=== PATIENT | male | born 1960 | race Caucasian/White ===

== ENCOUNTER 2023-05-02 12:30 | Outpatient (CLI) | payer MEDICARE, OTHER, SELFPAY ==
[2023-05-02 15:50] LABS: Absolute Lymphocyte Count 3.99 X10^3/uL (0.83-4.51); Absolute Neutrophil Count 10.3 X10^3/uL (2.0-7.7); Basophil# 0.12 X10^3/uL; Basophil% 0.7 % (0-1); Eosinophil# 0.31 X10^3/uL; Eosinophils% 1.9 % (0-5); Hematocrit 47.6 % (40-54); Hemoglobin 15.7 g/dL (13.0-16.5); Lymphocyte # 3.99 X10^3/ul (0.83-4.51); Lymphocyte % 24.8 % (19-41); Mean Corpuscular Hgb 31.7 pg (27.0-32.0); Mean Corpuscular Volume 96.2 fL (80-94); Mean Platelet Vol. 11.8 fl (6.2-12.0); Monocyte# 1.32 X10^3/uL; Monocyte% 8.2 % (0-10); NRBC Flagged by Analyzer 0 % (0-5); Neutrophil # 10.28 X10^3/uL (2.7-7.7); Neutrophil % 63.9 % (47-70); Platelet Count 289 K/mm3 (150-450); RBC Distribution Width CV 14.4 % (11.6-14.6); RBC Distribution Width SD 50.8 fl (35.1-43.9); Red Blood Count 4.95 M/mm3 (4.6-6.2); White Blood Count 16.1 K/mm3 (4.4-11.0)
[2023-05-02 16:26] LABS: AST(SGOT) 23 U/L (15-37); Alanine Aminotransfer ALT/SGPT 32 U/L (16-61); Albumin, Serum 3.9 g/dL (3.2-5.0); Alkaline Phosphatase 76 U/L (45-117); Anion Gap 7 (5-15); BUN 10 mg/dL (7-18); BUN/Creat Ratio 11.5 RATIO (10-20); Calcium,Total 8.9 mg/dL (8.5-10.1); Chloride 107 mmol/L (98-107); Cholesterol 145 mg/dL (200); Creatinine, Serum 0.87 mg/dL (0.70-1.30); EST Glomerular Filtration Rate 94 mL/min (>60); Est Glom Filt Rate - Afr Amer 113 mL/min (>60); Globulin 3.8 g/dL (2.2-4.2); Glucose 83 mg/dL (74-106); High Density Lipoprotein 31 mg/dL; PSA,Total - Annual Screen 0.56 ng/mL (0.00-4.00); Potassium 4.2 mmol/L (3.5-5.1); Protein, Total 7.7 g/dL (6.4-8.2); Sodium Level 138 mmol/L (136-145); Thyroid Stim Hormone (TSH) 1.08 uIU/mL (0.358-3.74); Triglycerides 120 mg/dL; Very Low Density Lipoprotein 24 mg/dL (5-40)
== END 2023-05-02 23:59 | disposition home or self-care (01) ==
LOC: MFPLAB 12:38
PROVIDERS: PCP Family Medicine; Visit Provider Family Medicine
DX: I25.10 Atherosclerotic heart disease of native coronary artery without angina pectoris (principal); R30.0 Dysuria; Z13.6 Encounter for screening for cardiovascular disorders; Z12.5 Encounter for screening for malignant neoplasm of prostate
CPT/HCPCS: 36415; 80053; 80061; 84153; 84443; 85025; G0103

== ENCOUNTER → 2023-05-31 | Outpatient (CLI) | payer MEDICARE, OTHER, SELFPAY ==
[2023-05-31 15:43] LABS: Anion Gap 5 (5-15); BUN 12 mg/dL (7-18); BUN/Creat Ratio 12.7 RATIO (10-20); Calcium,Total 8.9 mg/dL (8.5-10.1); Chloride 108 mmol/L (98-107); Creatinine, Serum 0.94 mg/dL (0.70-1.30); EST Glomerular Filtration Rate 85 mL/min (>60); Est Glom Filt Rate - Afr Amer 103 mL/min (>60); Glucose 98 mg/dL (74-106); Potassium 3.7 mmol/L (3.5-5.1); Sodium Level 137 mmol/L (136-145)
== END | disposition home or self-care (01) ==
LOC: MFPLAB 12:26
PROVIDERS: PCP Family Medicine; Visit Provider Internal Medicine Cardiovascular Disease
DX: I25.10 Atherosclerotic heart disease of native coronary artery without angina pectoris (principal); I10 Essential (primary) hypertension
CPT/HCPCS: 36415; 80048

== ENCOUNTER → 2023-06-08 | Outpatient (CLI) | payer MEDICARE, OTHER, SELFPAY ==
--- NOTE | 2023-06-08 08:45 | US_ITS ---
EXAM: US RETROPERITONEAL LIMITED, AORTA CLINICAL INDICATION: Smoked for over 20 years TECHNIQUE: Reis scale and color Doppler imaging was obtained of the abdominal aorta. COMPARISON: No relevant prior studies available. FINDINGS: AORTA: There is no abdominal aortic aneurysm. COMMON ILIAC ARTERIES: Unremarkable as visualized. The iliac arteries are not enlarged. US/US ABD AORTA SCREEN/AAA IMPRESSION: No sonographic evidence of abdominal aortic aneurysm. Electronically Signed: Kimo Alfaro (Brooks), at 20:44 EDT ,
== END | disposition home or self-care (01) ==
LOC: US 08:41
PROVIDERS: PCP Family Medicine; Referring Provider Family Medicine; Visit Provider Family Medicine
DX: Z72.0 Tobacco use (principal); Z12.2 Encounter for screening for malignant neoplasm of respiratory organs
CPT/HCPCS: 76706

== ENCOUNTER → 2023-06-10 | Outpatient (CLI) | payer MEDICARE, OTHER, SELFPAY ==
--- NOTE | 2023-06-10 07:07 | AAAS_ITS ---
Reason For Study: TOB USE, SCREENING Aorta Measurements Aorta Doppler Measurements Proximal aorta measures2.12 x 2.14cm. in cross- Peak systolic flow velocities within the proximal sectional axis. aorta measure 90.4 cm/sec. Proximal aorta measures1.97cm. in longitudinal Peak systolic flow velocities within the mid aorta axis. measure 94.1 cm/sec. Mid aorta measures2.25 x 2.31cm. in cross- Peak systolic flow velocities within the distal sectional axis. aorta measure 116.2 cm/sec. Mid aorta measures2.35cm. in longitudinal axis. Distal aorta measures2.29 x 2.11cm. in cross- sectional axis. Distal aorta measures2.1cm. in longitudinal axis. Left Iliac Artery Left iliac artery measures 1.25 x 1.19 cm. in the cross-sectional axis. Left iliac artery measures 1.2 cm. in the longitudinal axis. Peak systolic velocity in the left iliac artery measures 85.1 cm/sec. Right Iliac Artery Right iliac artery measures 1.32 x 1.39 cm. in the cross-sectional axis. Right iliac artery measures 1.32 cm. in the longitudinal axis. Peak systolic velocity in the right iliac artery measures 94.2 cm/sec. VL/AAA Screening Interpretation Summary Aorta patent, normal caliber Bilateral iliac arteries patent, normal caliber Ordering Physician: Bre Ring Referring Physician: Bre Ring Performed By: Eulalia Serna, RDCS, RVT
== END | disposition home or self-care (01) ==
LOC: CVS 06:54
PROVIDERS: PCP Family Medicine; Referring Provider Family Medicine; Visit Provider Family Medicine
DX: Z72.0 Tobacco use (principal)
CPT/HCPCS: 76706

== ENCOUNTER → 2023-06-18 | Outpatient (CLI) | payer MEDICARE, OTHER, SELFPAY ==
--- NOTE | 2023-06-18 17:00 | CT_ITS ---
STUDY: CT ABDOMEN AND PELVIS WITH CONTRAST REASON FOR EXAM: Male, 63 years old. Abd pain and difficulty with urination RADIATION DOSAGE (If Supplied By Facility): CTDIvol = ( 17.97 ) mGy, DLP = ( 2149.22 ) mGycm TECHNIQUE: Transaxial images were obtained from the dome of the diaphragm to the symphysis pubis without oral contrast. IV 100mL Isovue-300 was administered. Sagittal and coronal images were reconstructed. Individualized dose optimization techniques were used for this CT. COMPARISON: June 08, 2023 Limited study ultrasound abdomen FINDINGS: There is visualized emphysematous change and minimal fibrotic change within the lungs. There is mild cardiac enlargement are visualized coronary calcifications. There is a nonspecific low attenuating 5 mm cyst in the right hepatic lobe, too small to characterize. There are surgical clips in the gallbladder fossa consistent with a prior cholecystectomy. Normal spleen. Normal pancreas. There is a thickened appearance of the left-sided adrenal gland with a small low attenuating nodule that measures approximately 1 cm. Normal right kidney. Normal left kidney. There is a fluid distended appearance of the stomach. Normal small intestine. There is abundant stool in the colon from the cecum to the rectum. There is minimal diverticulosis without diverticulitis. Appendix is not seen with certainty. The aorta is partially calcified. There is calcification taken of the celiac renal arteries are mesenteric artery and the inferior mesenteric artery. Normal inferior vena cava. Normal retroperitoneum. The bladder is distended. The delayed images show that the bladder is partially filled. There are prostatic calcifications. There are small fatty inguinal hernias. There is a visualized hernia mesh at the level anterior aspect of the abdomen underlying the umbilicus. There are diffuse degenerative changes of the visualized lumbar spine. At L5-S1 there is visualized vacuum phenomenon and disc space narrowing broad disc bulge mild neural foramina narrowing minimal central stenosis CT/Abdomen/Pelvis W IV Cont ONLY IMPRESSION: No hydronephrosis. No visualized renal ureteral bladder calculi. The bladder appears to partially fill with contrast on the delayed imaging. Consider pre and post void bladder ultrasound when appropriate. Moderate constipation. Mildly thickened appearance of the left adrenal gland with a small low attenuating nodule measuring 1 cm which is most likely an adrenal adenoma. Status post cholecystectomy. Degenerative change of the thoracolumbar spine. Electronically Signed: Mita Bryan MD at 2:53 EDT ,
== END | disposition home or self-care (01) ==
LOC: CT 16:42
PROVIDERS: PCP Family Medicine; Referring Provider Family Medicine; Visit Provider Family Medicine
DX: R10.9 Unspecified abdominal pain (principal)
CPT/HCPCS: 74177; Q9967

== ENCOUNTER → 2023-06-21 | Outpatient (CLI) | payer MEDICARE, OTHER, SELFPAY ==
--- NOTE | 2023-06-21 13:45 | ECHOD_ITS ---
Version 2 Reason For Study: ASHD/CAD Procedure This was a 2D Doppler, Color Flow transthoracic echocardiogram. Exam performed in department. Left Ventricle Normal LV size. Apical false tendon noted. Left ventricular systolic function is normal. The estimated ejection fraction is 60 %. Normal diastology for age. No regional wall motion abnormalities noted. Right Ventricle Normal RV size. Normal systolic function. Atria The left atrium is moderately enlarged. Normal right atrium. Mitral Valve The mitral valve is structurally normal. No prolapse or stenosis seen. Mild (1+) mitral valve insufficiency. Tricuspid Valve Normal tricuspid valve. Trivial tricuspid valve insufficiency. Unable to estimate RV systolic pressure due to insufficient tricuspid regurgitant envelope. Aortic Valve The aortic valve is not well visualized in the short axis view. There is no aortic stenosis. Pulmonic Valve The pulmonic valve is not well visualized. Great Vessels Mild atherosclerosis of the ascending aorta. Normal sized aortic root. Pericardium/Pleural No pericardial effusion. MMode/2D Measurements & Calculations RVDd: 3.1 cm Ao root diam: 2.9 cm LAV(MOD-bp): 80.0 ml LAV(MOD-bp) Indexed: 40.4 ml/m2 LAV(MOD-sp2): 70.8 ml LAV(MOD-sp4): 77.3 ml SV(MOD-sp4): 59.1 ml SV(sp4-el): 64.0 ml LVAd ap4: 32.6 cm2 LVLd ap4: 8.4 cm EDV(MOD-sp4): 101.9 ml EDV(sp4-el): 106.8 ml LVAs ap4: 18.1 cm2 LVLs ap4: 6.5 cm ESV(MOD-sp4): 42.8 ml ESV(sp4-el): 42.8 ml EF(MOD-sp4): 58.0 % EF(sp4-el): 60.0 % LA A4 area: 24.2 cm2 LA dimension(2D): 4.6 cm RA A4 area: 15.7 cm2 TAPSE: 2.1 cm Time Measurements MV dec time: 0.28 sec Doppler Measurements & Calculations MV E max ruben: 71.2 cm/sec Lat Peak E' Ruben: 12.1 cm/sec Med Peak E' Ruben: 10.9 cm/sec MV A max ruben: 69.2 cm/sec E/E' lat: 5.9 E/E' med: 6.5 MV E/A: 1.0 MV V2 max: 94.7 cm/sec Ao V2 max: 143.4 cm/sec MV max P.6 mmHg MV dec slope: 268.3 cm/sec2 Ao max P.2 mmHg MV V2 mean: 63.6 cm/sec Ao V2 mean: 100.0 cm/sec MV mean P.8 mmHg Ao mean P.5 mmHg MV V2 VTI: 32.2 cm Ao V2 VTI: 32.6 cm AV (velocity ratio): 0.74 LV V1 max: 115.1 cm/sec PA V2 max: 113.8 cm/sec LV V1 max P.3 mmHg PA V2 mean: 84.9 cm/sec LV V1 mean P.7 mmHg LV V1 mean: 76.2 cm/sec LV V1 VTI: 24.1 cm ECHO/Echo Complete Interpretation Summary The estimated ejection fraction is 60 %. Mild (1+) mitral valve insufficiency. The left atrium is moderately enlarged. Ordering Physician: Michael Houser Referring Physician: Michael Houser Performed By: Windy Vilchis RCS
== END | disposition home or self-care (01) ==
PROVIDERS: PCP Family Medicine; Referring Provider Internal Medicine Cardiovascular Disease; Visit Provider Internal Medicine Cardiovascular Disease
DX: I25.10 Atherosclerotic heart disease of native coronary artery without angina pectoris (principal); I10 Essential (primary) hypertension; Z95.5 Presence of coronary angioplasty implant and graft
CPT/HCPCS: 93306

== ENCOUNTER 2023-08-21 13:19 | Observation (INO) | payer MEDICARE, OTHER, SELFPAY ==
[2023-08-14 13:38] LABS: Hemoglobin 13.9 g/dL (13.0-16.5); Mean Corp Hgb Conc 33.1 g/dL (32-36); Mean Corpuscular Hgb 31.7 pg (27.0-32.0); Mean Corpuscular Volume 95.7 fL (80-94); Mean Platelet Vol. 10.9 fl (6.2-12.0); Platelet Count 296 K/mm3 (150-450); RBC Distribution Width CV 14.4 % (11.6-14.6); RBC Distribution Width SD 50.8 fl (35.1-43.9); Red Blood Count 4.39 M/mm3 (4.6-6.2); White Blood Count 11.6 K/mm3 (4.4-11.0)
[2023-08-14 13:44] LABS: Prothrombin Time (Protime)PT. 13.3 SECONDS (11.7-14.9)
[2023-08-14 13:45] LABS: Partial Thromboplast Time 29.8 Seconds (24.1-36.2)
[2023-08-14 14:05] LABS: AST(SGOT) 11 U/L (15-37); Alanine Aminotransfer ALT/SGPT 18 U/L (16-61); Albumin, Serum 3.4 g/dL (3.2-5.0); Alkaline Phosphatase 73 U/L (45-117); Bilirubin, Direct 0.18 mg/dL (0.00-0.30); Globulin 3.6 g/dL (2.2-4.2)
[2023-08-21] VITALS (10 sets, daily range): BP systolic 112–153; BP diastolic 59–73; PULSE 62–82; RESP 16–18; TEMP 36.4–37.1; O2SAT 95–98; BMI 33.2
[2023-08-21] MEDS: Lactated Ringers 1,000 ML 15 ML IV (12:00)
--- NOTE | 2023-08-21 12:08 | HP.PCM_ITS ---
HPI - General General Date of Service: 08/21/23 HPI Narrative CITLALLI CLAUDIO, is a 63 M who presents for transurethral resection of the prostate [facility] Medical History (Updated 08/12/23 @ 11:15 by Anne-Marie Hoffman) Alcohol use Arthritis Atherosclerosis of coronary artery of [place] heart without angina pectoris BPH (benign prostatic hyperplasia) Cardiology follow-up encounter Chronic cough COPD (chronic obstructive pulmonary disease) Excessive bleeding Gastric reflux History of echocardiogram History of edema History of heart attack Hypertension Restless legs Smoker STEMI (ST elevation myocardial infarction) Ventricular tachycardia Wears glasses Home Medications aspirin 81 mg chewable tablet 81 mg PO DAILY 05/30/23 [History Last Taken 08/09/23] losartan 25 mg tablet 25 mg PO DAILY #90 tabs 05/30/23 [Rx Last Taken 08/21/23] naproxen 220 mg PO BID 05/30/23 [History Last Taken Unknown] tamsulosin 0.4 mg capsule 0.4 mg PO QHS 05/30/23 [History Last Taken Unknown] sennosides 8.6 mg tablet 8.6 mg PO DAILY 07/10/23 [History Last Taken Unknown] famotidine 20 mg tablet 20 mg PO DAILY 08/12/23 [History Last Taken Unknown] Allergy/AdvReac Type Severity Reaction Status Date / Time acetaminophen [From Vicodin] AdvReac Intermediate Other Verified 08/12/23 11:00 hydrocodone [From Vicodin] AdvReac Intermediate Other Verified 08/12/23 11:00 Family History Father Hypertension Heart disease CVA (cerebral vascular accident) Mother Heart disease Brother Cancer Heart disease CVA (cerebral vascular accident) Sister Heart disease Cancer Surgical History (Updated 08/12/23 @ 11:12 by Anne-Marie Hoffman) History of appendectomy History of cardiac catheterization History of cholecystectomy History of coronary artery stent placement (08/09/14) S/P surgical removal of pilonidal cyst Social History (Updated 05/30/23 @ 11:25 by Alexandra Morrissey) Smoking Status: Current every day smoker tobacco type: cigarettes alcohol intake: current alcohol intake frequency: a few times a week substance use type: does not use caffeine: Yes Type: coffee Number of servings: 6 Vital Signs Vital Signs Vital Signs: 08/21/23 10:28 08/21/23 10:28 Temperature 98.7 F Temperature Source Temporal Pulse Rate 80 Respiratory Rate 18 Respiratory Pattern Normal Blood Pressure 153/71 H Blood Pressure Mean 98 Blood Pressure Source Monitor Blood Pressure Position Semi-Fowlers Blood Pressure Location Right Arm Pulse Ox 98 Oxygen Delivery Method Room Air Weight Weight: 93.44 kg Body Mass Index (BMI) 33.2 Results Lab / Micro Data 08/14/23 12:40
--- NOTE | 2023-08-21 12:30 | PROS_PTH ---
PATIENT: CITLALLI CLAUDIO LOC: MS3 U#:[id number] AGE/SX: 63/M ROOM: [facility] [place] RE08/21/[address]: Dr. Marco Madison MD : 1960 BED: 1 DIS: 08/22/2023 SPEC #: [id number] RECD: 08/22/23 07:51 STATUS: GEORGIANA MCDANIELS #: [id number] YAA: 08/21/23 12:[address]: Marco Madison DEPT: SURGICAL PATHOLOGY RECD BY: Carlie Centeno ENTERED: 08/22/23 07:51 SP TYPE: TURP OTHR DR: Bre Ring MD Tissues: Prostate, NOS Procedures: Surgery Specimen Level IV HEADER OPERATION: Cysto, transurethral resection prostate PRE-OP DIAGNOSIS: BPH TISSUE SUBMITTED: Prostate tissue MICROSCOPIC DIAGNOSIS Prostate tissue, Transurethral resection of prostate: Benign prostatic hyperplasia, glandular stromal type. Chronic inflammation. SJ: 08/23/2023 MICROSCOPIC DESCRIPTION Slides are reviewed. GROSS DESCRIPTION Received is one container labeled with the patient's name and designated prostate tissue. The specimen consists of multiple irregular fragments of pink-woodall, rubbery, soft tissue that in aggregate weigh 3.8 gm and measure in aggregate 3 x 3 x 1 cm. The entire specimen is submitted in four cassettes. /BARBARA:cc:benton 08/22/23 TC:5 CPT: 05580
[2023-08-21] MEDS: Cefazolin 2 GM in 0.9% Normal Saline (100mL Bag) 100 ML IV (12:38)
[2023-08-21] MEDS: Lubricating Jelly 60 GM Tube 30 GM (12:54)
--- NOTE | 2023-08-21 13:22 | DCINST_ITS ---
Discharge Instructions Diet Discharge Diet: No restrictions Activity Discharge Activity: Return to Normal Activity and May Not Drive (while taking narcotic pain medications.) Dressing / Incision Call your doctor if you observe: Fever of 101 or Higher Follow Up Care Please Follow Up With: Marco Madison MD When: Call [phone] for an appointment Test Results: Test results from this visit will be discussed in further detail at your follow- up appointment, if applicable. Discharge Plan Admission Primary Reason for Your Visit: Transurethral section of prostate Attending Provider: Marco Madison Primary Care Provider: Bre Ring Discharge Orders/Prescriptions Prescriptions: New ciprofloxacin HCl [Cipro] 500 mg tablet 500 mg PO BID Qty: 14 0RF Continued tamsulosin 0.4 mg capsule 0.4 mg PO QHS naproxen 220 mg PO BID losartan 25 mg tablet 25 mg PO DAILY Qty: 90 3RF aspirin 81 mg tablet,chewable 81 mg PO DAILY sennosides 8.6 mg tablet 8.6 mg PO DAILY famotidine 20 mg tablet 20 mg PO DAILY Referrals / Follow Up: Bre Ring MD [Primary Care Provider] - Marco Madison MD [Med Staff - Active Staff] - Disposition Disposition (needs filled in before D/C Order can be placed): Home, Self Care
--- NOTE | 2023-08-21 13:23 | OP.PCM_ITS ---
Report of Operation Date of Procedure: 08/21/23 Pre-Operative Diagnosis: BPH with obstruction, atonic bladder Post-Operative Diagnosis: The same Surgery/Procedure Performed:: Transurethral resection of the prostate Description of Surgical Findings:: This is a 63-year-old male has been having difficulty with emptying bladder slow stream poor emptying the bladder on cystoscopy found to have short but obstructive prostate he does have a distended bladder stretched out a week atonic looking bladder I recommended we do a transurethral resection of the prostate but understand the limitations the situation is possible that even with the resection of the prostate he still have difficulty emptying his bladder is possible that he may have an atonic bladder that can prevent bladder emptying and that the surgery will be effective in relieving his urinary obstructive symptoms. After consultation with the patient he agrees to proceed with a transurethral resection of prostate talked with the risk of bleeding infection and failure to improve his situation Patient was taken back to the operating room at a smooth induction of general anesthesia he was placed in dorsolithotomy position. The penis testicles were prepped and draped in usual fashion. Went into the bladder with a 24 Polish noncontinuous flow Olympus resectoscope identified the sphincter of the verumontanum the meatus was normal there is no strictures or structures along the course of the urethra one-sided identified the verumontanum the more the tissue was marked right in front of the Veru circumferentially and then starting at the 12:00 I resected back to the rakesh and then I worked my way down from the 12:00 to the 6:00 on the right side during the 12:00 1:00 2:00 3:00 and 4:00 and 5:00 and 6:00 resecting the tissue and then I worked my way back to 12:00 and th en worked my way back on the other side started at the 12 o'clock position working my left left with 11:00 10:00 9:00 8:00 6:00 and 5:00 on the left side once the all the tissue was resected then I resected completely make sure there is no flapping tissue we did a flow test the flow was adequate but not superstrong. The sphincter was intact I was happy with the resection that we then Ellik out all the resection chips from the bladder made sure hemostasis was perfect and then put a catheter bladder for continuous irrigation we will keep overnight for irrigation and remove the catheter tomorrow for voiding trial. Surgeon: Marco Madison Type of Anesthesia: General Drains: chinchilla Estimated Blood Loss (mL): 0 Admit VTE Documentation VTE Present on Admission: No VTE Mechan Device Prophylaxis: SCD's VTE Pharm Prophylaxis ordered?: No
[2023-08-21] MEDS: Lactated Ringers 1,000 ML 125 ML IV (14:50)
[2023-08-21] MEDS: HYDROcodone Bitartrate/Apap 5/325 Tablet PO (20:37)
[2023-08-21] MEDS: Docusate Sodium 100 MG Capsule 200 MG PO (20:41)
[2023-08-21] MEDS: Ciprofloxacin 400 MG/200 ML BAG 200 MG IV (20:41)
[2023-08-22 04:38] VITALS: BP 146/69; PULSE 75; RESP 16; TEMP 37.1; O2SAT 96
--- NOTE | 2023-08-22 07:53 | PCM.PN.GU ---
Subjective Subjective s/p TURP d/c chinchilla for a voiding trial home today after voids follow up with urology 2 weeks. Objective Data Objective Data Vital Signs: Vital Signs Temp Pulse Resp BP Pulse Ox O2 Del Method 98.7 F 75 16 146/69 H 96 Room Air 08/22/23 04:38 08/22/23 04:38 08/22/23 04:38 08/22/23 04:38 08/22/23 04:38 08/22/23 04:38 Oxygen Delivery Method Room Air Weight: 93.44 kg Body Mass Index (BMI) 33.2 Intake & Output: Intake and Output for Last 24 Hours 08/20/23 08/21/23 08/22/23 23:59 23:59 23:59 Intake Total 355.5 / 355.5 2300 / 2300 Output Total 2100 / 2100 1400 / 1400 Balance -1744.5 / -1744.5 900 / 900 Lab / Micro Data 08/14/23 12:40
[2023-08-22 08:02] VITALS: BP 144/68; PULSE 80; RESP 16; TEMP 36.9; O2SAT 95
[2023-08-22] MEDS: Ciprofloxacin 400 MG/200 ML BAG 200 MG IV (09:24)
[2023-08-22] MEDS: Docusate Sodium 100 MG Capsule 200 MG PO (09:24)
--- NOTE | 2023-08-22 09:37 | PHA.DC.MC.R ---
Pharmacy [facility] Pharm[facility] Service has performed discharge medication reconciliation and counseling for this patient. The patient was counseled on the following discharge medications and changes in medications for homegoing were reviewed. 1. CIPRO The Reason for Use, instructions for use, and potential side effects were reviewed for all new medications. The patient's questions regarding all of their medications were answered. The patient was able to verbally demonstrate an understanding of their discharge medications. The patient's discharge medication list was reviewed for discrepancies and discrepancies were resolved. The patient was counselled by Bruce Crespo PharmD candidate Medications at Discharge Home Medications aspirin 81 mg chewable tablet 81 mg PO DAILY 05/30/23 losartan 25 mg tablet 25 mg PO DAILY #90 tabs 05/30/23 naproxen 220 mg PO BID 05/30/23 tamsulosin 0.4 mg capsule 0.4 mg PO QHS 05/30/23 sennosides 8.6 mg tablet 8.6 mg PO DAILY 07/10/23 famotidine 20 mg tablet 20 mg PO DAILY 08/12/23 ciprofloxacin HCl 500 mg tablet (Cipro) 500 mg PO BID #14 tabs 08/21/23
[2023-08-22 12:53] VITALS: BP 117/65; PULSE 71; RESP 16; TEMP 36.8; O2SAT 100
== END 2023-08-22 12:58 | disposition home or self-care (01) ==
LOC: SDC 15:45 → MS3 15:45
PROVIDERS: Anesthesiology; Admitting Provider Urology; PCP Family Medicine; Referring Provider Urology; Visit Provider Urology
PROC: 0VT08ZZ Resection of Prostate, Via Natural or Artificial Opening Endoscopic (ICD-10-PCS; CPT 52601; principal; 2023-08-21 12:20)
DX: N40.1 Benign prostatic hyperplasia with lower urinary tract symptoms (principal); J44.9 Chronic obstructive pulmonary disease, unspecified; I25.10 Atherosclerotic heart disease of native coronary artery without angina pectoris; F17.210 Nicotine dependence, cigarettes, uncomplicated; R35.0 Frequency of micturition; R32 Unspecified urinary incontinence; R33.8 Other retention of urine; R35.1 Nocturia; N31.2 Flaccid neuropathic bladder, not elsewhere classified; I10 Essential (primary) hypertension; Z79.899 Other long term (current) drug therapy; K21.9 Gastro-esophageal reflux disease without esophagitis; Z79.82 Long term (current) use of aspirin; Z86.2 Personal history of diseases of the blood and blood-forming organs and certain disorders involving the immune mechanism; I25.2 Old myocardial infarction
CPT/HCPCS: 52601; 00914; 36415; 80076; 85027; 85610; 85730; 88305; 94668; 96361; 96365; 96366; 99221; 99406; J7120; G0378; J0744; J2405

== ENCOUNTER → 2023-09-24 | Outpatient (CLI) | payer MEDICARE, OTHER, SELFPAY | END | disposition home or self-care (01) | LOC: LABSPEC 17:09 | PROVIDERS: PCP Family Medicine; Referring Provider Nurse Practitioner; Visit Provider Nurse Practitioner | DX: N30.01 Acute cystitis with hematuria (principal) | CPT/HCPCS: 87077; 87086; 87088; 87186 ==

== ENCOUNTER 2023-10-24 08:46 | Day surgery (SDC) | payer MEDICARE, OTHER, SELFPAY ==
[2023-10-15 13:23] LABS: Hematocrit 45.1 % (40-54); Hemoglobin 14.9 g/dL (13.0-16.5); Mean Corpuscular Hgb 31.9 pg (27.0-32.0); Mean Corpuscular Volume 96.6 fL (80-94); Mean Platelet Vol. 11.2 fl (6.2-12.0); Platelet Count 259 K/mm3 (150-450); RBC Distribution Width SD 49.6 fl (35.1-43.9); Red Blood Count 4.67 M/mm3 (4.6-6.2); White Blood Count 11.9 K/mm3 (4.4-11.0)
[2023-10-15 13:42] LABS: AST(SGOT) 10 U/L (15-37); Alanine Aminotransfer ALT/SGPT 20 U/L (16-61); Albumin, Serum 3.7 g/dL (3.2-5.0); Alkaline Phosphatase 78 U/L (45-117); Anion Gap 2 (5-15); BUN 11 mg/dL (7-18); BUN/Creat Ratio 11.1 RATIO (10-20); Bilirubin, Direct 0.16 mg/dL (0.00-0.30); Calcium,Total 9.2 mg/dL (8.5-10.1); Chloride 108 mmol/L (98-107); Creatinine, Serum 0.99 mg/dL (0.70-1.30); EST Glomerular Filtration Rate 81 mL/min (>60); Est Glom Filt Rate - Afr Amer 98 mL/min (>60); Globulin 3.5 g/dL (2.2-4.2); Glucose 98 mg/dL (74-106); Potassium 3.8 mmol/L (3.5-5.1); Protein, Total 7.2 g/dL (6.4-8.2); Sodium Level 140 mmol/L (136-145)
[2023-10-15 13:46] LABS: Partial Thromboplast Time 29.6 Seconds (24.1-36.2); Prothrombin Time (Protime)PT. 12.7 SECONDS (11.7-14.9)
[2023-10-24] VITALS (9 sets, daily range): BP systolic 132–154; BP diastolic 68–83; PULSE 70–83; RESP 15–18; TEMP 36.1–36.9; O2SAT 93–100; BMI 33.4
[2023-10-24] MEDS: Lactated Ringers 1,000 ML 15 ML IV (09:19)
--- NOTE | 2023-10-24 09:20 | HP.PCM_ITS ---
History and Physical Date of Admission: 10/24/23 Date of Service: 10/04/23 MR#: [id number] Acct: [id number] Name: CITLALLI RODRIGUEZ Rep #: [id number] : 1960 Provider: Dr. Nicholas Lin MD Age/Sex: 63/M Location: [facility] Status: Signed Intake Vital Signs 08/27/2309:21 10/04/2313:01 Height 5 ft 6 in 5 ft 6 in Weight: 212 lb 6 oz 212 lb BMI 34.2 34.2 BP 125/77 H 135/81 H Blood Pressure Location Rt brachial Rt brachial Position Sitting Sitting Respiration 18 18 Pulse 87 74 Pulse Source Monitor Monitor Temp 98.0 F 98 F Temp Source Temporal Temporal Pulse Oximetry (%) 98 95 Oxygen Delivery Method room air room air Intake Visit Reasons: INGUINAL HERNIA Chief Complaint: update h/p hernia surgery Is patient in pain?: No Allergies acetaminophen [From Vicodin] Adverse Reaction (Intermediate, Verified 10/04/23 13:02) Otherhydrocodone [From Vicodin] Adverse Reaction (Intermediate, Verified 10/04/23 13:02) Other Medications aspirin 81 mg chewable tablet 81 mg PO DAILY 05/30/23 [History Confirmed 10/04/23] losartan 25 mg tablet 25 mg PO DAILY #90 tabs 05/30/23 [Rx Confirmed 10/04/23] naproxen 220 mg PO BID 05/30/23 [History Confirmed 10/04/23] tamsulosin 0.4 mg capsule 0.4 mg PO QHS 05/30/23 [History Confirmed 10/04/23] sennosides 8.6 mg tablet 8.6 mg PO DAILY 07/10/23 [History Confirmed 10/04/23] famotidine 20 mg tablet 20 mg PO DAILY 08/12/23 [History Confirmed 10/04/23] ciprofloxacin HCl 500 mg tablet (Cipro) 500 mg PO BID #14 tabs 08/21/23 [Rx Confirmed 10/04/23] PFSH Medical History Alcohol use Arthritis Atherosclerosis of coronary artery of [place] heart without angina pectoris BPH (benign prostatic hyperplasia) Cardiology follow-up encounter Chronic cough COPD (chronic obstructive pulmonary disease) Excessive bleeding Gastric reflux History of echocardiogram History of edema History of heart attack Hypertension Restless legs Smoker STEMI (ST elevation myocardial infarction) Ventricular tachycardia Wears glasses Surgical History History of appendectomy History of cardiac catheterization History of cholecystectomy History of coronary artery stent placement (08/09/14) S/P surgical removal of pilonidal cyst Family History Father Hypertension Heart disease CVA (cerebral vascular accident)Mother Heart diseaseBrother Cancer Heart disease CVA (cerebral vascular accident)Sister Heart disease Cancer Social History Smoking Status: Current every day smoker tobacco type: cigarettes alcohol intake: current alcohol intake frequency: a few times a week substance use type: does not use caffeine: Yes Type: coffee Number of servings: 6 HPI HPI HPI: Patient is a 63-year-old male who follows up for bilateral inguinal hernias. Initial surgical consultation was 07/10/2023. He shares that he has recovered well following his prostatectomy. He confirms that his urinary habits have improved and that he is getting up less throughout the nighttime. He has met with urology is pleased with his recovery. He does share that he has had to self cath a couple of times since his procedure. Concerning his hernias he shares that he is having more pain on the right side than the left side. He also notes that when flexing his upper leg he experiences some bulging on the right. Positively, Mr. Rodriguez shares that his constipation has responded well to daily use of MiraLAX and he is now experiencing 1-2 bowel movements per day. He confesses that his smoking status remained stable at approximately 1/2 pack/day. Below is recapitulated from patient's prior visit for ease of review: In the interim he did undergo a transurethral prostatectomy with urology on 08/21/2023. Today he reports that overall his recovery has been uneventful from this procedure, but states that he is yet to follow-up with urology and that this appointment is due on 09/09/2023. He does report that he has had to self cath several times since his procedure due to persistent urinary retention and yet he believes that overall this issue is improved from preop. He denies any postoperative fevers or chills. From a hernia standpoint he believes that his right side has become more symptomatic and he finds it uncomfortable when sitting with the bulge of tissue at that location. He also reports that there is a pulling sensation on the right side with taking deep breaths. He confirms that his bowel movements have been unaffected by this issue and that his transition to a generic Metamucil/fiber supplementation is resulting in more frequent bowel movements which she estimates occur 3 times per week. Concerning his smoking status, he reports that he has cut back but has not undergone complete cessation and states that his current use is a less than 1 pack/day. Patient is a 63-year-old male who presents for bilateral inguinal hernias. This finding was first noticed by CT imaging from 06/18/2023, however, patient states that he has been aware of discomfort in this location for the last 6 months to a year. He admits that he did not routinely seek medical evaluation due to his high deductible insurance plan until he recently became eligible for Medicare. He then established with Dr. Ring who recommended he pursue a CT scan for his complaints of constipation and difficulty urinating. 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 Beyond the occasional discomfort from these hernias he has not noticed any bulging or changes to his bowel habits. He does confirm a history of constipation and states that he is regularly taking sennosides per recommendation from Dr. Ring. Patient has a personal history of smoking which she quantifies as 30 to 40 pack years. He reports that he is interested in stopping smoking after visiting with Dr. Ring. Has no personal history of recurrent cutaneous infections including staph. In addition to the above Mr. Murdock's states that his difficulty urinating has led to a urologic evaluation and that he is now on Flomax. He states that it is only been 1 to 2 weeks with this prescription but that he is due for follow-up at the end of July. His issues include frequent nighttime awakenings and urgency. Pertinent surgical history includes: Open umbilical hernia, laparoscopic cholecystectomy, and laparoscopic appendectomy ROS General General: No weight change, appetite, fatigue, colon cancer, breast cancer or weakness HEENT HEENT: No difficulty swallowing, eye injury, eye surgery, swollen glands or hoarseness Endo Endocrine: No thyroid disease, diabetes mellitus, thyroid cancer, Hair loss, heat intolerance or cold intolerance Skin Skin: No rash or changing moles Breast Breast: No left breast lump, right breast lump, nipple discharge, breast pain, abnormal mammogram, abnormal US or breast enlargement Musc Musculoskeletal: Yes back problems and arthritis; No rheumatoid arthritis, gout or joint pain Cardio Cardiovascular: Yes heart disease, high blood pressure, heart attack and heart stent; No murmur, pacemaker, atrial fibrillation, palpitations, shortness of breat with exertion or chest pain Psych Psychiatric: No depression, anxiety or hearing voices Resp Respiratory: No shortness of breath, No sleep apnea, No cough, No COPD, No asthma, No emphysema and No wheezing Gastro Gastrointestinal: Yes abdominal pain, No nausea or vomiting, No diarrhea, No constipation, No blood in stool, Yes acid reflux, No hemorrhoids, No ulcers, No gallbladder problem and No black,tarry stools Joey Hematologic: No blood thinners, No blood disorders, No bleeding, No anemia and No blood clots Neuro Neurologic: No system reviewed and no additional complaints, except as documented, No as per HPI, No abnormal gait, No abnormal hearing, No abnormal movements, No abnormal speech, No behavioral changes, No burning sensations, No confusion, No convulsions, No disequilibrium, No dizziness, No localized weakness, No frequent falls, No headache(s), No lack of coordination, No loss of vision, No memory loss, No numbness, No other visual disturbances, No radicular pain, No restless legs, No sensory deficit, No syncope, No tingling, No tremor(s), No weakness and No other Exam Const General: cooperative and comfortable Orientation: alert, awake and oriented x3 Resp Effort & Inspection: normal respiratory effort GI Other: Well-healed subxiphoid port site incision, well-healed infraumbilical incision. Other: Tenderness over bilateral groins with right greater than the left. Testicles are bilaterally descended. Patient has tenderness with exam and I believe I palpate defects bilaterally in the indirect positions when he is asked to cough. Assessment and Plan Assessment and Plan (1) Inguinal hernia bilateral, non-recurrent: Status: Chronic Comment: Patient is a 63-year-old male with recently?diagnosed bilateral inguinal hernias that he believes have been present for at least the past 6 months to 1 year. There is no specific inciting event. Patient reports for a update H&P visit confirming his right side hernia has become more symptomatic with pain. The hernias are quite small in size based on my independent review of patient's CT imaging as well as exam. Today the patient's exam remains largely unchanged aside from maybe some more discomfort on the right side with palpation. Mr. Rodriguez appears to have recovered well following his prostatectomy with urology but is self cathing on occasion. We will have to take this into account during his perioperative phase of care. I am pleased to hear that he has made progress with his constipation and have shared that I would recommend he not increase his level of smoking at this point nor try to cut this habit completely as this may result in significant mucus production and coughing as he would try to recover. I reiterated our expectations for the surgery including details of the procedure and post procedure lifting restrictions. Regarding our procedure details, I shared with him my concern that we may simply only find evidence of a cord lipoma and no true hernia defect on the right, but he still seems interested in proceeding with dissection of the cord, lipoma removal and mesh placement in the event this is the finding. I also reviewed with him that his MRSA screening came back negative for both MRSA or staph colonization. Plan: ? Plan to proceed for robot-assisted bilateral inguinal hernia repair with mesh October 24, 2022 I have examined the patient and the H&P has been reviewed. There are no clinical changes since date of exam. Procedure and post procedure expectations were reviewed. He reiterates that he would like an exploration of his right spermatic cord even in the event that we do not identify an obvious inguinal hernia. Will therefore plan to proceed to the operating room for robot-assisted bilateral inguinal hernia repair with mesh.
[2023-10-24] MEDS: Cefazolin 2 GM in 0.9% Normal Saline (100mL Bag) 100 ML IV (10:50)
--- NOTE | 2023-10-24 14:38 | OP.PCM_ITS ---
Report of Operation Date of Procedure: 10/24/23 Pre-Operative Diagnosis: Bilateral inguinal hernias Post-Operative Diagnosis: 1. Right Direct type inguinal hernia containing fat with small cord lipoma 2. Left Indirect type inguinal hernia with moderately large cord lipoma Surgery/Procedure Performed:: 1. Robot-assisted bilateral inguinal hernia repair with mesh 2. Adhesiolysis x 60 minutes Description of Surgical Findings:: ? Numerous adhesions between the omentum and anterior abdominal wall as well as the patient's previously?placed umbilical mesh requiring takedown to initiate procedure ? Numerous adhesions between patient's sigmoid colon and anterior abdominal wall inferiorly requiring takedown proceed with surgery ? Hernias and cord lipomas as described above ? Tuft of preperitoneal fat versus enlarged lymph node adjacent to the left femoral vein medially Surgeon: Nicholas Lin retail sales associate bilingual: Aneudy Negrete Type of Anesthesia: General/Supplemental Anesthesiologist: Chu Rasheed Specimen's removed: 9 Description of Procedure: After appropriate identification the preoperative holding area the patient was brought to the operating room where he was positioned supine on the operating table. Preoperative antibiotics were completed and the patient was administered a general anesthetic. Patient's abdomen was then prepped and draped in usual sterile fashion. Formal timeout followed to confirm patient and procedure. Procedure was begun with an optical entry facilitated by Veress insufflation at Joes's point. Once pneumoperitoneum reached a set point pressure of 12 mmHg a right paramedian incision was made and a 8 mm robotic trocar was placed with a careful Optiview technique. Follow-up laparoscopic investigation revealed numerous adhesions to the anterior abdominal wall and visibility was restricted. Thus, the Veress needle was withdrawn and a robotic port was placed through this site. With these ports in place, patient was positioned in slight Trendelenburg and I began carefully taking down the omentum from the anterior ab dominal wall. It readily became apparent that the majority of these adhesions were to the patient's previously?placed umbilical mesh which appeared to be in proper position with a flat lie. There did not appear to be any adhesions between the bowel and the anterior abdominal wall. However, when the patient was placed in further steeper Trendelenburg positioning I still was unable to visualize the internal inguinal rings. Therefore I placed the remaining robotic port in the right upper quadrant under laparoscopic visualization and the robot was docked in standard fashion. At the robot console I spent time performing additional adhesiolysis between the patient's small bowel, omentum, and the anterior abdominal wall?in the location of patient's prior open appendectomy scar and then on the left side between the patient's sigmoid colon it anterior abdominal wall through the use of sharp scissors dissection and some limited cautery effect. In this positioning I could visualize a definite indirect inguinal hernia on the left but the bowel remained partially obstructing to the view so I requested my logging assistant undock the robot and anesthesia placed patient into steeper Trendelenburg positioning. This allowed some retraction of the bowel from the pelvis and under robotic guidance my logging assistant performed a local block of the ilioinguinal nerves bilaterally. Unfortunately with closer inspection I discovered that the adhesiolysis had caused unavoidable rents in the peritoneum. Robotically, a peritoneal flap was created on the right extending from the medial umbilical ligament to the level of the ASIS (external) and was bluntly dissected to expose the medial parietal compartment and lateral visceral compartments. Medially I could visualize the pubic tubercle and developed the space of Retzius which allowed me to extrapolate laterally in a favorable plane. There did not appear to be a indirect hernia sac nor any signs of significant cord lipoma, however, medially I did find a fat plug within a small direct defect which was removed. Then I extended the dissection down to the level of the psoas muscle in the visceral compartment. I was able to clearly visualize the inverted V by the splaying of the vas deferens medially and the spermatic vessels laterally. Just lateral to the spermatic vessels I identified a small cord lipoma which I reduced and dissected off the spermatic cord. The spermatic cord itself was somewhat fatty and thus left further undisturbed. The peritoneal flap was inspected to ensure that cord was appropriately parietalized and there was no pulling of the cord structures or the viscera deeply over the psoas using the pull test. Attention was turned to the patient's left side where, again, a peritoneal flap was created and dissection was carried down in similar fashion to the space of Retzius medially and laterally over the psoas at the same depth. Here there was no obvious direct hernia defect but there was a significant amount of preperitoneal fat versus a fatty lymph node overlying the direct space. I attempted to place posterior traction on the structure to determine if I could establish an areolar plane anteriorly and thereby create a more optimal mesh groove. With this maneuver I was able to clearly establish the medial aspect of the femoral vein but the structure in which I placed traction began to ooze slightly and did not appear to be easily displaced. Therefore I moved more laterally to dissection of the patient's indirect inguinal hernia and placed traction on the hernia sac while sweeping away and using select electrocautery to relieve attachments to the hernia sac until it was fully reduced back to the level of the rest of the peritoneum. Lateral to the spermatic cord I identified a large cord lipoma which was reduced and dissected off the cord with a combination of blunt dissection and selective energy usage. It was left intact within the preperitoneal pocket?remaining vascularized from its more proximal attachment. Again, I performed the pull test to ensure that there was no tenting of structures that may compromise the future mesh lie. There was some additional peritoneum directly overlying the cord structures and the vas which I dissected posteriorly. Once satisfied, 2 X Bard 3D max, size large, mid weight meshes were placed into the abdomen along with suture. Each mesh was positioned within the respective preperitoneal pocket so that there was good medial and inferior overlap. The left mesh was then tacked to the admuniculum of the linea alba just superior to the pubic tubercle and laterally in a partial-thickness bite of the abdominal wall using a 3-0 Vicryl suture (above an imaginary line between the ASIS promontories). The right mesh was then tacked to Vinh's ligament medially and laterally as it had been done on the left side. The peritoneal flap on the right was then closed with a running 3-0 V-Loc suture taking care to conceal the barbs of the suture beneath the peritoneum. I then transitioned to the left side and closed the flap with a new 3-0 V-Loc suture in a running fashion and locked by running back on itself. There was a single peritoneal rent on the right as well as the generalized attenuated status and this rent was closed with running 3-0 Vicryl suture. A small peritoneal rent was located in the upper inner aspect of the closure adjacent to the medial umbilical ligament and this was closed with a [id number] using a second 3-0 Vicryl suture. Lastly a larger rent of the peritoneum adjacent to the sigmoid colon was closed with another running 3-0 Vicryl suture. With these closures no mesh was visible to the peritoneum. Sutures were systematically removed from the peritoneum. Pneumoperitoneum was evacuated and trocars were removed. The port sites were closed at the skin with running 4-0 Monocryl in a subcuticular fashion. Steri-Strips and OpSite's were used as dressings. Patient's testicles were confirmed within the scrotum. Patient was then awoken from anesthetic and transferred to PACU for ongoing recovery. Grafts/Implants Used: 3D max mid, LOT [id number], [id number], 3D max mid, lot [id number], ref [id number] Complications None Admit VTE Documentation VTE Mechan Device Prophylaxis: SCD's Procedures Digestive 40xxx-49xxx: 80256 Lap ing hernia repair init (with 50 modifier)
[2023-10-24] MEDS: Bupivacaine Mpf 0.5% 30 ML VIAL (14:39)
--- NOTE | 2023-10-24 14:49 | DCINST_ITS ---
Discharge Instructions Diet Discharge Diet: No restrictions Activity Discharge Activity: May Not Drive (While taking narcotic pain medication) and May Shower May shower in (days): 2 Ice area for (Minutes): 20 Lifting Restrictions: No lifting greater than 10 pounds for the next 5 weeks Dressing / Incision Call your doctor if your incision/area has: Continuous Slow Oozing, Increased Pain/ Swelling, Increased Redness, Foul Smelling Discharge and Swelling at the incision site Call your doctor if you observe: Fever of 101 or Higher, Inability to urinate and Inability to have a bowel movement Change Dressing in: 2 days (Please leave Steri-Strips intact until they fall off spontaneously or are taken off at your follow-up visit) Remove Dressing in: 2 days Cleanse incision/area with: Soap & Water and Keep Dressing Clean & Dry Follow Up Care Please Follow Up With: Nicholas Lin MD When: 1 week postop Test Results: Test results from this visit will be discussed in further detail at your follow- up appointment, if applicable. Discharge Plan Admission Primary Reason for Your Visit: Bilateral inguinal hernias Attending Provider: Nicholas Lin Primary Care Provider: Bre Ring Discharge Orders/Prescriptions Prescriptions: New tramadol 50 mg tablet 50 mg PO Q6H PRN (Reason: pain) Qty: 10 0RF Continued naproxen 220 mg PO BID losartan 25 mg tablet 25 mg PO DAILY Qty: 90 3RF aspirin 81 mg tablet,chewable 81 mg PO DAILY sennosides 8.6 mg tablet 8.6 mg PO DAILY famotidine 20 mg tablet 20 mg PO DAILY Referrals / Follow Up: Bre Ring MD [Primary Care Provider] - Disposition Disposition (needs filled in before D/C Order can be placed): Home, Self Care
== END 2023-10-24 18:36 | disposition home or self-care (01) ==
LOC: SDC 08:46 → AC 08:47
PROVIDERS: Anesthesiology; PCP Family Medicine; Referring Provider Surgery; Visit Provider Surgery
PROC: (CPT 49650; principal; 2023-10-24 10:10)
DX: K40.20 Bilateral inguinal hernia, without obstruction or gangrene, not specified as recurrent (principal); J44.9 Chronic obstructive pulmonary disease, unspecified; K56.609 Unspecified intestinal obstruction, unspecified as to partial versus complete obstruction; I25.10 Atherosclerotic heart disease of native coronary artery without angina pectoris; R33.9 Retention of urine, unspecified; D17.6 Benign lipomatous neoplasm of spermatic cord; I25.2 Old myocardial infarction; R05.3 Chronic cough; K21.9 Gastro-esophageal reflux disease without esophagitis; I10 Essential (primary) hypertension; Z90.49 Acquired absence of other specified parts of digestive tract; Z79.82 Long term (current) use of aspirin; Z95.5 Presence of coronary angioplasty implant and graft; F17.210 Nicotine dependence, cigarettes, uncomplicated; N40.0 Benign prostatic hyperplasia without lower urinary tract symptoms
CPT/HCPCS: 49650; 44180; 00840; 55520; S2900; 36415; 80048; 80076; 85027; 85610; 85730; 87081; J7120; J2405

== ENCOUNTER → 2024-01-09 | Outpatient (CLI) | payer MEDICARE, OTHER, SELFPAY | END | disposition home or self-care (01) | LOC: LABSPEC 15:52 | PROVIDERS: PCP Family Medicine; Referring Provider Nurse Practitioner; Visit Provider Nurse Practitioner | DX: N30.00 Acute cystitis without hematuria (principal) | CPT/HCPCS: 87077; 87086; 87088; 87186 ==

== ENCOUNTER → 2024-02-24 | Outpatient (CLI) | payer MEDICARE, OTHER, SELFPAY ==
--- NOTE | 2024-02-24 06:28 | ART_ITS ---
Reason For Study: Claudication Procedure A bilateral lower extremity continuous wave Doppler with analog waveform analysis,segmental pressures,and ankle brachial indexes without exercise. Left Segmental Pressures Left brachial= 135mmHg. Left posterior tibial artery = 155mmHg. Left dorsalis pedis artery = 147mmHg. Left digit = 122 mmHg. The left dorsalis pedis waveforms are triphasic. The left posterior tibial artery waveforms are triphasic. Right Segmental Pressures Right brachial= 133mmHg. Right posterior tibial artery = 166mmHg. Right dorsalis pedis artery = 153mmHg. Right digit = 117 mmHg. The right dorsalis pedis waveforms are triphasic. The right posterior tibial artery waveforms are triphasic. Indices The right ankle brachial index by the dorsalis pedis is 1.13. The right ankle brachial index by the posterior tibial artery is 1.23. The right digital-brachial index is 0.87. The left ankle brachial index by the dorsalis pedis is 1.09. The left ankle brachial index by the posterior tibial artery is 1.15. The left digital-brachial index is 0.90. VL/Lower Ext Art Exam w/o Exercis Interpretation Summary Right ZHEN 1.23, normal. TBI and Doppler/PVR waveforms of the right leg normal a t rest. Left ZHEN 1.15, normal. TBI and Doppler/PVR waveforms of the left leg normal at rest. Ordering Physician: Dean Perez Referring Physician: Leigh Owens Performed By: Tonia Gomez RVT
--- NOTE | 2024-02-24 13:19 | STRESSREP ---
Stress Test Report Date: 02/24/2024 Procedure: Pharmacologic stress nuclear imaging study Indications: Dyspnea on exertion Consent: Per the patient Procedure: The patient was initially tried as an exercise stress test however he could not walk on the treadmill because of leg discomfort. Subsequently the test was changed to pharmacological stress. The patient underwent pharmacologic (Regadenoson 0.4mg ) evaluation with a peak heart rate of 86 beats per minute (55%predicted maximal heart rate) and a peak blood pressure of 118/64 mmHg. The baseline ECG demonstrated sinus rhythm. The peak pharmacologic ECG demonstrated no ischemic changes. There were no cardiac dysrhythmias pretest, during pharmacologic infusion, or recovery. There was no complaint of chest discomfort during pharmacologic infusion or recovery. The patient was injected with 15.0 millicuries of technetium 99m Cardiolite and subsequently rest SPECT Cardiolite nuclear imaging was obtained in the horizontal long, vertical long, and short axis views. The patient underwent pharmacologic (Regadenoson) evaluation. The patient was injected with 45.0 millicuries of technetium 99m Cardiolite and subsequently stress SPECT Cardiolite nuclear imaging was obtained in the horizontal long, vertical long, and short axis views. A gated Cardiolite study at peak stress was obtained. The examination was stopped secondary to completion of protocol. Rest and stress SPECT Cardiolite nuclear imaging status post realignment, normalization, and attenuation correction demonstrate small fixed defect of the apex however with normal wall motion, consider attenuation artifact. There is end systolic thickening and brightening. The gated Cardiolite study demonstrates myocardial thickening and inward wall motion. The reported LVEF is 62%. Impression: 1. Pharmacologic (Regadenoson) evaluation 2. Peak pharmacologic ECG with no ischemic changes. 3. There were no cardiac dysrhythmias pretest, during pharmacologic infusion, or recovery. 5. Rest and stress SPECT Cardiolite nuclear imaging demonstrate relative uniform tracer uptake and myocardial perfusion appearing within normal limits. 6. The gated Cardiolite study reports an LVEF of 62%. This note was generated with [employer] software. It may contain incorrect words, spelling, and punctuation that were not noted in checking the note before signing.
== END | disposition home or self-care (01) ==
PROVIDERS: PCP Nurse Practitioner; Referring Provider Nurse Practitioner Family; Visit Provider Nurse Practitioner Family
DX: I25.10 Atherosclerotic heart disease of native coronary artery without angina pectoris (principal); Z95.5 Presence of coronary angioplasty implant and graft; I10 Essential (primary) hypertension; R06.09 Other forms of dyspnea; I73.9 Peripheral vascular disease, unspecified
CPT/HCPCS: 78452; 93017; 93923; A9500; A4216; J2785

== ENCOUNTER → 2024-07-15 | Outpatient (CLI) | payer MEDICARE, OTHER, SELFPAY ==
[2024-07-15 16:35] LABS: PSA,Total - Annual Screen 0.49 ng/mL (0.00-4.00)
== END | disposition home or self-care (01) ==
LOC: LAB 14:56
PROVIDERS: PCP Nurse Practitioner; Referring Provider Urology; Visit Provider Urology
DX: Z12.5 Encounter for screening for malignant neoplasm of prostate (principal)
CPT/HCPCS: 36415; 84153; G0103

== ENCOUNTER 2025-02-24 13:04 | Day surgery (SDC) | payer MEDICARE, OTHER, SELFPAY ==
--- NOTE | 2025-02-23 13:04 | EKG12_ITS ---
Test Reason : PREOP Blood Pressure : */* mmHG Vent. Rate : 76 BPM Atrial Rate : 76 BPM P-R Int : 220 ms QRS Dur : 96 ms QT Int : 398 ms P-R-T Axes : 40 11 15 degrees QTcB Int : 447 ms Sinus rhythm with 1st degree A-V block Otherwise normal ECG Confirmed by Nicholas Duarte ([id number]), story editor TERESO CONTRERAS ([id number]) on 02/25/2025 10:08:55 AM Referred By: Marco Madison Confirmed By: Nicholas Duarte
[2025-02-23 13:53] LABS: Hematocrit 39.7 % (40-54); Hemoglobin 13.4 g/dL (13.0-16.5); Mean Corp Hgb Conc 33.8 g/dL (32-36); Mean Corpuscular Hgb 32.4 pg (27.0-32.0); Mean Corpuscular Volume 95.9 fL (80-94); Mean Platelet Vol. 10.4 fl (6.2-12.0); Platelet Count 272 K/mm3 (150-450); RBC Distribution Width CV 13.9 % (11.6-14.6); RBC Distribution Width SD 49.3 fl (35.1-43.9); Red Blood Count 4.14 M/mm3 (4.6-6.2); White Blood Count 13.8 K/mm3 (4.4-11.0)
[2025-02-23 14:02] LABS: Partial Thromboplast Time 27.9 Seconds (24.1-36.2)
[2025-02-23 15:10] LABS: AST(SGOT) 16 U/L (<=37); Alanine Aminotransfer ALT/SGPT 15 U/L (<=46); Albumin, Serum 4.2 g/dL (3.4-4.8); Alkaline Phosphatase 90 U/L (40-129); Anion Gap 11 (5-15); BUN 14 mg/dL (4-19); BUN/Creat Ratio 17.5 RATIO (10-20); Bilirubin, Direct 0.24 mg/dL (0.00-0.30); Calcium,Total 9.4 mg/dL (7.6-11.0); Carbon Dioxide 24.2 mmol/L (21.0-32.0); Chloride 104 mmol/L (98-108); Creatinine, Serum 0.77 mg/dL (0.70-1.20); EST Glomerular Filtration Rate 99 (>60); Globulin 2.9 g/dL (2.2-4.2); Glucose 101 mg/dL (70-99); Sodium Level 139 mmol/L (133-145); Total Bilirubin 0.41 mg/dL (0.00-1.30)
--- NOTE | 2025-02-23 15:24 | PAT.ANE_ITS ---
Pre-Assessment Diagnosis/Proposed Procedure Planned Operative Procedure(s): TUR BLADDER NECK CONTRACTURE Anesthesia History Anesthesia History - lead radiologic technologist: Anesthesia History - lead radiologic technologist Hx Hospitalization No 02/19/25 08:55 Any Problems With Anesthesia No 02/19/25 08:55 Cholinesterase deficiency No 02/19/25 08:55 You/Your Family Experience No 02/19/25 08:55 fever (hyperthermia) with Relationship Recent Exposure to Contagious No 10/24/23 09:21 Disease Does patient have nerve No 02/19/25 08:55 stimulator Patient instructed to have device shut off --Does patient have Pacemaker or ICD? When Was Last Pacemaker Check QUESTION #4 FULL TEXT: You/Your Family Experience fever (hyperthermia) with Anesthesia Last Oral Intake Last Oral intake: Last Oral Intake NPO since Meds taken in AM with sips of water? Meds patient instructed to take am of surgery PONV PONV - lead radiologic technologist: PONV - lead radiologic technologist Female No 02/19/25 08:55 HX of Motion Sickness No 02/19/25 08:55 HX of N/V After Surgery No 02/19/25 08:55 Non-Smoker No 02/19/25 08:55 Duration of Surgery greater Yes 02/19/25 08:55 than 60 minutes Number of Risk Factors 1 02/19/25 08:55 PONV Score Low Risk 02/19/25 08:55 Height & Weight Height & Weight: Anesthesia: Height & Weight Height 5 ft 2.5 in 01/07/25 16:31 Respiratory Assessment Respiratory Assessment - lead radiologic technologist: Respiratory Tract Infection Hx - lead radiologic technologist Hx Respiratory Tract Infection No 02/19/25 08:55 STOP Sleep Apnea STOP Sleep Apnea - lead radiologic technologist: STOP Sleep Apnea - lead radiologic technologist Hx Hypertension Yes: CONTROLLED WITH MED 02/19/25 08:55 Hx Sleep Apnea No 02/19/25 08:55 CPAP BIPAP Do you snore loudly (louder Yes 02/19/25 08:55 than talking or can be heard Do you often feel tired/ No 02/19/25 08:55 fatigued/ sleepy during daytime? Has anyone observed you stop No 02/19/25 08:55 breathing during sleep? STOP Results Positive 02/19/25 08:55 QUESTION #5 FULL TEXT : Do you snore loudly (louder than talking or can be heard through closed doors)? 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 Specify any problems Hx of Preganancy in last 3 N/A 02/19/25 08:55 Months Nurse Filling Out Transfusion DSCHRIBER 02/19/25 08:55 & Questions: Date: 02/19/25 02/19/25 08:55 Time: 08:57 02/19/25 08:55 Patient unable to answer at this time (ie. confused, unrespo /Reproduction History /Reproductive History - lead radiologic technologist: /Reproductive Hx- lead radiologic technologist Hx Now No 02/19/25 08:55 Gestational Age (in weeks): EDC: Hx Hx Para Hx Section SAB No 02/19/25 08:55 Active Medications Active Medications: Current Medications Generic Name Dose Route Start Last Admin Trade Name Freq PRN Reason Stop Dose Admin Cefazolin Sodium 2 gm/ Sodium 110 mls @ 150 mls/hr 02/24/25 15:25 Chloride IV 02/24/25 16:08 INTRAOP ONE PFSH Medical History Prostate disease High cholesterol Easy bruising Leg cramps History of stress test Hyperlipemia Hypertension Wears glasses Alcohol use Arthritis Restless legs Gastric reflux Smoker COPD (chronic obstructive pulmonary disease) Chronic cough History of edema History of echocardiogram Cardiology follow-up encounter History of heart attack BPH (benign prostatic hyperplasia) Ventricular tachycardia STEMI (ST elevation myocardial infarction) Atherosclerosis of coronary artery of [place] heart without angina pectoris Home Medications ?Medication ?Instructions ?Recorded ?Last Taken ?Type aspirin 81 mg chewable tablet 81 mg PO DAILY 05/30/23 02/15/25 History naproxen 220 mg PO BID 05/30/2302/15 History bethanechol chloride 25 mg tablet 25 mg PO TID 4 Unknown History losartan 25 mg tablet 25 mg PO DAILY #90 tabs 04/15 Unknown Rx prelubed urine catheter #270 ea 09/21/24 Unknown Rx atorvastatin 40 mg tablet 40 mg PO QHS #90 tabs Unknown Rx tamsulosin 0.4 mg capsule 0.4 mg PO QHS 02/19/25 Unkno wn History Allergy/AdvReac Type Severity Reaction Status Date / Time acetaminophen (From Vicodin) AdvReac Intermediate unable to Verified 02/19/25 08:52 urinate hydrocodone (From Vicodin) AdvReac Intermediate unable to Verified 02/19/25 08:52 urinate Family History Father Hypertension Heart disease CVA (cerebral vascular accident) Mother Heart disease Brother Cancer Heart disease CVA (cerebral vascular accident) Sister Heart disease Cancer Surgical History Hx of bilateral inguinal hernia repair History of surgery on arm S/P bilateral inguinal hernia repair Hx of transurethral resection of prostate History of cardiac catheterization S/P surgical removal of pilonidal cyst History of coronary artery stent placement (08/09/14) History of cholecystectomy History of appendectomy Social History Smoking Status: Current every day smoker tobacco type: cigarettes alcohol intake: current alcohol intake frequency: a few times a week substance use type: does not use caffeine: Yes Type: coffee Number of servings: 6 Prior Cardiac Testing/Procedures Prior Cardiac Testing/Procedures: Echocardiogram (Interpretation Summary The estimated ejection fraction is 60 %. Mild (1+) mitral valve insufficiency. The left atrium is moderately enlarged.) Recommendation Anesthesia Recommendation Anesthesia recommendation: OPTIMIZED for anesthesia Follow up Details Cardiac/Pulmonary Imaging Recommendation: Yes [place]/Pulmonary Imaging Rec Details: EKG the morning of surgery
[2025-02-24] VITALS (9 sets, daily range): BP systolic 107–146; BP diastolic 46–67; PULSE 68–79; RESP 16–20; TEMP 36.7–37; O2SAT 91–98; BMI 36.3
[2025-02-24] MEDS: Lactated Ringers 1,000 ML 15 ML IV (13:41)
--- NOTE | 2025-02-24 14:00 | PRE.ANES_ITS ---
ASA Classification* ASA Classification ASA Classification: 3 Assessment & Plan Anesthesia* Anesthesia Assessment Anesthesia Assessment: Discussed sedation and/or anesthesia options, risks, benefits, and alternatives with patient/parents/legal guardian/POA. Questions invited. The patient/parents/legal guardian/POA seems to understand and agrees to proceed with anesthesia plan. Reviewed the physical assessment, medical history, allergy history and patient home medications list prior to surgery/procedure/anesthetic and documented any changes. Performed airway and anesthesia risk assessments. Anesthesia Type Anesthesia Type: General History Source History Obtained from:: Patient and Chart Anesthesia Focused Assessment* Temperature: 98.1 F Pulse Rate: 74 Blood Pressure: 146/57 Respiratory Rate: 18 Pulse Ox: 97 Oxygen Delivery Method: Room Air Airway Assessment Mouth opens: >3 cm Mallampati Score: I Teeth Condition: Missing Neck Range of motion (ROM): Full ROM Comment: Edentulous uppers. Missing some teeth on the bottom. Focused Labs Anesthesia Preop lab: CBC WBC 13.8 K/mm3 (4.4-11.0) H 02/23/25 13: 5 RBC 4.14 M/mm3 (4.6-6.2) L 02/23/25 13:02/23/25 Hgb 13.4 g/dL (13.0-16.5) 02/23/25:02/23/25 Hct 39.7 % (40-54) L 02/23/25 13:30 02/23/25 Plt Count 272 K/mm3 (150-450) 02/23/25 13:02/23/25 CHEMISTRY Potassium 4.0 mmol/L (3.3-5.1) 02/23/25 13:30 02/23/25 Sodium 139 mmol/L (133-145) 02/23/25 13:02/23/25 BUN 14 mg/dL (4-19) 02/23/25:02/23/25 Creatinine 0.77 mg/dL (0.70-1.20) 02/23/25 13:02/23/25 Glucose 101 mg/dL (70-99) H 02/23/25 13:02/23/25 TSH 1.08 uIU/mL (0.358-3.74) 05/02/23 12:40 COAG PT 13.0 SECONDS (11.7-14.9) 02/23/25 13:30 Pre-Assessment Diagnosis/Proposed Procedure Planned Operative Procedure(s): TUR BLADDER NECK CONTRACTURE Anesthesia History Anesthesia History - wildlife refuge 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 When Was Last Pacemaker Check QUESTION #4 FULL TEXT: You/Your Family Experience fever (hyperthermia) with Anesthesia Last Oral Intake Last Oral intake: Last Oral Intake NPO since 22:00 02/24/25 13:38 Meds taken in AM with sips of No 02/24/25 13:38 water? Meds patient instructed to take am of surgery PONV PONV - wildlife refuge manager: PONV - wildlife refuge manager Female No 02/19/25 08:55 HX of Motion Sickness No 02/19/25 08:55 HX of N/V After Surgery No 02/19/25 08:55 Non-Smoker No 02/19/25 08:55 Duration of Surgery greater Yes 02/19/25 08:55 than 60 minutes Number of Risk Factors 1 02/19/25 08:55 PONV Score Low Risk 02/19/25 08:55 Height & Weight Height & Weight: Anesthesia: Height & Weight Height 5 ft 5 in 02/24/25 13:38 Weight: 99 kg 02/24/25 13:38 Body Mass Index (BMI) 36.3 02/24/25 13:38 Respiratory Assessment Respiratory Assessment - wildlife refuge manager: Respiratory Tract Infection Hx - wildlife refuge manager Hx Respiratory Tract Infection No 02/19/25 08:55 STOP Sleep Apnea STOP Sleep Apnea - wildlife refuge manager: STOP Sleep Apnea - wildlife refuge manager Hx Hypertension Yes: CONTROLLED WITH MED 02/19/25 08:55 Hx Sleep Apnea No 02/19/25 08:55 CPAP BIPAP Do you snore loudly (louder Yes 02/19/25 08:55 than talking or can be heard Do you often feel tired/ No 02/19/25 08:55 fatigued/ sleepy during daytime? Has anyone observed you stop No 02/19/25 08:55 breathing during sleep? STOP Results Positive 02/19/25 08:55 QUESTION #5 FULL TEXT : Do you snore loudly (louder than talking or can be heard through closed doors)? 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 Specify any problems Hx of Preganancy in last 3 N/A 02/19/25 08:55 Months Nurse Filling Out Transfusion DSCHRIBER 02/19/25 08:55 & Questions: Date: 02/19/25 02/19/25 08:55 Time: 08:57 02/19/25 08:55 Patient unable to answer at this time (ie. confused, unrespo /Reproduction History /Reproductive History - wildlife refuge manager: /Reproductive Hx- wildlife refuge manager Hx Now No 02/19/25 08:55 Gestational Age (in weeks): EDC: Hx Hx Para Hx Section SAB No 02/19/25 08:55 Active Medications Active Medications: Current Medications Generic Name Dose Route Start Last Admin Trade Name Freq PRN Reason Stop Dose Admin Cefazolin Sodium 2 gm/ Sodium 110 mls @ 150 mls/hr 02/24/25 15:25 Chloride IV 02/24/25 16:08 INTRAOP ONE Lactated Ringer's 1,000 mls @ 15 mls/hr 02/24/25 13:30 02/24/25 13:41 IV 15 mls/hr .Q48H FATEMEH Administration PFSH Medical History Prostate disease High cholesterol Easy bruising Leg cramps History of stress test Hyperlipemia Hypertension Wears glasses Alcohol use Arthritis Restless legs Gastric reflux Smoker COPD (chronic obstructive pulmonary disease) Chronic cough History of edema History of echocardiogram Cardiology follow-up encounter History of heart attack BPH (benign prostatic hyperplasia) Ventricular tachycardia STEMI (ST elevation myocardial infarction) Atherosclerosis of coronary artery of [place] heart without angina pectoris Home Medications ?Medication ?Instructions ?Recorded ?Last Taken ?Type aspirin 81 mg chewable tablet 81 mg PO DAILY 05/30/23 02/15/25 History naproxen 220 mg PO BID 05/30/2302/15 History bethanechol chloride 25 mg tablet 25 mg PO TID 4 Unknown History losartan 25 mg tablet 25 mg PO DAILY #90 tabs 04/15 Unknown Rx prelubed urine catheter #270 ea 09/21/24 Unknown Rx atorvastatin 40 mg tablet 40 mg PO QHS #90 tabs Unknown Rx tamsulosin 0.4 mg capsule 0.4 mg PO QHS 02/19/25 Unkno wn History Allergy/AdvReac Type Severity Reaction Status Date / Time acetaminophen (From Vicodin) AdvReac Intermediate unable to Verified 02/24/25 13:37 urinate hydrocodone (From Vicodin) AdvReac Intermediate unable to Verified 02/24/25 13:37 urinate Family History Father Hypertension Heart disease CVA (cerebral vascular accident) Mother Heart disease Brother Cancer Heart disease CVA (cerebral vascular accident) Sister Heart disease Cancer Surgical History Hx of bilateral inguinal hernia repair History of surgery on arm S/P bilateral inguinal hernia repair Hx of transurethral resection of prostate History of cardiac catheterization S/P surgical removal of pilonidal cyst History of coronary artery stent placement (08/09/14) History of cholecystectomy History of appendectomy Social History Smoking Status: Current every day smoker (Patient smoked today.) tobacco type: cigarettes alcohol intake: current alcohol intake frequency: a few times a week substance use type: does not use caffeine: Yes Type: coffee Number of servings: 6 Review of Systems (Anesthesia) ROS Narrative System reviewed and no additional complaints, except as documented.
--- NOTE | 2025-02-24 16:16 | PCM.OPRPT ---
Operative Report (Standard) Operative Information Date of Procedure: 02/24/25 Pre-Operative Diagnosis: Bladder neck contracture Post-Operative Diagnosis: Transurethral incision of a bladder neck contracture RN Documented Start/Stop Times: Operation Date: 02/24/25 15:25 Case Time Into Pre-Op 02/24/25 13:20
--- NOTE | 2025-02-24 16:16 | PCM.HP.STD ---
HPI - General General Date of Service: 02/24/25 Chief Complaint: Bladder neck contracture HPI Narrative CITLALLI CLAUDIO, is a 64 M who presents for transurethral incision of a bladder neck contracture using the Olympus bipolar set [facility] Medical History Prostate disease High cholesterol Easy bruising Leg cramps History of stress test Hyperlipemia Hypertension Wears glasses Alcohol use Arthritis Restless legs Gastric reflux Smoker COPD (chronic obstructive pulmonary disease) Chronic cough History of edema History of echocardiogram Cardiology follow-up encounter History of heart attack BPH (benign prostatic hyperplasia) Ventricular tachycardia STEMI (ST elevation myocardial infarction) Atherosclerosis of coronary artery of [place] heart without angina pectoris Home Medications ?Medication ?Instructions ?Recorded ?Last Taken ?Type aspirin 81 mg chewable tablet 81 mg PO DAILY 05/30/23 02/15/25 History naproxen 220 mg PO BID 05/30/23 02/15/25 History bethanechol chloride 25 mg tablet 25 mg PO TID 01/30/24 Unknown History losartan 25 mg tablet 25 mg PO DAILY #90 tabs 05/12/24 Unknown Rx prelubed urine catheter #270 ea 09/21/24 Unknown Rx atorvastatin 40 mg tablet 40 mg PO QHS #90 tabs 01/07/25 Unknown Rx tamsulosin 0.4 mg capsule 0.4 mg PO QHS 02/19/25 Unknown History Allergy/AdvReac Type Severity Reaction Status Date / Time acetaminophen (From Vicodin) AdvReac Intermediate unable to Verified 02/24/25 13:37 urinate hydrocodone (From Vicodin) AdvReac Intermediate unable to Verified 02/24/25 13:37 urinate Family History Father Hypertension Heart disease CVA (cerebral vascular accident) Mother Heart disease Brother Cancer Heart disease CVA (cerebral vascular accident) Sister Heart disease Cancer Surgical History Hx of bilateral inguinal hernia repair History of surgery on arm S/P bilateral inguinal hernia repair Hx of transurethral resection of prostate History of cardiac catheterization S/P surgical removal of pilonidal cyst History of coronary artery stent placement (08/09/14) History of cholecystectomy History of appendectomy Social History Smoking Status: Current every day smoker (Patient smoked today.) tobacco type: cigarettes alcohol intake: current alcohol intake frequency: a few times a week substance use type: does not use caffeine: Yes Type: coffee Number of servings: 6 Vital Signs Vital Signs Vital Signs: 02/24/25 13:38 02/24/25 13:38 02/24/25 14:23 Temperature 98.1 F 98.1 F Temperature Source Temporal Pulse Rate 74 74 Respiratory Rate 18 18 Respiratory Pattern Normal Blood Pressure 146/57 H 146/57 H Blood Pressure Mean 86 Blood Pressure Source Monitor Blood Pressure Position Sitting Blood Pressure Location Right Arm Pulse Ox 97 97 Oxygen Delivery Method Room Air Room Air Weight Weight: 99 kg Body Mass Index (BMI) 36.3 Results Lab / Micro Data 02/23/25 13:30 02/23/25 13:30
[2025-02-24] MEDS: Cefazolin 2 GM in 0.9% Normal Saline (100mL Bag) 100 ML IV (16:38)
--- NOTE | 2025-02-24 17:03 | PCM.OPRPT ---
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: No Type of Anesthesia: General RN Documented Start/Stop Times: Operation Date: 02/24/25 15:25 Case Time Into Pre-Op 02/24/25 13:20 Procedure Start Time: 16:51 Procedure Stop Time: 17:03 Select all DRAINS/GRAFTS/IMPLANTS that apply: Drains Drain details: 20 Dominican Case Estimated Blood Loss: None Specimen collected: No Description of surgery: 64-year-old male with a very slow slow flow was found to have a bladder neck contracture he also has a mild meatal stenosis so he underwent general anesthetic I dilated the meatus from [address] up to 28 Dominican after this I went in with a 24 Dominican noncontinuous flow Olympus bipolar resectoscope we used the knife on the bipolar and then I incised the bladder neck contracture starting at the 5 o'clock position incised all the way down to the fat on the left side and then the 7 o'clock position on the right side incised it wide until I got the fat opened up the prostate really wide had a nice wide open channel flow test was adequate I then cauterized obtain hemostasis we put a 20 Dominican catheter into the bladder anesthesia was reversed taken back to the PACU in good condition with a catheter he will go home with a catheter and follow-up next week for catheter removal. Successful transurethral incision of a bladder neck contracture. Surgical Findings: Bladder neck opened up with a bipolar knife Complications Complications: No Admit VTE Documentation VTE Present on Admission: No VTE Mechan Device Prophylaxis: SCD's VTE Pharm Prophylaxis ordered?: No
--- NOTE | 2025-02-24 17:10 | DCINST_ITS ---
Discharge Instructions Diet Discharge Diet: No restrictions DC O2, CPAP, BIPAP needs Home O2 Discharge instructions: No Dressing / Incision Discharge Activity: Return to Normal Activity and May Not Drive (while taking narcotic pain medications.) Dressing / Incision Call your doctor if you observe: Fever of 101 or Higher Catheter: Case to leg bag and Case to large bag Drain: [place] Follow Up Care Please Follow Up With: Marco Madison MD When: Call [phone] for an appointment Test Results: Test results from this visit will be discussed in further detail at your follow- up appointment, if applicable. Discharge Plan Admission Primary Reason for Your Visit: incision of bladder neck Attending Provider: Marco Madison Primary Care Provider: Leigh Owens NP Instructions Print Language: [place] Discharge Orders/Prescriptions Prescriptions: New oxycodone 5 mg tablet 5 mg PO Q6H PRN (Reason: pain) 3 Days Qty: 14 0RF ciprofloxacin HCl [Cipro] 500 mg tablet 500 mg PO BID Qty: 6 0RF Continued naproxen 220 mg PO BID bethanechol chloride 25 mg tablet 25 mg PO TID atorvastatin 40 mg tablet 40 mg PO QHS Qty: 90 3RF tamsulosin 0.4 mg capsule 0.4 mg PO QHS losartan 25 mg tablet 25 mg PO DAILY Qty: 90 3RF Held aspirin 81 mg tablet,chewable 81 mg PO DAILY Hold Instructions: Resume on 03/10/25. No Action (DME) prelubed urine catheter 14 fr See Rx Instructions .Route .MEDSUPPLY Qty: 270 4RF Rx Instructions: cathing 3 x a day Referrals / Follow Up: Leigh Owens NP, CHIEF OPERATIONS OFFICER-C [Primary Care Provider] - Disposition Disposition (needs filled in before D/C Order can be placed): Home, Self Care
--- NOTE | 2025-02-24 17:16 | PCM.POST.ANE ---
Anesthesia: Postop Eval I Current Vital Signs Temperature: 98.6 F Pulse Rate: 73 Blood Pressure: 107/57 Respiratory Rate: 16 Pulse Ox: 91 (Patient has significant cough postop. Will give him a DuoNeb breathing treatment.) Oxygen Delivery Method: Room Air Assessment Airway patent: Yes Spontaneous unlabored respirations: Yes Mental status: Awake and Calm nausea: No Vomiting: No Anesthesia Complication: No Fluid Hydration Crystalloid volume administer (ml): 500 Total IV fluid infused: 500 Progress Note Anesthesia document: Postop Eval 1 completed: Yes
[2025-02-24] MEDS: Ipratropium/Albuterol Sulfate 3 ML AMPUL.NEB INHALATION (17:22)
--- NOTE | 2025-02-24 17:57 | PCM.POSTANE2 ---
Anesthesia Postop Eval I Sum Postop Eval Completion status Anesthesia document: Postop Eval 1 completed: Yes Anesthesia Postop Eval I Summary Anesthesia Postop Eval I Summary: Anesthesia Postop Eval I: Assessment Summary Airway patent Yes 02/24/25 17:19 Spontaneous unlabored Yes 02/24/25 17:19 respirations Mental status Awake,Calm 02/24/25 17:19 nausea No 02/24/25 17:19 Vomiting No 02/24/25 17:19 Anesthesia Postop Eval I: Fluid Summary Crystalloid volume administer 500 02/24/25 17:19 (ml) Colloids volume administered ( ml) Blood Product volume administered (ml) Total IV fluid infused 500 02/24/25 17:19 Anesthesia Postop Eval I: Summary Notes Anesthesia Complication No 02/24/25 17:19 Anesthesia Complication Comment: Post-operative progress note Anesthesia: Postop Eval II Evaluation Mental status: Awake and Calm Pain Level: 1 nausea: No Vomiting: No Complications Anesthesia Complication: No
== END 2025-02-24 18:23 | disposition home or self-care (01) ==
LOC: SDC 13:06 → AC 13:07
PROVIDERS: Anesthesiology; PCP Nurse Practitioner; Referring Provider Urology; Visit Provider Urology
PROC: 0VT08ZZ Resection of Prostate, Via Natural or Artificial Opening Endoscopic (ICD-10-PCS; CPT 52601; principal; 2025-02-24 15:15)
DX: N32.0 Bladder-neck obstruction (principal); J44.9 Chronic obstructive pulmonary disease, unspecified; E78.00 Pure hypercholesterolemia, unspecified; I10 Essential (primary) hypertension; F17.210 Nicotine dependence, cigarettes, uncomplicated; Z95.5 Presence of coronary angioplasty implant and graft; Z90.49 Acquired absence of other specified parts of digestive tract; I25.2 Old myocardial infarction; I25.10 Atherosclerotic heart disease of native coronary artery without angina pectoris; I44.0 Atrioventricular block, first degree; Z79.82 Long term (current) use of aspirin; Z01.818 Encounter for other preprocedural examination; R23.3 Spontaneous ecchymoses
CPT/HCPCS: 52276; 00910; 36415; 80048; 80076; 85027; 85610; 85730; 93005; J2405

== ENCOUNTER → 2025-03-16 | Outpatient (CLI) | payer MEDICARE, OTHER, SELFPAY ==
--- OUTSIDE RECORDS SUMMARY | 2025-03-16 22:25 | XMS RPT_ITS | CCD ---
Author Organization [facility] CliniSywv Care Team Providers Care Tire Tester Name Role Phone MD Bre Ring Primary Care Provider [phone] MD Bre Ring Referring Provider [phone] Dr. Michael Houser Attending Provider [phone] Nelson Oropeza Attending Provider [phone] MD Bre Ring Primary Care Provider [phone] Ivan KIRBY, RETAIL PHARMACY MANAGER-C Alexandra Attending Provider MD Bre Ring Referring Provider [phone] Dr. Nicholas Lin Attending Provider Dr. Nicholas Lin Referring Provider Dr. Nicholas Lin Other Provider MD Bre Ring Primary Care Provider [phone] MD Bre Ring Referring Provider Dr. Nicholas Lin Attending Provider Dr. Nicholas Lin Referring Provider Dr. Nicholas Lin Other Provider JACQUI LIMA Consulting UnavailDIONNA Alas Primary Care Unavailable FERNANDO ROSAS Attending Unavaila CHEIKH Ordoñez Admitting Unavailable MD Bre Ring Primary Care Provider [phone] MD Bre Ring Referring Provider [phone] Dr. Michael Houser Attending Provider [phone] Nelson Oropeza Attending Provider [phone] Michael Houser Referring Provider [phone] Roman KIRBY-CDionna Primary Care Provider [phone] Roman RETAIL PHARMACY MANAGER-C, Dionna Attending Provider [phone] Roman RETAIL PHARMACY MANAGER-C, Dionna Referring Provider Gricelda SALAZAR, Dr. Marco Bonilla Attending Provider [phone] Gricelda SALAZAR, Dr. Marco Bonilla Referring Provider Marco Madison Referring Unavailable Roman RETAIL PHARMACY MANAGER, Dionna Primary Care Unavailable Nicholas Duarte Attending Unavailable Marco Madison Attending Unavailable Marco Madison Referring Unavailable Roman RETAIL PHARMACY MANAGER, Dionna Primary Care Unavailable Marco Madison Attending Unavailable Marco Madison Referring Unavailable Roman RETAIL PHARMACY MANAGER, Zap Primary Care Unavailable Allergies Allergy Classification Reported Allergen(s) Allergy Type Date of Onset Reaction(s) Facility (6 sources) Acetaminophen Drug Allergy 3 Other, unable to urinate [facility] (7 sources) HYDROcodone Drug Allergy 3 Other, unable to urinate [facility] Comment on above: occasionally no urin e (1 source) Acetaminophen Drug Allergy 4 [facility] Repository (1 source) HYDROcodone Drug Allergy 5 [facility] Repository Medications Current Medications Medication Drug Class(es) Dates Sig (Normalized) Sig (Original) aspirin 81 mg chewable tablet (7 sources) Platelet Aggregation Inhibitor, Nonsteroidal Anti-inflammatory Drug Start: 05-30-2023 take 1 tablet by mouth once daily Aspirin 81 mg tablet,chewable Active 81 mg PO DAILY May 30, 2023 12:00am On Hold: Resume on 03/10/25. atorvastatin 40 mg oral tablet (3 sources) HMG-CoA Reductase Inhibitor Start: 12-25-2023 End: 01-07-2025 take 1 tablet by mouth at bedtime Atorvastatin 40 mg tablet Active 40 mg PO AT BEDTIME 90 January 07, 2025 4:32pm bethanechol chloride 25 mg oral tablet (1 source) Cholinergic Muscarinic Agonist Start: 01-30-2024 take 1 tablet by mouth three times daily Bethanechol Chloride 25 mg tablet Active 25 mg PO THREE TIMES A DAY January 30, 2024 12:00am ciprofloxacin 500 mg oral tablet (2 sources) Quinolone Antimicrobial Start: 02-24-2025 take 1 tablet by mouth twice daily Ciprofloxacin Hcl (Cipro) 500 mg tablet Active 500 mg PO TWICE A DAY February 24, 2025 12:00am Start: 08-21-2023 take 1 tablet by celso th twice daily Ciprofloxacin Hcl (Cipro) 500 mg tablet Active 500 MG PO TWICE A DAY August 21, 2023 12:00am losartan potassium 25 mg oral tablet (8 sources) Angiotensin 2 Receptor Len Start: 05-30-2023 End: 05-12-2024 take 1 tablet by mouth once daily Losartan 25 mg tablet Active 25 mg PO DAILY May 12, 2024 1:03pm naproxen sodium 220 mg oral tablet (14 sources) Nonsteroidal Anti-inflammatory Drug Start: 05-30-2023 take 220 mg by mouth twice daily naproxen Active 220 mg PO TWICE A DAY May 30, 2023 11:23am Start: 05-30-2023 take 200 mg by mouth once daily naproxen Active 200 MG PO DAILY May 30, 2023 11:23am Start: 05-28-2023 End: 05-30-2023 naproxen Discontinued PO May 11:00pm May 30, 2023 10:23am Start: 05-28-2023 End: 05-30-2023 naproxen Discontinued PO May 12:00am May 30, 2023 11:23am oxyCODONE hydrochloride 5 mg oral tablet (1 source) Opioid Agonist Start: 02-24-2025 take 1 tablet by mouth every six hours as needed for pain Oxycodone 5 mg tablet Active 5 mg PO EVERY 6 HOURS as needed for pain 14 February 24, 2025 prelubed urine catheter 14 fr (1 source) Start: 09-21-2024 prelubed urine catheter 14 fr Active 0 .Route .MEDSUPPLY 270 September 21, 2024 1:00am cathing 3 x a day Sennosides (3 sources) Start: 07-10-2023 take 8.6 mg by mouth once daily Sennosides Active 8.6 MG PO DAILY July 10, 2023 12:00am Start: 07-10-2023 take 8.6 mg by mouth once aidan y Sennosides Active 8.6 MG PO DAILY July 09, 2023 11:00pm tamsulosin hydrochloride 0.4 mg oral capsule (7 sources) alpha-Adrenergic Len Start: 01-30-2024 End: 02-19-2025 take 1 capsule by mouth at bedtime Tamsulosin 0.4 mg capsule Active 0.4 mg PO AT BEDTIME February 19, 2025 12:00am Start: 05-30-2023 take 0.4 mg by mouth at bedtim e Tamsulosin Active 0.4 MG PO AT BEDTIME May 29, 2023 11:00pm Completed/Discontinued Medications Medication Drug Class(es) Dates Sig (Normalized) Sig (Original) azithromycin 250 mg oral tablet (2 sources) Macrolide Antimicrobial Start: 12-25-2023 End: 12-30-2023 take 2 tablets by mouth once daily, then take 1 tablet by mouth once daily at mealtime Azithromycin 250 mg tablet Discontinued 250 mg PO daily 6 5 December 25, 2023 12:00am December 29, 2023 12:00am December 30, 2023 12:05am 2 po qd for 1 day then 1 po qd for 4 days with food or after eating clarithromycin 500 mg oral tablet (1 source) Macrolide Antimicrobial Start: 08-12-2024 End: 09-21-2024 take 1 tablet by mouth twice daily Clarithromycin 500 mg tablet Discontinued 500 mg PO TWICE A DAY August 12, 2024 12:00am September 21, 2024 4:22pm docusate sodium 100 mg oral capsule (14 sources) Start: 05-28-2023 End: 07-10-2023 take 1 capsule by mouth once daily as needed Docusate Sodium 100 mg capsule Discontinued 100 mg PO DAILY as needed May 30, 2023 11:22am July 10, 2023 3:13pm famotidine 20 mg oral tablet (18 sources) Histamine-2 Receptor Antagonist Start: 08-12-2023 End: 09-21-2024 take 1 tablet by mouth once daily Famotidine 20 mg tablet Discontinued 20 mg PO DAILY August 12, 2023 12:00am September 21, 2024 4:22pm Start: 05-30-2023 End: 07-10-2023 take 20 mg by mouth once daily famotidine Discontinued 20 mg PO DAILY May 30, 2023 11:22am July 10, 2023 3:13pm Start: 05-28-2023 End: 05-30-2023 famotidine Discontinued PO A ugust 2022 11:00pm May 30, 2023 10:23am Start: 05-28-2023 End: 05-30-2023 famotidine Discontinued PO A ugust 2022 12:00am May 30, 2023 11:23am loratadine 10 mg oral tablet (2 sources) Start: 12-25-2023 End: 02-19-2025 take 1 tablet by mouth once daily Loratadine 10 mg tablet Discontinued 10 mg PO DAILY December 25, 2023 12:00am February 19, 2025 8:53am predniSONE 20 mg oral tablet (3 sources) Start: 08-12-2024 End: 09-21-2024 take 2 tablets by mouth once daily Prednisone 20 mg tablet Discontinued 40 mg PO DAILY August 12, 2024 12:00am September 21, 2024 4:23pm Start: 12-25-2023 End: 01-30-2024 take 2 tablets by mouth once daily Prednisone 20 mg tablet Discontinued 40 mg PO DAILY December 25, 2023 12:00am January 30, 2024 3:27pm Start: 12-25-2023 take 40 mg by mouth once daily Prednisone Active 40 MG PO DAILY December 25, 2023 12:00am Sennosides 8.6 mg tablet (1 source) Start: 07-10-2023 End: 09-21-2024 take 1 tablet by mouth once daily Sennosides 8.6 mg tablet Discontinued 8.6 mg PO DAILY July 10, 2023 12:00am September 21, 2024 4:23pm Super Beta Prostate (7 sources) Start: 05-28-2023 End: 07-10-2023 Super Beta Prostate Discontinued PO May 28, 2023 12:00am July 10, 2023 3:13pm Start: 05-28-2023 End: 07-10-2023 Super Beta Prostate Disconti nued PO May 27, 2023 11:00pm July 10, 2023 2:13pm Start: 05-28-2023 Super Beta Pro state Active PO May 28, 2023 12:00am Total Beets (7 sources) Start: 05-28-2023 End: 07-10-2023 Total Beets Discontinued PO May 28, 2023 12:00am July 10, 2023 3:13pm Start: 05-28-2023 End: 07-10-2023 Total Beets Discontinued PO May 27, 2023 11:00pm July 10, 2023 2:13pm Start: 05-28-2023 Total Beets Ac tive PO May 28, 2023 12:00am traMADol hydrochloride 50 mg oral tablet (3 sources) Opioid Agonist Start: 10-24-2023 End: 08-12-2024 take 1 tablet by mouth every six hours as needed for pain Tramadol 50 mg tablet Discontinued 50 mg PO EVERY 6 HOURS as needed for pain October 24, 2023 1:00am August 12, 2024 6:38pm Problems Active Problems Problem Classification Problem Date Documented Da te Episodic/Chronic Abdominal hernia (10 sources) Bilateral inguinal hernia; Translations: [Bilateral inguinal hernia, without obstruction or gangrene, not specified as recurrent] 10-04-2023 Episodic Comment on above: Patient is a 63-year -old male with recently diagnosed bilateral inguinal hernias that he believes have been present for at least the past 6 months to 1 year. There is no specific inciting event. Patient reports for a update H&P visit confirming his right side hernia has become more symptomatic with pain. The hernias are quite small in size based on my independent review of patient's CT imaging as well as exam. Today the patient's exam remains largely unchanged aside from maybe some more discomfort on the right side with palpation.Mr. Rodriguez appears to have recovered well following his prostatectomy with urology but is self cathing on occasion. We will have to take this into account during his perioperative phase of care. I am pleased to hear that he has made progress with his constipation and have shared that I would recommend he not increase his level of smoking at this point nor try to cut this habit completely as this may result in significant mucus production and coughing as he would try to recover. I reiterated our expectations for the surgery including details of the procedure and post procedure lifting restrictions. Regarding our procedure details, I shared with him my concern that we may simply only find evidence of a cord lipoma and no true hernia defect on the right, but he still seems interested in proceeding with dissection of the cord, lipoma removal and mesh placement in the event this is the finding. I also reviewed with him that his MRSA screening came back negative for both MRSA or staph colonization. Chronic obstructive pulmonary disease and bronchiectasis (2 sources) Bronchitis; Translations: [Bronchitis, not specified as acute or chronic] 12-25-2023 Episodic Coronary atherosclerosis and other heart disease (18 sources) Coronary arteriosclerosis; Translations: [Atherosclerotic heart disease of ruby coronary artery without angina pectoris] 05-30-2023 Chronic Disorders of lipid metabolism (1 source) Hyperlipidemia; Translations: [Hyperlipidemia, unspecified] 01-08-2025 Chronic Essential hypertension (12 sources) Hypertensive disorder; Translations: [Essential (primary) hypertension] Onset: 06-14-2024 05-30-2023 Chronic Genitourinary symptoms and ill-defined conditions (1 source) Retention of urine; Translations: [Retention of urine, unspecified] 09-21-2024 Episodic Hyperplasia of prostate (1 source) Benign prostatic hyperplasia; Translations: [Benign prostatic hyperplasia without lower urinary tract symptoms] 09-22-2024 Chronic Nonspecific chest pain (1 source) Chest pain, unspecified; Translations: [Chest pain, unspecified type] Onset: 06-14-2024 Episodic Other circulatory disease (1 source) Personal history of other diseases of the circulatory system; Translations: [History of CAD (coronary artery disease)] Onset: 06-14-2024 Episodic Other diseases of bladder and urethra (1 source) Bladder-neck obstruction; Translations: [Bladder-neck obstruction] Onset: 03-02-2025 Chronic Other lower respiratory disease (1 source) Dyspnea on exertion; Translations: [Other forms of dyspnea] 01-30-2024 Episodic Other nervous system disorders (1 source) Carpal tunnel syndrome of right wrist; Translations: [Carpal tunnel syndrome, right upper limb] 08-12-2024 Chronic Other upper respiratory infections (2 sources) Acute maxillary sinusitis; Translations: [Acute maxillary sinusitis, unspecified] 12-26-2023 Episodic Peripheral and visceral atherosclerosis (1 source) Intermittent claudication; Translations: [Peripheral vascular disease, unspecified] 01-30-2024 Chronic Residual codes; unclassified (2 sources) Other specified postprocedural states; Translations: [Other postprocedural status] 11-07-2023 Episodic Syncope (1 source) Syncope and collapse; Translations: [Syncope, unspecified syncope type] Onset: 06-14-2024 Episodic Past or Other Problems Problem Classification Problem Date Documented Da te Episodic/Chronic Coronary atherosclerosis and other heart disease (4 sources) Presence of coronary angioplasty implant and graft; Translations: [Percutaneous transluminal coronary angioplasty status] Onset: 08-09-2014 05-30-2023 Episodic Other screening for suspected conditions (not mental disorders or infectious disease) (1 source) Encounter for screening for malignant neoplasm of prostate; Translations: [Encounter for screening for malignant neoplasm of prostate] Onset: 08-06-2024 Episodic Results Test Name Value Interpretation Reference Range Facility Discharge Instructionon 02-11 Discharge Instruction [facility] Medical Records Department [address] [place] [address] Instructions for Home/Discharge Instructions 02/24/25 1710 MR#: [id number] Acct: [id number] Name: ENRIQUE RODRIGUEZ Rep #: [id number] : 1960 64 From: Marco Madison MD PCP: Dionna Owens NP-C [place] [facility] [place] Instructions Diet Discharge Diet: No restrictions DC O2, CPAP, BIPAP needs Home O2 Discharge instructions: No Dressing / Incision Discharge Activity: Return to Normal Activity and May Not Drive (while taking narcotic pain medications.) Dressing / Incision Call your doctor if you observe: Fever of 101 or Higher Catheter: Case to leg bag and Case to large bag Drain: [place] Follow Up Care Please Follow Up With: Marco Madison MD When: Call [phone] for an appointment Test Results: Test results from this visit will be discussed in further detail at your follow-up appointment, if applicable. Discharge Plan Admission Primary Reason for Your Visit: incision of bladder neck Attending Provider: Marco Madison Primary Care Provider: Dionna Owens NP Instructions Print Language: Tuvaluan Discharge Orders/Prescriptions Prescriptions: New oxycodone 5 mg tablet 5 mg PO Q6H PRN (Reason: pain) 3 Days Qty: 14 0RF ciprofloxacin HCl [Cipro] 500 mg tablet 500 mg PO BID Qty: 6 0RF Continued naproxen 220 mg PO BID bethanechol chloride 25 mg tablet 25 mg PO TID atorvastatin 40 mg tablet 40 mg PO QHS Qty: 90 3RF tamsulosin 0.4 mg capsule 0.4 mg PO QHS losartan 25 mg tablet 25 mg PO DAILY Qty: 90 3RF Held aspirin 81 mg tablet,chewable 81 mg PO DAILY Hold Instructions: Resume on 03/10/25. No Action (DME) prelubed urine catheter 14 fr See Rx Instructions .Route .MEDSUPPLY Qty: 270 4RF Rx Instructions: cathing 3 x a day Referrals / Follow Up: Dionna Owens NP, RETAIL PHARMACY MANAGER-C [Primary Care Provider] - Disposition Disposition (needs filled in before D/C Order can be placed): Home, Self Care 02/24/25 1710 Marco Madison MD CC: RETAIL PHARMACY MANAGER-C Dionna Owens Signed [facility] MR/POSTOP.[facility] 02-24-2025 MR/POSTOP.[facility] Medical Records Department [address] [place] [address] Anesthesia Postop Eval I 02/24/251715 MR#: [id number] Acct: [id number] Name: ENRIQUE RODRIGUEZ Rep #: [id number] : 1960 64 From: Chu Rasheed MD PCP: IQRA BarcenasC Status:REG SDC Y Race: C Location: [place] [address] Anesthesia: Postop Eval I Current Vital Signs Temperature: 98.6 F Pulse Rate: 73 Blood Pressure: 107/57 Respiratory Rate: 16 Pulse Ox: 91 (Patient has significant cough postop. Will give him a DuoNeb breathing treatment.) Oxygen Delivery Method: Room Air Assessment Airway patent: Yes Spontaneous unlabored respirations: Yes Mental status: Awake and Calm nausea: No Vomiting: No Anesthesia Complication: No Fluid Hydration Crystalloid volume administer (ml): 500 Total IV fluid infused: 500 Progress Note Anesthesia document: Postop Eval 1 completed: Yes 02/24/251718 Date Chu Rasheed MD Cosigner Signature: Date CC: Signed Normal [facility] [id number] 02-24-2025 MR/POSTOPAN2 [facility] Medical Records Department [address] [place] [address] Anesthesia Postop Eval II 02/24/251756 MR#: [id number] Acct: [id number] Name: ENRIQUE RODRIGUEZ Rep #: [id number] : 1960 64 From: Chu Rasheed MD PCP: Dionna Owens RETAIL PHARMACY MANAGER-C Status:REG SDC Y Race: C Location: [address] Anesthesia Postop Eval I Sum Postop Eval Completion status Anesthesia document: Postop Eval 1 completed: Yes Anesthesia Postop Eval I Summary Anesthesia Postop Eval I Summary: Anesthesia Postop Eval I: Assessment Summary Airway patent Yes 02/24/25 17:19 Spontaneous unlabored Yes 02/24/25 17:19 respirations Mental status Awake,Calm 02/24/25 17:19 nausea No 02/24/25 17:19 Vomiting No 02/24/25 17:19 Anesthesia Postop Eval I: Fluid Summary Crystalloid volume administer 500 02/24/25 17:19 (ml) Colloids volume administered ( ml) Blood Product volume administered (ml) Total IV fluid infused 500 02/24/25 17:19 Anesthesia Postop Eval I: Summary Notes Anesthesia Complication No 02/24/25 17:19 Anesthesia Complication Comment: Post-operative progress note Anesthesia: Postop Eval II Evaluation Mental status: Awake and Calm Pain Level: 1 nausea: No Vomiting: No Complications Anesthesia Complication: No 02/24/251756 Date Chu Rasheed MD Cosigner Signature: Date CC: Signed Normal [facility] Operative Reporton Operative Report [facility] Medical Records Department [address] [address] Operative Report 02/24/25 1703 MR#: [id number] Acct: [id number] Name: ENRIQUE RODRIGUEZ Rep #: [id number] : 1960 64 From: Marco Madison MD PCP: YEVGENIY Barcenas Status:[facility] Location: [place] [address] Operative Report (Standard) Operative Information Date of Procedure: 02/24/25 Pre-Operative Diagnosis: Bladder neck contracture Post-Operative Diagnosis: The same Surgery/Procedure Performed: Transurethral incision of a bladder neck contracture java tech: No Type of Anesthesia: General RN Documented Start/Stop Times: Operation Date: 02/24/25 15:25 Case Time Into Pre-Op 02/24/25 13:20 Procedure Start Time: 16:51 Procedure Stop Time: 17:03 Select all DRAINS/GRAFTS/IMPLANT S that apply: Drains Drain details: 20 Vincentian Case Estimated Blood Loss: None Specimen collected: No Description of surgery: 64-year-old male with a very slow slow flow was found to have a bladder neck contracture he also has a mild meatal stenosis so he underwent general anesthetic I dilated the meatus from [address] up to 28 Vincentian after this I went in with a 24 Vincentian noncontinuous flow Olympus bipolar resectoscope we used the knife on the bipolar and then I incised the bladder neck contracture starting at the 5 o'clock position incised all the way down to the fat on the left side and then the 7 o'clock position on the right side incised it wide until I got the fat opened up the prostate really wide had a nice wide open channel flow test was adequate I then cauterized obtain hemostasis we put a 20 Vincentian catheter into the bladder anesthesia was reversed taken back to the PACU in good condition with a catheter he will go home with a catheter and follow-up next week for catheter removal. Successful transurethral incision of a bladder neck contracture. Surgical Findings: Bladder neck opened up with a bipolar knife Complications Complications: No Admit VTE Documentation VTE Present on Admission: No VTE Mechan Device Prophylaxis: SCD's VTE Pharm Prophylaxis ordered?: No 02/24/25 1706 Cosigner Signature (if applicable): CC: YEVGENIY Owens; Dr. Marco Madison MD Signed [facility] 12 Lead EKGon 02-23-2025 12 Lead EKG [facility] Cardiovascular Services [address] [place] [address] 12 Lead EKG 02/23/25 1313 MR#: [id number] Acct: [id number] Name: ENRIQUE RODRIGUEZ Rep #: [id number] : 1960 64 From: Nicholas Duarte MD Attending Dr: Dr. Marco Madison MD Status[place] [facility] [place]: Didier Morris MD Date: 02/23/25 [place] [facility] [place] Sex: M C Admitted: Test Reason : PREOP Blood Pressure : */* mmHG Vent. Rate : 76 BPM Atrial Rate : 76 BPM P-R Int : 220 ms QRS Dur : 96 ms QT Int : 398 ms P-R-T Axes : 40 11 15 degrees QTcB Int : 447 ms Sinus rhythm with 1st degree A-V block Otherwise normal ECG Confirmed by Nicholas Duarte ([id number]), publishing editor TERESO CONTRERAS ([id number]) on 02/25/2025 10:08:55 AM Referred By: Marco Madison Confirmed By: Nicholas Duarte 02/25/25 1008 Date Nicholas Duarte MD CC: YEVGENIY Owens; Dr. Marco Madison MD; Dr. Didier Morris MD Signed [facility] Activated partial thrombopla stin time (aPTT) in platelet poor plasma by coagulation aOrdered By: Didier Morris on 02-23-2025 aPTT Coag (PPP) [Time] 27.9 s 24.1-36.2 [facility] Anion gap in Serum or Plasma Ordered By: Didier Morris on 02-23-2025 Anion gap [Moles/Vol] 11 mmol/L - [facility] BUN/creatinine ratioOrdered By: Didier Morris on 02-23-2025 Urea nitrogen/Creatinine [Mass ratio] 17.5 mg/mg - [facility] Basic Metabolic Profile (BMP )on 02-23-2025 BUN/CRE 17.5 RATIO Normal - [facility] Comment on above: Performed By: #### L 500.3400, L300.4310, L500.2500, L100.0500, L300.3900 #### [facility] [address] [place], [address] Calcium [Mass/Vol] 9.4 mg/dL Normal 7.6-11.0 [facility] Comment on above: Performed By: #### L 500.3400, L300.4310, L500.2500, L100.0500, L300.3900 #### [facility] [address] [place], [address] Chloride [Moles/Vol] 104 mmol/L Normal 98-108 [facility] Comment on above: Performed By: #### L 500.3400, L300.4310, L500.2500, L100.0500, L300.3900 #### [facility] [address] [place], [address] CO2 [Moles/Vol] 24.2 mmol/L Normal 21.0-32.0 [facility] Comment on above: Performed By: #### L 500.3400, L300.4310, L500.2500, L100.0500, L300.3900 #### [facility] [address] [place], [address] Creatinine [Mass/Vol] 0.77 mg/dL Normal 0.70-1.20 [facility] Comment on above: Performed By: #### L 500.3400, L300.4310, L500.2500, L100.0500, L300.3900 #### [facility] [address] [place], [address] GAP 11 Normal 5-15 [facility] Comment on above: Performed By: #### L 500.3400, L300.4310, L500.2500, L100.0500, L300.3900 #### [facility] [address] [place], [address] GFR/1.73 sq M.predicted among non-blacks MDRD (S/P/Bld) [Vol rate/Area] 99 mL/min/{1.73_m2} Normal >60 [facility] Comment on above: Result Comment: mL/m in/1.73m2 CKD-EPI Creatinine Equation (2020) Performed By: #### L 500.3400, L300.4310, L500.2500, L100.0500, L300.3900 #### [facility] [address] [place], [address] Glucose [Mass/Vol] 101 mg/dL High 70-99 [facility] Comment on above: Performed By: #### L 500.3400, L300.4310, L500.2500, L100.0500, L300.3900 #### [facility] [address] [place], [address] Potassium [Moles/Vol] 4.0 mmol/L Normal 3.3-5.1 [facility] Comment on above: Performed By: #### L 500.3400, L300.4310, L500.2500, L100.0500, L300.3900 #### [facility] [address] [place], [address] Sodium [Moles/Vol] 139 mmol/L Normal 133-145 [facility] Comment on above: Performed By: #### L 500.3400, L300.4310, L500.2500, L100.0500, L300.3900 #### [facility] [address] [place], [address] Urea nitrogen [Mass/Vol] 14 mg/dL Normal 4-19 [facility] Comment on above: Performed By: #### L 500.3400, L300.4310, L500.2500, L100.0500, L300.3900 #### [facility] [address] [place], [address] Bilirubin directOrdered By: Didier Morris on 02-23-2025 Bilirubin.direct [Mass/Vol] 0.24 mg/dL 0.00-0.30 [facility] Bilirubin, totalOrdered By: Didier Morris on 02-23-2025 Bilirubin [Mass/Vol] 0.41 mg/dL 0.00-1.30 [facility] CBC-Complete Blood Cnt No Di ffon 02-23-2025 Erythrocyte distribution width (RBC) [Ratio] 13.9 % Normal 11.6-14.6 [facility] Comment on above: Performed By: #### L 500.3400, L300.4310, L500.2500, L100.0500, L300.3900 #### [facility] [address] [place], [address] Hematocrit (Bld) [Volume fraction] 39.7 % Low 40-54 [facility] Comment on above: Performed By: #### L 500.3400, L300.4310, L500.2500, L100.0500, L300.3900 #### [facility] [address] [place], [address] Hemoglobin (Bld) [Mass/Vol] 13.4 g/dL Normal 13.0-16.5 [facility] Comment on above: Performed By: #### L 500.3400, L300.4310, L500.2500, L100.0500, L300.3900 #### [facility] [address] [place], [address] MCH (RBC) [Entitic mass] 32.4 pg High 27.0-32.0 [facility] Comment on above: Performed By: #### L 500.3400, L300.4310, L500.2500, L100.0500, L300.3900 #### [facility] [address] [place], [address] MCHC (RBC) [Mass/Vol] 33.8 g/dL Normal 32-36 [facility] Comment on above: Performed By: #### L 500.3400, L300.4310, L500.2500, L100.0500, L300.3900 #### [facility] [address] [place], [address] MCV (RBC) [Entitic vol] 95.9 fL High 80-94 [facility] Comment on above: Performed By: #### L 500.3400, L300.4310, L500.2500, L100.0500, L300.3900 #### [facility] [address] [place], [address] Platelet mean volume (Bld) [Entitic vol] 10.4 fL Normal 6.2-12.0 [facility] Comment on above: Performed By: #### L 500.3400, L300.4310, L500.2500, L100.0500, L300.3900 #### [facility] [address] [place], [address] Platelets (Bld) [#/Vol] 272 10*3/uL Normal 150-450 [facility] Comment on above: Performed By: #### L 500.3400, L300.4310, L500.2500, L100.0500, L300.3900 #### [facility] [address] [place], [address] RBC (Bld) [#/Vol] 4.14 10*6/uL Low 4.6-6.2 [facility] Comment on above: Performed By: #### L 500.3400, L300.4310, L500.2500, L100.0500, L300.3900 #### [facility] [address] [place], [address] RDW SD 49.3 fl High 35.1-43.9 [facility] Comment on above: Performed By: #### L 500.3400, L300.4310, L500.2500, L100.0500, L300.3900 #### [facility] [address] [place], [address] WBC (Bld) [#/Vol] 13.8 10*3/uL High 4.4-11.0 [facility] Comment on above: Performed By: #### L 500.3400, L300.4310, L500.2500, L100.0500, L300.3900 #### [facility] [address] [place], [address] Carbon dioxide, total [Moles /volume] in Central venous bloodOrdered By: Didier Morris on 02-23-2025 CO2 [Moles/Vol] 24.2 mmol/L 21.0-32.0 [facility] Chloride assayOrdered By: Alvin Morris on 02-23-2025 Chloride [Moles/Vol] 104 mmol/L 98-108 [facility] Erythrocyte distribution wid th ratioOrdered By: Didier Morris on 02-23-2025 Erythrocyte distribution width (RBC) [Ratio] 13.9 % 11.6-14.6 [facility] Erythrocyte distribution wid th standard deviationOrdered By: Didier Morris on 02-23-2025 Erythrocyte distribution width (RBC) [Ratio] 49.3 fl High 35.1-43.9 [facility] Glomerular filtration rate ( GFR) estimation/1.73 sq m using serum, plasma, or whole bOrdered By: Didier Morris on 02-23-2025 GFR/1.73 sq M.predicted among non-blacks MDRD (S/P/Bld) [Vol rate/Area] 99 mL/min/{1.73_m2} >60 [facility] Comment on above: mL/min/1.73m2 CKD-EP I Creatinine Equation (2020) Hematocrit Auto (Bld) [Volum e fraction]Ordered By: Didier Morris on 02-23-2025 Hematocrit (Bld) [Volume fraction] 39.7 % Low 40-54 [facility] Hemoglobin measurementOrdere d By: Didier Morris on 02-23-2025 Hemoglobin (Bld) [Mass/Vol] 13.4 g/dL 13.0-16.5 [facility] International normalized rat io (INR) calculationOrdered By: Didier Morris on 02-23-2025 INR Coag (Bld) [Relative time] 1.0 {INR} [facility] - Chemistry and C hemistry - challengeOrdered By: Didier Morris on 02-23-2025 AST [Catalytic activity/Vol] 16 U/L <38 [facility] Liver Profileon 02-23-2025 Albumin [Mass/Vol] 4.2 g/dL Normal 3.4-4.8 [facility] Comment on above: Performed By: #### L 500.3400, L300.4310, L500.2500, L100.0500, L300.3900 #### [facility] [address] [place], [address] ALK PHOS 90 U/L Normal 40-129 [facility] Comment on above: Performed By: #### L 500.3400, L300.4310, L500.2500, L100.0500, L300.3900 #### [facility] [address] [place], [address] ALT [Catalytic activity/Vol] 15 U/L Normal <=46 [facility] Comment on above: Performed By: #### L 500.3400, L300.4310, L500.2500, L100.0500, L300.3900 #### [facility] [address] [place], [address] AST [Catalytic activity/Vol] 16 U/L Normal <=37 [facility] Comment on above: Performed By: #### L 500.3400, L300.4310, L500.2500, L100.0500, L300.3900 #### [facility] [address] [place], [address] Bilirubin [Mass/Vol] 0.41 mg/dL Normal 0.00-1.30 [facility] Comment on above: Performed By: #### L 500.3400, L300.4310, L500.2500, L100.0500, L300.3900 #### [facility] [address] [place], [address] Bilirubin.direct [Mass/Vol] 0.24 mg/dL Normal 0.00-0.30 [facility] Comment on above: Performed By: #### L 500.3400, L300.4310, L500.2500, L100.0500, L300.3900 #### [facility] [address] [place], [address] Globulin (S) [Mass/Vol] 2.9 g/dL Normal 2.2-4.2 [facility] Comment on above: Performed By: #### L 500.3400, L300.4310, L500.2500, L100.0500, L300.3900 #### [facility] [address] [place], [address] T PROT 7.0 g/dL Normal 5.9-8.4 [facility] Comment on above: Performed By: #### L 500.3400, L300.4310, L500.2500, L100.0500, L300.3900 #### [facility] [address] [place], [address] MCV (mean corpuscular volume ) determinationOrdered By: Didier Morris on 02-23-2025 MCV (RBC) [Entitic vol] 95.9 fL High 80-94 [facility] MR/PAT.Kameron 02-23-2025 MR/PAT.JANIYA [facility] Medical Records Department [address] [address] PAT - Anesthesia 02/23/25 1524 MR#: [id number] Acct: [id number] Name: ENRIQUE RODRIGUEZ Rep #: [id number] : 1960 64 From: Sarthak Sterling MD PCP: Dionna Owens NP-C Status:PRE SDC Y Race: C [place] [facility] [facility] [place]-Assessment Diagnosis/Proposed Procedure Planned Operative Procedure(s): TUR BLADDER NECK CONTRACTURE Anesthesia History 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 When Was Last Pacemaker Check QUESTION #4 FULL TEXT: You/Your Family Experience fever (hyperthermia) with Anesthesia Last Oral Intake Last Oral intake: Last Oral Intake NPO since Meds taken in AM with sips of water? Meds patient instructed to take am of surgery PONV PONV - cloak room attendant: PONV - cloak room attendant Female No 02/19/25 08:55 HX of Motion Sickness No 02/19/25 08:55 HX of N/V After Surgery No 02/19/25 08:55 Non-Smoker No 02/19/25 08:55 Duration of Surgery greater Yes 02/19/25 08:55 than 60 minutes Number of Risk Factors 1 02/19/25 08:55 PONV Score Low Risk 02/19/25 08:55 Height Weight Height Weight: Anesthesia: Height Weight Height 5 ft 2.5 in 01/07/25 16:31 Respiratory Assessment Respiratory Assessment - cloak room attendant: Respiratory Tract Infection Hx - cloak room attendant Hx Respiratory Tract Infection No 02/19/25 08:55 STOP Sleep Apnea STOP Sleep Apnea - cloak room attendant: STOP Sleep Apnea - cloak room attendant Hx Hypertension Yes: CONTROLLED WITH MED 02/19/25 08:55 Hx Sleep Apnea No 02/19/25 08:55 CPAP BIPAP Do you snore loudly (louder Yes 02/19/25 08:55 than talking or can be heard Do you often feel tired/ No 02/19/25 08:55 fatigued/ sleepy during daytime? Has anyone observed you stop No 02/19/25 08:55 breathing during sleep? STOP Results Positive 02/19/25 08:55 QUESTION #5 FULL TEXT : Do you snore loudly (louder than talking or can be heard through closed doors)? 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 Specify any problems Hx of Preganancy in last 3 N/A 02/19/25 08:55 Months Nurse Filling Out Transfusion DSCHRIBER 02/19/25 08:55 Questions: Date: 02/19/25 02/19/25 08:55 Time: 08:57 02/19/25 08:55 Patient unable to answer at this time (ie. confused, unrespo /Reproductio n History /Reproductiv e History - cloak room attendant: /Reproductiv e Hx- cloak room attendant Hx Now No 02/19/25 08:55 Gestational Age (in weeks): EDC: Hx Hx Para Hx Section SAB No 02/19/25 08:55 Active Medications Active Medications: Current Medications Generic Name Dose Route Start Last Admin Trade Name Freq PRN Reason Stop Dose Admin Cefazolin Sodium 2 gm/ Sodium 110 mls @ 150 mls/hr 02/24/25 15:25 Chloride IV 02/24/25 16:08 INTRAOP ONE [facility] Medical History Prostate disease High cholesterol Easy bruising Leg cramps History of stress test Hyperlipemia Hypertension Wears glasses Alcohol use Arthritis Restless legs Gastric reflux Smoker COPD (chronic obstructive pulmonary disease) Chronic cough History of edema History of echocardiogram Cardiology follow-up encounter History of heart attack BPH (benign prostatic hyperplasia) Ventricular tachycardia STEMI (ST elevation myocardial infarction) Atherosclerosis of coronary artery of ruby heart without angina pectoris Home Medications ?? (more content not included)... Normal [facility] Mean corpuscular hemoglobin (MCH) determinationOrdered By: Didier Morris on 02-23-2025 MCH (RBC) [Entitic mass] 32.4 pg High 27.0-32.0 [facility] Mean corpuscular hemoglobin concentration (MCHC) determinationOrdered By: Didier Morris on 02-23-2025 MCHC (RBC) [Mass/Vol] 33.8 g/dL 32-36 [facility] Mean platelet volume determi nationOrdered By: Didier Morris on 02-23-2025 Platelet mean volume (Bld) [Entitic vol] 10.4 fL 6.2-12.0 [facility] Partial Thromboplast Timeon 02-23-2025 aPTT Coag (Bld) [Time] 27.9 s Normal 24.1-36.2 [facility] Comment on above: Performed By: #### L 500.3400, L300.4310, L500.2500, L100.0500, L300.3900 #### [facility] [address] [place], [address] Platelet countOrdered By: Alvin Morris on 02-23-2025 Platelets (Bld) [#/Vol] 272 10*3/uL 150-450 [facility] Potassium measurement (mass/ volume)Ordered By: Didier Morris on 02-23-2025 Potassium (Unsp spec) [Mass/Vol] 4.0 mmol/L 3.3-5.1 [facility] Prothrombin Time w/INRon INR Coag (PPP) [Relative time] 1.0 {INR} Normal [facility] Comment on above: Performed By: #### L 500.3400, L300.4310, L500.2500, L100.0500, L300.3900 #### [facility] [address] [place], [address] PT Coag (PPP) [Time] 13.0 s Normal 11.7-14.9 [facility] Comment on above: Performed By: #### L 500.3400, L300.4310, L500.2500, L100.0500, L300.3900 #### [facility] [address] [place], [place], [id number] [phone] Prothrombin timeOrdered By: Didier Morris on 02-23-2025 PT Coag (PPP) [Time] 13.0 s 11.7-14.9 [facility] RBC Auto (Bld) [#/Vol]Ordere d By: Didier Morris on 02-23-2025 RBC (Bld) [#/Vol] 4.14 10*6/uL Low 4.6-6.2 [facility] Serum creatinine measurement (mass/volume)Ordered By: Didier Morris on 02-23-2025 Creatinine [Mass/Vol] 0.77 mg/dL 0.70-1.20 [facility] Serum globulin measurementOr dered By: Didier Morris on 02-23-2025 Globulin (S) [Mass/Vol] 2.9 g/dL 2.2-4.2 [facility] Serum glucose measurement (m ass/volume)Ordered By: Didier Morris on 02-23-2025 Glucose [Mass/Vol] 101 mg/dL High 70-99 [facility] Serum or plasma alanine soto otransferase (ALT) measurementOrdered By: Didier Morris on 02-23-2025 ALT [Catalytic activity/Vol] 15 U/L <47 [facility] Serum or plasma albumin wally urement (mass/volume)Ordered By: Didier Morris on 02-23-2025 Albumin [Mass/Vol] 4.2 g/dL 3.4-4.8 [facility] Serum or plasma alkaline ping sphatase measurementOrdered By: Didier Morris on 02-23-2025 ALP [Catalytic activity/Vol] 90 U/L 40-129 [facility] Serum or plasma calcium wally urement (mass/volume)Ordered By: Didier Morris on 02-23-2025 Calcium [Mass/Vol] 9.4 mg/dL 7.6-11.0 [facility] Serum or plasma urea nitroge n measurement (mass/volume)Ordered By: Didier Morris on 02-23-2025 Urea nitrogen [Mass/Vol] 14 mg/dL 4-19 [facility] Sodium levelOrdered By: Whitney Morris on 02-23-2025 Sodium [Moles/Vol] 139 mmol/L 133-145 [facility] Total proteinOrdered By: Darlin Morris on 02-23-2025 Protein [Mass/Vol] 7.0 g/dL 5.9-8.4 [facility] White blood cell (WBC) count Ordered By: Didier Morris on 02-23-2025 WBC (Bld) [#/Vol] 13.8 10*3/uL High 4.4-11.0 [facility] PSA,Total - Annual Screenon 07-15-2024 PSA,TOT SCREEN 0.49 ng/mL Normal 0.00-4.00 [facility] Comment on above: Result Comment: This test was performed using the TPSA assay method for the [employer] chemistry system. Values obtained with different assay methods cannot be used interchangably. When changing PSA assays in the course of monitoring a patient, additional sequential testing should be carried out to confirm baseline values. Performed By: #### L 501.9910 #### [facility] [address] [place], [address] CBC panel Auto (Bld)on 06-15 Erythrocyte distribution width (RBC) [Ratio] 14.5 % Normal 11.5-15.0 [facility] Comment on above: Order Comment: Speci men Type: BLOOD SPECIMENOrdering Facility: [facility] Address: [address] [place] [address] Performed By: #### 5 8410-2 ####[facility]ORYCLIA [id number] [address] [place] Hematocrit (Bld) [Volume fraction] 39.2 % Normal 39.0-51.0 [facility] Comment on above: Order Comment: Speci men Type: BLOOD SPECIMENOrdering Facility: [facility] Address: [address] [place] [address] Performed By: #### 5 8410-2 ####[facility]ORYCL[facility] [id number] [address] [place] Hemoglobin (Bld) [Mass/Vol] 12.9 g/dL Low 13.0-17.0 [facility] Comment on above: Order Comment: Speci men Type: BLOOD SPECIMENOrdering Facility: [facility] Address: [address] [place] [address] Performed By: #### 5 8410-2 ####[facility]ORYCLIA [id number] [address] [place] [facility] MCH (RBC) [Entitic mass] 31.6 pg Normal 26.0-34.0 [facility] Comment on above: Order Comment: Speci men Type: BLOOD SPECIMENOrdering Facility: [facility] Address: [address] [place] [address] Performed By: #### 5 8410-2 ####[facility]ORYCLIA [id number] [address] [place] MCHC (RBC) [Mass/Vol] 32.9 g/dL Normal 30.5-36.0 [facility] Comment on above: Order Comment: Speci men Type: BLOOD SPECIMENOrdering Facility: [facility] Address: [address] [place] [address] Performed By: #### 5 8410-2 ####[facility]ORYCLIA [id number] [address] [place] MCV (RBC) [Entitic vol] 96.1 fL Normal 80.0-100.0 [facility] Comment on above: Order Comment: Speci men Type: BLOOD SPECIMENOrdering Facility: [facility] Address: [address] [place] [address] Performed By: #### 5 8410-2 ####[facility]ORYCLIA [id number] [address] [place] Nucleated RBC (Bld) [#/Vol] 10*3/uL Normal <0.01 [facility] Comment on above: Order Comment: Speci men Type: BLOOD SPECIMENOrdering Facility: [facility] Address: [address] [place] [address] Performed By: #### 5 8410-2 ####[facility]ORYCLIA [id number] [address] [place] Platelet mean volume (Bld) [Entitic vol] 10.7 fL Normal 9.0-12.7 [facility] Comment on above: Order Comment: Speci men Type: BLOOD SPECIMENOrdering Facility: [facility] Address: [address] [place] [address] Performed By: #### 5 8410-2 ####[facility] LABORATORYCLIA [id number] [place] [address] [place] Platelets (Bld) [#/Vol] 281 10*3/uL Normal 150-400 [facility] Comment on above: Order Comment: Speci men Type: BLOOD SPECIMENOrdering Facility: [facility] Address: [address] [place] [address] Performed By: #### 5 8410-2 ####[facility]ATORYCLIA [id number] [place] [address] [place] RBC (Bld) [#/Vol] 4.08 10*6/uL Low 4.20-6.00 [facility] Comment on above: Order Comment: Speci men Type: BLOOD SPECIMENOrdering Facility: [facility] Address: [address] [place] [address] Performed By: #### 5 8410-2 ####[facility]ORATORYCLIA [id number] [place] [address] [place] WBC (Bld) [#/Vol] 13.94 10*3/uL [facility] 3.70-11.00 [facility] Comment on above: Order Comment: Speci men Type: BLOOD SPECIMENOrdering Facility: [facility] Address: [address] [place] [address] Performed By: #### 5 8410-2 ####[facility]ORATORYCLIA [id number] [address] [facility] CNDSon 06-15-2024 CNDS HNO ID: [id number] Author: FERNANDO ROSAS MD Service: Hospital Medicine Author Type: Nurse Practitioner Type: Discharge Summary Filed: 06/15/2024 14:08 Note Text: Attestation signed by Fernando Rosas MD at 06/15/2024 2:08 PM I have reviewed the DC summary and agree with all the outlined elements. Fernando Rosas MD DISCHARGE NOTE (Patient Admitted Less than 48 Hours) SERVICE DATE: 06/15/2024 SERVICE TIME: 06/15/2024 ADMISSION DATE: 06/14/2024 DISCHARGE DISPOSITION: Home with Self Care Discharge Physical Exam: VITAL SIGNS: BP 150/67 Pulse 74 Temp 36.7 ?C (98.1 ?F) (Oral) Resp 20 Ht 167.6 cm (5' 6) Wt 97.6 kg (215 lb 2.7 oz) SpO2 95% BMI 34.73 kg/m? Physical Exam Vitals reviewed. Constitutional: General: He is not in acute distress. Appearance: He is not toxic-appearing. HENT: Head: Normocephalic and atraumatic. Nose: Nose normal. Mouth/Throat: Mouth: Mucous membranes are moist. Pharynx: Oropharynx is clear. Cardiovascular: Rate and Rhythm: Normal rate and regular rhythm. Pulses: Normal pulses. Heart sounds: Normal heart sounds. No murmur heard. Pulmonary: Effort: Pulmonary effort is normal. No respiratory distress. Breath sounds: No stridor. Wheezing present. Abdominal: General: Bowel sounds are normal. There is no distension. Palpations: Abdomen is soft. Tenderness: There is no abdominal tenderness. Musculoskeletal: Cervical back: Normal range of motion and neck supple. Right lower leg: Edema present. Left lower leg: Edema present. Skin: General: Skin is warm and dry. Capillary Refill: Capillary refill takes less than 2 seconds. Neurological: Mental Status: He is alert and oriented to person, place, and time. Psychiatric: Mood and Affect: Mood normal. DIET: Regular ACTIVITY AFTER DISCHARGE: Resume pre-hospital activity FOLLOW UP CARE REQUIRED: PCP within 1-3 days. Cardiology within 2 weeks DISCHARGE MEDICATIONS: Medication List START taking these medications albuterol HFA 90 mcg/actuation inhaler Commonly known as: PROVENTIL HFA Inhale 1-2 Puffs as instructed every 4 hours as needed for wheezing/shortness of breath. azithromycin 500 mg tablet Commonly known as: ZITHROMAX Take 1 tablet by mouth once daily. cefdinir 300 mg capsule Commonly known as: OMNICEF Take 1 capsule by mouth two times a day for 5 days. furosemide 40 mg tablet Commonly known as: LASIX Take 1 tablet by mouth once daily. predniSONE 20 mg tablet Commonly known as: DELTASONE Take 2 tablets by mouth once daily for 4 doses. Start taking on: June 16, 2024 CONTINUE taking these medications atorvastatin 40 mg tablet Commonly known as: LIPITOR bethanechol 25 mg tablet Commonly known as: URECHOLINE loratadine 10 mg tablet Commonly known as: CLARITIN losartan 25 mg tablet Commonly known as: COZAAR tamsulosin 0.4 mg Commonly known as: FLOMAX Where to Get Your Medications These medications were sent to [facility] - [place] [address] - [address] [facility] - [phone] [address] [facility] [address] albuterol HFA 90 mcg/actuation inhaler azithromycin 500 mg tablet cefdinir 300 mg capsule furosemide 40 mg tablet predniSONE 20 mg tablet FINAL DIAGNOSIS: Syncope, COPD HOSPITAL COURSE: Obesity Class I (BMI 30-34.9) Plan of care discussed with Provider, RN, Patient SIGNATURE: Rosemary Dooley APRN.JERRY PATIENT NAME: Enrique Rodriguez DATE: June 15, 2024 TIME: 10:56 AM [facility] CONSULTon 06-15-2024 CONSULT HNO ID: [id number] Author: JACQUI LIMA DO Service: Cardiovascular Disease Author Type: Physician Type: Consults Filed: 06/15/2024 10:19 Note Text: [facility] [place] [facility] Erl[facility] Department of Cardiovascular Medicine SECTION OF [facility] Consultation Note Name: Enrique Rodriguez : 1960 Primary Physician: Dionna Owens APRN.CNP Consulting Physician: Fernando Rosas,* Primary Front Office Director: Kelvin cardiology SERVICE DATE: June 15, 2024 Assessment/ Plan: 1. Syncopal episode. Unsure as to the exact etiology but sounds like vasovagal in nature. Patient had some diaphoresis and did not feel good prior to going to [facility] but then when she stood up in [place] had another acute episode of diaphoresis and passed out. He has had no chest pain, palpitations, exertional shortness of breath and had a recent nuclear stress test several months ago at [place] that was normal. Cardiac exam is normal and no evidence of arrhythmias thus far. EKG without ischemic changes and troponins with no significant delta. No further cardiac workup is necessary and feel the patient can be discharged. 2. History of coronary disease with remote history of myocardial infarction. Stable with recent normal stress testing and followed by [place] [facility]. History: Enrique Rodriguez is a 64 year old male who presents with PMH of previous NE (pt states in 2013 had maker with Stent placed), COPD (diagnosed by PFTs), HTN, HLD. BPH who presents with ?synope episode. Pt states today prior to [facility] he became very hot and sweaty. He went to [facility] anyway was sitting in [facility] and continued to feel hot and sweaty. He then fell to the ground in between the pews at [employer]. He denies ever losing consciousness, he states he remembers everyone around him and talking to him. He notes this episode of feeling very hot and sweaty last a few hours after coming into the ED but eventually went away. He notes some chest heaviness/discomfort at the time but has since gone away. Notes increased leg swelling over the past few months. 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 He notes that he had an episode of feeling very hot and sweaty like this a few months ago at work but it went away on its own. Subjective No past medical history on file. No past surgical history on file. No family history on file. Current Facility-Administered Medications Medication Dose Route Frequency iv contrast (radiology procedure) INTRAVENOUS DIRECTED PRN azithromycin 500 mg in D5W 250 mL Vial-Bag (ZITHROMAX) 500 mg INTRAVENOUS DAILY NaCl 0.9% iv flush bag 20 mL INTRAVENOUS PRN polyethylene glycol 3350 17 g packet 17 g ORAL DAILY PRN bisacodyl 10 mg suppository (DULCOLAX) 10 mg RECTAL DAILY PRN acetaminophen 650 mg tab(s) (TYLENOL) 650 mg ORAL q 6 H PRN melatonin 6 mg tab(s) 6 mg ORAL AT BEDTIME PRN enoxaparin 40 mg injection (LOVENOX) 40 mg SUBCUTANEOUS q 24 HR atorvastatin 40 mg tab(s) (LIPITOR) 40 mg ORAL AT BEDTIME losartan 25 mg tab(s) (COZAAR) 25 mg ORAL DAILY bethanechol 25 mg tab(s) (URECHOLINE) 25 mg ORAL TID tamsulosin 0.4 mg cap(s) (FLOMAX) 0.4 mg ORAL AT BEDTIME cefTRIAXone iv piggyback 1 g in dextrose (iso-osmotic) 50 mL (ROCEPHIN) 1 g INTRAVENOUS q 24 H furosemide 20 mg injection (LASIX) 20 mg INTRAVENOUS DAILY sodium chloride 0.9 % (flush) 2-10 mL (BD POSIFLUSH) 2-10 mL INTRAVENOUS DIRECTED PRN And perflutren lipid microspheres 1.1 mg/mL 1.3 mL injection (DEFINITY) 1.3 mL INTRAVENOUS DIRECTED PRN ipratropium-albuterol 3 mL nebulizer solution (DUONEB) 3 mL INHALATION q 4 H while awake predniSONE 40 mg tab(s) (DELTASONE) 40 mg ORAL DAILY famotidine 20 mg tab(s) (PEPCID) 20 mg ORAL DAILY Allergies As of Date: 06/14/2024 (No Known Allergies) Fully Assessed 06/14/2024 REVIEW OF SYSTEMS: GENERAL: Negative for: Weight loss or gain, Fever or Chills NECK: Negative for: Swelling, Pain, Stiffness RESPIRATORY: Negative for: Cough, Blood in Sputum GASTROINTESTINAL: Negative for: Trouble swallowing, Heartburn, Change in bowel habits, Blood in stool, Dark black stools MUSCULOSKELETAL: Negative for: Severe Muscle or joint pain, Stiffness , Joint swelling NEUROLOGIC/PSYCHIATRI C: Negative for: Paralysis, Numbness, Tingling, Tremor SKIN: Negative for: Rashes, Itching HEMATOLOGICAL/LYMPHAT IC: Negative for: Easy bruising , Easy bleeding ENDOCRINE: Negative for: Heat or cold intolerance, Excessive sweating, Frequent urination All other review of systems, per history of present illness. Objective PHYSICAL EXAMINATION: BP 150/67 Pulse 74 Temp 36.7 ?C (98.1 ?F) (Oral) Resp 20 Ht 167.6 cm (5' 6) Wt 97.6 kg (215 lb 2.7 oz) SpO2 95% BMI 34.73 kg/m? BP 150/67 Pulse 74 Temp (Src) 98.1 (Oral) Resp 20 Ht 5' 6 (1.68m) Wt 215 lb 2.7 oz (97.6kg) SpO2 95% (more content not included)... Normal [facility] Comprehensive metabolic 2000 panelon 06-15-2024 Albumin [Mass/Vol] 3.8 g/dL Low 3.9-4.9 [facility] Comment on above: Order Comment: Speci men Type: BLOOD SPECIMENOrdering Facility: [facility] Address: [address] [place] [address] Performed By: #### 2 4323-8, 26057-7 ####GIRARD LABORATORYCLIA [id number] [place] [address] [place] ALP [Catalytic activity/Vol] 74 U/L Normal 38-113 [facility] Comment on above: Order Comment: Tj men Type: BLOOD SPECIMENOrdering Facility: [facility] Address: [address] [place], [place] [address] Performed By: #### 2 4323-8, 10928-5 ####STEW[facility] LABORATORYCLIA [id number] [place] [address] [place] ALT [Catalytic activity/Vol] 11 U/L Normal 10-54 [facility] Comment on above: Order Comment: Speci men Type: BLOOD SPECIMENOrdering Facility: [facility] Address: [address] [id number] Performed By: #### 2 4323-8, ####STEWART LABORATORYCLIA [id number] [place] [address] [place] Anion gap [Moles/Vol] 6 mmol/L Low 8-15 [facility] Comment on above: Order Comment: Speci men Type: BLOOD SPECIMENOrdering Facility: [facility] Address: [address] [place] [address] Performed By: #### 2 4323-8, ####STEWART LABORATORYCLIA [id number] [address] [place] AST [Catalytic activity/Vol] 18 U/L Normal 14-40 [facility] Comment on above: Order Comment: Speci men Type: BLOOD SPECIMENOrdering Facility: [facility] Address: [address] [id number] Performed By: #### 2 4323-8, ####STEWART LABORATORYCLIA [id number] [place] [id number] [place] Bilirubin [Mass/Vol] 0.8 mg/dL Normal 0.2-1.3 [facility] Comment on above: Order Comment: Speci men Type: BLOOD SPECIMENOrdering Facility: [facility] Address: [address] [id number] Performed By: #### 2 4323-8, ####STEWART LABORATORYCLIA [id number] [address] [place] Calcium [Mass/Vol] 8.8 mg/dL Normal 8.5-10.2 [facility] Comment on above: Order Comment: Speci men Type: BLOOD SPECIMENOrdering Facility: [facility] Address: [address] [id number] Performed By: #### 2 4323-8, ####STEWART LABORATORYCLIA [id number] [place] [address] [place] Chloride [Moles/Vol] 106 mmol/L Normal 98-107 [facility] Comment on above: Order Comment: Speci men Type: BLOOD SPECIMENOrdering Facility: [facility] Address: [address] [place] [address] Performed By: #### 2 4323-8, ####STEWART LABORATORYCLIA [id number] [place] [id number] [place] CO2 [Moles/Vol] 27 mmol/L Normal 22-30 [facility] Comment on above: Order Comment: Speci men Type: BLOOD SPECIMENOrdering Facility: [facility] Address: [address] [place] [address] Performed By: #### 2 4323-8, ####STEWART LABORATORYCLIA [id number] [place] [id number] [place] Creatinine [Mass/Vol] 0.86 mg/dL Normal 0.73-1.22 [facility] Comment on above: Order Comment: Speci men Type: BLOOD SPECIMENOrdering Facility: [facility] Address: [address] [place] [address] Performed By: #### 2 4323-8, ####STEWART LABORATORYCLIA [id number] [place] [id number] [facility] [place] Creatinine and Glomerular filtration rate.predicted panel (S/P/Bld) 95 mL/min/1.73m??? Normal >=60 [facility] Comment on above: Order Comment: Speci men Type: BLOOD SPECIMENOrdering Facility: [facility] Address: [address] [place] [address] Result Comment: Marysol mated Glomerular Filtration Rate (eGFR) is calculated using the 2020 CKD-EPI creatinine equation. This equation utilizes serum creatinine, sex, and age as parameters. The creatinine assay has traceable calibration to isotope dilution-mass spectrometry. Refer to KDIGO guidelines for clinical interpretation. In patients with unstable renal function, e.g. those with acute kidney injury, the eGFR may not accurately reflect actual GFR. Performed By: #### 2 4323-8, ####STEWART LABORATORYCLIA [id number] [place] [address] [place] Glucose [Mass/Vol] 91 mg/dL Normal 74-99 [facility] Comment on above: Order Comment: Tj borrego Type: BLOOD SPECIMENOrdering Facility: [facility] Address: [address] [place] [address] Result Comment: The [place] Diabetes Association (ADA) provides guidance for cutoff values for fasting glucose and random glucose. The ADA defines fasting as no caloric intake for at least 8 hours. Fasting plasma glucose results between 100 to 125 mg/dL indicate increased risk for diabetes (prediabetes). Fasting plasma glucose results greater than or equal to 126 mg/dL meet the criteria for diagnosis of diabetes. In the absence of unequivocal hyperglycemia, results should be confirmed by repeat testing. In a patient with classic symptoms of hyperglycemia or hyperglycemic crisis, random plasma glucose results greater than or equal to 200 mg/dL meet the criteria for diagnosis of diabetes. Reference: Standards of Medical Care in Diabetes 2016, [place] Diabetes Association. Diabetes Care. 2016.39(Suppl 1). Performed By: #### 2 4323-8, ####STEWART LABORATORYCLIA [id number] [place] [id number] [place] Potassium [Moles/Vol] 4.5 mmol/L Normal 3.7-5.1 [facility] Comment on above: Order Comment: Tj borrego Type: BLOOD SPECIMENOrdering Facility: [facility] Address: [address] [place] [address] Performed By: #### 2 4323-8, ####STEWART LABORATORYCLIA [id number] [place] [address] [place] Protein [Mass/Vol] 6.6 g/dL Normal 6.3-8.0 [facility] Comment on above: Order Comment: Tj borrego Type: BLOOD SPECIMENOrdering Facility: [facility] Address: [address] [place] [address] Performed By: #### 2 4323-8, ####STEWART LABORATORYCLIA [id number] [place] [address] [place] Sodium [Moles/Vol] 139 mmol/L Normal 136-144 [facility] Comment on above: Order Comment: Speci men Type: BLOOD SPECIMENOrdering Facility: [facility] Address: [address] [place] [address] Performed By: #### 2 4323-8, ####STEWART LABORATORYCLIA [id number] [place] [address] [place] [facility] Urea nitrogen [Mass/Vol] 10 mg/dL Normal 9-24 [facility] Comment on above: Order Comment: Speci men Type: BLOOD SPECIMENOrdering Facility: [facility] Address: [address] [place] [address] Performed By: #### 2 4323-8, ####STEWART LABORATORYCLIA [id number] [place] [id number] [place] Magnesium SerPl-mCncon 06-15 Magnesium [Mass/Vol] 2.0 mg/dL Normal 1.7-2.3 [facility] Comment on above: Order Comment: Speci men Type: BLOOD SPECIMENOrdering Facility: [facility] Address: [address] [place] [address] Performed By: #### 2 4323-8, 69171-0 ####STEWART LABORATORYCLIA [id number] [place] [id number] [facility] [place] ALLIED HEALTHon 06-14-2024 ALLIED HEALTH HNO ID: [id number] Author: BERKLEY DAN RT(R) Service: Radiology Author Type: Technologist Type: Allied Health Filed: 06/14/2024 12:57 Note Text: Radiology Service Progress Note PATIENT NAME: Enrique Rodriguez DATE OF SERVICE: June 14, 2024 TIME: 12:57 PM PATIENT IDENTITY VERIFICATION COMPLETED USING TWO (2) IDENTIFIERS: Name and Date of confirmed by patient verbally and Name and Date of confirmed by identification band. FALL SCREENING: Has the patient had 2 falls in the last year or 1 fall with injury or currently using an Ambulatory Assistive Device (Walker, Cane, Wheelchair, Crutches, etc.)? 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 Comment on above: Order Comment: Speci men Type: BLOOD SPECIMENOrdering Facility: [facility] Address: [address] [place] [address] Performed By: #### 5 7021-8 ####STEWART LABORATORYCLIA [id number] [place] [address] [place] Basophils/100 WBC (Bld) 1.0 % [facility] Comment on above: Order Comment: Speci men Type: BLOOD SPECIMENOrdering Facility: [facility] Address: [address] [place] [address] Performed By: #### 5 7021-8 ####STEWART LABORATORYCLIA [id number] [place] [address] [place] Differential cell count method Nom (Bld) Manual Normal [facility] Comment on above: Order Comment: Speci men Type: BLOOD SPECIMENOrdering Facility: [facility] Address: [address] [place] [address] Performed By: #### 5 7021-8 ####STEWART LABORATORYCLIA [id number] [place] [address] [place] Eosinophils (Bld) [#/Vol] 0.79 10*3/uL High <0.46 [facility] Comment on above: Order Comment: Speci men Type: BLOOD SPECIMENOrdering Facility: [facility] Address: [address] [place] [address] Performed By: #### 5 7021-8 ####STEWART LABORATORYCLIA [id number] [place] [address] [place] Eosinophils/100 WBC (Bld) 5.0 % Normal [facility] Comment on above: Order Comment: Speci men Type: BLOOD SPECIMENOrdering Facility: [facility] Address: [address] [place] [address] Performed By: #### 5 7021-8 ####STEWART LABORATORYCLIA [id number] [place] [address] [place] Erythrocyte distribution width (RBC) [Ratio] 14.2 % Normal 11.5-15.0 [facility] Comment on above: Order Comment: Speci men Type: BLOOD SPECIMENOrdering Facility: [facility] Address: [address] [place] [address] Performed By: #### 5 7021-8 ####STEWART LABORATORYCLIA [id number] [address] [place] Hematocrit (Bld) [Volume fraction] 41.9 % Normal 39.0-51.0 [facility] Comment on above: Order Comment: Speci men Type: BLOOD SPECIMENOrdering Facility: [facility] Address: [address] [place] [address] Performed By: #### 5 7021-8 ####STEWART LABORATORYCLIA [id number] [place] [address] [place] Hemoglobin (Bld) [Mass/Vol] 14.0 g/dL Normal 13.0-17.0 [facility] Comment on above: Order Comment: Speci men Type: BLOOD SPECIMENOrdering Facility: [facility] Address: [address] [place] [address] Performed By: #### 5 7021-8 ####STEWART LABORATORYCLIA [id number] [place] [address] [place] Lymphocytes (Bld) [#/Vol] 5.52 10*3/uL High 1.00-4.00 [facility] Comment on above: Order Comment: Speci men Type: BLOOD SPECIMENOrdering Facility: [facility] Address: [address] [place] [address] Performed By: #### 5 7021-8 ####STEWART LABORATORYCLIA [id number] [address] Lymphocytes/100 WBC (Bld) 35.0 % Normal [facility] Comment on above: Order Comment: Speci men Type: BLOOD SPECIMENOrdering Facility: [facility] Address: [address] [place] [address] Performed By: #### 5 7021-8 ####STEWART LABORATORYCLIA [id number] [address] MCH (RBC) [Entitic mass] 32.0 pg Normal 26.0-34.0 [facility] Comment on above: Order Comment: Speci men Type: BLOOD SPECIMENOrdering Facility: [facility] Address: [address] [place] [address] Performed By: #### 5 7021-8 ####STEWART LABORATORYCLIA [id number] [address] [place] MCHC (RBC) [Mass/Vol] 33.4 g/dL Normal 30.5-36.0 [facility] Comment on above: Order Comment: Speci men Type: BLOOD SPECIMENOrdering Facility: [facility] Address: [address] [place] [address] Performed By: #### 5 7021-8 ####STEWART LABORATORYCLIA [id number] [address] MCV (RBC) [Entitic vol] 95.9 fL Normal 80.0-100.0 M [facility] Comment on above: Order Comment: Speci men Type: BLOOD SPECIMENOrdering Facility: [facility] Address: [address] [place] [address] Performed By: #### 5 7021-8 ####STEWART LABORATORYCLIA [id number] [address] Monocytes (Bld) [#/Vol] 1.58 10*3/uL High <0.87 [facility] Comment on above: Order Comment: Speci men Type: BLOOD SPECIMENOrdering Facility: [facility] Address: [address] [place] [address] Performed By: #### 5 7021-8 ####STEWART LABORATORYCLIA [id number] [place] [address] [place] Monocytes/100 WBC (Bld) 10.0 % Normal [facility] Comment on above: Order Comment: Speci men Type: BLOOD SPECIMENOrdering Facility: [facility] Address: [address] [place] [address] Performed By: #### 5 7021-8 ####STEWART LABORATORYCLIA [id number] [place] [address] [place] Neutrophils (Bld) [#/Vol] 7.73 10*3/uL High 1.45-7.50 [facility] Comment on above: Order Comment: Speci men Type: BLOOD SPECIMENOrdering Facility: [facility] Address: [address] [place] [address] Performed By: #### 5 7021-8 ####STEWART LABORATORYCLIA [id number] [place] [address] [place] Neutrophils/100 WBC (Bld) 49.0 % Normal [facility] Comment on above: Order Comment: Speci men Type: BLOOD SPECIMENOrdering Facility: [facility] Address: [address] [place] [address] Performed By: #### 5 7021-8 ####STEWART LABORATORYCLIA [id number] [place] [address] [place] Nucleated RBC (Bld) [#/Vol] 10*3/uL Normal <0.01 [facility] Comment on above: Order Comment: Speci men Type: BLOOD SPECIMENOrdering Facility: [facility] Address: [address] [place] [address] Performed By: #### 5 7021-8 ####STEWART LABORATORYCLIA [id number] [place] [address] [place] Nucleated RBC/100 WBC (Bld) [Ratio] 0.0 /[address] [facility] Comment on above: Order Comment: Speci men Type: BLOOD SPECIMENOrdering Facility: [facility] Address: [address] [place] [address] Performed By: #### 5 7021-8 ####STEWART LABORATORYCLIA [id number] [place], [place] [id number] [place] [address] [place] Platelet mean volume (Bld) [Entitic vol] 10.1 fL Normal 9.0-12.7 [facility] Comment on above: Order Comment: Speci men Type: BLOOD SPECIMENOrdering Facility: [facility] Address: [address] [place] [address] Performed By: #### 5 7021-8 ####STEWART LABORATORYCLIA [id number] [place] [address] [facility] [place] Platelets (Bld) [#/Vol] 293 10*3/uL Normal 150-400 [facility] Comment on above: Order Comment: Speci men Type: BLOOD SPECIMENOrdering Facility: [facility] Address: [address] [place] [address] Performed By: #### 5 7021-8 ####STEWART LABORATORYCLIA [id number] [address] Platelets Estimate (Bld) [#/Vol] Adequate Normal [facility] Comment on above: Order Comment: Speci men Type: BLOOD SPECIMENOrdering Facility: [facility] Address: [address] [place] [address] Performed By: #### 5 7021-8 ####STEWART LABORATORYCLIA [id number] [address] [place] RBC (Bld) [#/Vol] 4.37 10*6/uL Normal 4.20-6.00 [facility] Comment on above: Order Comment: Speci men Type: BLOOD SPECIMENOrdering Facility: [facility] Address: [address] [place] [address] Performed By: #### 5 7021-8 ####STEWART LABORATORYCLIA [id number] [address] RED CELL MORPH Reviewed: unremarkable [facility] Comment on above: Order Comment: Speci men Type: BLOOD SPECIMENOrdering Facility: [facility] Address: [address] [place] [address] Performed By: #### 5 7021-8 ####GIRARD LABORATORYCLIA [id number] [place] [address] [place] WBC (Bld) [#/Vol] 15.78 10*3/uL High 3.70-11.00 [facility] Comment on above: Order Comment: Speci men Type: BLOOD SPECIMENOrdering Facility: [facility] Address: Formerly named [facility] [place] [address] Performed By: #### 5 7021-8 ####GIRARD LABORATORYCLIA [id number] [place] [address] [place] CTA ABD/PELV W IVCONon 06-14 CTA ABD/PELV W IVCON * * *Final Report* * * DATE OF EXAM: Jun 14 2024 12:42PM [facility] 0466 - CTA ABD/PELV W IVCON / PROCEDURE REASON: Aortic dissection suspected * * * * Physician Interpretation * * * * EXAMINATION: CTA CHEST WITHOUT AND WITH CONTRAST, WITH 3-D RECONSTRUCTIONS CTA ABDOMEN AND PELVIS WITH CONTRAST, WITH 3-D RECONSTRUCTIONS 06/14/2024 12:42 PM HISTORY: Aortic dissection suspected chest pain TECHNIQUE: Spiral CT acquisition of the chest prior to, then through the chest, abdomen and pelvis following bolus infusion of IV iodinated contrast. 3D image post-processing was performed at the request of the referring physician, on the CT scanner workstation under physician supervision. Contrast: IV: 100 mL of Omnipaque 350 Oral: None. CT Radiation dose: Integrated Dose-length product (DLP) for this visit = 1857 mGy*cm. CT Dose Reduction Employed: Automated exposure control(AEC) and iterative recon COMPARISON: None. RESULT: Vasculature: No aneurysm, pseudoaneurysm, dissection, or hemodynamically significant stenosis. Chest: Lines, Tubes, and Devices: N/A Lungs and Pleura: Central airways are patent. No suspicious pulmonary nodules. Subpleural reticulation/architec tural distortion is seen extending from the lung apices down to lung bases. No honeycombing is seen. No focal airspace consolidation is seen. Scattered groundglass opacities are present, most pronounced in the upper lobes. No pneumothorax or bronchiectasis is identified. No pleural effusions. Cardiomediastinal structures: Within normal limits. Neck base: Within normal limits. Thoracic lymph nodes: No lymphadenopathy. Bones and Soft tissues: No acute fracture or destructive osseous lesion. Abdomen and pelvis: Liver: No mass. Normal morphology. Biliary: No bile duct dilation. Gallbladder is absent. Spleen: No mass. No splenomegaly. Pancreas: No mass or duct dilation. Adrenals: No mass. Kidneys: Normal appearance. Bladder is unremarkable. GI tract: No dilation or wall thickening. The appendix is not identified. Constipation. Lymph nodes: No abdominal or pelvic lymphadenopathy. Mesentery/Peritoneum: No free air or fluid collection. Retroperitoneum: No mass or hematoma. Pelvis: No masses identified. Bones/Soft Tissues: No acute fracture or destructive osseous lesion. - - IMPRESSION: Chest: 1. NO EVIDENCE OF ANEURYSM, DISSECTION, OR HEMODYNAMICALLY SIGNIFICANT STENOSIS. 2. SUBTLE SCATTERED GROUNDGLASS OPACITIES ARE PRESENT SUGGESTIVE OF AN INFECTIOUS/INFLAMMATO RY PROCESS. Abdomen and pelvis: 1. NO EVIDENCE OF ACUTE INTRA-ABDOMINAL OR INTRAPELVIC PATHOLOGY. 2. CONSTIPATION. Insurance Claim Auditor: [facility] Transcribe Date/Time: Jun 14 2024 2:03P Dictated by : ROZINA LINK MD This examination was interpreted and the report reviewed and electronically signed by: ROZINA LINK MD on Jun 14 2024 2:17PM EST [id number] [facility] CTA CHEST (GATED) WO/W IVCON on 06-14-2024 CTA CHEST (GATED) WO/W IVCON * * *Final Report* * * DATE OF EXAM: Jun 14 2024 12:42PM [facility] 0126 - CTA CHEST (GATED) WO/W IVCON / PROCEDURE REASON: Aortic dissection suspected * * * * Physician Interpretation * * * * EXAMINATION: CTA CHEST WITHOUT AND WITH CONTRAST, WITH 3-D RECONSTRUCTIONS CTA ABDOMEN AND PELVIS WITH CONTRAST, WITH 3-D RECONSTRUCTIONS 06/14/2024 12:42 PM HISTORY: Aortic dissection suspected chest pain TECHNIQUE: Spiral CT acquisition of the chest prior to, then through the chest, abdomen and pelvis following bolus infusion of IV iodinated contrast. 3D image post-processing was performed at the request of the referring physician, on the CT scanner workstation under physician supervision. Contrast: IV: 100 mL of Omnipaque 350 Oral: None. CT Radiation dose: Integrated Dose-length product (DLP) for this visit = 1857 mGy*cm. CT Dose Reduction Employed: Automated exposure control(AEC) and iterative recon COMPARISON: None. RESULT: Vasculature: No aneurysm, pseudoaneurysm, dissection, or hemodynamically significant stenosis. Chest: Lines, Tubes, and Devices: N/A Lungs and Pleura: Central airways are patent. No suspicious pulmonary nodules. Subpleural reticulation/architec tural distortion is seen extending from the lung apices down to lung bases. No honeycombing is seen. No focal airspace consolidation is seen. Scattered groundglass opacities are present, most pronounced in the upper lobes. No pneumothorax or bronchiectasis is identified. No pleural effusions. Cardiomediastinal structures: Within normal limits. Neck base: Within normal limits. Thoracic lymph nodes: No lymphadenopathy. Bones and Soft tissues: No acute fracture or destructive osseous lesion. Abdomen and pelvis: Liver: No mass. Normal morphology. Biliary: No bile duct dilation. Gallbladder is absent. Spleen: No mass. No splenomegaly. Pancreas: No mass or duct dilation. Adrenals: No mass. Kidneys: Normal appearance. Bladder is unremarkable. GI tract: No dilation or wall thickening. The appendix is not identified. Constipation. Lymph nodes: No abdominal or pelvic lymphadenopathy. Mesentery/Peritoneum: No free air or fluid collection. Retroperitoneum: No mass or hematoma. Pelvis: No masses identified. Bones/Soft Tissues: No acute fracture or destructive osseous lesion. - - IMPRESSION: Chest: 1. NO EVIDENCE OF ANEURYSM, DISSECTION, OR HEMODYNAMICALLY SIGNIFICANT STENOSIS. 2. SUBTLE SCATTERED GROUNDGLASS OPACITIES ARE PRESENT SUGGESTIVE OF AN INFECTIOUS/INFLAMMATO RY PROCESS. Abdomen and pelvis: 1. NO EVIDENCE OF ACUTE INTRA-ABDOMINAL OR INTRAPELVIC PATHOLOGY. 2. CONSTIPATION. Insurance Claim Auditor: ANIYAH Transcribe Date/Time: Jun 14 2024 2:03P Dictated by : ROZINA LINK MD This examination was interpreted and the report reviewed and electronically signed by: ROZINA LINK MD on Jun 14 2024 2:17PM EST [id number] N Normal [facility] Comprehensive metabolic 2000 panelon 06-14-2024 Albumin [Mass/Vol] 4.0 g/dL Normal 3.9-4.9 [facility] Comment on above: Order Comment: Speci men Type: BLOOD SPECIMENOrdering Facility: [facility] Address: [address] [place], [place] [address], [place] [address] Performed By: #### 2 4323-8, [id number], ####[facility] LABORATORYCLIA [id number] [place] [address] [place] ALP [Catalytic activity/Vol] 81 U/L Normal 38-113 [facility] Comment on above: Order Comment: Speci men Type: BLOOD SPECIMENOrdering Facility: [facility] Address: [address] [place] [address] Performed By: #### 2 4323-8, [id number], ####[facility] LABORATORYCLIA [id number] [place] [address] [place] ALT [Catalytic activity/Vol] 14 U/L Normal 10-54 [facility] Comment on above: Order Comment: Speci men Type: BLOOD SPECIMENOrdering Facility: [facility] Address: [address] [place] [address] Performed By: #### 2 4323-8, [id number], ####[facility] LABORATORYCLIA [id number] [place] [address] [place] Anion gap [Moles/Vol] 11 mmol/L Normal 8-15 [facility] Comment on above: Order Comment: Speci men Type: BLOOD SPECIMENOrdering Facility: [facility] Address: [address] [place] [address] Performed By: #### 2 4323-8, [id number], ####[facility] LABORATORYCLIA [id number] [place] [address] [place] AST [Catalytic activity/Vol] 17 U/L Normal 14-40 [facility] Comment on above: Order Comment: Speci men Type: BLOOD SPECIMENOrdering Facility: [facility] Address: [facility] [place] [address] Performed By: #### 2 4323-8, [id number], ####[facility] LABORATORYCLIA [id number] [place] [address] [place] Bilirubin [Mass/Vol] 0.9 mg/dL Normal 0.2-1.3 [facility] Comment on above: Order Comment: Speci men Type: BLOOD SPECIMENOrdering Facility: [facility] Address: [address] [place] [id number] Performed By: #### 2 4323-8, [id number], ####[facility] LABORATORYCLIA [id number] [place] [address] [place] Calcium [Mass/Vol] 9.0 mg/dL Normal 8.5-10.2 [facility] Comment on above: Order Comment: Speci men Type: BLOOD SPECIMENOrdering Facility: [facility] Address: [address] [place], [place] [address] Performed By: #### 2 4323-8, [id number], ####[facility] LABORATORYCLIA [id number] [place] [address] [place] Chloride [Moles/Vol] 104 mmol/L Normal 98-107 [facility] Comment on above: Order Comment: Speci men Type: BLOOD SPECIMENOrdering Facility: [facility] Address: [address] [place] [address] Performed By: #### 2 4323-8, [id number], ####[facility] LABORATORYCLIA [id number] [place] [address] [place] CO2 [Moles/Vol] 26 mmol/L Normal 22-30 [facility] Comment on above: Order Comment: Speci men Type: BLOOD SPECIMENOrdering Facility: [facility] Address: [address] [place], [place] [id number] Performed By: #### 2 4323-8, [id number], ####[facility] LABORATORYCLIA [id number] [place] [address] [place] Creatinine [Mass/Vol] 0.74 mg/dL Normal 0.73-1.22 [facility] Comment on above: Order Comment: Speci men Type: BLOOD SPECIMENOrdering Facility: [facility] Address: [address] [place], [place] [address] Performed By: #### 2 4323-8, [id number], ####[facility] LABORATORYCLIA [id number] [place] [address] [place] Creatinine and Glomerular filtration rate.predicted panel (S/P/Bld) 100 mL/min/1.73m??? Normal >=60 [facility] Comment on above: Order Comment: Samireal borrego Type: BLOOD SPECIMENOrdering Facility: [facility] Address: [address] [place] [address] Result Comment: Marysol mated Glomerular Filtration Rate (eGFR) is calculated using the 2020 CKD-EPI creatinine equation. This equation utilizes serum creatinine, sex, and age as parameters. The creatinine assay has traceable calibration to isotope dilution-mass spectrometry. Refer to KDIGO guidelines for clinical interpretation. In patients with unstable renal function, e.g. those with acute kidney injury, the eGFR may not accurately reflect actual GFR. Performed By: #### 2 4323-8, [id number], ####[facility] LABORATORYCLIA [id number] [place] [id number] [place] Glucose [Mass/Vol] 106 mg/dL High 74-99 [facility] Comment on above: Order Comment: Tj borrego Type: BLOOD SPECIMENOrdering Facility: [facility] Address: [address] [place] [address] Result Comment: The [place] Diabetes Association (ADA) provides guidance for cutoff values for fasting glucose and random glucose. The ADA defines fasting as no caloric intake for at least 8 hours. Fasting plasma glucose results between 100 to 125 mg/dL indicate increased risk for diabetes (prediabetes). Fasting plasma glucose results greater than or equal to 126 mg/dL meet the criteria for diagnosis of diabetes. In the absence of unequivocal hyperglycemia, results should be confirmed by repeat testing. In a patient with classic symptoms of hyperglycemia or hyperglycemic crisis, random plasma glucose results greater than or equal to 200 mg/dL meet the criteria for diagnosis of diabetes. Reference: Standards of Medical Care in Diabetes 2016, [place] Diabetes Association. Diabetes Care. 2016.39(Suppl 1). Performed By: #### 2 4323-8, [id number], ####[facility] LABORATORYCLIA [id number] [place] [address] [place] Potassium [Moles/Vol] 3.8 mmol/L Normal 3.7-5.1 [facility] Comment on above: Order Comment: Speci men Type: BLOOD SPECIMENOrdering Facility: [facility] Address: [address] [place] [address] [place] [id number] Performed By: #### 2 4323-8, [id number], ####[facility] LABORATORYCLIA [id number] [place] [address] [place] [facility] Protein [Mass/Vol] 7.1 g/dL Normal 6.3-8.0 [facility] Comment on above: Order Comment: Speci men Type: BLOOD SPECIMENOrdering Facility: [facility] Address: [address] [place] [address] Performed By: #### 2 4323-8, [id number], ####[facility] LABORATORYCLIA [id number] [address] Sodium [Moles/Vol] 141 mmol/L Normal 136-144 [facility] Comment on above: Order Comment: Speci men Type: BLOOD SPECIMENOrdering Facility: [facility] Address: [address] [place] [address] Performed By: #### 2 4323-8, [id number], ####[facility] LABORATORYCLIA [id number] [address] [place] Urea nitrogen [Mass/Vol] 12 mg/dL Normal 9-24 [facility] Comment on above: Order Comment: Speci men Type: BLOOD SPECIMENOrdering Facility: [facility] Address: [address] [place], [place] [address] Performed By: #### 2 4323-8, [id number], ####ST[facility] LABORATORYCLIA [id number] [place] [id number] [facility] ED NOTEon 06-14-2024 ED NOTE HNO ID: [id number] Author: SUE DAVILA RN Service: ? Author Type: Registered Nurse Type: ED Notes Filed: 06/14/2024 18:31 Note Text: Verbal phone report was provided to Basilia on -. The pt remains stable for transport to the floor for admission. NAD noted at this time. Belongings list was completed. Medic to transport. [facility] ED NOTE HNO ID: [id number] Author: SUE DAVILA RN Service: ? Author Type: Registered Nurse Type: ED Notes Filed: 06/14/2024 17:57 Note Text: Heads up called to -[place] charge nurse (Spoke with Ellyn) [facility] ED NOTE HNO ID: [id number] Author: CHANTAL YUNG RN Service: ? Author Type: Registered Nurse Type: ED Notes Filed: 06/14/2024 11:48 Note Text: Bed: ED-18 Expected date: Expected time: Means of arrival: [facility] Fire/EMS Comments: [facility] ED PROV NOTEon 06-14-2024 ED PROV NOTE HNO ID: [id number] Author: ANTHONY CRYSTAL DO Service: Emergency Medicine Author Type: Physician Type: ED Provider Notes Filed: 06/14/2024 17:20 Note Text: ED Provider Note Patient Name: Enrique Rodriguez : 1960 SERVICE DATE: 06/14/24 History Patient presents with: Syncope: PT presents to the ED from [facility] via EMS. Bystanders report pt had a syncopal episode. PT has HX of NE with cardiac stenting. PT complaint of chest pain and nausea. Pt has no other complaints at this time. Chest Pain HPI 64 year old male PMHx CAD s/p stent presents with EMS for syncope and chest pain. Per EMS, patient had a syncopal episode. Bystanders did perform CPR however reportedly did have a strong pulse. On arrival, EMS said that they had a strong pulse. EMS gave 325 mg of aspirin, 1 sublingual nitro with improvement in patient's chest pain. Patient endorses chest pain that is currently 2/10 in the middle of his chest does not radiate, feels like a pressure. Patient endorses sweating, nausea/nonbloody nonbilious emesis. Denies any fever, chills, abdominal pain, shortness of breath, numbness or weakness, blurred vision, headache. Patient states that he did not hit his head. Denies any blood thinners. No past medical history on file. No past surgical history on file. No family history on file. Social History Tobacco Use Smoking status: Not on file Smokeless tobacco: Not on file Substance and Sexual Activity Alcohol use: Not on file Drug use: Not on file Sexual activity: Not on file ALLERGIES No Known Allergies Review of Systems Constitutional: Negative for fever. HENT: Negative for congestion. Respiratory: Negative for cough and shortness of breath. Cardiovascular: Positive for chest pain. Gastrointestinal: Positive for nausea and vomiting. Negative for abdominal pain and diarrhea. Genitourinary: Negative for dysuria. Neurological: Negative for weakness and headaches. Physical Exam Vitals [06/14/24 1157] BP Pulse Temp Temp src Resp SpO2 Weight Height 185/77 73 36.5 ?C (97.7 ?F) Oral 18 97 % 100.1 kg (220 lb 10.9 oz) -- Physical Exam Constitutional: General: He is in acute distress. Appearance: He is diaphoretic. He is not ill-appearing or toxic-appearing. HENT: Head: Normocephalic. Nose: Nose normal. Mouth/Throat: Mouth: Mucous membranes are moist. Eyes: Pupils: Pupils are equal, round, and reactive to light. Cardiovascular: Rate and Rhythm: Normal rate. Pulses: Normal pulses. Comments: +2 radials and DPs bilaterally Pulmonary: Effort: Pulmonary effort is normal. No respiratory distress. Breath sounds: Wheezing present. Comments: Wheezes in the bilateral bases. Good air movement bilaterally. Abdominal: Palpations: Abdomen is soft. Tenderness: There is no abdominal tenderness. There is no guarding. Musculoskeletal: Right lower leg: No edema. Left lower leg: No edema. Skin: General: Skin is warm. Capillary Refill: Capillary refill takes less than 2 seconds. Neurological: Mental Status: Mental status is at baseline. Comments: Alert, answer questions properly. Tongue protrudes midline. Palate elevates symmetrically. No facial droop, no slurred speech. Strength 5/5 BUE, BLE Dull sensation intact BUE, BLE Diagnostic Testing ED Labs Ordered and Reviewed HIGH SENSITIVITY TROPONIN T (INITIAL) - Abnormal; Notable for the following components: Result Value Ref Range JUAN PABLO High Sensitivity 34 (*) <12 ng/L All other components within normal limits COMPREHENSIVE METABOLIC PANEL - Abnormal; Notable for the following components: Glucose 106 (*) 74 - 99 mg/dL All other components within normal limits COMPLETE BLOOD COUNT AND DIFFERENTIAL - Abnormal; Notable for the following components: WBC 15.78 (*) 3.70 - 11.00 k/uL Abs Neut (Segs + Bands) 7.73 (*) 1.45 - 7.50 k/uL Abs Lymph (Normal + Reactive) 5.52 (*) 1.00 - 4.00 k/uL Abs [place] 1.58 (*) <0.87 k/uL Abs Eosin 0.79 (*) <0.46 k/uL Abs Baso 0.16 (*) <0.11 k/uL All other components within normal limits Narrative: This is an appended report. These results have been appended to a previously verified report. HIGH SENSITIVITY TROPONIN T (SECOND) - Abnormal; Notable for the following components: JUAN PABLO High Sensitivity 33 (*) <12 ng/L All other components within normal limits HIGH SENSITIVITY TROPONIN T (THIRD) 3 HRS AFTER INITIAL - Abnormal; Notable for the following components: JUAN PABLO High Sensitivity 37 (*) <12 ng/L All other components within normal limits MAGNESIUM - Normal TOXICOLOGY SCREEN, ROUTINE URINE - Normal Narrative: Immunoassay screen only. Cross reactivity with other substances can occur with immunoassay screening. Detection of any drug(s) in this urine toxicology panel is presumptive only. These tests are for medical purposes only and should not be used for compliance monitoring, legal, or forensic use. Samples should be within nor (more content not included)... Normal [facility] EKGon 06-14-2024 Electrocardiogram Ventricular Rate : 8 0 BPM Atrial Rate : 80 BPM P-R Interval : 184 ms QRS Duration : 90 ms Q-T Interval : 404 ms QTC Calculation(Bazett) : 465 ms Calculated P Pace : 38 degrees Calculated R Pace : -8 degrees Calculated T Pace : 12 degrees NORMAL SINUS RHYTHM INFERIOR INFARCT , AGE UNDETERMINED ABNORMAL ECG NO STEMI Confirmed by ANTHONY CRYSTAL DO ([id number]), publishing editor SERAFIN FRENCH ([id number]) on 06/14/2024 2:57:40 PM NAME : ENRIQUE RODRIGUEZ PID : [id number] : 1960 Gender : Male Race : Unknown ORD : Procedure Date : Jun 14 2024 12:55:53 Edit Date : Jun 14 2024 14:57:43 Diagnosis: NORMAL SINUS RHYTHM INFERIOR INFARCT , AGE UNDETERMINED ABNORMAL ECG NO STEMI Confirmed by ANTHONY CRYSTAL DO ([id number]), publishing editor SERAFIN FRENCH ([id number]) on 06/14/2024 2:57:40 PM Test Reason : Location : 1 : ER ED Overread By : ANTHONY CRYSTAL DO Edited By : SERAFIN FRENCH Referred By : , Acquired by : lexie [facility] Electrocardiogram Ventricular Rate : 7 3 BPM Atrial Rate : 73 BPM P-R Interval : 202 ms QRS Duration : 102 ms Q-T Interval : 420 ms QTC Calculation(Bazett) : 462 ms Calculated P Pace : 61 degrees Calculated R Pace : -8 degrees Calculated T Pace : 2 degrees NORMAL SINUS RHYTHM WITH SINUS ARRHYTHMIA SEPTAL INFARCT , AGE UNDETERMINED INFERIOR INFARCT , AGE UNDETERMINED ABNORMAL ECG NO STEMI Confirmed by ANTHONY CRYSTAL DO ([id number]), publishing editor SERAFIN FRENCH ([id number]) on 06/14/2024 1:11:40 PM NAME : ENRIQUE RODRIGUEZ PID : [id number] : 1960 Gender : Male Race : Unknown ORD : Procedure Date : Jun 14 2024 11:53:18 Edit Date : Jun 14 2024 13:11:42 Diagnosis: NORMAL SINUS RHYTHM WITH SINUS ARRHYTHMIA SEPTAL INFARCT , AGE UNDETERMINED INFERIOR INFARCT , AGE UNDETERMINED ABNORMAL ECG NO STEMI Confirmed by NATHONY CRYSTAL DO ([id number]), publishing editor SERAFIN FRENCH ([id number]) on 06/14/2024 1:11:40 PM Test Reason : Location : 1 : ER ED Overread By : ANTHONY CRYSTAL DO Edited By : SERAFIN FRENCH Referred By : , Acquired by : brian beaver [facility] HIGH SENSITIVITY TROPONIN T (INITIAL)on 06-14-2024 Troponin T.cardiac High sensitivity method [Mass/Vol] 34 ng/L High <12 [facility] Comment on above: Order Comment: Tj borrego Type: BLOOD SPECIMENOrdering Facility: [facility] Address: [address] [place] [address] Performed By: #### 2 4323-8, [id number], 60644-8 ####[facility] LABORATORYCLIA [id number] [place] [address] [place] HIGH SENSITIVITY TROPONIN T (SECOND)on 06-14-2024 Troponin T.cardiac High sensitivity method [Mass/Vol] 33 ng/L High <12 [facility] Comment on above: Order Comment: Speci men Type: BLOOD SPECIMENOrdering Facility: [facility] Address: [address] [place], [place] [address] Performed By: #### 3 040-3, [id number] ####[facility] LABORATORYCLIA [id number] [address] [place] HIGH SENSITIVITY TROPONIN T (THIRD) 3 HRS AFTER INITIALon 06-14-2024 Troponin T.cardiac High sensitivity method [Mass/Vol] 37 ng/L High <12 [facility] Comment on above: Order Comment: Speci men Type: BLOOD SPECIMENOrdering Facility: [facility] Address: [address] [place], [place] [address] Performed By: #### L [id number], 46065-3, 34106-5 ####[facility] LABORATORYCLIA [id number] [place] [id number] [place] HISTORY PHYSICALon HISTORY PHYSICAL HNO ID: [id number] Author: CHEIKH CARDONA DO Service: Hospital Medicine Author Type: Physician Type: H&P Filed: 06/14/2024 22:22 Note Text: DEPARTMENT OF HOSPITAL MEDICINE HISTORY AND PHYSICAL EXAM SERVICE DATE: 06/14/2024 SERVICE TIME: 4:59 PM Primary Care Physician: Dionna Owens APRN.[facility] NIGHT COVERAGE: Please [place] [facility] [place] [phone] for any issues or concerns Subjective CHIEF COMPLAINT: Syncope (PT presents to the ED from [facility] via EMS. Bystanders report pt had a syncopal episode. PT has HX of NE with cardiac stenting. PT complaint of chest pain and nausea. Pt has no other complaints at this time. ) and Chest Pain HPI: This is a 64 year old male with PMH of Previous NE (pt states in 2014 had maker with Stent placed), COPD (diagnosed by PFTs), HTN, HLD. BPH who presents with ?synope episode. Pt states today prior to [facility] he became very hot and sweaty. He went to [facility] anyway was sitting in [facility] and continued to feel hot and sweaty. He then fell to the ground in between the pews at [facility]. He denies ever losing consciousness, he states he remembers everyone around him and talking to him. He notes this episode of feeling very hot and sweaty last a few hours after coming into the ED but eventually went away. He notes some chest heaviness/discomfort at the time but has since gone away. Notes increased leg swelling over the past few months. 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 He notes that he had an episode of feeling very hot and sweaty like this a few months ago at work but it went away on its own. ED Course: Afebrile, HR 15 - 23, BP 105/59 - 197/80, 97% on RA WBC 15.78, Hgb 14.0, PLT 293 HsTNP 34-> 33 -> 37 Lipase 17 CTA C/A/P: IMPRESSION: Chest: 1. NO EVIDENCE OF ANEURYSM, DISSECTION, OR HEMODYNAMICALLY SIGNIFICANT STENOSIS. 2. SUBTLE SCATTERED GROUNDGLASS OPACITIES ARE PRESENT SUGGESTIVE OF AN INFECTIOUS/INFLAMMATO RY PROCESS. Abdomen and pelvis: 1. NO EVIDENCE OF ACUTE INTRA-ABDOMINAL OR INTRAPELVIC PATHOLOGY. 2. CONSTIPATION. Interventions: - Ceftriaxone, Azithromycin - Lasix 20mg IV - Losartan - Zofran - duoneb Labs Reviewed HIGH SENSITIVITY TROPONIN T (INITIAL) - Abnormal; Notable for the following components: Result Value JUAN PABLO High Sensitivity 34 (*) All other components within normal limits COMPREHENSIVE METABOLIC PANEL - Abnormal; Notable for the following components: Glucose 106 (*) All other components within normal limits COMPLETE BLOOD COUNT AND DIFFERENTIAL - Abnormal; Notable for the following components: WBC 15.78 (*) Abs Neut (Segs + Bands) 7.73 (*) Abs Lymph (Normal + Reactive) 5.52 (*) Abs [place] 1.58 (*) Abs Eosin 0.79 (*) Abs Baso 0.16 (*) All other components within normal limits Narrative: This is an appended report. These results have been appended to a previously verified report. HIGH SENSITIVITY TROPONIN T (SECOND) - Abnormal; Notable for the following components: JUAN PABLO High Sensitivity 33 (*) All other components within normal limits HIGH SENSITIVITY TROPONIN T (THIRD) 3 HRS AFTER INITIAL - Abnormal; Notable for the following components: JUAN PABLO High Sensitivity 37 (*) All other components within normal limits MAGNESIUM - Normal TOXICOLOGY SCREEN, ROUTINE URINE - Normal Narrative: Immunoassay screen only. Cross reactivity with other substances can occur with immunoassay screening. Detection of any drug(s) in this urine toxicology panel is presumptive only. These tests are for medical purposes only and should not be used for compliance monitoring, legal, or forensic use. Samples should be within normal physiological conditions (e.g. pH). This assay does not include adulteration/specimen validity testing. In clinical settings, confirmatory testing is at the practitioner's discretion [1]. If clinically indicated, confirmation by high specificity, quantitative methodology, which includes adulteration/specimen validity testing, may be requested on the same specimen through Client Services ([phone]) if contacted within 48 hours of initial testing. [1]Substance Abuse and Mental Health Services Administration (2012). Clinical Drug Testing in Primary Care Technical Assistance Publication Series 32. Department of Health and Human Services, [place], p.10. LIPASE - Normal COVID AND INFLUENZA A/B AND RSV PCR, EXPEDITED - Normal Narrative: Reference Range (the expected result in uninfected individuals): Not detected PROCALCITONIN NT PRO BNP } No past medical history on file. No past surgical history on file. No family history on file. PRIOR TO ADMISSION MEDICATIONS: Current Outpatient Medications Medication Instructions atorvastatin (LIPITOR) 40 mg, ORAL, AT BEDTIME bethanechol (URECHOLINE) 25 mg, ORAL, 3 TIMES DAILY loratadine (CLARITIN) 10 mg tablet 1 tablet, ORAL, EVERY AFTERNOON losartan (C (more content not included)... Normal [facility] Legionella Ag Ur Qlon 2023 Legionella sp Ag Ql (U) Negative Normal Negative [facility] Comment on above: Order Comment: Speci men Type: URINE SPECIMENOrdering Facility: [facility] Address: [address] [place] [address] Result Comment: Legi waynella urinary antigen test is used as an aid in diagnosis of infection with Legionella pneumophila serogroup 1. It may be detected from a few days to several months after onset of signs and symptoms despite antibiotic therapy or disease resolution. A negative result cannot exclude Legionellosis. Clinical correlation is required. Performed By: #### 3 2781-7 ####[facility] LABCLIA [id number] [facility] [id number] [place] [address] [place] Lipase SerPl-cCncon 06-14-20 24 Lipase [Catalytic activity/Vol] 17 U/L Normal 16- [facility] Comment on above: Order Comment: Speci men Type: BLOOD SPECIMENOrdering Facility: [facility] Address: [address] [place] [address] Performed By: #### 3 040-3, [id number] ####GIR[facility] LABORATORYCLIA [id number] [place] [address] [place] Magnesium SerPl-mCncon 06-14 Magnesium [Mass/Vol] 2.0 mg/dL Normal 1.7-2.3 [facility] Comment on above: Order Comment: Speci men Type: BLOOD SPECIMENOrdering Facility: [facility] Address: [address] [place] [address] Performed By: #### 2 4323-8, [id number], 80141-8 ####GIRARD LABORATORYCLIA [id number] [address] [place] NT-proBNP [facility] Natriuretic peptide.B prohormone N-Terminal [Mass/Vol] 101 pg/mL Normal <125 [facility] Comment on above: Order Comment: Speci [facility] Type: BLOOD SPECIMENOrdering Facility: [facility] Address: [address] [place] [address] Performed By: #### L [id number], 23227-1, 82450-5 ####GIRARD LABORATORYCLIA [id number] [address] [place] Procalcitonin SerPl-ncon 0 06-14-2024 Procalcitonin [Mass/Vol] ng/mL Normal <0.09 [facility] Comment on above: Order Comment: Speci [facility] Type: BLOOD SPECIMENOrdering Facility: [facility] Address: [address] [place] [address] Result Comment: For a guided interpretation of test results, please visit the Change in Procalcitonin Calculator, [email or web address]. Performed By: #### L [id number], 40351-1, 34068-2 ####STEW[facility] LABORATORYCLIA [id number] [place] [address] [place] STREPTOCOCCUS PNEUMONIAE ANT IGEN URINEon 06-14-2024 STREPTOCOCCUS PNEUMONIAE ANTIGEN URINE STREP PNEUMO AG RESULT: Negative for Streptococcus pneumoniae antigen. Presumptive negative for pneumococcal pneumonia, suggesting no current or recent pneumococcal infection. Infection due to S.pneumoniae cannot be ruled out since the antigen present in the sample may be below the detection limit of the test. Normal [facility] Comment on above: Performed By: #### S PNAG ####[facility] LABCLIA [id number] [facility] [id number] [place] TOXICOLOGY SCREEN, ROUTINE U RINEon 06-14-2024 Amphetamines Confirm (U) [Mass/Vol] Negative Normal Negative [facility] Comment on above: Order Comment: Speci men Type: URINE SPECIMENOrdering Facility: [facility] Address: [address] [place] [address] Result Comment: Cuto ff threshold at 1000 ng/mL. Performed By: #### U TOX2 ####STEWART LABORATORYCLIA [id number] [address] [place] BARBITURATES, URINE Negative Normal Negative [facility] Comment on above: Order Comment: Speci men Type: URINE SPECIMENOrdering Facility: [facility] Address: [address] [place] [address] Result Comment: Cuto ff threshold at 200 ng/mL. Performed By: #### U TOX2 ####STEWART LABORATORYCLIA [id number] [address] [place] BENZODIAZEPINES, UR Negative Normal Negative [facility] Comment on above: Order Comment: Speci men Type: URINE SPECIMENOrdering Facility: [facility] Address: [address] [place] [address] Result Comment: Cuto ff threshold at 200 ng/mL. Performed By: #### U TOX2 ####STEWART LABORATORYCLIA [id number] [place] [address] [place] Cannabinoids Screen Ql (U) Negative Normal Negative [facility] Comment on above: Order Comment: Speci men Type: URINE SPECIMENOrdering Facility: [facility] Address: [address] [place] [address] Result Comment: Cuto ff threshold at 50 ng/mL. Performed By: #### U TOX2 ####STEWART LABORATORYCLIA [id number] [address] [place] Cocaine Ql (U) Negative Normal Negative [facility] Comment on above: Order Comment: Speci men Type: URINE SPECIMENOrdering Facility: [facility] Address: [address] [place] [address] Result Comment: Cuto ff threshold at 300 ng/mL. Performed By: #### U TOX2 ####STEWART LABORATORYCLIA [id number] [address] [place] Ethanol (U) [Mass/Vol] <11 Normal <11 [facility] Comment on above: Order Comment: Speci men Type: URINE SPECIMENOrdering Facility: [facility] Address: [address] [place] [address] Performed By: #### U TOX2 ####STEWART LABORATORYCLIA [id number] [address] [place] Opiates Screen Ql (U) Negative Normal Negative [facility] Comment on above: Order Comment: Speci men Type: URINE SPECIMENOrdering Facility: [facility] Address: [address] [place] [address] Result Comment: Cuto ff threshold at 300 ng/mL. Performed By: #### U TOX2 ####STEWART LABORATORYCLIA [id number] [address] [place] oxyCODONE cutoff Screen (U) [Mass/Vol] Negative Normal Negative [facility] Comment on above: Order Comment: Speci men Type: URINE SPECIMENOrdering Facility: [facility] Address: [address] [place] [address] Result Comment: Cuto ff threshold at 100 ng/mL. Performed By: #### U TOX2 ####STEWART LABORATORYCLIA [id number] [address] [place] Phencyclidine Ql (U) Negative Normal Negative [facility] Comment on above: Order Comment: Speci men Type: URINE SPECIMENOrdering Facility: [facility] Address: [address] [place] [address] Result Comment: Cuto ff threshold at 25 ng/mL. Performed By: #### U TOX2 ####GIRARD LABORATORYCLIA [id number] [address] [place] XR CHEST 1V FRONTAL PORTon 0 06-14-2024 XR CHEST 1V FRONTAL PORT * * *Final Repo rt* * * DATE OF EXAM: Jun 14 2024 12:54PM MDX 5376 - XR CHEST 1V FRONTAL PORT / PROCEDURE REASON: Chest pain * * * * Physician Interpretation * * * * EXAMINATION: CHEST RADIOGRAPH (PORTABLE SINGLE VIEW AP) Exam Date/Time: 06/14/2024 12:54 PM CLINICAL HISTORY: Chest pain MQ: XCPR_5 Comparison: 12/29/2008 RESULT: Lines, tubes, and devices: None. Lungs and pleura: Moderate diffuse alveolar infiltrates likely representing pulmonary edema. Pneumonia would seem less likely. Cardiomediastinal silhouette: Stable cardiomediastinal silhouette. Other: Bony structures unremarkable. 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 Culture, urineOrdered By: Stephen Irene on 01-09-2024 Bacteria identified Cx Nom (U) Enterococcus faecalis [facility] Basophil percentageOrdered B y: Nelson Parra on 10-15-2023 Bilirubin [Mass/Vol] 0.70 mg/dL 0.20-1.00 [facility] Comment on above: For patients on eltr ombopag therapy, use of Dimension [place] TBIL is not recommended. Chloride [Moles/Vol] 108 mmol/L 98-107 [facility] Glucose [Mass/Vol] 98 mg/dL 74-106 [facility] Potassium [Moles/Vol] 3.8 mmol/L 3.5-5.1 [facility] Protein [Mass/Vol] 7.2 g/dL 6.4-8.2 [facility] Sodium [Moles/Vol] 140 mmol/L 136-145 [facility] WBC (Bld) [#/Vol] 11.9 10*3/uL 4.4-11.0 [facility] Blood erythrocytes count (nu mber/volume)Ordered By: Nelson Parra on 10-15-2023 RBC (Bld) [#/Vol] 4.67 10*6/uL 4.6-6.2 [facility] Blood hemoglobin measurement (mass/volume)Ordered By: Nelson Parra on 10-15-2023 Hemoglobin (Bld) [Mass/Vol] 14.9 g/dL 13.0-16.5 [facility] Blood platelet mean volumeOr dered By: Nelson Parra on 10-15-2023 Platelet mean volume (Bld) [Entitic vol] 11.2 fL 6.2-12.0 [facility] Determination of erythrocyte mean corpuscular volume (MCV)Ordered By: Nelson Parra on 10-15-2023 MCV (RBC) [Entitic vol] 96.6 fL 80-94 [facility] Direct bilirubinOrdered By: Nelson Parra on 10-15-2023 Bilirubin.direct [Mass/Vol] 0.16 mg/dL 0.00-0.30 [facility] Hematocrit Auto (Bld) [Volum e fraction]Ordered By: Nelson Parra on 10-15-2023 Hematocrit (Bld) [Volume fraction] 45.1 % 40-54 [facility] INR in Blood by Coagulation assayOrdered By: Nelson Parra on 10-15-2023 INR Coag (Bld) [Relative time] 1.0 {INR} [facility] Laboratory - Chemistry and C hemistry - challengeOrdered By: Nelson Parra on 10-15-2023 ALP [Catalytic activity/Vol] 78 U/L 45-117 [facility] ALT [Catalytic activity/Vol] 20 U/L 16-61 [facility] CO2 [Moles/Vol] 30.0 mmol/L 21.0-32.0 [facility] Globulin (S) [Mass/Vol] 3.5 g/dL 2.2-4.2 [facility] Urea nitrogen/Creatinine [Mass ratio] 11.1 mg/mg 10-20 [facility] Laboratory - CoagulationOrde red By: Nelson Parra on 10-15-2023 aPTT Coag (Bld) [Time] 29.6 s 24.1-36.2 [facility] PT Coag (PPP) [Time] 12.7 s 11.7-14.9 [facility] Laboratory - Hematology and Cell countsOrdered By: Nelson Parra on 10-15-2023 Erythrocyte distribution width (RBC) [Entitic vol] 49.6 fL 35.1-43.9 [facility] Erythrocyte distribution width (RBC) [Ratio] 14.0 % 11.6-14.6 [facility] MCH (RBC) [Entitic mass] 31.9 pg 27.0-32.0 [facility] MCHC Auto (RBC) [Mass/Vol]Or dered By: Nelson Parra on 10-15-2023 MCHC (RBC) [Mass/Vol] 33.0 g/dL 32-36 [facility] No Panel InformationOrdered By: Nelson Parra on 10-15-2023 Estimated GFR (MDRD) Amer 98 mL/min >60 [facility] Comment on above: GFR Calc Estimated GFR (MDRD) Non-Af Amer 81 mL/min >60 [facility] Comment on above: Non- GFR Calc No Panel InformationOrdered By: Nicholas Lin on 10-15-2023 Nasal Screen MRSA/MSSA [facility] Nasal Screen MRSA/MSSA [facility] Platelets bldOrdered By: Shayy Parra on 10-15-2023 Platelets (Bld) [#/Vol] 259 10*3/uL 150-450 [facility] Serum or plasma albumin wally urement (mass/volume)Ordered By: Nelson Parra on 10-15-2023 Albumin [Mass/Vol] 3.7 g/dL 3.2-5.0 [facility] Serum or plasma calcium wally urement (mass/volume)Ordered By: Nelson Parra on 10-15-2023 Calcium [Mass/Vol] 9.2 mg/dL 8.5-10.1 [facility] Serum or plasma creatinine m easurement (mass/volume)Ordered By: Nelson Parra on 10-15-2023 Creatinine [Mass/Vol] 0.99 mg/dL 0.70-1.30 [facility] Comment on above: The validity of the calculated GFR & GFRAA in patients over 70 years has not been determined. Clinical correlation is essential. Serum or plasma urea nitroge n measurement (mass/volume)Ordered By: Nelson Parra on 10-15-2023 Urea nitrogen [Mass/Vol] 11 mg/dL 7-18 [facility] Thin prep Papanicolaou smear with manual screeningOrdered By: Nelson Parra on 10-15-2023 Thin prep Papanicolaou smear with manual screening 10 U/L 15-37 [facility] Thin prep Papanicolaou smear with manual screening 2 5-15 [facility] Culture, urineOrdered By: Stephen Irene on 09-24-2023 Bacteria identified Cx Nom (U) Pasteurella aerogenes [facility] Bacteria identified Cx Nom (U) Pasteurella aerogenes [facility] Basophil percentageOrdered B y: Sherwin López on 08-14-2023 Bilirubin [Mass/Vol] 0.70 mg/dL 0.20-1.00 [facility] Comment on above: For patients on eltr ombopag therapy, use of Dimension [place] TBIL is not recommended. Protein [Mass/Vol] 7.0 g/dL 6.4-8.2 [facility] WBC (Bld) [#/Vol] 11.6 10*3/uL 4.4-11.0 [facility] Blood erythrocytes count (nu mber/volume)Ordered By: Sherwin López on 08-14-2023 RBC (Bld) [#/Vol] 4.39 10*6/uL 4.6-6.2 [facility] Blood hemoglobin measurement (mass/volume)Ordered By: Sherwin López on 08-14-2023 Hemoglobin (Bld) [Mass/Vol] 13.9 g/dL 13.0-16.5 [facility] Blood platelet mean volumeOr dered By: Sherwin López on 08-14-2023 Platelet mean volume (Bld) [Entitic vol] 10.9 fL 6.2-12.0 [facility] Determination of erythrocyte mean corpuscular volume (MCV)Ordered By: Sherwin López on 08-14-2023 MCV (RBC) [Entitic vol] 95.7 fL 80-94 [facility] Direct bilirubinOrdered By: Sherwin López on 08-14-2023 Bilirubin.direct [Mass/Vol] 0.18 mg/dL 0.00-0.30 [facility] Hematocrit Auto (Bld) [Volum e fraction]Ordered By: Sherwin López on 08-14-2023 Hematocrit (Bld) [Volume fraction] 42.0 % 40-54 [facility] INR in Blood by Coagulation assayOrdered By: Sherwin López on 08-14-2023 INR Coag (Bld) [Relative time] 1.0 {INR} [facility] Laboratory - Chemistry and C hemistry - challengeOrdered By: Sherwin López on 08-14-2023 ALP [Catalytic activity/Vol] 73 U/L 45-117 [facility] ALT [Catalytic activity/Vol] 18 U/L 16-61 [facility] Globulin (S) [Mass/Vol] 3.6 g/dL 2.2-4.2 [facility] Laboratory - CoagulationOrde red By: Sherwin López on 08-14-2023 aPTT Coag (Bld) [Time] 29.8 s 24.1-36.2 [facility] PT Coag (PPP) [Time] 13.3 s 11.7-14.9 [facility] Laboratory - Hematology and Cell countsOrdered By: Sherwin López on 08-14-2023 Erythrocyte distribution width (RBC) [Entitic vol] 50.8 fL 35.1-43.9 [facility] Erythrocyte distribution width (RBC) [Ratio] 14.4 % 11.6-14.6 [facility] MCH (RBC) [Entitic mass] 31.7 pg 27.0-32.0 [facility] MCHC Auto (RBC) [Mass/Vol]Or dered By: Sherwin López on 08-14-2023 MCHC (RBC) [Mass/Vol] 33.1 g/dL 32-36 [facility] Platelets bldOrdered By: Sherwin López on 08-14-2023 Platelets (Bld) [#/Vol] 296 10*3/uL 150-450 [facility] Serum or plasma albumin wally urement (mass/volume)Ordered By: Sherwin López on 08-14-2023 Albumin [Mass/Vol] 3.4 g/dL 3.2-5.0 [facility] Thin prep Papanicolaou smear with manual screeningOrdered By: Sherwin López on 08-14-2023 Thin prep Papanicolaou smear with manual screening 11 U/L 15-37 [facility] Basophil percentageOrdered B y: Michael Houser on 05-31-2023 Chloride [Moles/Vol] 108 mmol/L 98-107 [facility] Glucose [Mass/Vol] 98 mg/dL 74-106 [facility] Potassium [Moles/Vol] 3.7 mmol/L 3.5-5.1 [facility] Sodium [Moles/Vol] 137 mmol/L 136-145 [facility] Laboratory - Chemistry and C hemistry - challengeOrdered By: Michael Houser on 05-31-2023 CO2 [Moles/Vol] 24.0 mmol/L 21.0-32.0 [facility] Urea nitrogen/Creatinine [Mass ratio] 12.7 mg/mg 10-20 [facility] No Panel InformationOrdered By: Michael Houser on 05-31-2023 Estimated GFR (MDRD) Amer 103 mL/min >60 [facility] Comment on above: GFR Calc Estimated GFR (MDRD) Non-Af Amer 85 mL/min >60 [facility] Comment on above: Non- GFR Calc Serum or plasma calcium wally urement (mass/volume)Ordered By: Michael Houser on 05-31-2023 Calcium [Mass/Vol] 8.9 mg/dL 8.5-10.1 [facility] Serum or plasma creatinine m easurement (mass/volume)Ordered By: Michael Houser on 05-31-2023 Creatinine [Mass/Vol] 0.94 mg/dL 0.70-1.30 [facility] Comment on above: The validity of the calculated GFR & GFRAA in patients over 70 years has not been determined. Clinical correlation is essential. Serum or plasma urea nitroge n measurement (mass/volume)Ordered By: Michael Houser on 05-31-2023 Urea nitrogen [Mass/Vol] 12 mg/dL 7-18 [facility] Thin prep Papanicolaou smear with manual screeningOrdered By: Michael Houser on 05-31-2023 Thin prep Papanicolaou smear with manual screening 5 5-15 [facility] Absolute lymphocyte countOrd ered By: Bre Ring on 05-02-2023 Lymphocytes Auto (Unsp spec) [#/Vol] 3.99 10*3/uL 0.83-4.51 [facility] Basophil percentageOrdered B y: Bre Ring on 05-02-2023 Basophils/100 WBC (Bld) 0.7 % 0-1 [facility] Bilirubin [Mass/Vol] 0.80 mg/dL 0.20-1.00 [facility] Comment on above: For patients on eltr ombopag therapy, use of Dimension [place] TBIL is not recommended. Chloride [Moles/Vol] 107 mmol/L 98-107 [facility] Cholesterol [Mass/Vol] 145 mg/dL <200 [facility] Comment on above: <200 mg/dL Desirable 200-240 mg/dL Borderline >240 mg/dL High Risk Eosinophils/100 WBC (Bld) 1.9 % 0-5 [facility] Glucose [Mass/Vol] 83 mg/dL 74-106 [facility] Neutrophils (Bld) [#/Vol] 10.3 10*3/uL 2.0-7.7 [facility] Neutrophils/100 WBC (Bld) 63.9 % 47-70 [facility] Potassium [Moles/Vol] 4.2 mmol/L 3.5-5.1 [facility] Protein [Mass/Vol] 7.7 g/dL 6.4-8.2 [facility] Sodium [Moles/Vol] 138 mmol/L 136-145 [facility] Triglyceride [Mass/Vol] 120 mg/dL <199 [facility] Comment on above: The drugs N-Acetylcy steine and Metamizole may falsely depress this assay.Serum Triglycerides Reference Interval Normal <150 mg/dL Borderline high 150 - 199 mg/dL High 200 - 499 mg/dL Very High > or = 500 mg/dL WBC (Bld) [#/Vol] 16.1 10*3/uL 4.4-11.0 [facility] Blood erythrocytes count (nu mber/volume)Ordered By: Bre Ring on 05-02-2023 RBC (Bld) [#/Vol] 4.95 10*6/uL 4.6-6.2 [facility] Blood hemoglobin measurement (mass/volume)Ordered By: Bre Ring on 05-02-2023 Hemoglobin (Bld) [Mass/Vol] 15.7 g/dL 13.0-16.5 [facility] Blood lymphocytes/100 leukoc ytesOrdered By: Bre Ring on 05-02-2023 Lymphocytes/100 WBC (Bld) 24.8 % 19-41 [facility] Blood monocytes/100 leukocyt esOrdered By: Bre Ring on 05-02-2023 Monocytes/100 WBC (Bld) 8.2 % 0-10 [facility] Blood platelet mean volumeOr dered By: Bre Ring on 05-02-2023 Platelet mean volume (Bld) [Entitic vol] 11.8 fL 6.2-12.0 [facility] Determination of erythrocyte mean corpuscular volume (MCV)Ordered By: Bre Ring on 05-02-2023 MCV (RBC) [Entitic vol] 96.2 fL 80-94 [facility] Hematocrit Auto (Bld) [Volum e fraction]Ordered By: Bre Ring on 05-02-2023 Hematocrit (Bld) [Volume fraction] 47.6 % 40-54 [facility] Laboratory - Chemistry and C hemistry - challengeOrdered By: Bre Ring on 05-02-2023 ALP [Catalytic activity/Vol] 76 U/L 45-117 [facility] ALT [Catalytic activity/Vol] 32 U/L 16-61 [facility] CO2 [Moles/Vol] 24.0 mmol/L 21.0-32.0 [facility] Globulin (S) [Mass/Vol] 3.8 g/dL 2.2-4.2 [facility] Urea nitrogen/Creatinine [Mass ratio] 11.5 mg/mg 10-20 [facility] Laboratory - Hematology and Cell countsOrdered By: Bre Ring on 05-02-2023 Erythrocyte distribution width (RBC) [Entitic vol] 50.8 fL 35.1-43.9 [facility] Erythrocyte distribution width (RBC) [Ratio] 14.4 % 11.6-14.6 [facility] Immature granulocytes/100 WBC (Bld) 0.500 % 0.0-0.9 [facility] Comment on above: IG% - Immature Granu locytes (promyelocytes, myelocytes and metamyelocytes) > 1% indicates that a LEFT SHIFT is Present. MCH (RBC) [Entitic mass] 31.7 pg 27.0-32.0 [facility] Nucleated RBC/100 WBC (Bld) [Ratio] 0 % 0-5 [facility] MCHC Auto (RBC) [Mass/Vol]Or dered By: Bre Ring on 05-02-2023 MCHC (RBC) [Mass/Vol] 33.0 g/dL 32-36 [facility] No Panel InformationOrdered By: Bre Ring on 05-02-2023 Estimated GFR (MDRD) Amer 113 mL/min >60 [facility] Comment on above: GFR Calc Estimated GFR (MDRD) Non-Af Amer 94 mL/min >60 [facility] Comment on above: Non- GFR Calc Prostate Specific Antigen Screen 0.56 ng/mL 0.00-4.00 [facility] Comment on above: This test was perfor med using the TPSA assay method for theGarena chemistry system. Values obtained with differentassay methods cannot be used interchangably.When changing PSA assays in the course of monitoring apatient, additional sequential testing should be carriedout to confirm baseline values. Thyroid Stimulating Hormone (TSH) 1.08 uIU/mL 0.358-3.74 [facility] Platelets bldOrdered By: Radha Ring on 05-02-2023 Platelets (Bld) [#/Vol] 289 10*3/uL 150-450 [facility] Serum or plasma albumin wally urement (mass/volume)Ordered By: Bre Ring on 05-02-2023 Albumin [Mass/Vol] 3.9 g/dL 3.2-5.0 [facility] Serum or plasma albumin/glob ulin mass ratioOrdered By: Bre Ring on 05-02-2023 Albumin/Globulin [Mass ratio] 1.0 {ratio} 0.9-2.4 [facility] Serum or plasma calcium wally urement (mass/volume)Ordered By: Bre Ring on 05-02-2023 Calcium [Mass/Vol] 8.9 mg/dL 8.5-10.1 [facility] Serum or plasma cholesterol in HDL measurement (mass/volume)Ordered By: Bre Ring on 05-02-2023 Cholesterol in HDL [Mass/Vol] 31 mg/dL >40 [facility] Comment on above: The drugs N-Acetylcy steine and Metamizole may falsely depress this assay. Reference Range HDL <40 mg/dL Low HDL Cholesterol HDL >or= 60 mg/dL High HDL Cholesterol Serum or plasma cholesterol in VLDL measurement (mass/volume)Ordered By: Bre Ring on 05-02-2023 Cholesterol in VLDL [Mass/Vol] 24 mg/dL 5-40 [facility] Serum or plasma creatinine m easurement (mass/volume)Ordered By: Bre Ring on 05-02-2023 Creatinine [Mass/Vol] 0.87 mg/dL 0.70-1.30 [facility] Comment on above: The validity of the calculated GFR & GFRAA in patients over 70 years has not been determined. Clinical correlation is essential. Serum or plasma low density lipoprotein (LDL) cholesterol measurement (mass/volume)Ordered By: Bre Ring on 05-02-2023 Cholesterol in LDL [Mass/Vol] 90 mg/dL 0-130 [facility] Serum or plasma urea nitroge n measurement (mass/volume)Ordered By: Bre Ring on 05-02-2023 Urea nitrogen [Mass/Vol] 10 mg/dL 7-18 [facility] Thin prep Papanicolaou smear with manual screeningOrdered By: Bre Ring on 05-02-2023 Thin prep Papanicolaou smear with manual screening 23 U/L 15-37 [facility] Thin prep Papanicolaou smear with manual screening 7 5-15 [facility] Vital Signs Date Time Vital Sign Value Performing Clinician Faci lity 02-24-2025 17:40-0400 Body temperature 98.4 [degF] Dionna Owens [employer]NAGER[employer]C Work Phone: [facility] 02-24-2025 17:40-0400 Diastolic blood pressure 67 mm[Hg] Dionna Owens [employer]AIL PH[employer]Y MANAGER-C Work Phone: [facility] 02-24-2025 17:40-0400 Heart rate 68 /min Dionnamurray TomlinsonOwens RETAIL PHARMACY MANAGER-C Work Phone: [facility] 02-24-2025 17:40-0400 Respiratory rate 18 /min Dionnamurray TomlinsonOwens RETAIL PHARMACY MANAGER-C Work Phone: [facility] 02-24-2025 17:40-0400 SaO2% (BldA) [Mass fraction] 96 % Dionna Owens [employer] MANAGER-C Work Phone: [facility] 02-24-2025 17:40-0400 Systolic blood pressure 138 mm[Hg] Dionna Owens RETAIL PH[employer]Y MANAGER-C Work Phone: [facility] 02-24-2025 13:38-0400 Body height 165.1 cm Dionna Owens [employer]AIL [employer]Y MANAGER-C Work Phone: [facility] 02-24-2025 13:38-0400 Body mass index (BMI) [Ratio] 36.3 kg/m2 Dionnamurray TomlinsonOwens RETAIL PHARMACY MANAGER-C Work Phone: [facility] 02-24-2025 13:38-0400 Body weight 99 kg Dionna Owens [employer]Y MANAGER-C Work Phone: [facility] 01-07-2025 16:31-0400 Body mass index (BMI) [Ratio] 40.3 kg/m2 Dionna Owens [employer]Y MANAGER-C Work Phone: [facility] 01-07-2025 16:31-0400 Body temperature 98.8 [degF] Dionna Owens RETAIL PHARMACY MANAGER-C Work Phone: [facility] 01-07-2025 16:31-0400 Body weight 101.6 kg Dionna Owens RETAIL PHARMACY MANAGER-C Work Phone: [facility] 01-07-2025 16:31-0400 Diastolic blood pressure 60 mm[Hg] Dionna Owens RETAIL PHARMACY MANAGER-C Work Phone: [facility] 01-07-2025 16:31-0400 Heart rate 73 /min Dionna Owens RETAIL PHARMACY MANAGER-C Work Phone: [facility] 01-07-2025 16:31-0400 Respiratory rate 18 /min Dionna Owens RETAIL PHARMACY MANAGER-C Work Phone: [facility] 01-07-2025 16:31-0400 SaO2% (BldA) [Mass fraction] 95 % Dionna Owens RETAIL PHARMACY MANAGER-C Work Phone: [facility] 01-07-2025 16:31-0400 Systolic blood pressure 110 mm[Hg] Dionna Owens RETAIL PHARMACY MANAGER-C Work Phone: [facility] 12-25-2023 19:07-0400 Body height 158.75 cm MD Bre Ring Work Phone: [facility] 12-25-2023 19:07-0400 Body mass index (BMI) [Ratio] 32.5 kg/m2 MD Bre Ring Work Phone: [facility] 12-25-2023 19:07-0400 Body temperature 98.4 [degF] MD Bre Ring Work Phone: [facility] 12-25-2023 19:07-0400 Body weight 82.1 kg MD Bre Ring Work Phone: [facility] 12-25-2023 19:07-0400 Diastolic blood pressure 50 mm[Hg] MD Bre Ring Work Phone: [facility] 12-25-2023 19:07-0400 Heart rate 91 /min MD Bre Ring Work Phone: [facility] 12-25-2023 19:07-0400 Respiratory rate 18 /min MD Bre Ring Work Phone: [facility] 12-25-2023 19:07-0400 SaO2% (BldA) [Mass fraction] 96 % MD Bre Ring Work Phone: [facility] 12-25-2023 19:07-0400 Systolic blood pressure 110 mm[Hg] MD Bre Ring Work Phone: [facility] 10-24-2023 16:25-0500 Body temperature 98.1 [degF] MD Bre Ring Work Phone: [facility] 10-24-2023 16:25-0500 Diastolic blood pressure 83 mm[Hg] MD Bre Ring Work Phone: [facility] 10-24-2023 16:25-0500 Heart rate 72 /min MD Bre Ring Work Phone: [facility] 10-24-2023 16:25-0500 Respiratory rate 18 /min MD Bre Ring Work Phone: [facility] 10-24-2023 16:25-0500 SaO2% (BldA) [Mass fraction] 98 % MD Bre Ring Work Phone: [facility] 10-24-2023 16:25-0500 Systolic blood pressure 154 mm[Hg] MD Bre Ring Work Phone: [facility] 10-24-2023 15:10-0500 Inhaled oxygen flow rate 2 L/min MD Bre Ring Work Phone: [facility] 10-24-2023 09:21-0500 Body height 167.64 cm MD Bre Ring Work Phone: [facility] 10-24-2023 09:21-0500 Body mass index (BMI) [Ratio] 33.4 kg/m2 MD Bre Ring Work Phone: [facility] 10-24-2023 09:21-0500 Body weight 93.89 kg MD Bre Ring Work Phone: [facility] 10-04-2023 13:01-0500 Body mass index (BMI) [Ratio] 34.2 kg/m2 MD Bre Ring Work Phone: [facility] 10-04-2023 13:01-0500 Body temperature 98 [degF] MD Bre Ring Work Phone: [facility] 10-04-2023 13:01-0500 Body weight 96.16 kg MD Bre Ring Work Phone: [facility] 10-04-2023 13:01-0500 Diastolic blood pressure 81 mm[Hg] MD Bre Ring Work Phone: [facility] 10-04-2023 13:01-0500 Heart rate 74 /min MD Bre Ring Work Phone: [facility] 10-04-2023 13:01-0500 Respiratory rate 18 /min MD Bre Ring Work Phone: [facility] 10-04-2023 13:01-0500 SaO2% (BldA) [Mass fraction] 95 % MD Bre Ring Work Phone: [facility] 10-04-2023 13:01-0500 Systolic blood pressure 135 mm[Hg] MD Bre Ring Work Phone: [facility] 08-27-2023 09:21-0500 Body height 167.64 cm MD Bre Ring Work Phone: [facility] 08-27-2023 09:21-0500 Body mass index (BMI) [Ratio] 34.2 kg/m2 MD Bre Ring Work Phone: [facility] 08-27-2023 09:21-0500 Body temperature 98 [degF] MD Bre Ring Work Phone: [facility] 08-27-2023 09:21-0500 Body weight 96.33 kg MD Bre Ring Work Phone: [facility] 08-27-2023 09:21-0500 Diastolic blood pressure 77 mm[Hg] MD Bre Ring Work Phone: [facility] 08-27-2023 09:21-0500 Heart rate 87 /min MD Bre Ring Work Phone: [facility] 08-27-2023 09:21-0500 Respiratory rate 18 /min MD Bre Ring Work Phone: [facility] 08-27-2023 09:21-0500 SaO2% (BldA) [Mass fraction] 98 % MD Bre Ring Work Phone: [facility] 08-27-2023 09:21-0500 Systolic blood pressure 125 mm[Hg] MD Bre Ring Work Phone: [facility] 08-22-2023 12:53-0500 Body temperature 98.3 [degF] MD Bre Ring Work Phone: [facility] 08-22-2023 12:53-0500 Diastolic blood pressure 65 mm[Hg] MD Bre Ring Work Phone: [facility] 08-22-2023 12:53-0500 Heart rate 71 /min MD Bre Ring Work Phone: [facility] 08-22-2023 12:53-0500 Respiratory rate 16 /min MD Bre Ring Work Phone: [facility] 08-22-2023 12:53-0500 SaO2% (BldA) [Mass fraction] 100 % MD Bre Ring Work Phone: [facility] 08-22-2023 12:53-0500 Systolic blood pressure 117 mm[Hg] MD Bre Ring Work Phone: [facility] 08-21-2023 14:31-0500 Body mass index (BMI) [Ratio] 33.2 kg/m2 MD Bre Rnig Work Phone: [facility] 08-21-2023 14:31-0500 Body weight 93.44 kg MD Bre Ring Work Phone: [facility] 07-10-2023 15:12-0400 Body mass index (BMI) [Ratio] 33.4 kg/m2 MD Bre Ring Work Phone: [facility] 07-10-2023 15:12-0400 Body weight 93.89 kg MD Bre Ring Work Phone: [facility] 07-10-2023 15:12-0400 Diastolic blood pressure 77 mm[Hg] MD Bre Ring Work Phone: [facility] 07-10-2023 15:12-0400 Respiratory rate 16 /min MD Bre Ring Work Phone: [facility] 07-10-2023 15:12-0400 Systolic blood pressure 147 mm[Hg] MD Bre Ring Work Phone: [facility] 05-30-2023 11:30-0400 Body height 167.64 cm MD Bre Ring Work Phone: [facility] 05-30-2023 11:30-0400 Body mass index (BMI) [Ratio] 31.8 kg/m2 MD Bre Ring Work Phone: [facility] 05-30-2023 11:30-0400 Body weight 89.35 kg MD Bre Ring Work Phone: [facility] 05-30-2023 11:30-0400 Diastolic blood pressure 75 mm[Hg] MD Bre Ring Work Phone: [facility] 05-30-2023 11:30-0400 Heart rate 83 /min MD Bre Ring Work Phone: [facility] 05-30-2023 11:30-0400 Respiratory rate 16 /min MD Bre Ring Work Phone: [facility] 05-30-2023 11:30-0400 Systolic blood pressure 145 mm[Hg] MD Bre Ring Work Phone: [facility] Encounters Encounter Date Encounter Type Care Provider Facility Start: 02-24-2025 End: 02-24-2025 Admission to same day surgery center Dr. Marco Madison MD [facility] Start: 02-24-2025 End: 02-24-2025 ambulatory Dionna Owens RETAIL PHARMACY MANAGERShaunC Work Phone: [facility] Work Phone: Start: 02-23-2025 End: 02-23-2025 ambulatory Marco Madison Facility:[facility] Start: 07-15-2024 End: 07-15-2024 ambulatory Marco Madison Facility:[facility] Start: 06-14-2024 End: 06-15-2024 ambulatory JACQUI ORTIZ BELLA Facility:[facility] Start: 01-09-2024 End: 01-09-2024 ambulatory MD Bre Ring Work Phone: [facility] Work Phone: Start: 01-09-2024 End: 01-09-2024 Patient encounter procedure MD Bre Ring Work Phone: [facility]-Laboratory, Specimen Work Phone: Start: 11-28-2023 End: 11-28-2023 Patient encounter procedure MD Bre Ring Work Phone: [facility] Work Phone: Start: 11-07-2023 End: 11-07-2023 Patient encounter procedure MD Bre Ring Work Phone: [facility] Work Phone: Start: 10-24-2023 Non-patient / Non-visit MD Bre Ring Work Phone: [facility] Start: 10-24-2023 End: 10-24-2023 Admission to same day surgery center MD Bre Ring Work Phone: [facility] Start: 10-24-2023 End: 10-24-2023 ambulatory MD Bre Ring Work Phone: [facility] Work Phone: Start: 10-04-2023 End: 10-04-2023 Patient encounter procedure MD Bre Ring Work Phone: [facility] Work Phone: Start: 09-24-2023 End: 09-24-2023 ambulatory MD Bre Ring Work Phone: [facility] Work Phone: Start: 09-24-2023 End: 09-24-2023 Patient encounter procedure MD Bre Ring Work Phone: [facility], Specimen Work Phone: Start: 08-27-2023 End: 08-27-2023 Patient encounter procedure MD Bre Ring Work Phone: [facility] Work Phone: Start: 08-21-2023 End: 08-22-2023 Evaluation and management of inpatient MD Bre Ring [facility] Work Phone: Start: 07-10-2023 End: 07-10-2023 Patient encounter procedure MD Bre Ring Work Phone: [facility] Work Phone: Start: 06-27-2023 Non-patient / Non-visit MD Bre Ring Work Phone: [facility] Work Phone: Start: 06-21-2023 Non-patient / Non-visit MD Bre Ring Work Phone: [facility] Start: 06-21-2023 End: 06-21-2023 Patient encounter procedure MD Bre Ring [facility] Work Phone: Start: 06-18-2023 End: 06-18-2023 ambulatory MD Bre Ring Work Phone: [facility] Work Phone: Start: 06-18-2023 End: 06-18-2023 Patient encounter procedure MD Bre Ring Work Phone: [facility], [facility] Work Phone: Start: 06-10-2023 Non-patient / Non-visit MD Bre Ring Work Phone: [facility] Start: 06-10-2023 End: 06-10-2023 ambulatory MD Bre Ring Work Phone: [facility] Work Phone: Start: 06-10-2023 End: 06-10-2023 Patient encounter procedure MD Bre Ring [facility] Work [facility]: Start: 06-08-2023 End: 06-08-2023 ambulatory MD Bre Ring Work Phone: [facility] Work Phone: Start: 06-08-2023 End: 06-08-2023 Patient encounter procedure MD Bre Ring Work Phone: [facility] Work Phone: Start: 05-31-2023 End: 05-31-2023 Patient encounter procedure MD Bre Ring Work Phone: [facility] Start: 05-30-2023 End: 05-30-2023 Patient encounter procedure MD Bre Ring Work Phone: [facility] Work Phone: Start: 05-02-2023 End: 05-02-2023 ambulatory [facility] Work Phone: Start: 05-02-2023 End: 05-02-2023 Patient encounter procedure [facility] Procedures Date Procedure Procedure Detail Performing Clinician Start: 02-24-2025 Transurethral prostatectomy Dionna VUONG Work Phone: Start: 01-09-2024 Urine culture MD Bre Ring Work Phone: Start: 10-24-2023 Lap Robotic Inguinal Hernia (Bilateral) MD Bre Ring Work Phone: Start: 10-15-2023 Nasal Screen MRSA/MSSA MD Bre Ring Work Phone: Start: 09-24-2023 Urine culture MD Bre Ring Work Phone: Start: 06-18-2023 Computed tomography of abdomen and pelvis with intravenous contrast MD Bre Ring Work Phone: Start: 06-08-2023 US scan of abdominal aorta MD Bre Ring Work Phone: Start: 08-09-2014 History of placement of stent for coronary artery disease History of coronary artery stent placement MD Bre Ring Work Phone: Comment on above: [id number] w/ 3.5 x 22 mm Resolute RX UNRULY 08/09/2014 History of repair of inguinal hernia S/P bilateral inguinal hernia repair MD Bre Ring Work Phone: Comment on above: Patient arrives for second postoperative visit following bilateral inguinal hernia repair with mesh via robotic José Miguel approach on 10/24/2023. He has made a good recovery and is back to baseline with his urinary habits. He was also well-healed on exam. Interestingly, there is some scabbing initially present at his right upper quadrant port site that I removed 10 did not find any spitting suture material. He continues to apply triple antibiotic ointment to this incision daily. I informed him that I would not recommend him bathing or swimming until this is fully healed. He expresses understanding of this information and will go on to describe a gradual return to activity. He states that he understands the sentiment here as well and overall wants to expresses gratitude for the care he has received. He states he would like to retrain us for his surgical needs in the future. Plan of Treatment Date Care Activity Detail Author Start: 02-24-2025 Ambulation without limitation [facility] Start: 02-24-2025 Medication education [facility] Start: 02-24-2025 Taking patient vital signs [facility] Start: 02-24-2025 [facility] Start: 02-24-2025 End: 02-24-2025 Patient discharge [facility] Start: 10-24-2023 Patient discharge [facility] Start: 10-24-2023 Anesthesia intraperitoneal lower abd w/laps nos ANESTH SURG LOWER ABDOMEN [facility] Start: 10-24-2023 Exc lesion spermatic cord separate procedure REMOVAL OF SPERM CORD LESION [facility] Start: 10-24-2023 Laparoscopy enterolysis separate procedure LAP ENTEROLYSIS [facility] Start: 10-24-2023 Laparoscopy surg rpr initial inguinal hernia LAP ING HERNIA REPAIR INIT [facility] Start: 09-24-2023 Urine culture Urine Culture [facility] Start: 09-24-2023 [facility] Start: 08-22-2023 Patient discharge [facility] Start: 08-22-2023 Removal of urinary catheter [facility] Start: 08-21-2023 Following clinical pathway protocol [facility] Start: 08-21-2023 Application of intermittent pneumatic compression device [facility] Start: 08-21-2023 Anesthesia transurethral resection of prostate ANESTH REMOVAL OF PROSTATE [facility] Start: 08-21-2023 Trurl electrosurg rescj prostate bleed complete PROSTATECTOMY (TURP) [facility] Start: 08-21-2023 Deep breathing and coughing exercises [facility] Start: 08-21-2023 Incentive spirometry [facility] Start: 08-21-2023 Provision of activity privileges [facility] Start: 08-21-2023 Admission procedure [facility] Start: 08-21-2023 Irrigation of urinary bladder [facility] Start: 08-21-2023 Measuring intake and output [facility] Start: 08-21-2023 Patient education [facility] Start: 08-21-2023 Taking patient vital signs [facility] Start: 08-21-2023 Vital signs measurements [facility] Start: 08-21-2023 End: 08-21-2023 [facility] Patient referral [facility] Work Phone: [facility] Payers Date Payer Category Payer Self-pay 2023 Unknown [id number] 2023 Medicare [id number] Medicare MEDICARE PART A B [id number] Unknown AAR [id number] Unknown [id number] Unknown [id number] Unknown [id number] Social History Date Type Detail Facility Tobacco smoking stat [facility] Unknown if ever smoked [facility] Work Phone: Start: 1960 Sex Assigned At Male [facility] Start: 05-30-2023 End: 08-27-2023 Tobacco smoking status [facility] Unknown if ever smoked [facility] Start: 02-24-2025 [facility] Medical Equipment Procedure Code Equipment Code Equipment Origin al Text Equipment Identifier Dates Extra-gynaecolog ical surgical mesh, synthetic polymer, non-bioabsorbable [id number] FDA Start: 10-24-2023 Extra-gynaecolog ical surgical mesh, synthetic polymer, non-bioabsorbable ()[id number] FDA Start: 10-24-2023 Goals Date Patient Goal Desired Activity /State Functional Status Date Assessment Result Facility 08-22-2023 Functional status Chair [facility] Work Phone: Mental Status Date Assessment Result Facility 02-24-2025 Cognitive function Voice/Name [facility] Work Phone: 10-24-2023 Cognitive function Voice/Name [facility] Work Phone: 08-22-2023 Cognitive function Level Of Cons ciousness Awake;Alert;Appropriate;Follow s Commands [facility] Work Phone: 08-22-2023 Cognitive function Voice/Name [facility] Work Phone: Clinical Notes 08-09-2014 to 02-24-2025 Note Date & Type Note Facility 02-24-2025 Consult note [facility] 02-24-2025 Discharge summary [facility] 02-24-2025 History and physical note [facility] 02-24-2025 History and physical note Note Date/Time February 24, 2025 6:23pm [facility] Medical Records Department [address] [place] [id number] History & Physical Exam 02/24/25 1616 MR#: [id number] Acct: [id number] Name: ENRIQUE RODRIGUEZ Rep #:[id number] : 1960 64 From: Marco Madison MD PCP: YEVGENIY Barcenas [place] [facility] [place] [address] HPI - General General Date of Service: 02/24/25 Chief Complaint: Bladder neck contracture HPI Narrative ENRIQUE RODRIGUEZ, is a 64 M who presents for transurethral incision of a bladder neck contracture using the Olympus bipolar set [facility] Medical History Prostate disease High cholesterol Easy bruising Leg cramps History of stress test Hyperlipemia Hypertension Wears glasses Alcohol use Arthritis Restless legs Gastric reflux Smoker COPD (chronic obstructive pulmonary disease) Chronic cough History of edema History of echocardiogram Cardiology follow-up encounter History of heart attack BPH (benign prostatic hyperplasia) Ventricular tachycardia STEMI (ST elevation myocardial infarction) Atherosclerosis of coronary artery of ruby heart without angina pectoris Home Medications ?Medication ?Instructions ?Recorded ?Last Taken ?Type aspirin 81 mg chewable tablet 81 mg PO DAILY 05/30/23 02/15/25 History naproxen 220 mg PO BID 05/30/2302/15 History bethanechol chloride 25 mg tablet 25 mg PO TID 4 Unknown History losartan 25 mg tablet 25 mg PO DAILY #90 tabs 04/15 Unknown Rx prelubed urine catheter #270 ea 09/21/24 Unknown Rx atorvastatin 40 mg tablet 40 mg PO QHS #90 tabs Unknown Rx tamsulosin 0.4 mg capsule 0.4 mg PO QHS 02/19/25 Unkno wn History Allergy/AdvReac Type Severity Reaction Status Date / Time acetaminophen (From Vicodin) AdvReac Intermediate unable to Verified 02/24/25 13:37 urinate hydrocodone (From Vicodin) AdvReac Intermediate unable to Verified 02/24/25 13:37 urinate Family History Father Hypertension Heart disease CVA (cerebral vascular accident) Mother Heart disease Brother Cancer Heart disease CVA (cerebral vascular accident) Sister Heart disease Cancer Surgical History Hx of bilateral inguinal hernia repair History of surgery on arm S/P bilateral inguinal hernia repair Hx of transurethral resection of prostate History of cardiac catheterization S/P surgical removal of pilonidal cyst History of coronary artery stent placement (08/09/14) History of cholecystectomy History of appendectomy Social History Smoking Status: Current every day smoker (Patient smoked today.) tobacco type: cigarettes alcohol intake: current alcohol intake frequency: a few times a week substance use type: does not use caffeine: Yes Type: coffee Number of servings: 6 Vital Signs Vital Signs Vital Signs: 02/24/25 13:38 02/24/25 13:38 02/24/25 14:23 Temperature 98.1 F 98.1 F Temperature Source Temporal Pulse Rate 74 74 Respiratory Rate 18 18 Respiratory Pattern Normal Blood Pressure 146/57 H 146/57 H Blood Pressure Mean 86 Blood Pressure Source Monitor Blood Pressure Position Sitting Blood Pressure Location Right Arm Pulse Ox 97 97 Oxygen Delivery Method Room Air Room Air Weight Weight: 99 kg Body Mass Index (BMI) 36.3 Results Lab / Micro Data 02/23/25 13:30 02/23/25 13:30 02/24/25 1616 <Electronically signed by Marco Madison MD> Cosigner Signature (if applicable): CC: RETAIL PHARMACY MANAGERVinod Owens; Dr. Marco Madison MD~ Signed [facility] Work Phone: 1(991) 564-394005-14-2025 Consult note [facility] Medical Records Department [address] [place] [address] Anesthesia Postop Eval I 02/24/251715 MR#: [id number] Acct: [id number] Name: ENRIQUE RODRIGUEZ Rep #:[id number] : 1960 64 From: Chu Rasheed MD PCP: YEVGENIY Barcenas Status:REG SDC Y Race: C Location: [place] [address] Anesthesia: Postop Eval I Current Vital Signs Temperature: 98.6 F Pulse Rate: 73 Blood Pressure: 107/57 Respiratory Rate: 16 Pulse Ox: 91 (Patient has significant cough postop. Will give him a DuoNeb breathing treatment.) Oxygen Delivery Method: Room Air Assessment Airway patent: Yes Spontaneous unlabored respirations: Yes Mental status: Awake and Calm nausea: No Vomiting: No Anesthesia Complication: No Fluid Hydration Crystalloid volume administer (ml): 500 Total IV fluid infused: 500 Progress Note Anesthesia document: Postop Eval 1 completed: Yes 02/24/251718 ann SALAZAR> Date _ Chu Rasheed MD Cosigner Signature: Date CC: ~ Signed [facility]05-14-2025 Procedure note [facility] Medical Records Department [address] [place] [address] Operative Report 02/24/25 1703 MR#: [id number] Acct: [id number] Name: ENRIQUE RODRIGUEZ Rep #:[id number] : 1960 64 From: Marco Madison MD PCP: YEVGENIY Barcenas [place] [facility] [place] [address] Operative Report (Standard) Operative Information Date of Procedure: 02/24/25 Pre-Operative Diagnosis: Bladder neck contracture Post-Operative Diagnosis: The same Surgery/Procedure Performed: Transurethral incision of a bladder neck contracture java tech: No Type of Anesthesia: General RN Documented Start/Stop Times: Operation Date: 02/24/25 15:25 Case Time Into Pre-Op 02/24/25 13:20 Procedure Start Time: 16:51 Procedure Stop Time: 17:03 Select all DRAINS/GRAFTS/IMPLANTS that apply: Drains Drain details: 20 Vincentian Case Estimated Blood Loss: None Specimen collected: No Description of surgery: 64-year-old male with a very slow slow flow was found to have a bladder neck contracture he also has a mild meatal stenosis so he underwent general anesthetic I dilated the meatus from [address] up to 28 Vincentian afterthis I went in with a 24 Vincentian noncontinuous flow Olympus bipolar resec toscope we used the knife on the bipolar and then I incised the bladder neck contracturestarting atthe 5 o'clock position incised all the way down to the fat on the left side and then the 7 o'clock position on the right side incised it wide until I got the fat opened up the prostate really wide had a nice wide open channel flow test was adequate I then cauterized obtain hemostasis we put a 20 Vincentian catheter into the bladder anesthesia was reversed taken back to the PACU in good condition witha catheter he will go home with a catheter and follow-up next week for catheter removal. Successfultransurethral incision of a bladder neck contracture. Surgical Findings: Bladder neck opened up with a bipolar knife Complications Complications: No Admit VTE Documentation VTE Present on Admission: No VTE Mechan Device Prophylaxis: SCD's VTE Pharm Prophylaxis ordered?: No 02/24/25 1706 Cosigner Signature (if applicable): CC: YEVGENIY Owens; Dr. Marco Madison MD~ [facility]05-14-2025 Consult note Author Chu [facility] Note Date/Time February 24, 2025 2:23p m [facility] Medical Records Department [address] [place] [address] Pre-Anesthesia Evaluation 02/24/25 1400 MR#: [id number] Acct: [id number] Name: ENRIQUE RODRIGUEZ Rep #:[id number] : 1960 64 From: Chu Rasheed MD PCP: IQRA BarcenasC Status:REG SDC Y Race: C Location: [place] [address] ASA Classification* ASA Classification ASA Classification: 3 Assessment & Plan Anesthesia* Anesthesia Assessment Anesthesia Assessment: Discussed sedation and/or anesthesia options, risks, benefits, and alternatives with patient/parents/legal guardian/POA. Questions invited. The patient/parents/legal guardian/POA seems to understand and agrees to proceedwith anesthesia plan. Reviewed the physical assessment, medical history, allergy history and patient home medications list prior to surgery/procedure/anesthetic and documented any changes. Performed airway and anesthesia risk assessments. Anesthesia Type Anesthesia Type: General History Source History Obtained from:: Patient and Chart Anesthesia Focused Assessment* Temperature: 98.1 F Pulse Rate: 74 Blood Pressure: 146/57 Respiratory Rate: 18 Pulse Ox: 97 Oxygen Delivery Method: Room Air Airway Assessment Mouth opens: >3 cm Mallampati Score: I Teeth Condition: Missing Neck Range of motion (ROM): Full ROM Comment: Edentulous uppers. Missing some teeth on the bottom. Focused Labs Anesthesia Preop lab: CBC WBC 13.8 K/mm3 (4.4-11.0) H 02/23/25 13: 5 RBC 4.14 M/mm3 (4.6-6.2) L 02/23/25 13:02/23/25 Hgb 13.4 g/dL (13.0-16.5) 02/23/25 13:02/23/25 Hct 39.7 % (40-54) L 02/23/25 13:30 02/23/25 Plt Count 272 K/mm3 (150-450) 02/23/25 13:30 02/23/25 CHEMISTRY Potassium 4.0 mmol/L (3.3-5.1) 02/23/25 13:30 02/23/25 Sodium 139 mmol/L (133-145) 02/23/25 13:30 02/23/25 BUN 14 mg/dL (4-19) 02/23/25 13:30 02/23/25 Creatinine 0.77 mg/dL (0.70-1.20) 02/23/25 13:30 02/23/25 Glucose 101 mg/dL (70-99) H 02/23/25 13:30 02/23/25 TSH 1.08 uIU/mL (0.358-3.74) 05/02/23 12:40 COAG PT 13.0 SECONDS (11.7-14.9) 02/23/25 13:30 Pre-Assessment Diagnosis/Proposed Procedure Planned Operative Procedure(s): TUR BLADDER NECK CONTRACTURE Anesthesia History 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 When Was Last Pacemaker Check QUESTION #4 FULL TEXT: You/Your Family Experience fever (hyperthermia) with Anesthesia Last Oral Intake Last Oral intake: Last Oral Intake NPO since 22:00 02/24/25 13:38 Meds taken in AM with sips of No 02/24/25 13:38 water? Meds patient instructed to take am of surgery PONV PONV - cloak room attendant: PONV - cloak room attendant Female No 02/19/25 08:55 HX of Motion Sickness No 02/19/25 08:55 HX of N/V After Surgery No 02/19/25 08:55 Non-Smoker No 02/19/25 08:55 Duration of Surgery greater Yes 02/19/25 08:55 than 60 minutes Number of Risk Factors 1 02/19/25 08:55 PONV Score Low Risk 02/19/25 08:55 Height & Weight Height & Weight: Anesthesia: Height & Weight Height 5 ft 5 in 02/24/25 13:38 Weight: 99 kg 02/24/25 13:38 Body Mass Index (BMI) 36.3 02/24/25 13:38 Respiratory Assessment Respiratory Assessment - cloak room attendant: Respiratory Tract Infection Hx - cloak room attendant Hx Respiratory Tract Infection No 02/19/25 08:55 STOP Sleep Apnea STOP Sleep Apnea - cloak room attendant: STOP Sleep Apnea - cloak room attendant Hx Hypertension Yes: CONTROLLED WITH MED 02/19/25 08:55 Hx Sleep Apnea No 02/19/25 08:55 CPAP BIPAP Do you snore loudly (louder Yes 02/19/25 08:55 than talking or can be heard Do you often feel tired/ No 02/19/25 08:55 fatigued/ sleepy during daytime? Has anyone observed you stop No 02/19/25 08:55 breathing during sleep? STOP Results Positive 02/19/25 08:55 QUESTION #5 FULL TEXT : Do you snore loudly (louder than talking or can be heard through closed doors)? 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 Specify any problems Hx of Preganancy in last 3 N/A 02/19/25 08:55 Months Nurse Filling Out Transfusion DSCHRIBER 02/19/25 08:55 & Questions: Date: 02/19/25 02/19/25 08:55 Time: 08:57 02/19/25 08:55 Patient unable to answer at this time (ie. confused, unrespo /Reproduction History /Reproductive History - cloak room attendant: /Reproductive Hx- cloak room attendant Hx Now No 02/19/25 08:55 Gestational Age (in weeks): EDC: Hx Hx Para Hx Section SAB No 02/19/25 08:55 Active Medications Active Medications: Current Medications Generic Name Dose Route Start Last Admin Trade Name Freq PRN Reason Stop Dose Admin Cefazolin Sodium 2 gm/ Sodium 110 mls @ 150 mls/hr 02/24/25 15:25 Chloride IV 02/24/25 16:08 INTRAOP ONE Lactated Ringer's 1,000 mls @ 15 mls/hr 02/24/25 13:30 02/24/25 13:41 IV 15 mls/hr .Q48H FATEMEH Administration PFSH Medical History Prostate disease High cholesterol Easy bruising Leg cramps History of stress test Hyperlipemia Hypertension Wears glasses Alcohol use Arthritis Restless legs Gastric reflux Smoker COPD (chronic obstructive pulmonary disease) Chronic cough History of edema History of echocardiogram Cardiology follow-up encounter History of heart attack BPH (benign prostatic hyperplasia) Ventricular tachycardia STEMI (ST elevation myocardial infarction) Atherosclerosis of coronary artery of ruby heart without angina pectoris Home Medications ?Medication ?Instructions ?Recorded ?Last Taken ?Type aspirin 81 mg chewable tablet 81 mg PO DAILY 05/30/23 02/15/25 History naproxen 220 mg PO BID 05/30/2302/15 History bethanechol chloride 25 mg tablet 25 mg PO TID 4 Unknown History losartan 25 mg tablet 25 mg PO DAILY #90 tabs 04/15 Unknown Rx prelubed urine catheter #270 ea 09/21/24 Unknown Rx atorvastatin 40 mg tablet 40 mg PO QHS #90 tabs Unknown Rx tamsulosin 0.4 mg capsule 0.4 mg PO QHS 02/19/25 Unkno wn History Allergy/AdvReac Type Severity Reaction Status Date / Time acetaminophen (From Vicodin) AdvReac Intermediate unable to Verified 02/24/25 13:37 urinate hydrocodone (From Vicodin) AdvReac Intermediate unable to Verified 02/24/25 13:37 urinate Family History Father Hypertension Heart disease CVA (cerebral vascular accident) Mother Heart disease Brother Cancer Heart disease CVA (cerebral vascular accident) Sister Heart disease Cancer Surgical History Hx of bilateral inguinal hernia repair History of surgery on arm S/P bilateral inguinal hernia repair Hx of transurethral resection of prostate History of cardiac catheterization S/P surgical removal of pilonidal cyst History of coronary artery stent placement (08/09/14) History of cholecystectomy History of appendectomy Social History Smoking Status: Current every day smoker (Patient smoked today.) tobacco type: cigarettes alcohol intake: current alcohol intake frequency: a few times a week substance use type: does not use caffeine: Yes Type: coffee Number of servings: 6 Review of Systems (Anesthesia) ROS Narrative System reviewed and no additional complaints, except as documented. 02/24/25 8013 <Electronically signed by Chu juarez MD> Date _ Chu Rasheed MD [facility] Signature: Date CC: ~ Signed [facility] Work Phone: 1(946) 704-786705-14-2025 [facility] Medical Records Department [address] [place] [id number] History Physical Exam 02/24/25 1616 MR#: [id number] Acct: [id number] Name: MICHAELENRIQUE GARETT Rep #: [id number] : 1960 64 From: Marco Madison MD PCP: YEVGENIY Barcenas Status:[facility] Location: [place] [address] HPI - General General Date of Service: 02/24/25 Chief Complaint: Bladder neck contracture HPI Narrative ENRIQUE MICHAEL, is a 64 M who presents for transurethral incision of a bladder neck contracture using the Olympus bipolar set [facility] Medical History Prostate disease High cholesterol Easy bruising Leg cramps History of stress test Hyperlipemia Hypertension Wears glasses Alcohol use Arthritis Restless legs Gastric reflux Smoker COPD (chronic obstructive pulmonary disease) Chronic cough History of edema History of echocardiogram Cardiology follow-up encounter History of heart attack BPH (benign prostatic hyperplasia) Ventricular tachycardia STEMI (ST elevation myocardial infarction) Atherosclerosis of coronary artery of ruby heart without angina pectoris Home Medications ???Medication ???Instructions ???Recorded ???Last Taken ???Type aspirin 81 mg chewable tablet 81 mg PO DAILY 05/30/23 02/15/25 H istory naproxen 220 mg PO BID 05/30/23 02/15/25 Hi story bethanechol chloride 25 mg tablet 25 mg PO TID 01/30/24 Unknown His tory losartan 25 mg tablet 25 mg PO DAILY #90 tabs 05/12/24 U nknown Rx prelubed urine catheter #270 ea 09/21/24 Unknown Rx atorvastatin 40 mg tablet 40 mg PO QHS #90 tabs 01/07/25 Unk nown Rx tamsulosin 0.4 mg capsule 0.4 mg PO QHS 02/19/25 Unknown His tory Allergy/AdvReac Type Severity Reaction Status Date / Time acetaminophen (From Vicodin) AdvReac Intermediate unable to Verified 02/24/25 13:37 urinate hydrocodone (From Vicodin) AdvReac Intermediate unable to Verified 02/24/25 13:37 urinate Family History Father Hypertension Heart disease CVA (cerebral vascular accident) Mother Heart disease Brother Cancer Heart disease CVA (cerebral vascular accident) Sister Heart disease Cancer Surgical History Hx of bilateral inguinal hernia repair History of surgery on arm S/P bilateral inguinal hernia repair Hx of transurethral resection of prostate History of cardiac catheterization S/P surgical removal of pilonidal cyst History of coronary artery stent placement (08/09/14) History of cholecystectomy History of appendectomy Social History Smoking Status: Current every day smoker (Patient smoked today.) tobacco type: cigarettes alcohol intake: current alcohol intake frequency: a few times a week substance use type: does not use caffeine: Yes Type: coffee Number of servings: 6 Vital Signs Vital Signs Vital Signs: 02/24/25 13:38 02/24/25 13:38 02/24/25 14:23 Temperature 98.1 F 98.1 F Temperature Source Temporal Pulse Rate 74 74 Respiratory Rate 18 18 Respiratory Pattern Normal Blood Pressure 146/57 H 146/57 H Blood Pressure Mean 86 Blood Pressure Source Monitor Blood Pressure Position Sitting Blood Pressure Location Right Arm Pulse Ox 97 97 Oxygen Delivery Method Room Air Room Air Weight Weight: 99 kg Body Mass Index (BMI) 36.3 Results Lab / Micro Data 02/23/25 13:30 02/23/25 13:30 02/24/25 1616 Cosigner Signature (if applicable): CC: YEVGENIY Owens; Dr. Marco Madison MD [facility]05-14-2025 Consult note [facility] Medical Records Department [address] [place] [address] Pre-Anesthesia Evaluation 02/24/25 1400 MR#: [id number] Acct: [id number] Name: ENRIQUE RODRIGUEZ Rep #:[id number] : 1960 64 From: Chu Rasheed MD PCP: YEVGENIY Barcenas Status:REG SDC Y Race: C Location: [place] [address] ASA Classification* ASA Classification ASA Classification: 3 Assessment & Plan Anesthesia* Anesthesia Assessment Anesthesia Assessment: Discussed sedation and/or anesthesia options, risks, benefits, and alternatives with patient/parents/legal guardian/POA. Questions invited. The patient/parents/legal guardian/POA seems to understand and agrees to proceedwith anesthesia plan. Reviewed the physical assessment, medical history, allergy history and patient home medications list prior to surgery/procedure/anesthetic and documented any changes. Performed airway and anesthesia risk assessments. Anesthesia Type Anesthesia Type: General History Source History Obtained from:: Patient and Chart Anesthesia Focused Assessment* Temperature: 98.1 F Pulse Rate: 74 Blood Pressure: 146/57 Respiratory Rate: 18 Pulse Ox: 97 Oxygen Delivery Method: Room Air Airway Assessment Mouth opens: >3 cm Mallampati Score: I Teeth Condition: Missing Neck Range of motion (ROM): Full ROM Comment: Edentulous uppers. Missing some teeth on the bottom. Focused Labs Anesthesia Preop lab: CBC WBC 13.8 K/mm3 (4.4-11.0) H 02/23/25 13:30 5 RBC 4.14 M/mm3 (4.6-6.2) L 02/23/25 13:30 02/23/25 Hgb 13.4 g/dL (13.0-16.5) 02/23/25 13:30 02/23/25 Hct 39.7 % (40-54) L 02/23/25 13:30 02/23/25 Plt Count 272 K/mm3 (150-450) 02/23/25 13:30 02/23/25 CHEMISTRY Potassium 4.0 mmol/L (3.3-5.1) 02/23/25 13:30 02/23/25 Sodium 139 mmol/L (133-145) 02/23/25 13:30 02/23/25 BUN 14 mg/dL (4-19) 02/23/25 13:30 02/23/25 Creatinine 0.77 mg/dL (0.70-1.20) 02/23/25 13:30 02/23/25 Glucose 101 mg/dL (70-99) H 02/23/25 13:30 02/23/25 TSH 1.08 uIU/mL (0.358-3.74) 05/02/23 12:40 COAG PT 13.0 SECONDS (11.7-14.9) 02/23/25 13:30 Pre-Assessment Diagnosis/Proposed Procedure Planned Operative Procedure(s): TUR BLADDER NECK CONTRACTURE Anesthesia History 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 When Was Last Pacemaker Check QUESTION #4 FULL TEXT: You/Your Family Experience fever (hyperthermia) with Anesthesia Last Oral Intake Last Oral intake: Last Oral Intake NPO since 22:00 02/24/25 13:38 Meds taken in AM with sips of No 02/24/25 13:38 water? Meds patient instructed to take am of surgery PONV PONV - cloak room attendant: PONV - cloak room attendant Female No 02/19/25 08:55 HX of Motion Sickness No 02/19/25 08:55 HX of N/V After Surgery No 02/19/25 08:55 Non-Smoker No 02/19/25 08:55 Duration of Surgery greater Yes 02/19/25 08:55 than 60 minutes Number of Risk Factors 1 02/19/25 08:55 PONV Score Low Risk 02/19/25 08:55 Height & Weight Height & Weight: Anesthesia: Height & Weight Height 5 ft 5 in 02/24/25 13:38 Weight: 99 kg 02/24/25 13:38 Body Mass Index (BMI) 36.3 02/24/25 13:38 Respiratory Assessment Respiratory Assessment - cloak room attendant: Respiratory Tract Infection Hx - cloak room attendant Hx Respiratory Tract Infection No 02/19/25 08:55 STOP Sleep Apnea STOP Sleep Apnea - cloak room attendant: STOP Sleep Apnea - cloak room attendant Hx Hypertension Yes: CONTROLLED WITH MED 02/19/25 08:55 Hx Sleep Apnea No 02/19/25 08:55 CPAP BIPAP Do you snore loudly (louder Yes 02/19/25 08:55 than talking or can be heard Do you often feel tired/ No 02/19/25 08:55 fatigued/ sleepy during daytime? Has anyone observed you stop No 02/19/25 08:55 breathing during sleep? STOP Results Positive 02/19/25 08:55 QUESTION #5 FULL TEXT : Do you snore loudly (louder than talking or can be heard through closeddoors)? 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 Specify any problems Hx of Preganancy in last 3 N/A 02/19/25 08:55 Months Nurse Filling Out Transfusion DSCHRIBER 02/19/25 08:55 & Questions: Date: 02/19/25 02/19/25 08:55 Time: 08:57 02/19/25 08:55 Patient unable to answer at this time (ie. confused, unrespo /Reproduction History /Reproductive History - cloak room attendant: /Reproductive Hx- cloak room attendant Hx Now No 02/19/25 08:55 Gestational Age (in weeks): EDC: Hx Hx Para Hx Section SAB No 02/19/25 08:55 Active Medications Active Medications: Current Medications Generic Name Dose Route Start Last Admin Trade Name Freq PRN Reason Stop Dose Admin Cefazolin Sodium 2 gm/ Sodium 110 mls @ 150 mls/hr 02/24/25 15:25 Chloride IV 02/24/25 16:08 INTRAOP ONE Lactated Ringer's 1,000 mls @ 15 mls/hr 02/24/25 13:30 02/24/25 13:41 IV 15 mls/hr .Q48H FATEMEH Administration PFSH Medical History Prostate disease High cholesterol Easy bruising Leg cramps History of stress test Hyperlipemia Hypertension Wears glasses Alcohol use Arthritis Restless legs Gastric reflux Smoker COPD (chronic obstructive pulmonary disease) Chronic cough History of edema History of echocardiogram Cardiology follow-up encounter History of heart attack BPH (benign prostatic hyperplasia) Ventricular tachycardia STEMI (ST elevation myocardial infarction) Atherosclerosis of coronary artery of ruby heart without angina pectoris Home Medications ?Medication ?Instructions ?Recorded ?Last Taken ?Type aspirin 81 mg chewable tablet 81 mg PO DAILY 05/30/23 02/15/25 History naproxen 220 mg PO BID 05/30/2302/15 History bethanechol chloride 25 mg tablet 25 mg PO TID 4 Unknown History losartan 25 mg tablet 25 mg PO DAILY #90 tabs 04/15 Unknown Rx prelubed urine catheter #270 ea 09/21/24 Unknown Rx atorvastatin 40 mg tablet 40 mg PO QHS #90 tabs Unknown Rx tamsulosin 0.4 mg capsule 0.4 mg PO QHS 02/19/25 Unkno wn History Allergy/AdvReac Type Severity Reaction Status Date / Time acetaminophen (From Vicodin) AdvReac Intermediate unable to Verified 02/24/25 13:37 urinate hydrocodone (From Vicodin) AdvReac Intermediate unable to Verified 02/24/25 13:37 urinate Family History Father Hypertension Heart disease CVA (cerebral vascular accident) Mother Heart disease Brother Cancer Heart disease CVA (cerebral vascular accident) Sister Heart disease Cancer Surgical History Hx of bilateral inguinal hernia repair History of surgery on arm S/P bilateral inguinal hernia repair Hx of transurethral resection of prostate History of cardiac catheterization S/P surgical removal of pilonidal cyst History of coronary artery stent placement (08/09/14) History of cholecystectomy History of appendectomy Social History Smoking Status: Current every day smoker (Patient smoked today.) tobacco type: cigarettes alcohol intake: current alcohol intake frequency: a few times a week substance use type: does not use caffeine: Yes Type: coffee Number of servings: 6 Review of Systems (Anesthesia) ROS Narrative System reviewed and no additional complaints, except as documented. 02/24/25 1423 ann SALAZAR> Date _ Chu Solis Signature: Date CC: ~ Signed [facility]03-27-2025 Evaluation note* Diagnosis Onset Date Resolution Status Admit Date Hyperlipemia acute January 07, 2025 3:17pm Hypertension chronic January 07, 2025 3:17pm [facility] Work Phone: 1(677) 106-196509-02-2024 NoteHNO ID: [id number] Author: KAYLYN CHRISTIANSON RN Service: Care Management Author Type: Registered Nurse Type: Care Mgt Progress Note Filed: 06/15/2024 11:32 Note Text: CARE MANAGEMENT DISCHARGE NOTE SERVICE DATE: June 15, 2024 SERVICE TIME: 11:31 AM Admission Date: 06/14/2024 LOS: 0 days Discharge Arrangement Discharge Arrangement: Home with Self Care Caregiver Assessment Caregiver is ready, willing and able to meet the patient's needs as recommended by the inter-professional team: No Caregiver needed Transportation Arrangements Transportation Arrangements: Car Date of Trip: 06/15/24 Handoff Communication: Handoff to: Primary Care Physician Primary Care Physician Name/Phone: Dionna Owens APRN.RN CASE MGR/ Discharge order is written. RN CM met with the patient at bedside to discuss discharge planning needs. No skilled needs were identified. His son will be driving him home today. SIGNATURE: Kaylyn Christianson RN PATIENT NAME: Enrique Barriosrows DATE: June 15, 2024 TIME: 11:31 AM CONTACT #: [id number] [id number] NoteHNO ID: [id number] Author: KAYLYN CHRISTIANSON RN Service: Care Management Author Type: Registered Nurse Type: Care Mgt Initial Assessment Filed: 06/15/2024 11:30 Note Text: CARE MANAGEMENT: ASSESSMENT AND DISCHARGE PLAN SERVICE DATE: June 15, 2024 SERVICE TIME: 11:30 AM PCP: Dionna Owens APRN.RN CASE MGR Primary Contact: Extended Emergency Contact Information Primary Emergency Contact: MichaelMita Mobile Relation: Spouse Admission Status: Observation Insurance Provider: MEDICARE A AND B Discharge Planning requested by: Per Department Practice Potential Transition Plans No Services Indicated Advance Directives Current Advance Directive: Health Care Power of Sanitarian In Chart: No Supervisor Hand Silvering Attempted to Assist with AD Completion: Yes Action: Patient Unwilling Current Living Arrangements and Support Lives with: Spouse/significant other Type of Residence: Mobile Home Does the patient have to climb stairs at home?: stairs outside the home Support: Spouse/significant other, Children How do you manage to accomplish the following: Independent: Ambulation;Bathe/Shower;Dress;Meals/Meal Prep;Going to the bathroom;Medication Management;Transportation to appointments/community Current Services/Equipment Current Post-Acute Service(s): None Discharge Planning Patient Goal(s): Be able to go home, General wellness Rogers of Choice Explained: Rogers of Choice Given: No Reason Not Given: No placements necessary Are you interested in bedside delivery of your medications? No, preferred community Pharmacy is [facility]. Discharge Planning Participant(s): Patient Caregiver Assessment: Caregiver is ready, willing and able to meet the patient's needs as recommended by the inter-professional team: No Caregiver needed Transport at Discharge: Transportation Arrangements: Car Date of Trip: 06/15/24 Needs Prior to Discharge: Needs Prior to Discharge: None;Ready for Discharge Post-Acute Discharge Plan: This patient has been screened for Care Management Transitional Planning Services. At this time it does not appear this patient will require transition planning services. Should this change, and the patient requires transition planning services coordinated during this admission (ie SNF placement, Home Care, IV ATB?s, Home Oxygen), please call the Account Consultant covering this patient. SIGNATURE: Kaylyn Christianson RN PATIENT NAME: Enrqiue Rodriguez DATE: June 15, 2024 TIME: 11:29 AM CONTACT #: [phone] [id number] (AGENT OF COVID-19) RNA: Not detected INFLUENZA A RNA: Not detected INFLUENZA B RNA: Not detected RESPIRATORY SYNCYTIAL VIRUS (RSV) RNA: Not detectedMedina HospitalComment on above:Performed By: #### [id number] ####[facility] LABORATORYCLIA [id number] [address]09-01-2024 NoteHNO ID: [id number] Author: EMERITA SUAZO RT(Kiko) Service: Radiology Author Type: Technologist Type: Progress Notes Filed: 06/14/2024 12:42 Note Text: Radiology Service Progress Note DATE OF SERVICE: June 14, 2024 TIME: 12:41 PM PATIENT IDENTITY VERIFICATION COMPLETED USING TWO (2) STANDARD IDENTIFIERS: Name and Date of confirmed by patient verbally. FALL SCREENING: Has the patient had 2 falls in the last year or 1 fall with injury or currently using an Ambulatory Assistive Device (Walker, Cane, Wheelchair, Crutches, etc.)? Emergency Room Patient: Screened in ED PATIENT GENDER DATA: Male PATIENT RELEVANT IMPLANT DATA REVIEWED: Yes PATIENT PRESENTS WITH AN IMPLANTABLE OR ATTACHED GARMENT PARTS CUTTER MACHINE: No ALLERGIES: Reviewed and unchanged CONTRAST ALLERGY: N/A EXAM: CT -CONTRAST INDUCED NEPHROPATHY RISK FACTORS: Not applicable CREATININE: No results found for: CREAT, EGFROTH, EGFRAA P.O.C.T. RESULTS: POC done: Yes, See Lab Tab June 14, 2024 TREATMENT: N/A PERIPHERAL IV DATA: Inpatient - refer to LDA documentation RADIOLOGY DEPARTMENT: CT; Exam(s) Completed: Chest Abdomen Pelvis Dissection Protocal SIGNATURE: RT Dana(R) PATIENT NAME: Enrique Rodriguez DATE: June 14, 2024 TIME: 12:41 PMSt[facility] [id number] Discharge summary Author Nicholas Lin [facility] October 24, 2023 3:20pm Note Date/Time October 24, 2023 2 :50pm [facility] Medical Records Department [address] [place] [address] Instructions for Home/Discharge Instructions 10/24/23 1449 MR#: [id number] Acct: [id number] Name: ENRIQUE RODRIGUEZ Rep #:[id number] : 1960 63 From: Nicholas Reddy PCP: Dr. Bre Ring MD Status:REG SD C Discharge Instructions Diet Discharge Diet: No restrictions Activity Discharge Activity: May Not Drive (While taking narcotic pain medication) and May Shower May shower in (days): 2 Ice area for (Minutes): 20 Lifting Restrictions: No lifting greater than 10 pounds for the next 5 weeks Dressing / Incision Call your doctor if your incision/area has: Continuous Slow Oozing, Increased Pain/ Swelling, Increased Redness, Foul Smelling Discharge and Swelling at the incision site Call your doctor if you observe: Fever of 101 or Higher, Inability to urinate and Inability to have a bowel movement Change Dressing in: 2 days (Please leave Steri-Strips intact until they fall offspontaneously or are taken off at your follow-up visit) Remove Dressing in: 2 days Cleanse incision/area with: Soap & Water and Keep Dressing Clean & Dry Follow Up Care Please Follow Up With: Nicholas Lin MD When: 1 week postop Test Results: Test results from this visit will be discussed in further detail at your follow- up appointment, if applicable. Discharge Plan Admission Primary Reason for Your Visit: Bilateral inguinal hernias Attending Provider: Nicholas Lin Primary Care Provider: Bre Ring Discharge Orders/Prescriptions Prescriptions: New tramadol 50 mg tablet 50 mg PO Q6H PRN (Reason: pain) Qty: 10 0RF Continued naproxen 220 mg PO BID losartan 25 mg tablet 25 mg PO DAILY Qty: 90 3RF aspirin 81 mg tablet,chewable 81 mg PO DAILY sennosides 8.6 mg tablet 8.6 mg PO DAILY famotidine 20 mg tablet 20 mg PO DAILY Referrals / Follow Up: Bre Ring MD [Primary Care Provider] - Disposition Disposition (needs filled in before D/C Order can be placed): Home, Self Care 10/24/23 1520<Electronically signed by Nicholas Lin MD>Nicholas Lin MD CC: Dr. Bre Ring MD ~ Signed [facility] Work Phone: 1(415) 314-388101-11-2024 History and physical note Author Nicholas Lin [facility] October 24, 2023 9:24am Note Date/Time October 24, 2023 9 :22am [facility] Medical Records Department [address] [place] [address] History & Physical Exam 10/24/23 0920 MR#: [id number] Acct: [id number] Name: ENRIQUE RODRIGUEZ Rep #:[id number] : 1960 63 From: Nicholas Reddy PCP: Dr. Bre Ring MD Status:REG SD C Location: [place] [address] History and Physical Date of Admission: 10/24/23 Date of Service: 10/04/23 MR#: [id number] Acct: [id number] Name: ENRIQUE RODRIGUEZ Rep #: [id number] : 1960 Provider: Dr. Nicholas Lin MD Age/Sex: 63/M Location: [facility] Status: Signed Intake Vital Signs 08/27/2309:21 10/04/2313:01 Height 5 ft 6 in 5 ft 6 in Weight: 212 lb 6 oz 212 lb BMI 34.2 34.2 BP 125/77 H 135/81 H Blood Pressure Location Rt brachial Rt brachial Position Sitting Sitting Respiration 18 18 Pulse 87 74 Pulse Source Monitor Monitor Temp 98.0 F 98 F Temp Source Temporal Temporal Pulse Oximetry (%) 98 95 Oxygen Delivery Method room air room air Intake Visit Reasons: INGUINAL HERNIA Chief Complaint: update h/p hernia surgery Is patient in pain?: No Allergies acetaminophen [From Vicodin] Adverse Reaction (Intermediate, Verified 10/04/23 13:02) Otherhydrocodone [From Vicodin] Adverse Reaction (Intermediate, Verified 10/04/23 13:02) Other Medications aspirin 81 mg chewable tablet 81 mg PO DAILY 05/30/23 [History Confirmed 10/04/23] losartan 25 mg tablet 25 mg PO DAILY #90 tabs 05/30/23 [Rx Confirmed 10/04/23] naproxen 220 mg PO BID 05/30/23 [History Confirmed 10/04/23] tamsulosin 0.4 mg capsule 0.4 mg PO QHS 05/30/23 [History Confirmed 10/04/23] sennosides 8.6 mg tablet 8.6 mg PO DAILY 07/10/23 [History Confirmed 10/04/23] famotidine 20 mg tablet 20 mg PO DAILY 08/12/23 [History Confirmed 10/04/23] ciprofloxacin HCl 500 mg tablet (Cipro) 500 mg PO BID #14 tabs 08/21/23 [Rx Confirmed 10/04/23] PFSH Medical History Alcohol use Arthritis Atherosclerosis of coronary artery of ruby heart without angina pectoris BPH (benign prostatic hyperplasia) Cardiology follow-up encounter Chronic cough COPD (chronic obstructive pulmonary disease) Excessive bleeding Gastric reflux History of echocardiogram History of edema History of heart attack Hypertension Restless legs Smoker STEMI (ST elevation myocardial infarction) Ventricular tachycardia Wears glasses Surgical History History of appendectomy History of cardiac catheterization History of cholecystectomy History of coronary artery stent placement (08/09/14) S/P surgical removal of pilonidal cyst Family History Father Hypertension Heart disease CVA (cerebral vascular accident)Mother Heart diseaseBrother Cancer Heart disease CVA (cerebral vascular accident)Sister Heart disease Cancer Social History Smoking Status: Current every day smoker tobacco type: cigarettes alcohol intake: current alcohol intake frequency: a few times a week substance use type: does not use caffeine: Yes Type: coffee Number of servings: 6 HPI HPI HPI: Patient is a 63-year-old male who follows up for bilateral inguinal hernias. Initial surgical consultation was 07/10/2023. He shares that he has recovered well following his prostatectomy. He confirms that his urinary habits have improved and that he is getting up less throughout the nighttime. He has met with urology is pleased with his recovery. He does share that he has had to self cath a couple of times since his procedure. Concerning his hernias he shares that he is having more pain on the right side than the left side. He also notes that when flexing his upper leg he experiences some bulging on the right. Positively, Mr. Rodriguez shares that his constipation has responded well to daily use of MiraLAX and he is now experiencing 1-2 bowel movements per day. He confesses that his smoking status remained stable at approximately 1/2 pack/day. Below is recapitulated from patient's prior visit for ease of review: In the interim he did undergo a transurethral prostatectomy with urology on 08/21/2023. Today he reports that overall his recovery has been uneventful from this procedure, but states that he is yet to follow-up with urology and that this appointment is due on 09/09/2023. He does report that he has had to self cath several times since his procedure due to persistent urinary retention and yet he believes that overall this issue is improved from preop. He denies any postoperative fevers or chills. From a hernia standpoint he believes that his right side has become more symptomatic and he finds it uncomfortable when sitting with the bulge of tissue at that location. He also reports that there is a pulling sensation on the right side with taking deep breaths. He confirms that his bowel movements have been unaffected by this issue and that his transition to a generic Metamucil/fiber supplementation is resulting in more frequent bowel movements which she estimates occur 3 times per week. Concerning his smoking status, he reports that he has cut back but has not undergone complete cessation and statesthat his current use is a less than 1 pack/day. Patient is a 63-year-old male who presents for bilateral inguinal hernias. Thisfinding was first noticed by CT imaging from 06/18/2023, however, patient states that he has been aware of discomfort in this location for the last 6 months to [facility]. He admits that he did not routinely seek medical evaluation due to his high deductible insurance plan until he recently became eligible for Medicare. He then established with Dr. Ring who recommended he pursue a CT scan for his complaints of constipation and difficulty urinating. 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 Beyond the occasional discomfort from these hernias he has not noticed any bulging or changes to his bowel habits. He does confirm a history of constipation and states that he is regularly taking sennosides per recommendation from Dr. Ring. Patient has a personal history of smoking which she quantifies as 30 to 40 pack years. He reports that he is interested in stopping smoking after visiting withDr. Ring. Has no personal history of recurrent cutaneous infections including staph. In addition to the above Mr. Murdock's states that his difficulty urinating has led to a urologic evaluation and that he is now on Flomax. He states that it isonly been 1 to 2 weeks with this prescription but that he is due for follow-up at the end of July. His issues include frequent nighttime awakenings and urgency. Pertinent surgical history includes: Open umbilical hernia, laparoscopic cholecystectomy, and laparoscopic appendectomy ROS General General: No weight change, appetite, fatigue, colon cancer, breast cancer or weakness HEENT HEENT: No difficulty swallowing, eye injury, eye surgery, swollen glands or hoarseness Endo Endocrine: No thyroid disease, diabetes mellitus, thyroid cancer, Hair loss, heat intolerance or cold intolerance Skin Skin: No rash or changing moles Breast Breast: No left breast lump, right breast lump, nipple discharge, breast pain, abnormal mammogram, abnormal US or breast enlargement Musc Musculoskeletal: Yes back problems and arthritis; No rheumatoid arthritis, gout or joint pain Cardio Cardiovascular: Yes heart disease, high blood pressure, heart attack and heart stent; No murmur, pacemaker, atrial fibrillation, palpitations, shortness of breat withexertion or chest pain Psych Psychiatric: No depression, anxiety or hearing voices Resp Respiratory: No shortness of breath, No sleep apnea, No cough, No COPD, No asthma, No emphysema and No wheezing Gastro Gastrointestinal: Yes abdominal pain, No nausea or vomiting, No diarrhea, No constipation, No blood in stool, Yes acid reflux, No hemorrhoids, No ulcers, No gallbladder problem and No black,tarry stools Joey Hematologic: No blood thinners, No blood disorders, No bleeding, No anemia and No blood clots Neuro Neurologic: No system reviewed and no additional complaints, except as documented, No as per HPI, No abnormal gait, No abnormal hearing, No abnormal movements, No abnormal speech, No behavioral changes, No burning sensations, No confusion, No convulsions, No disequilibrium, No dizziness, No localized weakness, No frequent falls, No headache(s), No lack of coordination, No loss ofvision, No memory loss, No numbness, No other visual disturbances, No radicular pain, No restless legs, No sensory deficit, No syncope, No tingling, No tremor(s), No weakness and No other Exam Const General: cooperative and comfortable Orientation: alert, awake and oriented x3 Resp Effort & Inspection: normal respiratory effort GI Other: Well-healed subxiphoid port site incision, well-healed infraumbilical incision. Other: Tenderness over bilateral groins with right greater than the left. Testicles are bilaterally descended. Patient has tenderness with exam and I believe I palpate defects bilaterally in the indirect positions when he is asked to cough. Assessment and Plan Assessment and Plan (1) Inguinal hernia bilateral, non-recurrent: Status: Chronic Comment: Patient is a 63-year-old male with recently?diagnosed bilateral inguinal herniasthat he believes have been present for at least the past 6 months to 1 year. There is no specific inciting event. Patient reports for a update H&P visit confirming his right side hernia has become more symptomatic with pain. The hernias are quite small in size based on my independent review of patient's CT imaging as well as exam. Today the patient's exam remains largely unchanged aside from maybe some more discomfort on the right side with palpation. Mr. Rodriguez appears to have recovered well following his prostatectomy with urology but is self cathing on occasion. We will have to take this into accountduring his perioperative phase of care. I am pleased to hear that he has made progress with his constipation and have shared that I would recommend he not increase his level of smoking at this point nor try to cut this habit completelyas this may result in significant mucus production and coughing as he would try to recover. I reiterated our expectations for the surgery including details of the procedure and post procedure lifting restrictions. Regarding our procedure details, I shared with him my concern that we may simply only find evidence of ai lipoma and no true hernia defect on the right, but he still seems interested in proceeding with dissection of the cord, lipoma removal and mesh placement in the event this is the finding. I also reviewed with him that his MRSA screening came back negative for both MRSA or staph colonization. Plan: ? Plan to proceed for robot-assisted bilateral inguinal hernia repair with mesh October 24, 2022 I have examined the patient and the H&P has been reviewed. There are no clinicalchanges since date of exam. Procedure and post procedure expectations were reviewed. He reiterates that he would like an exploration of his right spermatic cord even in the event that we do not identify an obvious inguinal hernia. Will therefore plan to proceed to the operating room for robot-assistedbilateral inguinal hernia repair with mesh. 10/24/23923 <Electronically signed by Nicholas Lin MD> Cosigner Signature (if applicable): CC: Dr. Bre Ring MD; Dr. Nicholas Lin MD~ Signed [facility] Work Phone: 1(783) 503-206110-27-2014 Evaluation note* Diagnosis Onset Date Resolution Status History of coronary artery stent placement July acute Coronary artery disease shipping support dorothy Hypertension chronic [facility] Work Phone: 1(104) 386-418710-27-2014 Evaluation note* Diagnosis Onset Date Resolution Status History of coronary artery stent placement July acute Coronary artery disease shipping support dorothy Hypertension chronic Inguinal hernia bilateral, non-recurrent chronic Inguinal hernia bilateral, non-recurrent chronic [facility] Work Phone: Consult note Author Chu Rasheed [facility] Note Date/Time February 24, 2025 5:19p m [facility] Medical Records Department [address] [place] [address] Anesthesia Postop Eval I 02/24/251715 MR#: [id number] Acct: [id number] Name: ENRIQUE RODRIGUEZ Rep #:[id number] : 1960 64 From: Chu Rasheed MD PCP: YEVGENIY Barcenas Status:[facility] Y Race: C Location: [place] [address] Anesthesia: Postop Eval I Current Vital Signs Temperature: 98.6 F Pulse Rate: 73 Blood Pressure: 107/57 Respiratory Rate: 16 Pulse Ox: 91 (Patient has significant cough postop. Will give him a DuoNeb breathing treatment.) Oxygen Delivery Method: Room Air Assessment Airway patent: Yes Spontaneous unlabored respirations: Yes Mental status: Awake and Calm nausea: No Vomiting: No Anesthesia Complication: No Fluid Hydration Crystalloid volume administer (ml): 500 Total IV fluid infused: 500 Progress Note Anesthesia document: Postop Eval 1 completed: Yes 02/24/251718 <Electronically signed by Chu juarez MD> Date _ Chu Rasheed MD Cosigner Signature: Date CC: ~ Signed [facility] Work Phone: Consult note Author Chu Rasheed [facility] Note Date/Time February 24, 2025 6:23p [facility] Medical Records Department [address] [place] [address] Anesthesia Postop Eval II 02/24/251756 MR#: [id number] Acct: [id number] Name: ENRIQUE RODRIGUEZ Rep #:[id number] : 1960 64 From: Chu Rasheed MD PCP: IQRA BarcenasC Status:REG SDC Y Race: C Location: [address] Anesthesia Postop Eval I Sum Postop Eval Completion status Anesthesia document: Postop Eval 1 completed: Yes Anesthesia Postop Eval I Summary Anesthesia Postop Eval I Summary: Anesthesia Postop Eval I: Assessment Summary Airway patent Yes 02/24/25 17:19 Spontaneous unlabored Yes 02/24/25 17:19 respirations Mental status Awake,Calm 02/24/25 17:19 nausea No 02/24/25 17:19 Vomiting No 02/24/25 17:19 Anesthesia Postop Eval I: Fluid Summary Crystalloid volume administer 500 02/24/25 17:19 (ml) Colloids volume administered ( ml) Blood Product volume administered (ml) Total IV fluid infused 500 02/24/25 17:19 Anesthesia Postop Eval I: Summary Notes Anesthesia Complication No 02/24/25 17:19 Anesthesia Complication Comment: Post-operative progress note Anesthesia: Postop Eval II Evaluation Mental status: Awake and Calm Pain Level: 1 nausea: No Vomiting: No Complications Anesthesia Complication: No 02/24/251756 <Electronically signed by Chu juarez MD> Date _ Chu Rasheed MD Cosigner Signature: Date CC: ~ Signed [facility] Work Phone: Discharge summary Author Marco Madison [facility] Note Date/Time February 24, 2025 6:23p m [facility] Medical Records Department [address] [address] Instructions for Home/Discharge Instructions 02/24/25 1710 MR#: [id number] Acct: [id number] Name: ENRIQUE RODRIGUEZ Rep #:[id number] : 1960 64 From: Marco Madison MD PCP: Dionna Owens NP-C Status:REG SDC Discharge Instructions Diet Discharge Diet: No restrictions DC O2, CPAP, BIPAP needs Home O2 Discharge instructions: No Dressing / Incision Discharge Activity: Return to Normal Activity and May Not Drive (while taking narcotic pain medications.) Dressing / Incision Call your doctor if you observe: Fever of 101 or Higher Catheter: Case to leg bag and Case to large bag Drain: [place] Follow Up Care Please Follow Up With: Marco Madison MD When: Call [phone] for an appointment Test Results: Test results from this visit will be discussed in further detail at your follow- up appointment, if applicable. Discharge Plan Admission Primary Reason for Your Visit: incision of bladder neck Attending Provider: Marco Madison Primary Care Provider: Dionna Owens NP Instructions Print Language: Tuvaluan Discharge Orders/Prescriptions Prescriptions: New oxycodone 5 mg tablet 5 mg PO Q6H PRN (Reason: pain) 3 Days Qty: 14 0RF ciprofloxacin HCl [Cipro] 500 mg tablet 500 mg PO BID Qty: 6 0RF Continued naproxen 220 mg PO BID bethanechol chloride 25 mg tablet 25 mg PO TID atorvastatin 40 mg tablet 40 mg PO QHS Qty: 90 3RF tamsulosin 0.4 mg capsule 0.4 mg PO QHS losartan 25 mg tablet 25 mg PO DAILY Qty: 90 3RF Held aspirin 81 mg tablet,chewable 81 mg PO DAILY Hold Instructions: Resume on 03/10/25. No Action (DME) prelubed urine catheter 14 fr See Rx Instructions .Route .MEDSUPPLY Qty: 270 4RF Rx Instructions: cathing 3 x a day Referrals / Follow Up: Dionna Owens NP, [employer]AIL [employer]Y MANAGER-C [Primary Care Provider] - Disposition Disposition (needs filled in before D/C Order can be placed): Home, Self Care 02/24/25 1710<Electronically signed by Marco Madison MD>Marco Madison MD CC: [employer] PHARMACY MANAGER-C Dionna Owens ~ Signed [facility] Work Phone: Evaluation noteNo assessment information available [facility] Work Phone: Evaluation note* Diagnosis Onset Date Resolution Status Inguinal hernia bilateral, non-recurrent chronic Inguinal hernia bilateral, non-recurrent chronic Inguinal hernia bilateral, non-recurrent chronic [facility] Work Phone: Evaluation note* Diagnosis Onset Date Resolution Status Inguinal hernia bilateral, non-recurrent chronic S/P bilateral inguinal hernia repair acute S/P bilateral inguinal hernia repair acute Bronchitis acute Maxillary sinusitis, acute a cute [facility] Work Phone: Reason for referral (narrative)No reason for referral information availableWMartin [facility] Work Phone: Chief Complaint and Reason for Visit Chief Complaint CAD / EST (ABAD) SCREENING TOBACCO USE Reason for Visit History of coronary artery stent placement Coronary artery disease Hypertension Chief Complaint CAD / EST (ABAD) SCREENING TOBACCO USE ABDOMINAL PAIN Atherosclerotic heart disease of ruby coronary a Reason for Visit History of coronary artery stent placement Coronary artery disease Hypertension Chief Complaint Amb Documentation BILATERAL INGUINAL HERNIA Cysto,Transurethral Resection Prost Update H/P Hernia Surgery Seen Sept INGUINAL HERNIA, UPDATE H& P Lap Robotic Bilateral Inguinal Daniel Lap Robotic Bilateral Inguinal Daniel Reason for Visit Inguinal hernia bila teral, non-recurrent Inguinal hernia bilateral, non-recurrent Inguinal hernia bilateral, non-recurrent Chief Complaint INGUINAL HERNIA, UPD ATE H& P Lap Robotic Bilateral Inguinal Daniel Lap Robotic Bilateral Inguinal Daniel HERNIA DOS 10/24 HERNIA - medication refills/Bronchitis Reason for Visit Inguinal hernia bila teral, non-recurrent S/P bilateral inguinal hernia repair S/P bilateral inguinal hernia repair Bronchitis Maxillary sinusitis, acute Chief Complaint CAD / EST (ABAD) SCREENING TOBACCO USE ABDOMINAL PAIN Atherosclerotic heart disease of ruby coronary a Amb Documentation BILATERAL INGUINAL HERNIA Cysto,Transurethral Resection Prost Update H/P Hernia Surgery Seen Sept Reason for Visit History of coronary artery stent placement Coronary artery disease Hypertension Inguinal hernia bilateral, non-recurrent Inguinal hernia bilateral, non-recurrent Chief Complaint Admit Date medication refills/lab cmp January 07, 2 025 3:17pm Cysto,Transurethral Resection, Bladder N mello Contra February 24, 2025 1:04pm Reason for Visit Admit Date Hyperlipemia January 07, 2025 3:1 7pm Hypertension January 07, 2025 3:1 7pm Family History No Family History Records Found Relationship Condition Age at Onset Recorded Date/T lizette father Hypertension Unknown Cardiac disease Unknown Cerebrovascular accident (CVA) Unknown mother Cardiac disease Unknown brother Malignant neoplasm Unknown sister Cardiac disease Unknown Malignant neoplasm Unknown Advance Directives No Advanced Directives Records Found Advance Directive Response Recorded Date/ Time Living Will No October 08, 2 023 1:05pm Power of Sanitarian No October 08, 2023 1:05pm Advance Directive Response Recorded Date/ Time Living Will No October 08, 2 023 2:05pm Power of Sanitarian No October 08, 2023 2:05pm Advance Directive Response Recorded Date/ Time Living Will No August 21 2:31pm Power of Sanitarian No August 21, 2023 2:31pm Advance Directive Response Recorded Date/ Time Do you have a Healthcare Power of Sanitarian? No February 19, 2025 8:55am Summary Purpose Additional Source Comments Care Teams (unrecognized sec tion and content) Team Status: Active Member Role Status Tai Ring MD Primary Care Provider Active Team Status: Inactive Member Role Status Tai Ring MD Primary Care Provider, Referring Prov ider Active Dr. Nicholas Lin MD Attending Provider Active Team Status: Active Member Role Status Tai Ring MD Primary Care Provider Active Dr. Nicholas Lin MD Attending Provide r, Referring Provider, Other Provider Active Team Status: Inactive Member Role Status Tai Ring MD Primary Care Provider, Referring Prov ider Active Dionna Owens RETAIL PHARMACY MANAGER, [employer] PHARMACY MANAGER-C Attending Provider Active Team Status: Inactive Member Role Status Tai Ring MD Primary Care Provider Active Alethea Irene Attending Provider, Referring Provide r Active Team Status: Inactive Member Role Status Tai Ring MD Primary Care Provider Active Dr. Nicholas Lin MD Attending Provider, Referring P rovider Active Team Status: Active Member Role Status Tai Ring MD Primary Care Provider Active Alexandra Love RETAIL PHARMACY MANAGER, RETAIL PHARMACY MANAGER-C Attending Provider Active Team Status: Inactive Member Role Status Tai Ring MD Primary Care Provider Active Dr. Marco Madison MD Admit Provid er, Attending Provider, Referring Provider Active Team Status: Inactive Member Role Status Tai Ring MD Primary Care Provider, Attending Prov ider Active Team Status: Inactive Member Role Status Tai Ring MD Primary Care Provider, Referring Prov ider Active Dr. Michael Houser MD Attending Provider Active Team Status: Active Member Role Status Tai Ring MD Primary Care Provider Active Dr. Nelson Oropeza MD Attending Provider Active Team Status: Inactive Member Role Status Tai Ring MD Primary Care Provider Active Dr. Michael Houser MD Attending Provider Active Team Status: Active Member Role Status Tai Ring MD Primary Care Provide r, Attending Provider, Referring Provider Active Team Status: Inactive Member Role Status Tai Ring MD Primary Care Provide r, Attending Provider, Referring Provider Active Team Status: Active Member Role Status Tai Ring MD Primary Care Provider Active Dr. Michael Houser MD Attending Provider, Referring Pr ovider Active Team Status: Inactive Member Role Status Tai Ring MD Primary Care Provider Active Dr. Michael Houser MD Attending Provider, Referring Pr ovider Active Team Status: Active Member Role Status Tai Owens RETAIL PHARMACY MANAGER, RETAIL PHARMACY MANAGER-C Primary Care Provider Active Team Status: Inactive Member Role Status Tai Owens RETAIL PHARMACY MANAGER, RETAIL PHARMACY MANAGER-C Primary Care Provider Active Start: January 07, 2025 End: January 07, 2025 Dionna Owens RETAIL PHARMACY MANAGER, RETAIL PHARMACY MANAGER-C Attending Provider Active Start: January 07, 2025 End: January 07, 2025 Dionna Owens RETAIL PHARMACY MANAGER, RETAIL PHARMACY MANAGER-C Referring Provider Active Start: January 07, 2025 End: January 07, 2025 Team Status: Inactive Member Role Status Tai Owens NP, RETAIL PHARMACY MANAGER-C Primary Care Provider Active Start: February 24, 2025 End: February 24, 2025 Dr. Marco Madison MD Attending Provider Active Start: February 24, 2025 End: February 24, 2025 Dr. Marco Madison MD Referring Provider Active Start: February 24, 2025 End: February 24, 2025 Goals (unrecognized section and content) Goals may be documented in a n alternate sectionGoals may be documented in an alternate sectionGoals may be documented in an alternate sectionGoals may be documented in an alternate section (unrecognized sect ion and content) No Status Records FoundNo Status Records Found INFORMATION SOURCE (unrecogn ized section and content) DATE CREATED AUTHOR 06/15/2024 [facility] DATE CREATED AUTHOR AUTHOR'S ORGANIZ ATION 03/02/2025 [facility] FOR RECORDS PERTAINING TO PATIENTS WHO ARE OR HAVE BEEN ENROLLED IN A CHEMICAL DEPENDENCY/SUBSTANCEABUSE PROGRAM, SOME INFORMATION MAY BE OMITTED. This clinical summary was aggregated from multiple sources. Caution should be exercised in using it in the provision of clinical care. This summary normalizes information from multiple sources, and as a consequence, information in this document may materially change the coding, format and clinical context of patient data. In addition, data may be omitted in some cases. CLINICAL DECISIONS SHOULD BE BASED ON THE PRIMARY CLINICAL RECORDS. [email or web address] provides no warranty or guarantee of the accuracy or completeness of information in this document.
[2025-03-16 22:36] LABS: Absolute Lymphocyte Count 3.38 X10^3/uL (0.83-4.51); Absolute Neutrophil Count 8.1 X10^3/uL (2.0-7.7); Basophil# 0.16 X10^3/uL; Basophil% 1.2 % (0-1); Eosinophil# 0.79 X10^3/uL; Eosinophils% 5.8 % (0-5); Hematocrit 39.3 % (40-54); Hemoglobin 13.5 g/dL (13.0-16.5); Lymphocyte # 3.38 X10^3/ul (0.83-4.51); Lymphocyte % 24.8 % (19-41); Mean Corp Hgb Conc 34.4 g/dL (32-36); Mean Corpuscular Hgb 32.7 pg (27.0-32.0); Mean Corpuscular Volume 95.2 fL (80-94); Mean Platelet Vol. 11.7 fl (6.2-12.0); Monocyte% 8.8 % (0-10); NRBC Flagged by Analyzer 0 % (0-5); Neutrophil # 8.05 X10^3/uL (2.7-7.7); Neutrophil % 59.1 % (47-70); Platelet Count 249 K/mm3 (150-450); RBC Distribution Width CV 13.9 % (11.6-14.6); Red Blood Count 4.13 M/mm3 (4.6-6.2); White Blood Count 13.6 K/mm3 (4.4-11.0)
[2025-03-16 22:51] LABS: ALB/GLOB Ratio 1.3 RATIO (0.9-2.4); AST(SGOT) 17 U/L (<=37); Alanine Aminotransfer ALT/SGPT 14 U/L (<=46); Albumin, Serum 3.9 g/dL (3.4-4.8); Alkaline Phosphatase 86 U/L (40-129); Anion Gap 10 (5-15); BUN 16 mg/dL (4-19); BUN/Creat Ratio 17.1 RATIO (10-20); Calcium,Total 8.9 mg/dL (7.6-11.0); Chloride 104 mmol/L (98-108); Cholesterol 82 mg/dL (<=200); Creatinine, Serum 0.91 mg/dL (0.70-1.20); EST Glomerular Filtration Rate 93 (>60); Globulin 2.9 g/dL (2.2-4.2); Glucose 116 mg/dL (70-99); High Density Lipoprotein 30 mg/dL; Low Density Lipoprotein Calc. 30 mg/dL; Protein, Total 6.8 g/dL (5.9-8.4); Sodium Level 138 mmol/L (133-145); Total Bilirubin 0.49 mg/dL (0.00-1.30); Triglycerides 108 mg/dL; Very Low Density Lipoprotein 22 mg/dL (5-40); cholesterol:hdl ratio screen 2.76
== END | disposition home or self-care (01) ==
PROVIDERS: PCP Nurse Practitioner; Referring Provider Nurse Practitioner; Visit Provider Nurse Practitioner
DX: I10 Essential (primary) hypertension (principal); E78.2 Mixed hyperlipidemia; N40.1 Benign prostatic hyperplasia with lower urinary tract symptoms; R33.8 Other retention of urine
CPT/HCPCS: 80053; 80061; 85025

== ENCOUNTER → 2025-05-01 | Outpatient (CLI) | payer MEDICARE, OTHER, SELFPAY ==
--- NOTE | 2025-05-01 07:54 | US_ITS ---
PROCEDURE: EXT NON VASC LIMITED/SOFT TISS 05/01/2025 REASON FOR EXAM: LIPOMA OF R ANTERIOR CHEST WEEK TECHNIQUE: EXT NON VASC LIMITED/SOFT TISS COMPARISON: None FINDINGS: In the subcutaneous soft tissues of the right chest wall, at the area of palpable abnormality per the technologist, is a heterogeneous lesion which is slightly hypoechoic to surrounding fat which measures 1.7 x 0.8 x 1.3 cm. No significant internal vascularity. US/Ext Non Vasc Limited/Soft Tiss IMPRESSION: Lipomatous lesion in the right chest wall measuring up to 1.7 cm. Consider follow-up imaging if there is a concerning clinical change. Reading Location: [id number]
--- OUTSIDE RECORDS SUMMARY | 2025-05-01 07:56 | XMS RPT_ITS | CCD ---
Author Organization [facility] CliniSypr Care Team Providers Care Sixth Grade Teacher Name Role Phone MD Bre Ring Primary Care Provider [phone] MD Bre Ring Referring Provider Dr. Michael Houser Attending Provider [phone] Dr. Nelson Oropeza Attending Provider [phone] MD Bre Ring Primary Care Provider [phone] Ivan KIRBY, MACHINIST SUPERVISOR-C Alexandra Attending Provider MD Bre Ring Referring [...] Primary Care Unavailable FERNANDO ROSAS Attending Unavaila CHEIHK Ordoñez Admitting Unavailable MD Bre Ring Primary Care Provider [phone] MD Bre Ring Referring Provider [phone] Dr. Michael Houser Attending Provider [phone] Nelson Oropeza Attending Provider [phone] Michael Houser Referring Provider [phone] Roman KIRBY-C, Dionna Primary Care Provider [phone] Owens MACHINIST SUPERVISOR-C, Dionna Attending Provider Owens MACHINIST SUPERVISOR-C, Dionna Referring Provider Gricelda SALAZAR, Dr. Marco Bonilla Attending Provider Gricelda SALAZAR, Dr. Marco Bonilla Referring Provider Dr. Nicholas Duarte MD Attending Provider Gricelda SALAZAR, Dr. Marco Bonilla Referring Provider Riley SALAZAR, Dr. Peterson Attending Provider Owens MACHINIST SUPERVISOR, Dionna Referring Unavailable Owens MACHINIST SUPERVISOR, Dionna Primary Care Unavailable Nicholas Lin Attending Unavailable Nicholas Duarte Attending Unavailable Gricelda, Marco Bonilla Referring Unavailable Owens MACHINIST SUPERVISOR, Dionna Primary Care Unavailable Owens MACHINIST SUPERVISOR, Dionna Primary Care Unavailable GriceldaMarco whiteside Attending Unavailable GriceldaMarco Referring Unavailable Owens MACHINIST SUPERVISOR, Dionna Attending Unavailable Owens MACHINIST SUPERVISOR, Dionna Referring Unavailable Owens MACHINIST SUPERVISOR, Dionna Primary Care Unavailable GriceldaMarco Referring Unavailable Owens MACHINIST SUPERVISOR, Dionna Primary Care Unavailable GriceldaMarco Attending Unavailable Owens MACHINIST SUPERVISOR, Dionna Primary Care Unavailable Nicholas Lin Attending Unavailable Nicholas Lin Referring Unavailable Allergies Allergy Classification Reported Allergen(s) Allergy Type Date of Onset Reaction(s) Facility (6 sources) Acetaminophen Drug Allergy 3 Other, unable to urinate [facility] (11 sources) HYDROcodone Drug Allergy 3 Other, unable to urinate [facility] Comment on above: occasionally no urin e (1 source) Acetaminophen Drug Allergy 4 [facility] (1 source) HYDROcodone Drug Allergy 5 [facility] Medications Current Medications Medication Drug Class(es) Dates Sig (Normalized) Sig (Original) Albuterol Sulfate 2.5 mg /3 mL (0.083 %) solution for nebulization (2 sources) Start: 04-05-2025 take 2.5 mg by inhalation every four hours as needed Albuterol Sulfate 2.5 mg /3 mL (0.083 %) solution for nebulization Active 2.5 mg INHALATION Q4H as needed for bronchospasm 75 0 April 05, 2025 12:00am Start: 04-05-2025 take 2.5 mg by inhal ation every four hours as needed Albuterol Sulfate 2.5 mg /3 mL (0.083 %) solution for nebulization Active 2.5 mg INHALATION Q4H as needed for bronchospasm 75 April 05, 2025 12:00am aspirin 81 mg chewable tablet (11 sources) Platelet Aggregation Inhibitor, Nonsteroidal Anti-inflammatory Drug Start: 05-30-2023 take 1 tablet by mouth once daily Aspirin 81 mg tablet,chewable Active 81 mg PO DAILY May 30, 2023 12:00am atorvastatin 40 mg oral tablet (11 sources) HMG-CoA Reductase Inhibitor Start: 12-25-2023 End: 01-07-2025 take 1 tablet by mouth at bedtime Atorvastatin 40 mg tablet Active 40 mg PO AT BEDTIME 90 January 07, 2025 4:32pm bethanechol chloride 25 mg oral tablet (5 sources) Cholinergic Muscarinic Agonist Start: 01-30-2024 take 1 tablet by mouth three times daily Bethanechol Chloride 25 mg tablet Active 25 mg PO THREE TIMES A DAY January 30, 2024 12:00am Fluticasone-Umecl idin-Vilanter (2 sources) Start: 03-25-2025 Fluticasone-Umeclid in-Vilanter (Trelegy Ellipta) 200-62.5-25 mcg blister with device Active 1 NMA INHALATION Q24H 90 3 March 25, 2025 12:00am Acute exacerbation of chronic obstructive pulmonary disease Chronic obstructive pulmonary disease with (acute) exacerbation copd Start: 03-25-2025 Fluticasone-Um eclidin-Vilanter (Trelegy Ellipta) 200-62.5-25 mcg blister with device Active 1 NMA INHALATION Q24H 90 March 25, 2025 12:00am naproxen sodium 220 mg oral tablet (20 sources) Nonsteroidal Anti-inflammatory Drug Start: 05-30-2023 take [...] PO May 12:00am May 30, 2023 11:23am prelubed urine catheter 14 f r (5 sources) Start: 09-21-2024 prelubed urine catheter 14 fr Active 0 .Route .MEDSUPPLY 270 September 21, 2024 1:00am Benign prostatic hyperplasia Benign prostatic hyperplasia without lower urinary tract symptoms cathing 3 x a day Start: 09-21-2024 prelubed urine catheter 14 fr Active 0 .Route .MEDSUPPLY 270 September 21, 2024 1:00am cathing 3 x a day Sennosides (3 sources) Start: 07-10-2023 take 8.6 mg by mouth once daily Sennosides Active 8.6 MG PO DAILY July 10, 2023 12:00am Start: 07-10-2023 take 8.6 mg by mouth once aidan y Sennosides Active 8.6 MG PO DAILY July 09, 2023 11:00pm Completed/Discontinued Medications Medication Drug Class(es) Dates Sig (Normalized) Sig (Original) amoxicillin 875 mg / clavulanate 125 mg oral tablet (4 sources) Penicillin-class Antibacterial Start: 03-16-2025 End: 04-26-2025 Amoxicillin-Pot Clavulanate 875-125 mg tablet Discontinued 1 {tbl} PO TWICE A DAY 20 0 March 16, 2025 12:00am April 26, 2025 2:21pm azithromycin 250 mg oral tablet (6 sources) Macrolide Antimicrobial Start: 12-25-2023 End: 12-30-2023 take 2 tablets by mouth once daily, then take 1 tablet by mouth once daily at mealtime Azithromycin 250 mg tablet Discontinued 250 mg PO daily 6 5 0 December 25, 2023 12:00am December 29, 2023 12:00am December 30, 2023 12:05am 2 po qd for 1 day then 1 po qd for 4 days with food or after eating ciprofloxacin 500 mg oral tablet (8 sources) Quinolone Antimicrobial Start: 04-05-2025 End: 04-26-2025 take 1 tablet by mouth twice daily Ciprofloxacin Hcl 500 mg tablet Discontinued 500 mg PO TWICE A DAY 20 April 05, 2025 12:00am April 26, 2025 2:21pm Start: 02-24-2025 End: 03-16-2025 take 1 tablet by mouth twice daily Ciprofloxacin Hcl (Cipro) 500 mg tablet Discontinued 500 mg PO TWICE A DAY 6 February 24, 2025 12:00am March 16, 2025 4:38pm Start: 08-21-2023 take 1 tablet by celso th twice daily Ciprofloxacin Hcl (Cipro) 500 mg tablet Active 500 MG PO TWICE A DAY August 21, 2023 12:00am clarithromycin 500 mg oral tablet (5 sources) Macrolide Antimicrobial Start: 08-12-2024 End: 09-21-2024 take 1 tablet by mouth twice daily Clarithromycin 500 mg tablet Discontinued 500 mg PO TWICE A DAY August 12, 2024 12:00am September 21, 2024 4:22pm docusate sodium 100 mg oral capsule (20 sources) Start: 05-28-2023 End: 07-10-2023 take 1 capsule by mouth once daily as needed Docusate Sodium 100 mg capsule Discontinued 100 mg PO DAILY as needed May 30, 2023 11:22am July 10, 2023 3:13pm doxycycline hyclate 100 mg oral capsule (2 sources) Tetracycline-class Drug Start: 03-25-2025 End: 04-26-2025 take 1 capsule by mouth twice daily Doxycycline Hyclate 100 mg capsule Discontinued 100 mg PO TWICE A DAY 20 March 25, 2025 12:00am April 26, 2025 2:21pm famotidine 20 mg oral tablet (20 sources) Histamine-2 Receptor Antagonist Start: 08-12-2023 End: [...] 2023 11:23am loratadine 10 mg oral tablet (6 sources) Start: 12-25-2023 End: 02-19-2025 take 1 tablet by mouth once daily Loratadine 10 mg tablet Discontinued 10 mg PO DAILY 90 December 25, 2023 12:00am February 19, 2025 8:53am losartan potassium 25 mg oral tablet (20 sources) Angiotensin 2 Receptor Len Start: 05-30-2023 End: 03-16-2025 take 1 tablet by mouth once daily Losartan 25 mg tablet Discontinued 25 mg PO DAILY 90 3 May 12, 2024 1:03pm March 16, 2025 4:42pm oxyCODONE hydrochloride 5 mg oral tablet (5 sources) Opioid Agonist Start: 02-24-2025 End: 03-16-2025 take 1 tablet by mouth every six hours as needed for pain Oxycodone 5 mg tablet Discontinued 5 mg PO EVERY 6 HOURS as needed for pain 14 3 February 24, 2025 March 16, 2025 4:39pm Retention of urine Retention of urine, unspecified predniSONE 20 mg oral tablet (11 sources) Start: 08-12-2024 End: 09-21-2024 take 2 [...] 25, 2023 12:00am Sennosides 8.6 mg tablet (5 sources) Start: 07-10-2023 End: 09-21-2024 take 1 tablet by mouth once daily Sennosides 8.6 mg tablet Discontinued 8.6 mg PO DAILY July 10, 2023 12:00am September 21, 2024 4:23pm Super Beta Prostate (11 sources) Start: 05-28-2023 End: 07-10-2023 Super Beta Prostate Discontinued PO May 28, 2023 12:00am July 10, 2023 3:13pm Start: 05-28-2023 End: 07-10-2023 Super Beta Prostate Disconti nued PO May 27, 2023 11:00pm July 10, 2023 2:13pm Start: 05-28-2023 Super Beta Pro state Active PO May 28, 2023 12:00am tamsulosin hydrochloride 0.4 mg oral capsule (19 sources) alpha-Adrenergic Len Start: 01-30-2024 End: 02-19-2025 take 1 capsule by mouth once daily Tamsulosin 0.4 mg capsule Discontinued 0.4 mg PO daily 90 September 21, 2024 4:23pm February 19, 2025 8:54am Start: 05-30-2023 take 0.4 mg by mouth at bedtim e Tamsulosin Active 0.4 MG PO AT BEDTIME May 29, 2023 11:00pm Total Beets (11 sources) Start: 05-28-2023 End: 07-10-2023 Total Beets Discontinued PO May 28, 2023 12:00am July 10, 2023 3:13pm Start: 05-28-2023 End: 07-10-2023 Total Beets Discontinued PO May 27, 2023 11:00pm July 10, 2023 2:13pm Start: 05-28-2023 Total Beets Ac tive PO May 28, 2023 12:00am traMADol hydrochloride 50 mg oral tablet (7 sources) Opioid Agonist Start: 10-24-2023 End: 08-12-2024 take 1 tablet by mouth every six hours as needed for pain Tramadol 50 mg tablet Discontinued 50 mg PO EVERY 6 HOURS as needed for pain 10 October 24, 2023 1:00am August 12, 2024 6:38pm Status post bilateral inguinal hernia repair Other specified postprocedural states Personal history of other diseases of the digestive system Problems Active Problems Problem Classification Problem Date Documented Da te Episodic/Chronic Abdominal hernia (14 sources) Bilateral inguinal hernia; Translations: [Bilateral inguinal [...] colonization. Chronic obstructive pulmonary disease and bronchiectasis (4 sources) Acute exacerbation of chronic obstructive airways disease; Translations: [Chronic obstructive pulmonary disease with (acute) exacerbation] 03-16-2025 Chronic Chronic obstructive pulmonary disease and bronchiectasis (6 sources) Bronchitis; Translations: [Bronchitis, not specified as acute or chronic] 12-25-2023 Episodic Coronary atherosclerosis and other heart disease (20 sources) Coronary arteriosclerosis; Translations: [Atherosclerotic heart disease of [place] coronary artery without angina pectoris] 05-30-2023 Chronic Disorders of lipid metabolism (5 sources) Hyperlipidemia; Translations: [Hyperlipidemia, unspecified] 01-08-2025 Chronic Essential hypertension (16 sources) Hypertensive disorder; Translations: [Essential (primary) hypertension] Onset: 06-14-2024 05-30-2023 Chronic Genitourinary symptoms and ill-defined conditions (6 sources) Retention of urine; Translations: [Retention of urine, unspecified] Onset: 03-22-2025 09-21-2024 Episodic Hyperplasia of prostate (5 sources) Benign prostatic hyperplasia; Translations: [Benign prostatic hyperplasia without lower urinary tract symptoms] 09-22-2024 Chronic Nonspecific chest pain (1 source) Chest pain, unspecified; Translations: [Chest pain, unspecified type] Onset: 06-14-2024 Episodic Other and unspecified benign neoplasm (3 sources) Lipoma of anterior chest wall; Translations: [Benign lipomatous neoplasm of skin and subcutaneous tissue of trunk] 04-05-2025 Episodic Other and unspecified benign neoplasm (2 sources) Benign lipomatous neoplasm of skin and subcutaneous tissue of trunk; Translations: [Benign lipomatous neoplasm of skin and subcutaneous tissue of trunk] Onset: 04-26-2025 Episodic Other circulatory disease (1 source) Personal history of other diseases of the circulatory system; Translations: [History of CAD (coronary artery disease)] Onset: 06-14-2024 Episodic Other diseases of bladder and urethra (1 source) Bladder-neck obstruction; Translations: [Bladder-neck obstruction] Onset: 03-02-2025 Chronic Other lower respiratory disease (5 sources) Dyspnea on exertion; Translations: [Other forms of dyspnea] 01-30-2024 Episodic Other nervous system disorders (5 sources) Carpal tunnel syndrome of right wrist; Translations: [Carpal tunnel syndrome, right upper limb] 08-12-2024 Chronic Other upper respiratory infections (6 sources) Acute maxillary sinusitis; Translations: [Acute maxillary sinusitis, unspecified] 12-26-2023 Episodic Peripheral and visceral atherosclerosis (5 sources) Intermittent claudication; Translations: [Peripheral vascular disease, unspecified] 01-30-2024 Chronic Residual codes; unclassified (2 sources) Other specified postprocedural states; Translations: [Other postprocedural status] 11-07-2023 Episodic Skin and subcutaneous tissue infections (4 sources) Abscess of abdominal wall; Translations: [Cutaneous abscess of abdominal wall] 03-16-2025 Episodic Syncope (1 source) Syncope and collapse; Translations: [Syncope, unspecified syncope type] Onset: 06-14-2024 Episodic Unclassified (1 source) Lipoma of anterior chest wall Unclassified (3 sources) D17.1 - Benign lipomatous neoplasm of skin and subcutaneous tissue of trunk Past or Other Problems Problem Classification Problem [...] Test Name Value Interpretation Reference Range Facility Surgery Visit Reporton 04-26 Surgery Visit Report [facility] [address] [place] [address] OFFICE VISIT Date of Service: 04/26/25 MR#: [id number] Acct: [id number] Name: ENRIQUE RODRIGUEZ Rep #: [id number] : 1960 Provider: Dr. Nicholas burt MD Age/Sex: 64/M Location: [facility] Status: Signed Intake Vital Signs 04/05/25 15:24 04/26/25 14:19 Height 5 ft 5 in 5 ft 5 in Weight: 225 lb 6 oz BMI 37.5 BP 158/71 H Blood Pressure Location Rt brachial Position Sitting Respiration 18 Pulse 80 Pulse Source Monitor Temp 97.2 F L Temp Source Temporal Pulse Oximetry (%) 97 Oxygen Delivery Method room air Intake Visit Reasons: LIPOMA ON ABDOMEN Chief Complaint: lipoma on abdomen Is patient in pain?: No Allergies hydrocodone (From Vicodin) Adverse Reaction (Intermediate, Verified 04/26/25 14:21) unable to urinate Medications ???Medication ???Instructions ???Recorded ???Confirmed ???Type aspirin 81 mg chewable tablet 81 mg PO DAILY 05/30/23 04/26/25 H istory naproxen 220 mg PO BID 05/30/23 04/26/25 Hi story bethanechol chloride 25 mg tablet 25 mg PO TID 01/30/24 04/26/25 Hi story prelubed urine catheter #270 ea 09/21/24 04/26/25 Rx atorvastatin 40 mg tablet 40 mg PO QHS #90 tabs 01/07/25 Rx tamsulosin 0.4 mg capsule 0.4 mg PO QHS 02/19/25 04/26/25 Hi story losartan 25 mg tablet 25 mg PO DAILY #90 tabs 03/16/25 0 04/26/25 Rx fluticasone fur. 200 mcg-umeclid 1 inh inhalation Q24H copd #90 ea 03/25/25 04/26/25 Rx 62.5 mcg-vilant 25 mcg inhalat.powder (Trelegy Ellipta) albuterol sulfate 2.5 mg/3 mL 2.5 mg (3 mL) inhalation Q4H PRN 0 04/05/25 04/26/25 Rx (0.083 %) solution for nebulization bronchospasm #75 mL Have you fallen in the past year?: No PFSH Medical History Prostate disease High cholesterol Easy bruising Leg cramps History of stress test Hyperlipemia Hypertension Wears glasses Alcohol use Arthritis Restless legs Gastric reflux Smoker COPD (chronic obstructive pulmonary disease) Chronic cough History of edema History of echocardiogram Cardiology follow-up encounter History of heart attack BPH (benign prostatic hyperplasia) Ventricular tachycardia STEMI (ST elevation myocardial infarction) Atherosclerosis of coronary artery of [place] heart without angina pectoris Surgical History Hx of bilateral inguinal hernia repair History of surgery on arm S/P bilateral inguinal hernia repair Hx of transurethral resection of prostate History of cardiac catheterization S/P surgical removal of pilonidal cyst History of coronary artery stent placement (08/09/14) History of cholecystectomy History of appendectomy Family History Father Hypertension Heart disease CVA (cerebral vascular accident) Mother Heart disease Brother Cancer Heart disease CVA (cerebral vascular accident) Sister Heart disease Cancer Social History Smoking Status: Current every day smoker tobacco type: cigarettes alcohol intake: current alcohol intake frequency: a few times a week substance use type: does not use caffeine: Yes Type: coffee Number of servings: 6 HPI HPI HPI: Patient is a 64-year-old male who presents for evaluation of a possible infected lipoma. Patient is referred from Ms. Dionna Owens NP. He is a past patient of mine status post robot-assisted bilateral inguinal hernia repair in October 2023. He reports today that he is not having any issues with his hernias. He states that it was an incidental finding by his that he had some redness under his right breast after a shower. He shares that he was placed on antibiotics for over a month now (3 courses in total) but he has not noticed any change in the redness of his skin apart from some discoloration extending towards his back. He notes that he has never had pain from this area. He does state that moving a certain way he will have some discomfort. He denies any history of drainage. He denies any history of sebaceous cysts. He does have a history of pilonidal disease. ROS General General: No weight change, appetite, fatigue, colon cancer, breast cancer or weakness HEENT HEENT: No difficulty swallowing, eye injury, eye surgery, swollen glands or hoarseness Endo Endocrine: No thyroid disease, diabetes mellitus, thyroid cancer, Hair loss, heat intolerance or cold intolerance Skin Skin: No rash or changing moles Musc Musculoskeletal: No back problems, arthritis, rheumatoid arthritis, gout or joint pain Cardio Cardiovascular: Yes heart disease (more content not included)... Normal [facility] Absolute lymphocyte countOrd ered By: Dionna Owens on 03-16-2025 Lymphocytes Auto (Unsp spec) [#/Vol] 3.38 10*3/uL 0.83-4.51 [facility] Absolute neutrophil countOrd ered By: Dionna Owens on 03-16-2025 Neutrophils (Bld) [#/Vol] 8.1 10*3/uL High 2.0-7.7 [facility] Anion gap in Serum or Plasma Ordered By: Dionna Owens on 03-16-2025 Anion gap [Moles/Vol] 10 mmol/L 5-15 [facility] Automated lymphocyte count a s percentage of total leukocytesOrdered By: Dionna Owens on 03-16-2025 Lymphocytes/100 WBC Auto (Unsp spec) 24.8 % 19-41 [facility] BUN/creatinine ratioOrdered By: Dionna Owens on 06-03-2025 Urea nitrogen/Creatinine [Mass ratio] 17.1 mg/mg 10-20 [facility] Basophil percentageOrdered B y: Dionna Owens on 03-16-2025 Basophils/100 WBC (Bld) 1.2 % High 0-1 [facility] Bilirubin, totalOrdered By: Dionna Owens on 03-16-2025 Bilirubin [Mass/Vol] 0.49 mg/dL 0.00-1.30 [facility] CBC W/Diff, Automatedon Absolute Lymph 3.38 X10 3/uL Normal 0.83-4.51 [facility] Comment on above: Performed By: #### L 500.4050, L500.4100, L100.0100 #### [facility] [address] [place], [address] Absolute Neut 8.1 X10 3/uL High 2.0-7.7 [facility] Comment on above: Performed By: #### L 500.4050, L500.4100, L100.0100 #### [facility] [address] [place], [address] Basophils/100 WBC (Bld) 1.2 % High 0-1 [facility] Comment on above: Performed By: #### L 500.4050, L500.4100, L100.0100 #### [facility] [address] [place], [address] Eosinophils/100 WBC (Bld) 5.8 % High 0-5 [facility] Comment on above: Performed By: #### L 500.4050, L500.4100, L100.0100 #### [facility] [address] [place], [address] Erythrocyte distribution width (RBC) [Ratio] 13.9 % Normal 11.6-14.6 [facility] Comment on above: Performed By: #### L 500.4050, L500.4100, L100.0100 #### [facility] [address] [place], [address] Hematocrit (Bld) [Volume fraction] 39.3 % Low 40-54 [facility] Comment on above: Performed By: #### L 500.4050, L500.4100, L100.0100 #### [facility] [address] [place], [address] Hemoglobin (Bld) [Mass/Vol] 13.5 g/dL Normal 13.0-16.5 [facility] Comment on above: Performed By: #### L 500.4050, L500.4100, L100.0100 #### [facility] [address] [place], [address] IG% 0.300 Normal 0.0-0.9 [facility] Comment on above: Result Comment: IG% - Immature Granulocytes (promyelocytes, myelocytes and metamyelocytes) > 1% indicates that a LEFT SHIFT is Present. Performed By: #### L 500.4050, L500.4100, L100.0100 #### [facility] [address] [place], [address] Lymphocytes/100 WBC (Bld) 24.8 % Normal 19-41 [facility] Comment on above: Performed By: #### L 500.4050, L500.4100, L100.0100 #### [facility] [address] [place], [address] MCH (RBC) [Entitic mass] 32.7 pg High 27.0-32.0 [facility] Comment on above: Performed By: #### L 500.4050, L500.4100, L100.0100 #### [facility] [address] [place], [address] MCHC (RBC) [Mass/Vol] 34.4 g/dL Normal 32-36 [facility] Comment on above: Performed By: #### L 500.4050, L500.4100, L100.0100 #### [facility] [address] [place], [address] MCV (RBC) [Entitic vol] 95.2 fL High 80-94 [facility] Comment on above: Performed By: #### L 500.4050, L500.4100, L100.0100 #### [facility] [address] [place], [address] Monocytes/100 WBC (Bld) 8.8 % Normal 0-10 [facility] Comment on above: Performed By: #### L 500.4050, L500.4100, L100.0100 #### [facility] [address] [place], [address] Neutrophils/100 WBC (Bld) 59.1 % Normal 47-70 [facility] Comment on above: Performed By: #### L 500.4050, L500.4100, L100.0100 #### [facility] [address] [place], [address] Nucleated RBC (Bld) [#/Vol] 0 10*3/uL Normal 0-5 [facility] Comment on above: Performed By: #### L 500.4050, L500.4100, L100.0100 #### [facility] [address] [place], [address] Platelet mean volume (Bld) [Entitic vol] 11.7 fL Normal 6.2-12.0 [facility] Comment on above: Performed By: #### L 500.4050, L500.4100, L100.0100 #### [facility] [address] [place], [address] Platelets (Bld) [#/Vol] 249 10*3/uL Normal 150-450 [facility] Comment on above: Performed By: #### L 500.4050, L500.4100, L100.0100 #### [facility] [address] [place], [address] RBC (Bld) [#/Vol] 4.13 10*6/uL Low 4.6-6.2 [facility] Comment on above: Performed By: #### L 500.4050, L500.4100, L100.0100 #### [facility] [address] [place], [address] RDW SD 49.0 fl High 35.1-43.9 [facility] Comment on above: Performed By: #### L 500.4050, L500.4100, L100.0100 #### [facility] [address] [place], [address] WBC (Bld) [#/Vol] 13.6 10*3/uL High 4.4-11.0 [facility] Comment on above: Performed By: #### L 500.4050, L500.4100, L100.0100 #### [facility] [address] [place], [address] Calculated very low density lipoprotein (VLDL) cholesterol measurementOrdered By: Dionna Owens on 03-16-2025 Calculated very low density lipoprotein (VLDL) cholesterol measurement 22 mg/dL 5-40 [facility] Carbon dioxide, total [Moles /volume] in Central venous bloodOrdered By: Dionna Owens on 03-16-2025 CO2 [Moles/Vol] 24.0 mmol/L 21.0-32.0 [facility] Chloride assayOrdered By: Do ra Owens on 03-16-2025 Chloride [Moles/Vol] 104 mmol/L 98-108 [facility] Comprehensive Metabolic Prof ilon 03-16-2025 Albumin [Mass/Vol] 3.9 g/dL Normal 3.4-4.8 [facility] Comment on above: Performed By: #### L 500.4050, L500.4100, L100.0100 #### [facility] [address] [place], [address] Albumin/Globulin [Mass ratio] 1.3 {ratio} Normal 0.9-2.4 [facility] Comment on above: Performed By: #### L 500.4050, L500.4100, L100.0100 #### [facility] [address] [place], [address] ALK PHOS 86 U/L Normal 40-129 [facility] Comment on above: Performed By: #### L 500.4050, L500.4100, L100.0100 #### [facility] [address] [place], [address] ALT [Catalytic activity/Vol] 14 U/L Normal <=46 [facility] Comment on above: Performed By: #### L 500.4050, L500.4100, L100.0100 #### [facility] [address] [place], [address] AST [Catalytic activity/Vol] 17 U/L Normal <=37 [facility] Comment on above: Performed By: #### L 500.4050, L500.4100, L100.0100 #### [facility] [address] [place], [address] Bilirubin [Mass/Vol] 0.49 mg/dL Normal 0.00-1.30 [facility] Comment on above: Performed By: #### L 500.4050, L500.4100, L100.0100 #### [facility] [address] [place], [address] BUN/CRE 17.1 RATIO Normal 10-20 [facility] Comment on above: Performed By: #### L 500.4050, L500.4100, L100.0100 #### [facility] [address] [place], [address] Calcium [Mass/Vol] 8.9 mg/dL Normal 7.6-11.0 [facility] Comment on above: Performed By: #### L 500.4050, L500.4100, L100.0100 #### [facility] [address] [place], [address] Chloride [Moles/Vol] 104 mmol/L Normal 98-108 [facility] Comment on above: Performed By: #### L 500.4050, L500.4100, L100.0100 #### [facility] [address] [place], [address] CO2 [Moles/Vol] 24.0 mmol/L Normal 21.0-32.0 [facility] Comment on above: Performed By: #### L 500.4050, L500.4100, L100.0100 #### [facility] [address] [place], [address] Creatinine [Mass/Vol] 0.91 mg/dL Normal 0.70-1.20 [facility] Comment on above: Performed By: #### L 500.4050, L500.4100, L100.0100 #### [facility] [address] [place], [address] GAP 10 Normal 5-15 [facility] Comment on above: Performed By: #### L 500.4050, L500.4100, L100.0100 #### [facility] [address] [place], [address] GFR/1.73 sq M.predicted among non-blacks MDRD (S/P/Bld) [Vol rate/Area] 93 mL/min/{1.73_m2} Normal >60 [facility] Comment on above: Result Comment: mL/m in/1.73m2 CKD-EPI Creatinine Equation (2020) Performed By: #### L 500.4050, L500.4100, L100.0100 #### [facility] [address] [place], [address] Globulin (S) [Mass/Vol] 2.9 g/dL Normal 2.2-4.2 [facility] Comment on above: Performed By: #### L 500.4050, L500.4100, L100.0100 #### [facility] [address] [place], [address] Glucose [Mass/Vol] 116 mg/dL High 70-99 [facility] Comment on above: Performed By: #### L 500.4050, L500.4100, L100.0100 #### [facility] [address] [place], [address] Potassium [Moles/Vol] 4.0 mmol/L Normal 3.3-5.1 [facility] Comment on above: Performed By: #### L 500.4050, L500.4100, L100.0100 #### [facility] [address] [place], [address] Sodium [Moles/Vol] 138 mmol/L Normal 133-145 [facility] Comment on above: Performed By: #### L 500.4050, L500.4100, L100.0100 #### [facility] [address] [place], [address] T PROT 6.8 g/dL Normal 5.9-8.4 [facility] Comment on above: Performed By: #### L 500.4050, L500.4100, L100.0100 #### [facility] [address] [place], [address] Urea nitrogen [Mass/Vol] 16 mg/dL Normal 4-19 [facility] Comment on above: Performed By: #### L 500.4050, L500.4100, L100.0100 #### [facility] [address] [place], [address] Eosinophil percentageOrdered By: Dionna Owens on 03-16-2025 Eosinophils/100 WBC (Bld) 5.8 % High 0-5 [facility] Erythrocyte distribution wid th ratioOrdered By: Dionna Owens on 03-16-2025 Erythrocyte distribution width (RBC) [Ratio] 13.9 % 11.6-14.6 [facility] Erythrocyte distribution wid th standard deviationOrdered By: Dionna Owens on 03-16-2025 Erythrocyte distribution width (RBC) [Ratio] 49.0 fl High 35.1-43.9 [facility] Glomerular filtration rate ( GFR) estimation/1.73 sq m using serum, plasma, or whole bOrdered By: Dionna Owens on 03-16-2025 GFR/1.73 sq M.predicted among non-blacks MDRD (S/P/Bld) [Vol rate/Area] 93 mL/min/{1.73_m2} >60 [facility] Comment on above: mL/min/1.73m2 CKD-EP I Creatinine Equation (2020) Hematocrit Auto (Bld) [Volum e fraction]Ordered By: Dionna Owens on 03-16-2025 Hematocrit (Bld) [Volume fraction] 39.3 % Low 40-54 [facility] Hemoglobin measurementOrdere d By: Dionna Owens on 03-16-2025 Hemoglobin (Bld) [Mass/Vol] 13.5 g/dL 13.0-16.5 [facility] Immature granulocytes/100 WB C Auto (Bld)Ordered By: Dionna Owens on 03-16-2025 Immature granulocytes/100 WBC (Bld) 0.300 % 0.0-0.9 [facility] Comment on above: IG% - Immature Granu locytes (promyelocytes, myelocytes and metamyelocytes) > 1% indicates that a LEFT SHIFT is Present. LDL calc ser/plasOrdered By: Dionna Owens on 03-16-2025 Cholesterol in LDL [Mass/Vol] 30 mg/dL [facility] Comment on above: Jmelrnfiws=359-109 m g/dL & Higher Yjoz=840 mg/dL or greater Laboratory - Chemistry and C hemistry - challengeOrdered By: Dionna Owens on 06-03-2025 AST [Catalytic activity/Vol] 17 U/L <38 [facility] Lipid Profileon 03-16-2025 CHOL:HDL 2.76 Normal [facility] Comment on above: Performed By: #### L 500.4050, L500.4100, L100.0100 #### [facility] [address] [place], [address] Cholesterol [Mass/Vol] 82 mg/dL Normal <=200 [facility] Comment on above: Result Comment: Chol esterol level, Desirable <200 mg/dL Borderline high cholesterol 200-239 mg/dL High cholesterol >=240 mg/dL Recommendations of the NCEP Adult Treatment Panel for the following risk-cutoff thresholds for the [place] population. Performed By: #### L 500.4050, L500.4100, L100.0100 #### [facility] [address] [place], [address] Cholesterol in HDL [Mass/Vol] 30 mg/dL Low [facility] Comment on above: Result Comment: [place] on[place] Cholesterol Education Program (NCEP) guidelines: <40 mg/dL: Low HDL-cholesterol (major risk factor for CHD) >= 60 mg/dL: High HDL-cholesterol (negative risk factor for CHD) HDL-cholesterol is affected by a number of factors, e.g. smoking, exercise, hormones, sex and age. Performed By: #### L 500.4050, L500.4100, L100.0100 #### [facility] [address] [place], [address] Cholesterol in LDL [Mass/Vol] 30 mg/dL Normal [facility] Comment on above: Result Comment: Bord ogoluj=829-015 mg/dL Higher Skih=933 mg/dL or greater Performed By: #### L 500.4050, L500.4100, L100.0100 #### [facility] [address] [place], [address] Cholesterol in VLDL [Mass/Vol] 22 mg/dL Normal 5-40 [facility] Comment on above: Performed By: #### L 500.4050, L500.4100, L100.0100 #### [facility] [address] [place], [address] Triglyceride [Mass/Vol] 108 mg/dL Normal [facility] Comment on above: Result Comment: The drugs N-Acetylcysteine and Metamizole may falsely depress this assay. Normal range: <150 mg/dL Borderline High: 150-199 mg/dL High: 200-499 mg/dL Very High: >500 mg/dL Performed By: #### L 500.4050, L500.4100, L100.0100 #### [facility] [address] [facility] [place], [place], [address] MCV (mean corpuscular volume ) determinationOrdered By: Dionna Owens on 03-16-2025 MCV (RBC) [Entitic vol] 95.2 fL High 80-94 [facility] Mean corpuscular hemoglobin (MCH) determinationOrdered By: Dionna Owens on 03-16-2025 MCH (RBC) [Entitic mass] 32.7 pg High 27.0-32.0 [facility] Mean corpuscular hemoglobin concentration (MCHC) determinationOrdered By: Dionna Owens on 03-16-2025 MCHC (RBC) [Mass/Vol] 34.4 g/dL 32-36 [facility] Mean platelet volume determi nationOrdered By: Dionna Owens on 03-16-2025 Platelet mean volume (Bld) [Entitic vol] 11.7 fL 6.2-12.0 [facility] Monocyte percentageOrdered B y: Dionna Owens on 03-16-2025 Monocytes/100 WBC (Bld) 8.8 % 0-10 [facility] Neutrophil percentageOrdered By: Dionna Owens on 03-16-2025 Neutrophils/100 WBC (Bld) 59.1 % 47-70 [facility] Nucleated red blood cell per centageOrdered By: Dionna Owens on 03-16-2025 Nucleated RBC/100 WBC (Bld) [Ratio] 0 % 0-5 [facility] Platelet countOrdered By: Do ra Owens on 03-16-2025 Platelets (Bld) [#/Vol] 249 10*3/uL 150-450 [facility] Potassium measurement (mass/ volume)Ordered By: Dionna Owens on 03-16-2025 Potassium (Unsp spec) [Mass/Vol] 4.0 mmol/L 3.3-5.1 [facility] RBC Auto (Bld) [#/Vol]Ordere d By: Dionna Owens on 03-16-2025 RBC (Bld) [#/Vol] 4.13 10*6/uL Low 4.6-6.2 [facility] Screening total cholesterol/ high density lipoprotein (HDL) cholesterol ratioOrdered By: Dionna Owens on 03-16-2025 Cholesterol.total/Choles terol in HDL [Mass ratio] 2.76 {ratio} [facility] Serum creatinine measurement (mass/volume)Ordered By: Dionna Owens on 03-16-2025 Creatinine [Mass/Vol] 0.91 mg/dL 0.70-1.20 [facility] Serum globulin measurementOr dered By: Dionna Owens on 03-16-2025 Globulin (S) [Mass/Vol] 2.9 g/dL 2.2-4.2 [facility] Serum glucose measurement (m ass/volume)Ordered By: Dionna Owens on 03-16-2025 Glucose [Mass/Vol] 116 mg/dL High 70-99 [facility] Serum or plasma alanine soto otransferase (ALT) measurementOrdered By: Dionna Owens on 03-16-2025 ALT [Catalytic activity/Vol] 14 U/L <47 [facility] Serum or plasma albumin wally urement (mass/volume)Ordered By: Dionna Owens on 03-16-2025 Albumin [Mass/Vol] 3.9 g/dL 3.4-4.8 [facility] Serum or plasma albumin/glob ulin mass ratioOrdered By: Dionna Owens on 03-16-2025 Albumin/Globulin [Mass ratio] 1.3 {ratio} 0.9-2.4 [facility] Serum or plasma alkaline ping sphatase measurementOrdered By: Dionna Owens on 03-16-2025 ALP [Catalytic activity/Vol] 86 U/L 40-129 [facility] Serum or plasma calcium wally urement (mass/volume)Ordered By: Dionna Owens on 03-16-2025 Calcium [Mass/Vol] 8.9 mg/dL 7.6-11.0 [facility] Serum or plasma cholesterol in HDL measurement (mass/volume)Ordered By: Dionna Owens on 03-16-2025 Cholesterol in HDL [Mass/Vol] 30 mg/dL Low >40 [facility] Comment on above: National Cholesterol Education Program (NCEP) guidelines:<40 mg/dL: Low HDL-cholesterol (major risk factor for CHD)>= 60 mg/dL: High HDL-cholesterol (negative risk factor for CHD)HDL-cholesterol is affected by a number of factors, e.g. smoking, exercise, hormones, sex and age. Serum or plasma cholesterol measurement (mass/volume)Ordered By: Dionna Owens on 03-16-2025 Cholesterol [Mass/Vol] 82 mg/dL <201 [facility] Comment on above: Cholesterol level, D esirable <200 mg/dLBorderline high cholesterol 200-239 mg/dLHigh cholesterol >=240 mg/dLRecommendations of the NCEP Adult Treatment Panel for the following risk-cutoff thresholds for the [place] population. Serum or plasma urea nitroge n measurement (mass/volume)Ordered By: Dionna Owens on 03-16-2025 Urea nitrogen [Mass/Vol] 16 mg/dL 4-19 [facility] Sodium levelOrdered By: Dionna Owens on 03-16-2025 Sodium [Moles/Vol] 138 mmol/L 133-145 [facility] Total proteinOrdered By: Giovanny Owens on 03-16-2025 Protein [Mass/Vol] 6.8 g/dL 5.9-8.4 [facility] Triglycerides measurementOrd ered By: Dionna Owens on 03-16-2025 Triglyceride [Mass/Vol] 108 mg/dL <199 [facility] Comment on above: The drugs N-Acetylcy steine and Metamizole may falsely depress this assay. Normal range: <150 mg/dLBorderline High: 150-199 mg/dLHigh: 200-499 mg/dLVery High: >500 mg/dL White blood cell (WBC) count Ordered By: Dionna Owens on 03-16-2025 WBC (Bld) [#/Vol] 13.6 10*3/uL High 4.4-11.0 [facility]-11 Discharge Instruction [facility] Medical Records Department [address] [place] [address] Instructions for Home/Discharge Instructions 02/24/25 1710 MR#: [id number] Acct: [id number] Name: ENRIQUE RODRIGUEZ Rep #: [id number] : 1960 64 From: Marco Madison MD PCP: Dionna Owens, MACHINIST SUPERVISOR-C Status:REG SD Discharge Instructions Diet Discharge Diet: No restrictions DC O2, CPAP, BIPAP needs Home O2 Discharge instructions: No Dressing / Incision Discharge Activity: Return to Normal Activity and May Not Drive (while taking narcotic pain medications.) Dressing / Incision Call your doctor if you observe: Fever of 101 or Higher Catheter: Case to leg bag and Case to large bag Drain: [place] Follow Up Care Please Follow Up With: Marco Madison MD When: Call [phone] for an appointment Test Results: Test results from this visit will be discussed in further detail at your follow-up appointment, if applicable. Discharge Plan Admission Primary Reason for Your Visit: incision of bladder neck Attending Provider: Marco Madison Primary Care Provider: Dionna Owens NP Instructions Print Language: Nepali Discharge Orders/Prescriptions Prescriptions: New oxycodone 5 mg [...] Referrals / Follow Up: Dionna Owens NP, MACHINIST SUPERVISOR-C [Primary Care Provider] - Disposition Disposition (needs filled in before D/C Order can be placed): Home, Self Care 02/24/251709 Marco Madison MD CC: MACHINIST SUPERVISOR-C Dionna Owens Signed [facility] MR/POSTOP.ANE 02-24-2025 MR/POSTOP.[facility] Medical Records Department [address] [place] [address] Anesthesia Postop Eval I 02/24/251715 MR#: [id number] Acct: [id number] Name: ENRIQUE RODRIGUEZ Rep #: [id number] : 1960 64 From: Chu Rasheed MD PCP: IQRA BarcenasC Status:REG [facility] Y Race: C Location: [place] [address] Anesthesia: Postop Eval I Current Vital Signs [...] Rasheed MD Cosigner Signature: Date CC: Signed [facility] MR/VCEOCRGJ0hz 02-24-2025 MR/POSTOPAN2 [facility] Medical Records Department [address] [place] [address] Anesthesia Postop Eval II 02/24/25 175 MR#: [id number] Acct: [id number] Name: ENRIQUE RODRIGUEZ Rep #: [id number] : 1960 64 From: Chu Rasheed MD PCP: IQRA BarcenasC Status:REG SDC Y Race: C Location: [facility]18-1 Anesthesia Postop Eval I Sum Postop Eval [...] No Vomiting: No Complications Anesthesia Complication: No 02/24/25 1757 Date Chu Rasheed MD Cosigner Signature: Date CC: Signed Normal [facility] Operative Reporton 5 Operative Report [facility] Medical Records Department [address] [place] [address] Operative Report 02/24/25 1703 MR#: [id number] Acct: [id number] Name: ENRIQUE RODRIGUEZ Rep #: [id number] : 1960 64 From: Marco Madison MD PCP: YEVGENIY Barcenas Status:REG [facility] Location: [place] [address] Operative Report (Standard) Operative Information Date of Procedure: 02/24/25 Pre-Operative Diagnosis: Bladder neck contracture Post-Operative Diagnosis: The same Surgery/Procedure Performed: Transurethral incision of a bladder neck contracture inspector glass or mirror: No Type of Anesthesia: General RN Documented Start/Stop Times: Operation Date: 02/24/25 15:25 Case Time Into Pre-Op 02/24/25 13:20 Procedure Start Time: 16:51 Procedure Stop Time: 17:03 Select all DRAINS/GRAFTS/IMPLANT S that apply: Drains Drain details: 20 Tristanian Case Estimated Blood Loss: None Specimen collected: No Description of surgery: 64-year-old male with a very slow slow flow was found to have a bladder neck contracture he also has a mild meatal stenosis so he underwent general anesthetic I dilated the meatus from [address] up to 28 Tristanian after this I went in with a 24 Tristanian noncontinuous flow Olympus bipolar resectoscope we used [...] cauterized obtain hemostasis we put a 20 Tristanian catheter into the bladder anesthesia was reversed [...] YEVGENIY Owens; Dr. Marco Madison MD Signed Normal [facility] 12 Lead EKGon 02-23-2025 12 Lead EKG [facility] Cardiovascular Services [address] [place] [address] 12 Lead EKG 02/23/25 1313 MR#: [id number] Acct: [id number] Name: ENRIQUE RODRIGUEZ Rep #: [id number] : 1960 64 From: Nicholas Duarte MD Attending Dr: Dr. Marco Madison MD Status: DEP [facility] Ordering Dr: Didier Morris MD Date: 02/23/25 Location: [facility] Sex: M C Admitted: Test Reason : [...] Otherwise normal ECG Confirmed by Nicholas Duarte ([id number]), assignment desk editor TERESO CONTRERAS ([id number]) on 02/25/2025 10:08:55 AM Referred By: Marco Madison Confirmed By: Nicholas Duarte 02/25/25 1008 Date Nicholas Duarte MD CC: MACHINIST SUPERVISOR-Seferino Owens; Dr. Marco Madison MD; Dr. Didier Morris MD Signed Normal [facility] Activated partial thrombopla stin time (aPTT) in platelet poor plasma by coagulation aOrdered By: Didier Morris on 02-23-2025 aPTT Coag (PPP) [Time] 27.9 s 24.1-36.2 [facility] Anion gap in Serum or Plasma Ordered By: Didier Morris on 02-23-2025 Anion gap [Moles/Vol] 11 mmol/L 02-25 [facility] BUN/creatinine ratioOrdered By: Didier Morris on 02-23-2025 Urea nitrogen/Creatinine [Mass ratio] 17.5 mg/mg - [facility] Basic Metabolic Profile (BMP )on 02-23-2025 BUN/CRE 17.5 RATIO Normal 08-02 [facility] Comment on above: Performed By: #### L 300.3900, L500.3400, L300.4310, L500.2500, L100.0500 ####[facility] [address] [place], [address] Calcium [Mass/Vol] 9.4 mg/dL Normal 7.6-11.0 [facility] Comment on above: Performed By: #### L 300.3900, L500.3400, L300.4310, L500.2500, L100.0500 ####[facility] [address] [place], [address] Chloride [Moles/Vol] 104 mmol/L Normal 98-108 [facility] Comment on above: Performed By: #### L 300.3900, L500.3400, L300.4310, L500.2500, L100.0500 ####[facility] [address] [place], [address] CO2 [Moles/Vol] 24.2 mmol/L Normal 21.0-32.0 [facility] Comment on above: Performed By: #### L 300.3900, L500.3400, L300.4310, L500.2500, L100.0500 ####[facility] [address] [place], [address] Creatinine [Mass/Vol] 0.77 mg/dL Normal 0.70-1.20 [facility] Comment on above: Performed By: #### L 300.3900, L500.3400, L300.4310, L500.2500, L100.0500 ####[facility] [address] [place], [address] GAP 11 Normal 5-15 [facility] Comment on above: Performed By: #### L 300.3900, L500.3400, L300.4310, L500.2500, L100.0500 ####[facility] [address] [place], [address] GFR/1.73 sq M.predicted among non-blacks MDRD (S/P/Bld) [Vol rate/Area] 99 mL/min/{1.73_m2} Normal >60 [facility] Comment on above: Result Comment: mL/m in/1.73m2 CKD-EPI Creatinine Equation (2020) Performed By: #### L 300.3900, L500.3400, L300.4310, L500.2500, L100.0500 ####[facility] [address] [place], [address] Glucose [Mass/Vol] 101 mg/dL High 70-99 [facility] Comment on above: Performed By: #### L 300.3900, L500.3400, L300.4310, L500.2500, L100.0500 ####[facility] [address] [place], [address] Potassium [Moles/Vol] 4.0 mmol/L Normal 3.3-5.1 [facility] Comment on above: Performed By: #### L 300.3900, L500.3400, L300.4310, L500.2500, L100.0500 ####[facility] [address] [place], [address] Sodium [Moles/Vol] 139 mmol/L Normal 133-145 [facility] Comment on above: Performed By: #### L 300.3900, L500.3400, L300.4310, L500.2500, L100.0500 ####[facility] [address] [place], [address] Urea nitrogen [Mass/Vol] 14 mg/dL Normal 4-19 [facility] Comment on above: Performed By: #### L 300.3900, L500.3400, L300.4310, L500.2500, L100.0500 ####[facility] [address] [place], [address] Bilirubin directOrdered By: Didier Morris on 02-23-2025 Bilirubin.direct [Mass/Vol] 0.24 mg/dL 0.00-0.30 [facility] Bilirubin, totalOrdered By: Didier Morris on 02-23-2025 Bilirubin [Mass/Vol] 0.41 mg/dL 0.00-1.30 [facility] CBC-Complete Blood Cnt No Di ffon 02-23-2025 Erythrocyte distribution width (RBC) [Ratio] 13.9 % Normal 11.6-14.6 [facility] Comment on above: Performed By: #### L 300.3900, L500.3400, L300.4310, L500.2500, L100.0500 #### [facility] [address] [place], [address] Hematocrit (Bld) [Volume fraction] 39.7 % Low 40-54 [facility] Comment on above: Performed By: #### L 300.3900, L500.3400, L300.4310, L500.2500, L100.0500 #### [facility] [address] [place], [address] Hemoglobin (Bld) [Mass/Vol] 13.4 g/dL Normal 13.0-16.5 [facility] Comment on above: Performed By: #### L 300.3900, L500.3400, L300.4310, L500.2500, L100.0500 #### [facility] [address] [place], [address] MCH (RBC) [Entitic mass] 32.4 pg High 27.0-32.0 [facility] Comment on above: Performed By: #### L 300.3900, L500.3400, L300.4310, L500.2500, L100.0500 #### [facility] [address] [place], [address] MCHC (RBC) [Mass/Vol] 33.8 g/dL Normal 32-36 [facility] Comment on above: Performed By: #### L 300.3900, L500.3400, L300.4310, L500.2500, L100.0500 #### [facility] [address] [place], [address] MCV (RBC) [Entitic vol] 95.9 fL High 80-94 [facility] Comment on above: Performed By: #### L 300.3900, L500.3400, L300.4310, L500.2500, L100.0500 #### [facility] [address] [place], [address] Platelet mean volume (Bld) [Entitic vol] 10.4 fL Normal 6.2-12.0 [facility] Comment on above: Performed By: #### L 300.3900, L500.3400, L300.4310, L500.2500, L100.0500 #### [facility] [address] [place], [address] Platelets (Bld) [#/Vol] 272 10*3/uL Normal 150-450 [facility] Comment on above: Performed By: #### L 300.3900, L500.3400, L300.4310, L500.2500, L100.0500 #### [facility] [address] [place], [address] RBC (Bld) [#/Vol] 4.14 10*6/uL Low 4.6-6.2 [facility] Comment on above: Performed By: #### L 300.3900, L500.3400, L300.4310, L500.2500, L100.0500 #### [facility] [address] [place], [address] RDW SD 49.3 fl High 35.1-43.9 [facility] Comment on above: Performed By: #### L 300.3900, L500.3400, L300.4310, L500.2500, L100.0500 #### [facility] [address] [place], [place], [address] WBC (Bld) [#/Vol] 13.8 10*3/uL High 4.4-11.0 [facility] Comment on above: Performed By: #### L 300.3900, L500.3400, L300.4310, L500.2500, L100.0500 #### [facility] [address] [place], [address] Carbon dioxide, total [Moles /volume] in Central venous bloodOrdered By: Didier Morris on 02-23-2025 CO2 [Moles/Vol] 24.2 mmol/L 21.0-32.0 [facility] Chloride assayOrdered By: Alvin Morris on 02-23-2025 Chloride [Moles/Vol] 104 mmol/L 98-108 [facility] Erythrocyte distribution wid th ratioOrdered By: Didier Morris on 02-23-2025 Erythrocyte distribution width (RBC) [Ratio] 13.9 % 11.6-14.6 [facility] Erythrocyte distribution wid th standard deviationOrdered By: Didier Morris on 02-23-2025 Erythrocyte distribution width (RBC) [Ratio] 49.3 fl High 35.1-43.9 [facility] Glomerular filtration rate ( GFR) estimation/1.73 sq m using serum, plasma, or whole bOrdered By: Didier Morris on 02-23-2025 GFR/1.73 sq M.predicted among non-blacks MDRD (S/P/Bld) [Vol rate/Area] 99 mL/min/{1.73_m2} >60 [facility] Comment on above: mL/min/1.73m2 CKD-EP I Creatinine Equation (2020) Hematocrit Auto (Bld) [Volum e fraction]Ordered By: Didier Morris on 02-23-2025 Hematocrit (Bld) [Volume fraction] 39.7 % Low 40-54 [facility] Hemoglobin measurementOrdere d By: Didier Morris on 02-23-2025 Hemoglobin (Bld) [Mass/Vol] 13.4 g/dL 13.0-16.5 [facility] International normalized rat io (INR) calculationOrdered By: [facility] Morris on 02-23-2025 INR Coag (Bld) [Relative time] 1.0 {INR} [facility] - Chemistry and C hemistry - challengeOrdered By: Didier Alexandra on 02-23-2025 AST [Catalytic activity/Vol] 16 U/L <38 [facility] Liver Profileon 02-23-2025 Albumin [Mass/Vol] 4.2 g/dL Normal 3.4-4.8 [facility] Comment on above: Performed By: #### L 300.3900, L500.3400, L300.4310, L500.2500, L100.0500 ####[facility] [address] [place], [address] ALK PHOS 90 U/L Normal 40-129 [facility] Comment on above: Performed By: #### L 300.3900, L500.3400, L300.4310, L500.2500, L100.0500 ####[facility] [address] [place], [address] ALT [Catalytic activity/Vol] 15 U/L Normal <=46 [facility] Comment on above: Performed By: #### L 300.3900, L500.3400, L300.4310, L500.2500, L100.0500 ####[facility] [address] [place], [address] AST [Catalytic activity/Vol] 16 U/L Normal <=37 [facility] Comment on above: Performed By: #### L 300.3900, L500.3400, L300.4310, L500.2500, L100.0500 ####[facility] [address] [place], [address] Bilirubin [Mass/Vol] 0.41 mg/dL Normal 0.00-1.30 [facility] Comment on above: Performed By: #### L 300.3900, L500.3400, L300.4310, L500.2500, L100.0500 ####[facility] [address] [place], [address] Bilirubin.direct [Mass/Vol] 0.24 mg/dL Normal 0.00-0.30 [facility] Comment on above: Performed By: #### L 300.3900, L500.3400, L300.4310, L500.2500, L100.0500 ####[facility] [address] [place], [address] Globulin (S) [Mass/Vol] 2.9 g/dL Normal 2.2-4.2 [facility] Comment on above: Performed By: #### L 300.3900, L500.3400, L300.4310, L500.2500, L100.0500 ####[facility] [address] [place], [address] T PROT 7.0 g/dL Normal 5.9-8.4 [facility] Comment on above: Performed By: #### L 300.3900, L500.3400, L300.4310, L500.2500, L100.0500 ####[facility] [address] [place], [address] MCV (mean corpuscular volume ) determinationOrdered By: Didier Morris on 02-23-2025 MCV (RBC) [Entitic vol] 95.9 fL High 80-94 [facility] MR/PAT.JANIYAon 02-23-2025 MR/PAT.JANIYA [facility] Medical Records Department [address] [place] [address] PAT - Anesthesia 02/23/25 1524 MR#: [id number] Acct: [id number] Name: ENRIQUE RODRIGUEZ #: [id number] : 1960 64 From: Sarthak Sterling MD PCP: IQRA BarcenasC Status:PRE [facility] Y Race: C Location: [facility] Pre-Assessment Diagnosis/Proposed Procedure Planned Operative Procedure(s): TUR BLADDER NECK CONTRACTURE Anesthesia History Anesthesia History - development coordinator: Anesthesia History - development coordinator Hx Hospitalization No 02/19/25 08:55 Any Problems [...] take am of surgery PONV PONV - development coordinator: PONV - development coordinator Female No 02/19/25 08:55 HX of Motion [...] 01/07/25 16:31 Respiratory Assessment Respiratory Assessment - development coordinator: Respiratory Tract Infection Hx - development coordinator Hx Respiratory Tract Infection No 02/19/25 08:55 STOP Sleep Apnea STOP Sleep Apnea - development coordinator: STOP Sleep Apnea - development coordinator Hx Hypertension Yes: CONTROLLED WITH MED 02/19/25 [...] Tobacco Use History Tobacco Use History - development coordinator: Tobacco Use History - development coordinator Tobacco Use Smoking Status Current every day smoker 02/19/25 08:55 Hx Tobacco Use Yes 02/19/25 08:55 Years Smoking Packs Smoked per Day Smoking Cessation Date was within the last 15 years Hx Smoking Cessation Date Hx Smoking Cessation No 02/19/25 08:55 Counseling Hematologic Medial History 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 Hx of Blood Transfusion No 02/19/25 08:55 [...] /Reproductio n History /Reproductiv e History - development coordinator: /Reproductiv e Hx- development coordinator Hx Now No 02/19/25 08:55 Gestational Age (in weeks): EDC: Hx Hx Para Hx Section SAB No 02/19/25 08:55 Active Medications Active Medications: Current Medications Generic Name Dose Route Start Last Admin Trade Name Freq PRN Reason Stop Dose Admin Cefazolin Sodium 2 gm/ Sodium 110 mls @ 150 mls/hr 02/24/25 15:25 Chloride IV 02/24/25 16:08 INTRAOP ONE [facility] Medical History Prostate disease High [...] myocardial infarction) Atherosclerosis of coronary artery of [place] heart without angina pectoris Home Medications ?? (more content not included)... Normal [facility] Mean corpuscular hemoglobin (MCH) determinationOrdered By: Didier Morris on 02-23-2025 MCH (RBC) [Entitic mass] 32.4 pg High 27.0-32.0 [facility] Mean corpuscular hemoglobin concentration (MCHC) determinationOrdered By: Didier Morris on 02-23-2025 MCHC (RBC) [Mass/Vol] 33.8 g/dL 32-36 [facility] Mean platelet volume determi nationOrdered By: Didier Morris on 02-23-2025 Platelet mean volume (Bld) [Entitic vol] 10.4 fL 6.2-12.0 [facility] Partial Thromboplast Timeon 02-23-2025 aPTT Coag (Bld) [Time] 27.9 s Normal 24.1-36.2 [facility] Comment on above: Performed By: #### L 300.3900, L500.3400, L300.4310, L500.2500, L100.0500 #### [facility] [address] [place], [address] Platelet countOrdered By: Alvin Morris on 02-23-2025 Platelets (Bld) [#/Vol] 272 10*3/uL 150-450 [facility] Potassium measurement (mass/ volume)Ordered By: Didier Morris on 02-23-2025 Potassium (Unsp spec) [Mass/Vol] 4.0 mmol/L 3.3-5.1 [facility] Prothrombin Time w/INRon INR Coag (PPP) [Relative time] 1.0 {INR} Normal [facility] Comment on above: Performed By: #### L 300.3900, L500.3400, L300.4310, L500.2500, L100.0500 #### [facility] [address] [place], [address] PT Coag (PPP) [Time] 13.0 s Normal 11.7-14.9 [facility] Comment on above: Performed By: #### L 300.3900, L500.3400, L300.4310, L500.2500, L100.0500 #### [facility] [address] [place], [address] Prothrombin timeOrdered By: Didier Morris on 02-23-2025 PT Coag (PPP) [Time] 13.0 s 11.7-14.9 [facility] RBC Auto (Bld) [#/Vol]Ordere d By: Didier Morris on 02-23-2025 RBC (Bld) [#/Vol] 4.14 10*6/uL Low 4.6-6.2 [facility] Serum creatinine measurement (mass/volume)Ordered By: Didier Morris on 02-23-2025 Creatinine [Mass/Vol] 0.77 mg/dL 0.70-1.20 [facility] Serum globulin measurementOr dered By: Didier Morris on 02-23-2025 Globulin (S) [Mass/Vol] 2.9 g/dL 2.2-4.2 [facility] Serum glucose measurement (m ass/volume)Ordered By: Didier Morris on 02-23-2025 Glucose [Mass/Vol] 101 mg/dL High 70-99 [facility] Serum or plasma alanine soto otransferase (ALT) measurementOrdered By: Didier Morris on 02-23-2025 ALT [Catalytic activity/Vol] 15 U/L <47 [facility] Serum or plasma albumin wally urement (mass/volume)Ordered By: Diider Morris on 02-23-2025 Albumin [Mass/Vol] 4.2 g/dL 3.4-4.8 [facility] Serum or plasma alkaline ping sphatase measurementOrdered By: Didier Morris on 02-23-2025 ALP [Catalytic activity/Vol] 90 U/L 40-129 [facility] Serum or plasma calcium wally urement (mass/volume)Ordered By: Didier Morris on 02-23-2025 Calcium [Mass/Vol] 9.4 mg/dL 7.6-11.0 [facility] Serum or plasma urea nitroge n measurement (mass/volume)Ordered By: Didier Morris on 02-23-2025 Urea nitrogen [Mass/Vol] 14 mg/dL 4-19 [facility] Sodium levelOrdered By: Whitney Morris on 02-23-2025 Sodium [Moles/Vol] 139 mmol/L 133-145 [facility] Total proteinOrdered By: Darlin Morris on 02-23-2025 Protein [Mass/Vol] 7.0 g/dL 5.9-8.4 [facility] White blood cell (WBC) count Ordered By: Didier Morris on 02-23-2025 WBC (Bld) [#/Vol] 13.8 10*3/uL High 4.4-11.0 [facility] PSA,Total - Annual Screenon 07-15-2024 PSA,TOT SCREEN 0.49 ng/mL Normal 0.00-4.00 [facility] Comment on above: Result Comment: This test was performed using the TPSA assay method for the [employer] chemistry system. Values obtained with different assay methods cannot be used interchangably. When changing PSA assays in the course of monitoring a patient, additional sequential testing should be carried out to confirm baseline values. Performed By: #### L 501.9910 #### [facility] [address] [place], [address] CBC panel Auto (Bld)on 06-15 Erythrocyte distribution width (RBC) [Ratio] 14.5 % Normal 11.5-15.0 [facility] Comment on above: Order Comment: Speci men Type: BLOOD SPECIMENOrdering Facility: [facility] Address: [address] [place] [address] Performed By: #### 5 8410-2 ####[facility]ORATORYCLIA [id number] [place] [address] [place] Hematocrit (Bld) [Volume fraction] 39.2 % Normal 39.0-51.0 [facility] Comment on above: Order Comment: Speci men Type: BLOOD SPECIMENOrdering Facility: [facility] Address: [address] [place] [address] Performed By: #### 5 8410-2 ####[facility]ATORYCLIA [id number] [address] Hemoglobin (Bld) [Mass/Vol] 12.9 g/dL Low 13.0-17.0 [facility] Comment on above: Order Comment: Speci men Type: BLOOD SPECIMENOrdering Facility: [facility] Address: [address] [place] [address] Performed By: #### 5 8410-2 ####[facility]ORATORYCLIA [id number] [address] MCH (RBC) [Entitic mass] 31.6 pg Normal 26.0-34.0 [facility] Comment on above: Order Comment: Speci men Type: BLOOD SPECIMENOrdering Facility: [facility] Address: [address] [place] [address] Performed By: #### 5 8410-2 ####[facility]ORATORYCLIA [id number] [address] MCHC (RBC) [Mass/Vol] 32.9 g/dL Normal 30.5-36.0 [facility] Comment on above: Order Comment: Speci men Type: BLOOD SPECIMENOrdering Facility: [facility] Address: [address] [place] [address] Performed By: #### 5 8410-2 ####[facility] LABORATORYCLIA [id number] [address] STATES [facility] MCV (RBC) [Entitic vol] 96.1 fL Normal 80.0-100.0 [facility] Comment on above: Order Comment: Speci men Type: BLOOD SPECIMENOrdering Facility: [facility] Address: [address] [place] [address] Performed By: #### 5 8410-2 ####[facility] LABORATORYCLIA [id number] [address] Nucleated RBC (Bld) [#/Vol] 10*3/uL Normal <0.01 [facility] Comment on above: Order Comment: Speci men Type: BLOOD SPECIMENOrdering Facility: [facility] Address: [address] [place] [address] Performed By: #### 5 8410-2 ####[facility] LABORATORYCLIA [id number] [place] [address] [place] Platelet mean volume (Bld) [Entitic vol] 10.7 fL Normal 9.0-12.7 [facility] Comment on above: Order Comment: Speci men Type: BLOOD SPECIMENOrdering Facility: [facility] Address: [address] [place] [address] Performed By: #### 5 8410-2 ####[facility] LABORATORYCLIA [id number] [place] [address] [place] Platelets (Bld) [#/Vol] 281 10*3/uL Normal 150-400 [facility] Comment on above: Order Comment: Speci men Type: BLOOD SPECIMENOrdering Facility: [facility] Address: [address] [place] [address] Performed By: #### 5 8410-2 ####[facility] LABORATORYCLIA [id number] [place] [address] [place] RBC (Bld) [#/Vol] 4.08 10*6/uL Low 4.20-6.00 [facility] Comment on above: Order Comment: Speci men Type: BLOOD SPECIMENOrdering Facility: [facility] Address: [address] [place] [id number] Performed By: #### 5 8410-2 ####[facility] LABORATORYCLIA [id number] [place] [id number] [place] WBC (Bld) [#/Vol] 13.94 10*3/uL High 3.70-11.00 [facility] Comment on above: Order Comment: Speci men Type: BLOOD SPECIMENOrdering Facility: [facility] Address: [address] [place] [address] Performed By: #### 5 8410-2 ####[facility] LABORATORYCLIA [id number] [place] [id number] [facility] CNDSon 06-15-2024 [facility] HNO ID: [id number] Author: FERNANDO ROSAS MD Service: Hospital Medicine [...] Your Medications These medications were sent to [id number] - [place] [address] [address] [facility] [phone] [facility] [address] albuterol HFA 90 mcg/actuation inhaler azithromycin 500 mg tablet cefdinir 300 mg capsule furosemide 40 mg tablet predniSONE 20 mg tablet FINAL DIAGNOSIS: Syncope, COPD HOSPITAL COURSE: Obesity Class I (BMI 30-34.9) Plan of care discussed with Provider, RN, Patient SIGNATURE: Rosemary Dooley APRN.JERRY PATIENT NAME: Enrique Rodriguez DATE: June 15, 2024 TIME: 10:56 AM Normal [facility] CONSULTon 06-15-2024 CONSULT HNO ID: [id number] Author: JACQUI LIMA DO Service: Cardiovascular Disease Author Type: Physician Type: Consults Filed: 06/15/2024 10:19 Note Text: [facility] V[facility] Department of Cardiovascular Medicine SECTION OF [facility] Consultation Note Name: Enrique Rodriguez : 1960 Primary Physician: Dionna Owens APRN.ATTORNEY RECRUITER Consulting Physician: Fernando Rosas,Chilo Primary Chief Investigator: [place] [facility] SERVICE DATE: June 15, 2024 Assessment/ Plan: 1. Syncopal episode. Unsure as to the exact etiology but sounds like vasovagal in nature. Patient had some diaphoresis and did not feel good prior to going to [facility] but then when she stood up in [facility] had another acute episode of diaphoresis and passed out. He has had no chest pain, palpitations, exertional shortness of breath and had a recent nuclear stress test several months ago at [place] that was normal. Cardiac exam is normal and no evidence of arrhythmias thus far. EKG without ischemic changes and troponins with no significant delta. No further cardiac workup is necessary and feel the patient can be discharged. 2. History of coronary disease with remote history of myocardial infarction. Stable with recent normal stress testing and followed by [place] [facility]. History: Enrique Rodriguez is a 64 year old male who presents with PMH of previous IN (pt states in 2013 had maker with Stent placed), COPD (diagnosed by PFTs), HTN, HLD. BPH who presents with ?synope episode. Pt states today prior to spiritism he became very hot and sweaty. He went to [facility] anyway was sitting in [facility] and continued to feel hot and sweaty. He then fell to the ground in between the pews at [facility]ism. He denies ever losing consciousness, he states [...] the past few months. 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 Normal [facility] Comprehensive metabolic 2000 panelon 06-15-2024 Albumin [Mass/Vol] 3.8 g/dL Low 3.9-4.9 [facility] Comment on above: Order Comment: Speci men Type: BLOOD SPECIMENOrdering Facility: [facility] Address: [address] [place] [address] Performed By: #### 2 4323-8, ####[facility] LABORATORYCLIA [id number] [address] STATES OF [facility] ALP [Catalytic activity/Vol] 74 U/L Normal 38-113 [facility] Comment on above: Order Comment: Speci men Type: BLOOD SPECIMENOrdering Facility: [facility] Address: [address] [place] [address] Performed By: #### 2 4323-8, ####[facility] LABORATORYCLIA [id number] [address] OF [facility] ALT [Catalytic activity/Vol] 11 U/L Normal 10-54 [facility] Comment on above: Order Comment: Speci men Type: BLOOD SPECIMENOrdering Facility: [facility] Address: [address] [place] [address] Performed By: #### 2 4323-8, ####[facility] LABORATORYCLIA [id number] [place] [address] [place] Anion gap [Moles/Vol] 6 mmol/L Low 8-15 [facility] Comment on above: Order Comment: Speci men Type: BLOOD SPECIMENOrdering Facility: [facility] Address: [address] [place] [address] Performed By: #### 2 4323-8, ####[facility] LABORATORYCLIA [id number] [place] [id number] [place] AST [Catalytic activity/Vol] 18 U/L Normal 14-40 [facility] Comment on above: Order Comment: Speci men Type: BLOOD SPECIMENOrdering Facility: [facility] Address: [address] [place] [address] Performed By: #### 2 4323-8, ####[facility] LABORATORYCLIA [id number] [place] [address] [place] Bilirubin [Mass/Vol] 0.8 mg/dL Normal 0.2-1.3 [facility] Comment on above: Order Comment: Speci men Type: BLOOD SPECIMENOrdering Facility: [facility] Address: [address] [place] [address] Performed By: #### 2 4323-8, ####[facility] LABORATORYCLIA [id number] [place] [id number] [place] Calcium [Mass/Vol] 8.8 mg/dL Normal 8.5-10.2 [facility] Comment on above: Order Comment: Speci men Type: BLOOD SPECIMENOrdering Facility: [facility] Address: [address] [place] [address] Performed By: #### 2 4323-8, ####[facility] LABORATORYCLIA [id number] [place] [id number] [place] Chloride [Moles/Vol] 106 mmol/L Normal 98-107 [facility] Comment on above: Order Comment: Speci men Type: BLOOD SPECIMENOrdering Facility: [facility] Address: [address] [place], [place] [address] Performed By: #### 2 4323-8, ####[facility] LABORATORYCLIA [id number] [place] [id number] [place] CO2 [Moles/Vol] 27 mmol/L Normal 22-30 [facility] Comment on above: Order Comment: Speci men Type: BLOOD SPECIMENOrdering Facility: [facility] Address: [address] [place] [address] Performed By: #### 2 4328, ####[facility] LABORATORYCLIA [id number] [place] [address] [place] Creatinine [Mass/Vol] 0.86 mg/dL Normal 0.73-1.22 [facility] Comment on above: Order Comment: Speci men Type: BLOOD SPECIMENOrdering Facility: [facility] Address: [address] [place] [address] Performed By: #### 2 4328, ####[facility] LABORATORYCLIA [id number] [place] [address] [place] Creatinine and Glomerular filtration rate.predicted panel (S/P/Bld) 95 mL/min/1.73m??? Normal >=60 [facility] Comment on above: Order Comment: Speci men Type: BLOOD SPECIMENOrdering Facility: [facility] Address: [address] [place] [address] Result Comment: Marysol mated Glomerular Filtration Rate [...] Performed By: #### 2 4323-8, ####[facility] LABORATORYCLIA [id number] [place] [address] [place] Glucose [Mass/Vol] 91 mg/dL Normal 74-99 [facility] Comment on above: Order Comment: Speci men Type: BLOOD SPECIMENOrdering Facility: [facility] Address: [address] [place] [id number] Result Comment: The [place] [employer] (ADA) provides guidance for cutoff [...] Standards of Medical Care in Diabetes 2016, [place] [employer]. Diabetes Care. 2016.39(Suppl 1). Performed By: #### 2 4323-8, ####[facility] LABORATORYCLIA [id number] [place] [address] [place] Potassium [Moles/Vol] 4.5 mmol/L Normal 3.7-5.1 [facility] Comment on above: Order Comment: Tj elmo Type: BLOOD SPECIMENOrdering Facility: [facility] Address: [address] [place], [place] [address] Performed By: #### 2 432-8, ####[facility] LABORATORYCLIA [id number] [place] [id number] [place] Protein [Mass/Vol] 6.6 g/dL Normal 6.3-8.0 [facility] Comment on above: Order Comment: Tj men Type: BLOOD SPECIMENOrdering Facility: [facility] Address: [address] [place] [address] Performed By: #### 2 4323-8, ####[facility] LABORATORYCLIA [id number] [place] [address] [place] Sodium [Moles/Vol] 139 mmol/L Normal 136-144 [facility] Comment on above: Order Comment: Tj elmo Type: BLOOD SPECIMENOrdering Facility: [facility] Address: [address] [place], [place] [address] Performed By: #### 2 4323-8, ####[facility] LABORATORYCLIA [id number] [place] [address] [place] Urea nitrogen [Mass/Vol] 10 mg/dL Normal - [facility] Comment on above: Order Comment: Speci men Type: BLOOD SPECIMENOrdering Facility: [facility] Address: [address] [place] [address] Performed By: #### 2 4323-8, ####[facility] LABORATORYCLIA [id number] [place] [address] [place] Magnesium SerPl-mCncon 06-15 Magnesium [Mass/Vol] 2.0 mg/dL Normal 1.7-2.3 [facility] Comment on above: Order Comment: Speci men Type: BLOOD SPECIMENOrdering Facility: [facility] Address: [address] [place] [address] Performed By: #### 2 4323-8, ####[facility] LABORATORYCLIA [id number] [place] [address] [place] ALLIED HEALTHon 06-14-2024 ALLIED HEALTH HNO ID: [id number] Author: BERKLEY DAN RT(Kiko) Service: Radiology Author Type: Technologist Type: Allied [...] PATIENT PRESENTS WITH AN IMPLANTABLE OR ATTACHED ASSISTANT ASSOCIATE PROFESSOR: No RADIOLOGY DEPARTMENT: General X-ray: Exam(s) Completed: Chest X-Ray PERIPHERAL IV DATA: Not applicable SIGNED BY: RT Eliud(R) June 14, 2024 12:57 PM [facility] CBC W Auto Differential pane l (Bld)on 06-14-2024 Basophils (Bld) [#/Vol] 0.16 10*3/uL High <0.11 [facility] Comment on above: Order Comment: Speci men Type: BLOOD SPECIMENOrdering Facility: [facility] Address: [address] [place] [address] Performed By: #### 5 7021-8 ####[facility] LABORATORYCLIA [id number] [place] [address] [place] Basophils/100 WBC (Bld) 1.0 % Normal [facility] Comment on above: Order Comment: Speci men Type: BLOOD SPECIMENOrdering Facility: [facility] Address: [address] [place] [address] Performed By: #### 5 7021-8 ####[facility] LABORATORYCLIA [id number] [place] [address] [place] Differential cell count method Nom (Bld) Manual Normal [facility] Comment on above: Order Comment: Speci men Type: BLOOD SPECIMENOrdering Facility: [facility] Address: [address] [place] [address] Performed By: #### 5 7021-8 ####ST[facility] LABORATORYCLIA [id number] [place] [address] [place] Eosinophils (Bld) [#/Vol] 0.79 10*3/uL High <0.46 [facility] Comment on above: Order Comment: Speci men Type: BLOOD SPECIMENOrdering Facility: [facility] Address: [address] [place] [address] Performed By: #### 5 7021-8 ####ST[facility] LABORATORYCLIA [id number] [place] [address] [place] Eosinophils/100 WBC (Bld) 5.0 % [facility] Comment on above: Order Comment: Speci men Type: BLOOD SPECIMENOrdering Facility: [facility] Address: [address] [place] [address] Performed By: #### 5 7021-8 ####[facility] LABORATORYCLIA [id number] [place] [address] [place] Erythrocyte distribution width (RBC) [Ratio] 14.2 % Normal 11.5-15.0 [facility] Comment on above: Order Comment: Speci men Type: BLOOD SPECIMENOrdering Facility: [facility] Address: [address] [place] [address] Performed By: #### 5 7021-8 ####ST[facility] LABORATORYCLIA [id number] [place] [address] [place] Hematocrit (Bld) [Volume fraction] 41.9 % Normal 39.0-51.0 [facility] Comment on above: Order Comment: Speci men Type: BLOOD SPECIMENOrdering Facility: [facility] Address: [address] [place] [address] Performed By: #### 5 7021-8 ####ST[facility] LABORATORYCLIA [id number] [place] [address] [place] Hemoglobin (Bld) [Mass/Vol] 14.0 g/dL Normal 13.0-17.0 [facility] Comment on above: Order Comment: Speci men Type: BLOOD SPECIMENOrdering Facility: [facility] Address: [address] [place] [address] Performed By: #### 5 7021-8 ####ST[facility] LABORATORYCLIA [id number] [place] [address] [place] Lymphocytes (Bld) [#/Vol] 5.52 10*3/uL High 1.00-4.00 [facility] Comment on above: Order Comment: Speci men Type: BLOOD SPECIMENOrdering Facility: [facility] Address: [address] [place] [address] Performed By: #### 5 7021-8 ####[facility] LABORATORYCLIA [id number] [address] [place] Lymphocytes/100 WBC (Bld) 35.0 % Normal [facility] Comment on above: Order Comment: Speci men Type: BLOOD SPECIMENOrdering Facility: [facility] Address: [address] [place] [address] Performed By: #### 5 7021-8 ####ST[facility] LABORATORYCLIA [id number] [address] MCH (RBC) [Entitic mass] 32.0 pg Normal 26.0-34.0 [facility] Comment on above: Order Comment: Speci men Type: BLOOD SPECIMENOrdering Facility: [facility] Address: [address] [place] [address] Performed By: #### 5 7021-8 ####ST[facility] LABORATORYCLIA [id number] [address] [place] MCHC (RBC) [Mass/Vol] 33.4 g/dL Normal 30.5-36.0 [facility] Comment on above: Order Comment: Speci men Type: BLOOD SPECIMENOrdering Facility: [facility] Address: [address] [place] [address] Performed By: #### 5 7021-8 ####ST[facility] LABORATORYCLIA [id number] [address] MCV (RBC) [Entitic vol] 95.9 fL Normal 80.0-100.0 [facility] Comment on above: Order Comment: Speci men Type: BLOOD SPECIMENOrdering Facility: [facility] Address: [address] [place] [address] Performed By: #### 5 7021-8 ####ST[facility] LABORATORYCLIA [id number] [address] [place] Monocytes (Bld) [#/Vol] 1.58 10*3/uL High <0.87 [facility] Comment on above: Order Comment: Speci men Type: BLOOD SPECIMENOrdering Facility: [facility] Address: [address] [place] [address] Performed By: #### 5 7021-8 ####ST[facility] LABORATORYCLIA [id number] [address] Monocytes/100 WBC (Bld) 10.0 % Normal [facility] Comment on above: Order Comment: Speci men Type: BLOOD SPECIMENOrdering Facility: [facility] Address: [address] [place] [address] Performed By: #### 5 7021-8 ####ST[facility] LABORATORYCLIA [id number] [place] [address] [place] Neutrophils (Bld) [#/Vol] 7.73 10*3/uL High 1.45-7.50 [facility] Comment on above: Order Comment: Speci men Type: BLOOD SPECIMENOrdering Facility: [facility] Address: [address] [place] [address] Performed By: #### 5 7021-8 ####ST[facility] LABORATORYCLIA [id number] [address] [place] Neutrophils/100 WBC (Bld) 49.0 % Normal [facility] Comment on above: Order Comment: Speci men Type: BLOOD SPECIMENOrdering Facility: [facility] Address: [address] [place] [address] Performed By: #### 5 7021-8 ####[facility] LABORATORYCLIA [id number] [place] [address] [place] Nucleated RBC (Bld) [#/Vol] 10*3/uL Normal <0.01 [facility] Comment on above: Order Comment: Speci men Type: BLOOD SPECIMENOrdering Facility: [facility] Address: [address] [place] [address] Performed By: #### 5 7021-8 ####[facility] LABORATORYCLIA [id number] [address] [place] Nucleated RBC/100 WBC (Bld) [Ratio] 0.0 /100 WBC Normal [facility] Comment on above: Order Comment: Speci men Type: BLOOD SPECIMENOrdering Facility: [facility] Address: [address] [place] [address] Performed By: #### 5 7021-8 ####[facility] LABORATORYCLIA [id number] [place] [address] [place] Platelet mean volume (Bld) [Entitic vol] 10.1 fL Normal 9.0-12.7 [facility] Comment on above: Order Comment: Speci men Type: BLOOD SPECIMENOrdering Facility: [facility] Address: [address] [place] [address] Performed By: #### 5 7021-8 ####ST[facility] LABORATORYCLIA [id number] [address] [place] Platelets (Bld) [#/Vol] 293 10*3/uL Normal 150-400 [facility] Comment on above: Order Comment: Speci men Type: BLOOD SPECIMENOrdering Facility: [facility] Address: [address] [place] [address] Performed By: #### 5 7021-8 ####[facility] LABORATORYCLIA [id number] [address] Platelets Estimate (Bld) [#/Vol] Adequate Normal [facility] Comment on above: Order Comment: Speci men Type: BLOOD SPECIMENOrdering Facility: [facility] Address: [address] [place] [address] Performed By: #### 5 7021-8 ####[facility] LABORATORYCLIA [id number] [address] [place] RBC (Bld) [#/Vol] 4.37 10*6/uL Normal 4.20-6.00 [facility] Comment on above: Order Comment: Speci men Type: BLOOD SPECIMENOrdering Facility: [facility] Address: [address] [place] [address] Performed By: #### 5 7021-8 ####[facility] LABORATORYCLIA [id number] [address] RED CELL MORPH Reviewed: unremarkable Normal [facility] Comment on above: Order Comment: Speci men Type: BLOOD SPECIMENOrdering Facility: [facility] Address: [address] [place] [address] Performed By: #### 5 7021-8 ####[facility] LABORATORYCLIA [id number] [address] [place] WBC (Bld) [#/Vol] 15.78 10*3/uL High 3.70-11.00 [facility] Comment on above: Order Comment: Speci men Type: BLOOD SPECIMENOrdering Facility: [facility] Address: [address] [place] [address] Performed By: #### 5 7021-8 ####ST[facility] LABORATORYCLIA [id number] [place] [address] [facility] [place] CTA ABD/PELV W IVCONon 06-14 CTA ABD/PELV W IVCON * * *Final Report* * * DATE OF EXAM: Jun 14 2024 12:42PM [facility] 0466 - CTA ABD/PELV W IVCON / [...] ACUTE INTRA-ABDOMINAL OR INTRAPELVIC PATHOLOGY. 2. CONSTIPATION. 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 2. CONSTIPATION. [facility] Transcribe Date/Time: Jun 14 2024 2:03P Dictated by : ROZINA LINK MD This examination was interpreted and the report reviewed and electronically signed by: ROZINA LINK MD on Jun 14 2024 2:17PM EST [id number] N Normal [facility] Comprehensive metabolic 2000 panelon 06-14-2024 Albumin [Mass/Vol] 4.0 g/dL Normal 3.9-4.9 [facility] Comment on above: Order Comment: Tj borrego Type: BLOOD SPECIMENOrdering Facility: [facility] Address: [address] [place] [address] Performed By: #### 2 4323-8, [id number], 86757-3 ####[facility] LABORATORYCLIA [id number] [place] [address] [place] ALP [Catalytic activity/Vol] 81 U/L Normal 38-113 [facility] Comment on above: Order Comment: Tj men Type: BLOOD SPECIMENOrdering Facility: [facility] Address: [address] [place] [address] Performed By: #### 2 4323-8, [id number], ####[facility] LABORATORYCLIA [id number] [place] [address] [place] ALT [Catalytic activity/Vol] 14 U/L Normal 10-54 [facility] Comment on above: Order Comment: Speci men Type: BLOOD SPECIMENOrdering Facility: [facility] Address: [address] [place] [address] Performed By: #### 2 4323-8, [id number], ####ST[facility] LABORATORYCLIA [id number] [place] [address] [place] Anion gap [Moles/Vol] 11 mmol/L Normal 8-15 [facility] Comment on above: Order Comment: Speci men Type: BLOOD SPECIMENOrdering Facility: [facility] Address: [facility] [place] [address] Performed By: #### 2 4323-8, [id number], ####ST[facility] LABORATORYCLIA [id number] [place] [address] [place] AST [Catalytic activity/Vol] 17 U/L Normal 14-40 [facility] Comment on above: Order Comment: Speci men Type: BLOOD SPECIMENOrdering Facility: [facility] Address: [address] [place] [address] Performed By: #### 2 4323-8, [id number], ####ST[facility] LABORATORYCLIA [id number] [place] [address] [place] Bilirubin [Mass/Vol] 0.9 mg/dL Normal 0.2-1.3 [facility] Comment on above: Order Comment: Speci men Type: BLOOD SPECIMENOrdering Facility: [facility] Address: [address] [place] [address] Performed By: #### 2 4323-8, [id number], ####ST[facility] LABORATORYCLIA [id number] [place] [address] [place] Calcium [Mass/Vol] 9.0 mg/dL Normal 8.5-10.2 [facility] Comment on above: Order Comment: Speci men Type: BLOOD SPECIMENOrdering Facility: [facility] Address: [address] [place] [address] Performed By: #### 2 4323-8, [id number], ####ST[facility] LABORATORYCLIA [id number] [place] [address] [place] Chloride [Moles/Vol] 104 mmol/L Normal 98-107 [facility] Comment on above: Order Comment: Speci men Type: BLOOD SPECIMENOrdering Facility: [facility] Address: [address] [place] [address] Performed By: #### 2 4323-8, [id number], ####ST[facility] LABORATORYCLIA [id number] [place] [address] [place] CO2 [Moles/Vol] 26 mmol/L Normal 22-30 [facility] Comment on above: Order Comment: Speci men Type: BLOOD SPECIMENOrdering Facility: [facility] Address: [address] [place] [address] Performed By: #### 2 4323-8, [id number], ####ST[facility] LABORATORYCLIA [id number] [place] [address] [place] Creatinine [Mass/Vol] 0.74 mg/dL Normal 0.73-1.22 [facility] Comment on above: Order Comment: Speci men Type: BLOOD SPECIMENOrdering Facility: [facility] Address: [address] [place] [address] Performed By: #### 2 4323-8, [id number], ####ST[facility] LABORATORYCLIA [id number] [address] Creatinine and Glomerular filtration rate.predicted panel (S/P/Bld) 100 mL/min/1.73m??? Normal >=60 [facility] Comment on above: Order Comment: Speci men Type: BLOOD SPECIMENOrdering Facility: [facility] Address: [address] [place] [address] Result Comment: Marysol mated Glomerular Filtration Rate [...] actual GFR. Performed By: #### 2 4323-8, [id number], ####S[facility] LABORATORYCLIA [id number] [place] [address] [place] Glucose [Mass/Vol] 106 mg/dL High 74-99 [facility] Comment on above: Order Comment: Tj borrego Type: BLOOD SPECIMENOrdering Facility: [facility] Address: [address] [place] [address] Result Comment: The [place] [employer] (ADA) provides guidance for cutoff [...] Standards of Medical Care in Diabetes 2016, [place] [employer]. Diabetes Care. 2016.39(Suppl 1). Performed By: #### 2 4323-8, [id number], ####[facility] LABORATORYCLIA [id number] [place] [address] [place] Potassium [Moles/Vol] 3.8 mmol/L Normal 3.7-5.1 [facility] Comment on above: Order Comment: Tj borrego Type: BLOOD SPECIMENOrdering Facility: [facility] Address: [address] [place], [place] [address] Performed By: #### 2 4323-8, [id number], ####S[facility] LABORATORYCLIA [id number] [place] [address] [place] Protein [Mass/Vol] 7.1 g/dL Normal 6.3-8.0 [facility] Comment on above: Order Comment: Speci men Type: BLOOD SPECIMENOrdering Facility: [facility] Address: [address] [place] [address] Performed By: #### 2 4323-8, [id number], ####ST[facility] LABORATORYCLIA [id number] [place] [id number] [place] Sodium [Moles/Vol] 141 mmol/L Normal 136-144 [facility] Comment on above: Order Comment: Speci men Type: BLOOD SPECIMENOrdering Facility: [facility] Address: [address] [place] [address] Performed By: #### 2 4323-8, [id number], ####[facility] LABORATORYCLIA [id number] [address] [place] [facility] Urea nitrogen [Mass/Vol] 12 mg/dL Normal 9-24 [facility] Comment on above: Order Comment: Speci men Type: BLOOD SPECIMENOrdering Facility: [facility] Address: [address] [place] [address] Performed By: #### 2 4323-8, [id number], ####[facility] LABORATORYCLIA [id number] [address] ED NOTEon 06-14-2024 ED NOTE HNO ID: [id number] Author: SUE DAVILA RN Service: ? Author Type: Registered Nurse Type: ED Notes Filed: 06/14/2024 18:31 Note Text: Verbal phone report was provided to Basilia on [address] [place] [address]. The pt remains stable for transport to the floor for admission. NAD noted at this time. Belongings list was completed. Medic to transport. [facility] ED NOTE HNO ID: [id number] Author: SUE DAVILA RN Service: ? Author Type: Registered Nurse Type: ED Notes Filed: 06/14/2024 17:57 Note Text: Heads up called to [address] [place] [address] charge nurse (Spoke with Ellyn) [facility] ED NOTE HNO ID: [id number] Author: CHANTAL YUNG, KIARA Service: ? Author Type: Registered Nurse Type: ED Notes Filed: 06/14/2024 11:48 Note Text: Bed: ED-18 Expected date: Expected time: Means of arrival: [facility] Fire/EMS Comments: [facility] ED PROV NOTEon 06-14-2024 ED PROV NOTE HNO ID: [id number] Author: ANTHONY CRYSTAL DO Service: Emergency Medicine Author Type: Physician Type: ED Provider Notes Filed: 06/14/2024 17:20 Note Text: ED Provider Note Patient Name: Enrique Rodriguez : 1960 SERVICE DATE: 06/14/24 History Patient presents with: Syncope: PT [facility] via [facility]. Bystanders report pt had a syncopal episode. PT has HX of [place] with cardiac stenting. PT complaint of chest [...] 5.52 (*) 1.00 - 4.00 k/uL Abs [place] 1.58 (*) <0.87 k/uL Abs Eosin 0.79 [...] be within nor (more content not included)... [facility] EKGon 06-14-2024 Electrocardiogram Ventricular Rate : 8 0 BPM Atrial Rate : 80 BPM P-R Interval : 184 ms QRS Duration : 90 ms Q-T Interval : 404 ms QTC Calculation(Bazett) : 465 ms Calculated P [place] : 38 degrees Calculated R [place] : -8 degrees Calculated T [place] : 12 degrees NORMAL SINUS RHYTHM INFERIOR INFARCT , AGE UNDETERMINED ABNORMAL ECG NO STEMI Confirmed by ANTHONY CRYSTAL DO ([id number]), assignment desk editor SERAFIN FRENCH ([id number]) on 06/14/2024 2:57:40 PM NAME : ENRIQUE RODRIGUEZ PID : [id number] : 1960 Gender : Male Race : Unknown ORD : Procedure Date : Jun 14 2024 12:55:53 Edit Date : Jun 14 2024 14:57:43 Diagnosis: NORMAL SINUS RHYTHM INFERIOR INFARCT , AGE UNDETERMINED ABNORMAL ECG NO STEMI Confirmed by ANTHONY CRYSTAL DO ([id number]), assignment desk editor SERAFIN FRENCH ([id number]) on 06/14/2024 2:57:40 PM Test Reason : Location : 1 : ER ED Overread By : ANTHONY CRYSTAL DO Edited By : SERAFIN FRENCH Referred By : , Acquired by : tp, Normal [facility] Electrocardiogram Ventricular Rate : 7 3 BPM Atrial Rate : 73 BPM P-R Interval : 202 ms QRS Duration : 102 ms Q-T Interval : 420 ms QTC Calculation(Bazett) : 462 ms Calculated P [place] : 61 degrees Calculated R [place] : -8 degrees Calculated T [place] : 2 degrees NORMAL SINUS RHYTHM WITH SINUS ARRHYTHMIA SEPTAL INFARCT , AGE UNDETERMINED INFERIOR INFARCT , AGE UNDETERMINED ABNORMAL ECG NO STEMI Confirmed by ANTHONY CRYSTAL DO ([id number]), assignment desk editor SERAFIN FRENCH ([id number]) on 06/14/2024 1:11:40 [...] NO STEMI Confirmed by ANTHONY CRYSTAL DO ([id number]), assignment desk editor SERAFIN FRENCH ([id number]) on 06/14/2024 1:11:40 PM Test Reason : Location : 1 : ER ED Overread By : ANTHONY CRYSTAL DO Edited By : SERAFIN FRENCH Referred By : , Acquired by : Holger dickens [facility] HIGH SENSITIVITY TROPONIN T (INITIAL)on 06-14-2024 Troponin T.cardiac High sensitivity method [Mass/Vol] 34 ng/L High <[address] [place] [address] Comment on above: Order Comment: Tj borrego Type: BLOOD SPECIMENOrdering Facility: [facility] Address: [address] [place] [address] Performed By: #### 2 4323-8, [id number], 48555-5 ####ST[facility] LABORATORYCLIA [id number] [place] [address] [place] HIGH SENSITIVITY TROPONIN T (SECOND)on 06-14-2024 Troponin T.cardiac High sensitivity method [Mass/Vol] 33 ng/L High [address] Comment on above: Order Comment: Tj borrego Type: BLOOD SPECIMENOrdering Facility: [facility] Address: [address] [place] [address] Performed By: #### 3 040-3, [id number] ####STEW[facility] LABORATORYCLIA [id number] [place] [address] [place] HIGH SENSITIVITY TROPONIN T (THIRD) 3 HRS AFTER INITIALon 06-14-2024 Troponin T.cardiac High sensitivity method [Mass/Vol] 37 ng/L High <12 [facility] Comment on above: Order Comment: Speci men Type: BLOOD SPECIMENOrdering Facility: [facility] Address: [address] [place] [address] Performed By: #### L [id number], 73700-7, 83625-9 ####S[facility]UL[facility] LABORATORYCLIA [id number] [place] [address] [place] HISTORY PHYSICALon HISTORY PHYSICAL HNO ID: [id number] Author: CHEIKH CARDONA DO Service: Hospital Medicine Author Type: Physician Type: H&P Filed: 06/14/2024 22:22 Note Text: DEPARTMENT OF HOSPITAL MEDICINE HISTORY AND PHYSICAL EXAM SERVICE DATE: 06/14/2024 SERVICE TIME: 4:59 PM Primary Care Physician: Dionna Owens APRN.ATTORNEY RECRUITER NIGHT COVERAGE: Please page [facility] [place] [phone] for any issues or concerns Subjective CHIEF COMPLAINT: Syncope (PT presents to the ED from [facility] via [facility]. Bystanders report pt had a syncopal episode. PT has HX of IN with cardiac stenting. PT complaint of chest pain and nausea. Pt has no other complaints at this time. ) and Chest Pain HPI: This is a 64 year old male with PMH of Previous IN (pt states in 2013 had maker with Stent placed), COPD (diagnosed by PFTs), HTN, HLD. BPH who presents with ?synope episode. Pt states today prior to [facility] he became very hot and sweaty. He went to [facility] anyway was sitting in [facility] and continued to feel hot and sweaty. He then fell to the ground in between the pews at [facility]. He denies ever losing consciousness, he states [...] the past few months. Follows with a cow rider in [place] where he gets most of his medical [...] Lymph (Normal + Reactive) 5.52 (*) Abs [place] 1.58 (*) Abs Eosin 0.79 (*) Abs [...] on the same specimen through Client Services ([phone]) if contacted within 48 hours of initial [...] losartan (C (more content not included)... Normal [facility] Legionella Ag Ur Qlon 2023 Legionella sp Ag Ql (U) Negative Normal Negative [facility] Comment on above: Order Comment: Tj borrego Type: URINE SPECIMENOrdering Facility: [facility] Address: [address] [place] [address] Result Comment: Legi onella urinary antigen test is used as an aid in diagnosis of infection with Legionella pneumophila serogroup 1. It may be detected from a few days to several months after onset of signs and symptoms despite antibiotic therapy or disease resolution. A negative result cannot exclude Legionellosis. Clinical correlation is required. Performed By: #### 3 2781-7 ####[facility] LABCLIA [id number] [place] [address] [place] Lipase SerPl-cCncon 06-14-20 Lipase [Catalytic activity/Vol] 17 U/L Normal 16-61 [facility] Comment on above: Order Comment: Samii elmo Type: BLOOD SPECIMENOrdering Facility: [facility] Address: [address] [place] [address] Performed By: #### 3 040-3, [id number] ####[facility] LABORATORYCLIA [id number] [place] [address] [place] Magnesium SerPl-mCncon 06-14 Magnesium [Mass/Vol] 2.0 mg/dL Normal 1.7-2.3 [facility] Comment on above: Order Comment: Speci men Type: BLOOD SPECIMENOrdering Facility: [facility] Address: [address] [place] [address] Performed By: #### 2 4323-8, [id number], 02329-0 ####[facility] LABORATORYCLIA [id number] [place] [address] [place] NT-proBNP SerPl-mCncon 06-14 Natriuretic peptide.B prohormone N-Terminal [Mass/Vol] 101 pg/mL Normal <125 [facility] Comment on above: Order Comment: Speci men Type: BLOOD SPECIMENOrdering Facility: [facility] Address: [address] [place] [address] Performed By: #### L [id number], 42079-5, 10855-0 ####[facility] LABORATORYCLIA [id number] [place] [address] [place] Procalcitonin SerPl-mCncon 0 06-14-2024 Procalcitonin [Mass/Vol] ng/mL Normal <0.09 [facility] Comment on above: Order Comment: Speci men Type: BLOOD SPECIMENOrdering Facility: [facility] Address: [address] [place] [address] Result Comment: For a guided interpretation of test results, please visit the Change in Procalcitonin Calculator, [email or web address]. Performed By: #### L [id number], 97042-5, 29765-5 ####ST[facility] LABORATORYCLIA [id number] [place] [address] [place] STREPTOCOCCUS PNEUMONIAE ANT IGEN URINEon 06-14-2024 STREPTOCOCCUS PNEUMONIAE ANTIGEN URINE STREP PNEUMO AG RESULT: Negative for Streptococcus pneumoniae antigen. Presumptive negative for pneumococcal pneumonia, suggesting no current or recent pneumococcal infection. Infection due to S.pneumoniae cannot be ruled out since the antigen present in the sample may be below the detection limit of the test. Normal [facility] Comment on above: Performed By: #### S PNAG ####[facility] LAB[facility]IA [id number] [place] [id number] [place] TOXICOLOGY SCREEN, ROUTINE U RINEon 06-14-2024 Amphetamines Confirm (U) [Mass/Vol] Negative Normal Negative [facility] Comment on above: Order Comment: Speci men Type: URINE SPECIMENOrdering Facility: [facility] Address: [address] [place] [address] Result Comment: Cuto ff threshold at 1000 ng/mL. Performed By: #### U TOX2 ####[facility] [id number] [address] [place] BARBITURATES, URINE Negative Normal Negative [facility] Comment on above: Order Comment: Speci men Type: URINE SPECIMENOrdering Facility: [facility] Address: [address] [place] [address] Result Comment: Cuto ff threshold at 200 ng/mL. Performed By: #### U TOX2 ####[facility]ORYCLIA [id number] [place] [address] [place] BENZODIAZEPINES, UR Negative Normal Negative [facility] Comment on above: Order Comment: Speci men Type: URINE SPECIMENOrdering Facility: [facility] Address: [address] [place] [address] Result Comment: Cuto ff threshold at 200 ng/mL. Performed By: #### U TOX2 ####[facility] [id number] [address] [place] Cannabinoids Screen Ql (U) Negative Normal Negative [facility] Comment on above: Order Comment: Speci men Type: URINE SPECIMENOrdering Facility: [facility] Address: [address] [place] [address] Result Comment: Cuto ff threshold at 50 ng/mL. Performed By: #### U TOX2 ####[facility] [id number] [address] [place] Cocaine Ql (U) Negative Normal Negative [facility] Comment on above: Order Comment: Speci men Type: URINE SPECIMENOrdering Facility: [facility] Address: [address] [place] [address] Result Comment: Cuto ff threshold at 300 ng/mL. Performed By: #### U TOX2 ####[facility]ORY[facility]IA [id number] [place] [address] [place] Ethanol (U) [Mass/Vol] <11 Normal <11 [facility] Comment on above: Order Comment: Speci men Type: URINE SPECIMENOrdering Facility: [facility] Address: [address] [place] [address] Performed By: #### U TOX2 ####[facility] [id number] [place] [address] [place] Opiates Screen Ql (U) Negative Normal Negative [facility] Comment on above: Order Comment: Speci men Type: URINE SPECIMENOrdering Facility: [facility] Address: [address] [place] [address] Result Comment: Cuto ff threshold at 300 ng/mL. Performed By: #### U TOX2 ####[facility] [id number] [address] [place] oxyCODONE cutoff Screen (U) [Mass/Vol] Negative Normal Negative [facility] Comment on above: Order Comment: Speci men Type: URINE SPECIMENOrdering Facility: [facility] Address: [address] [place] [address] Result Comment: Cuto ff threshold at 100 ng/mL. Performed By: #### U TOX2 ####[facility]CL[facility] [id number] [address] [place] Phencyclidine Ql (U) Negative Normal Negative [facility] Comment on above: Order Comment: Speci men Type: URINE SPECIMENOrdering Facility: [facility] Address: [address] [place] [address] Result Comment: Cuto ff threshold at 25 ng/mL. Performed By: #### U TOX2 ####[facility]ORYCLIA [id number] [place] [address] [place] XR CHEST 1V FRONTAL [...] Moderate diffuse bilateral pulmonary edema or infiltrates [employer] Pumper: ANIYAH Transcribe Date/Time: Jun 14 2024 2:04P Dictated by : JASSI GREEN DO This examination was interpreted and the report reviewed and electronically signed by: JASSI GREEN DO on Jun 14 2024 2:05PM EST [id number] Normal [facility] Culture, urineOrdered By: Stephen Irene on 01-09-2024 Bacteria identified Cx Nom (U) Enterococcus faecalis [facility] Basophil percentageOrdered B y: Nelson Parra on 10-15-2023 Bilirubin [Mass/Vol] 0.70 mg/dL 0.20-1.00 [facility] Comment on above: For patients on eltr ombopag therapy, use of Dimension [place] TBIL is not recommended. Chloride [Moles/Vol] 108 mmol/L 98-107 [facility] Glucose [Mass/Vol] 98 mg/dL 74-106 [facility] Potassium [Moles/Vol] 3.8 mmol/L 3.5-5.1 [facility] Protein [Mass/Vol] 7.2 g/dL 6.4-8.2 [facility] Sodium [Moles/Vol] 140 mmol/L 136-145 [facility] WBC (Bld) [#/Vol] 11.9 10*3/uL 4.4-11.0 [facility] Blood erythrocytes count (nu mber/volume)Ordered By: Nelson Parra on 10-15-2023 RBC (Bld) [#/Vol] 4.67 10*6/uL 4.6-6.2 [facility] Blood hemoglobin measurement (mass/volume)Ordered By: Nelson Parra on 10-15-2023 Hemoglobin (Bld) [Mass/Vol] 14.9 g/dL 13.0-16.5 [facility] Blood platelet mean volumeOr dered By: Nelson Parra on 10-15-2023 Platelet mean volume (Bld) [Entitic vol] 11.2 fL 6.2-12.0 [facility] Determination of erythrocyte mean corpuscular volume (MCV)Ordered By: Nelson Parra on 10-15-2023 MCV (RBC) [Entitic vol] 96.6 fL 80-94 [facility] Direct bilirubinOrdered By: Nelson Parra on 10-15-2023 Bilirubin.direct [Mass/Vol] 0.16 mg/dL 0.00-0.30 [facility] Hematocrit Auto (Bld) [Volum e fraction]Ordered By: Nelson Parra on 10-15-2023 Hematocrit (Bld) [Volume fraction] 45.1 % 40-54 [facility] INR in Blood by Coagulation assayOrdered By: Nelson Parra on 10-15-2023 INR Coag (Bld) [Relative time] 1.0 {INR} [facility] Laboratory - Chemistry and C hemistry - challengeOrdered By: Nelson Parra on 10-15-2023 ALP [Catalytic activity/Vol] 78 U/L 45-117 [facility] ALT [Catalytic activity/Vol] 20 U/L 16-61 [facility] CO2 [Moles/Vol] 30.0 mmol/L 21.0-32.0 [facility] Globulin (S) [Mass/Vol] 3.5 g/dL 2.2-4.2 [facility] Urea nitrogen/Creatinine [Mass ratio] 11.1 mg/mg 10-20 [facility] Laboratory - CoagulationOrde red By: Nelson Parra on 10-15-2023 aPTT Coag (Bld) [Time] 29.6 s 24.1-36.2 [facility] PT Coag (PPP) [Time] 12.7 s 11.7-14.9 [facility] Laboratory - Hematology and Cell countsOrdered By: Nelson Parra on 10-15-2023 Erythrocyte distribution width (RBC) [Entitic vol] 49.6 fL 35.1-43.9 [facility] Erythrocyte distribution width (RBC) [Ratio] 14.0 % 11.6-14.6 [facility] MCH (RBC) [Entitic mass] 31.9 pg 27.0-32.0 [facility] MCHC Auto (RBC) [Mass/Vol]Or dered By: Nelson Parra on 10-15-2023 MCHC (RBC) [Mass/Vol] 33.0 g/dL 32-36 [facility] No Panel InformationOrdered By: Nelson Parra on 10-15-2023 Estimated GFR (MDRD) Amer 98 mL/min >60 [facility] Comment on above: GFR Calc Estimated GFR (MDRD) Non-Af Amer 81 mL/min >60 [facility] Comment on above: Non- GFR Calc No Panel InformationOrdered By: Nicholas Lin on 10-15-2023 Nasal Screen MRSA/MSSA [facility] Nasal Screen MRSA/MSSA [facility] Platelets bldOrdered By: Shayy Parra on 10-15-2023 Platelets (Bld) [#/Vol] 259 10*3/uL 150-450 [facility] Serum or plasma albumin wally urement (mass/volume)Ordered By: Nelson Parra on 10-15-2023 Albumin [Mass/Vol] 3.7 g/dL 3.2-5.0 [facility] Serum or plasma calcium wally urement (mass/volume)Ordered By: Nelson Parra on 10-15-2023 Calcium [Mass/Vol] 9.2 mg/dL 8.5-10.1 [facility] Serum or plasma creatinine m easurement [...] 10-15-2023 Urea nitrogen [Mass/Vol] 11 mg/dL 7-18 [facility] Thin prep Papanicolaou smear with manual screeningOrdered By: Nelson Parra on 10-15-2023 Thin prep Papanicolaou smear with manual screening 10 U/L 15-37 [facility] Thin prep Papanicolaou smear with manual screening 2 5-15 [facility] Culture, urineOrdered By: Stephen Kesslering on 09-24-2023 Bacteria identified Cx Nom (U) Pasteurella aerogenes [facility] Bacteria identified Cx Nom (U) Pasteurella aerogenes [facility] Basophil percentageOrdered B y: Sherwin López on 08-14-2023 Bilirubin [Mass/Vol] 0.70 mg/dL 0.20-1.00 [facility] Comment on above: For patients on eltr ombopag therapy, use of Dimension [place] TBIL is not recommended. Protein [Mass/Vol] 7.0 g/dL 6.4-8.2 [facility] WBC (Bld) [#/Vol] 11.6 10*3/uL 4.4-11.0 [facility] Blood erythrocytes count (nu mber/volume)Ordered By: Sherwin López on 08-14-2023 RBC (Bld) [#/Vol] 4.39 10*6/uL 4.6-6.2 [facility] Blood hemoglobin measurement (mass/volume)Ordered By: Sherwin López on 08-14-2023 Hemoglobin (Bld) [Mass/Vol] 13.9 g/dL 13.0-16.5 [facility] Blood platelet mean volumeOr dered By: Sherwin López on 08-14-2023 Platelet mean volume (Bld) [Entitic vol] 10.9 fL 6.2-12.0 [facility] Determination of erythrocyte mean corpuscular volume (MCV)Ordered By: Sherwin López on 08-14-2023 MCV (RBC) [Entitic vol] 95.7 fL 80-94 [facility] Direct bilirubinOrdered By: Sherwin López on 08-14-2023 Bilirubin.direct [Mass/Vol] 0.18 mg/dL 0.00-0.30 [facility] Hematocrit Auto (Bld) [Volum e fraction]Ordered By: Sherwin López on 08-14-2023 Hematocrit (Bld) [Volume fraction] 42.0 % 40-54 [facility] INR in Blood by Coagulation assayOrdered By: Sherwin López on 08-14-2023 INR Coag (Bld) [Relative time] 1.0 {INR} [facility] Laboratory - Chemistry and C hemistry - challengeOrdered By: Sherwin López on 08-14-2023 ALP [Catalytic activity/Vol] 73 U/L 45-117 [facility] ALT [Catalytic activity/Vol] 18 U/L 16-61 [facility] Globulin (S) [Mass/Vol] 3.6 g/dL 2.2-4.2 [facility] Laboratory - CoagulationOrde red By: Sherwin López on 08-14-2023 aPTT Coag (Bld) [Time] 29.8 s 24.1-36.2 [facility] PT Coag (PPP) [Time] 13.3 s 11.7-14.9 [facility] Laboratory - Hematology and Cell countsOrdered By: Sherwin López on 08-14-2023 Erythrocyte distribution width (RBC) [Entitic vol] 50.8 fL 35.1-43.9 [facility] Erythrocyte distribution width (RBC) [Ratio] 14.4 % 11.6-14.6 [facility] MCH (RBC) [Entitic mass] 31.7 pg 27.0-32.0 [facility] MCHC Auto (RBC) [Mass/Vol]Or dered By: Sherwin López on 08-14-2023 MCHC (RBC) [Mass/Vol] 33.1 g/dL 32-36 [facility] Platelets bldOrdered By: Sherwin López on 08-14-2023 Platelets (Bld) [#/Vol] 296 10*3/uL 150-450 [facility] Serum or plasma albumin wally urement (mass/volume)Ordered By: Sherwin López on 08-14-2023 Albumin [Mass/Vol] 3.4 g/dL 3.2-5.0 [facility] Thin prep Papanicolaou smear with manual screeningOrdered By: Sherwin López on 08-14-2023 Thin prep Papanicolaou smear with manual screening 11 U/L 15-37 [facility] Basophil percentageOrdered B y: Michael Houser on 05-31-2023 Chloride [Moles/Vol] 108 mmol/L 98-107 [facility] Glucose [Mass/Vol] 98 mg/dL 74-106 [facility] Potassium [Moles/Vol] 3.7 mmol/L 3.5-5.1 [facility] Sodium [Moles/Vol] 137 mmol/L 136-145 [facility] Laboratory - Chemistry and C hemistry - challengeOrdered By: Michael Houser on 05-31-2023 CO2 [Moles/Vol] 24.0 mmol/L 21.0-32.0 [facility] Urea nitrogen/Creatinine [Mass ratio] 12.7 mg/mg 10- [facility] No Panel InformationOrdered By: Michael Houser on 05-31-2023 Estimated GFR (MDRD) Amer 103 mL/min >60 [facility] Comment on above: GFR Calc Estimated GFR (MDRD) Non-Af Amer 85 mL/min >60 [facility] Comment on above: Non- GFR Calc Serum or plasma calcium wally urement (mass/volume)Ordered By: Michael Houser on 05-31-2023 Calcium [Mass/Vol] 8.9 mg/dL 8.5-10.1 [facility] Serum or plasma creatinine m easurement [...] on 05-31-2023 Urea nitrogen [Mass/Vol] 12 mg/dL 04-30 [facility] Thin prep Papanicolaou smear with manual screeningOrdered By: Michael Houser on 05-31-2023 Thin prep Papanicolaou smear with manual screening 5 5-15 [facility] Absolute lymphocyte countOrd ered By: Bre Ring on 05-02-2023 Lymphocytes Auto (Unsp spec) [#/Vol] 3.99 10*3/uL 0.83-4.51 [facility] Basophil percentageOrdered B y: Bre Ring on 05-02-2023 Basophils/100 WBC (Bld) 0.7 % 0-1 [facility] Bilirubin [Mass/Vol] 0.80 mg/dL 0.20-1.00 [facility] Comment on above: For patients on eltr ombopag therapy, use of Dimension [place] TBIL is not recommended. Chloride [Moles/Vol] 107 mmol/L 98-107 [facility] Cholesterol [Mass/Vol] 145 mg/dL <200 [facility] Comment on above: <200 mg/dL Desirable 200-240 mg/dL Borderline >240 mg/dL High Risk Eosinophils/100 WBC (Bld) 1.9 % 0-5 [facility] Glucose [Mass/Vol] 83 mg/dL 74-106 [facility] Neutrophils (Bld) [#/Vol] 10.3 10*3/uL 2.0-7.7 [facility] Neutrophils/100 WBC (Bld) 63.9 % 47-70 [facility] Potassium [Moles/Vol] 4.2 mmol/L 3.5-5.1 [facility] Protein [Mass/Vol] 7.7 g/dL 6.4-8.2 [facility] Sodium [Moles/Vol] 138 mmol/L 136-145 [facility] Triglyceride [Mass/Vol] 120 mg/dL <199 [facility] Comment on above: The drugs N-Acetylcy steine and Metamizole may falsely depress this assay.Serum Triglycerides Reference Interval Normal <150 mg/dL Borderline high 150 - 199 mg/dL High 200 - 499 mg/dL Very High > or = 500 mg/dL WBC (Bld) [#/Vol] 16.1 10*3/uL 4.4-11.0 [facility] Blood erythrocytes count (nu mber/volume)Ordered By: Bre Ring on 05-02-2023 RBC (Bld) [#/Vol] 4.95 10*6/uL 4.6-6.2 [facility] Blood hemoglobin measurement (mass/volume)Ordered By: Bre Ring on 05-02-2023 Hemoglobin (Bld) [Mass/Vol] 15.7 g/dL 13.0-16.5 [facility] Blood lymphocytes/100 leukoc ytesOrdered By: Bre Ring on 05-02-2023 Lymphocytes/100 WBC (Bld) 24.8 % 19-41 [facility] Blood monocytes/100 leukocyt esOrdered By: Bre Ring on 05-02-2023 Monocytes/100 WBC (Bld) 8.2 % 0-10 [facility] Blood platelet mean volumeOr dered By: [facility] on 05-02-2023 Platelet mean volume (Bld) [Entitic vol] 11.8 fL 6.2-12.0 [facility] Determination of erythrocyte mean corpuscular volume (MCV)Ordered By: Bre Ring on 05-02-2023 MCV (RBC) [Entitic vol] 96.2 fL 80-94 [facility] Hematocrit Auto (Bld) [Volum e fraction]Ordered By: Bre Ring on 05-02-2023 Hematocrit (Bld) [Volume fraction] 47.6 % 40-54 [facility] Laboratory - Chemistry and C hemistry - challengeOrdered By: [facility] on 05-02-2023 ALP [Catalytic activity/Vol] 76 U/L 45-117 [facility] ALT [Catalytic activity/Vol] 32 U/L 16-61 [facility] CO2 [Moles/Vol] 24.0 mmol/L 21.0-32.0 [facility] Globulin (S) [Mass/Vol] 3.8 g/dL 2.2-4.2 [facility] Urea nitrogen/Creatinine [Mass ratio] 11.5 mg/mg 10-20 [facility] Laboratory - Hematology and Cell countsOrdered By: [facility] on 05-02-2023 Erythrocyte distribution width (RBC) [Entitic vol] 50.8 fL 35.1-43.9 [facility] Erythrocyte distribution width (RBC) [Ratio] 14.4 % 11.6-14.6 [facility] Immature granulocytes/100 WBC (Bld) 0.500 % 0.0-0.9 [facility] Comment on above: IG% - Immature Granu locytes (promyelocytes, myelocytes and metamyelocytes) > 1% indicates that a LEFT SHIFT is Present. MCH (RBC) [Entitic mass] 31.7 pg 27.0-32.0 [facility] Nucleated RBC/100 WBC (Bld) [Ratio] 0 % 0-5 [facility] MCHC Auto (RBC) [Mass/Vol]Or dered By: Bre Ring on 05-02-2023 MCHC (RBC) [Mass/Vol] 33.0 g/dL 32-36 [facility] No Panel InformationOrdered By: Bre Ring on 05-02-2023 Estimated GFR (MDRD) Amer 113 mL/min >60 [facility] Comment on above: GFR Calc Estimated GFR (MDRD) Non-Af Amer 94 mL/min >60 [facility] Comment on above: Non- GFR Calc Prostate Specific Antigen Screen 0.56 ng/mL 0.00-4.00 [facility] Comment on above: This test was perfor med using the TPSA assay method for [employer] chemistry system. Values obtained with differentassay methods cannot be used interchangably.When changing PSA assays in the course of monitoring apatient, additional sequential testing should be carriedout to confirm baseline values. Thyroid Stimulating Hormone (TSH) 1.08 uIU/mL 0.358-3.74 [facility] Platelets bldOrdered By: Radha Ring on 05-02-2023 Platelets (Bld) [#/Vol] 289 10*3/uL 150-450 [facility] Serum or plasma albumin wally urement (mass/volume)Ordered By: Bre Ring on 05-02-2023 Albumin [Mass/Vol] 3.9 g/dL 3.2-5.0 [facility] Serum or plasma albumin/glob ulin mass ratioOrdered By: Bre Ring on 05-02-2023 Albumin/Globulin [Mass ratio] 1.0 {ratio} 0.9-2.4 [facility] Serum or plasma calcium wally urement (mass/volume)Ordered By: Bre Ring on 05-02-2023 Calcium [Mass/Vol] 8.9 mg/dL 8.5-10.1 [facility] Serum or plasma cholesterol in HDL measurement (mass/volume)Ordered By: Bre Ring on 05-02-2023 Cholesterol in HDL [Mass/Vol] 31 mg/dL >40 [facility] Comment on above: The drugs N-Acetylcy steine and Metamizole may falsely depress this assay. Reference Range HDL <40 mg/dL Low HDL Cholesterol HDL >or= 60 mg/dL High HDL Cholesterol Serum or plasma cholesterol in VLDL measurement (mass/volume)Ordered By: Bre Ring on 05-02-2023 Cholesterol in VLDL [Mass/Vol] 24 mg/dL 5-40 [facility] Serum or plasma creatinine m easurement [...] Cholesterol in LDL [Mass/Vol] 90 mg/dL 0-130 [facility] Serum or plasma urea nitroge n measurement (mass/volume)Ordered By: Bre Ring on 05-02-2023 Urea nitrogen [Mass/Vol] 10 mg/dL 7-18 [facility] Thin prep Papanicolaou smear with manual screeningOrdered By: Bre Ring on 05-02-2023 Thin prep Papanicolaou smear with manual screening 23 U/L 15-37 [facility] Thin prep Papanicolaou smear with manual screening 7 5-15 [facility] Vital Signs Date Time Vital Sign Value Performing Clinician Faci lity 04-26-2025 14:19-0400 Body height 165.1 cm Dionna VUONG Work Phone: [facility] 04-26-2025 14:19-0400 Body mass index (BMI) [Ratio] 37.5 kg/m2 Dionna ESCALONAC Work Phone: [facility] 04-26-2025 14:19-0400 Body temperature 97.2 [degF] Dionna ESCALONAC Work Phone: [facility] 04-26-2025 14:19-0400 Body weight 102.22 kg Dionna Owens MACHINIST SUPERVISOR-C Work Phone: [facility] 04-26-2025 14:19-0400 Diastolic blood pressure 71 mm[Hg] Dionna Owens MACHINIST SUPERVISOR-C Work Phone: [facility] 04-26-2025 14:19-0400 Heart rate 80 /min Dionna Owens MACHINIST SUPERVISOR-C Work Phone: [facility] 04-26-2025 14:19-0400 Respiratory rate 18 /min Dionna Owens MACHINIST SUPERVISOR-C Work Phone: [facility] 04-26-2025 14:19-0400 SaO2% (BldA) [Mass fraction] 97 % Dionna Owens MACHINIST SUPERVISOR-C Work Phone: [facility] 04-26-2025 14:19-0400 Systolic blood pressure 158 mm[Hg] Dionna Owens MACHINIST SUPERVISOR-C Work Phone: [facility] 04-05-2025 15:24-0400 Body height 165.1 cm Dionna Owens MACHINIST SUPERVISOR-C Work Phone: [facility] 04-05-2025 15:24-0400 Body mass index (BMI) [Ratio] 37 kg/m2 Dionna Owens MACHINIST SUPERVISOR-C Work Phone: [facility] 04-05-2025 15:24-0400 Body temperature 98.4 [degF] Dionna Owens MACHINIST SUPERVISOR-C Work Phone: [facility] 04-05-2025 15:24-0400 Body weight 101.15 kg Dionna Owens MACHINIST SUPERVISOR-C Work Phone: [facility] 04-05-2025 15:24-0400 Diastolic blood pressure 60 mm[Hg] Dionna Owens MACHINIST SUPERVISOR-C Work Phone: [facility] 04-05-2025 15:24-0400 Heart rate 71 /min Dionna Owens MACHINIST SUPERVISOR-C Work Phone: [facility] 04-05-2025 15:24-0400 Respiratory rate 18 /min Dionna Owens MACHINIST SUPERVISOR-C Work Phone: [facility] 04-05-2025 15:24-0400 SaO2% (BldA) [Mass fraction] 94 % Dionna Owens MACHINIST SUPERVISOR-C Work Phone: [facility] 04-05-2025 15:24-0400 Systolic blood pressure 90 mm[Hg] Dionna Owens MACHINIST SUPERVISOR-C Work Phone: [facility] 03-16-2025 16:33-0400 Body height 165.1 cm Dionna Owens MACHINIST SUPERVISOR-C Work Phone: [facility] 03-16-2025 16:33-0400 Body mass index (BMI) [Ratio] 37.5 kg/m2 Dionna Owens MACHINIST SUPERVISOR-C Work Phone: [facility] 03-16-2025 16:33-0400 Body temperature 9.4 [degF] Dionna Owens MACHINIST SUPERVISOR-C Work Phone: [facility] 03-16-2025 16:33-0400 Body weight 102.51 kg Dionna Owens MACHINIST SUPERVISOR-C Work Phone: [facility] 03-16-2025 16:33-0400 Diastolic blood pressure 60 mm[Hg] Dionna Owens MACHINIST SUPERVISOR-C Work Phone: [facility] 03-16-2025 16:33-0400 Heart rate 77 /min Dionna Owens MACHINIST SUPERVISOR-C Work Phone: [facility] 03-16-2025 16:33-0400 Respiratory rate 18 /min Dionna Owens MACHINIST SUPERVISOR-C Work Phone: [facility] 03-16-2025 16:33-0400 SaO2% (BldA) [Mass fraction] 94 % Dionna Owens MACHINIST SUPERVISOR-C Work Phone: [facility] 03-16-2025 16:33-0400 Systolic blood pressure 116 mm[Hg] Dionna Owens MACHINIST SUPERVISOR-C Work Phone: [facility] 02-24-2025 17:40-0400 Body temperature 98.4 [degF] Dionna Owens MACHINIST SUPERVISOR-C Work Phone: [facility] 02-24-2025 17:40-0400 Diastolic blood pressure 67 mm[Hg] Dionna Owens MACHINIST SUPERVISOR-C Work Phone: [facility] 02-24-2025 17:40-0400 Heart rate 68 /min Dionna Owens MACHINIST SUPERVISOR-C Work Phone: [facility] 02-24-2025 17:40-0400 Respiratory rate 18 /min Dionna Owens MACHINIST SUPERVISOR-C Work Phone: [facility] 02-24-2025 17:40-0400 SaO2% (BldA) [Mass fraction] 96 % Dionna Owens MACHINIST SUPERVISOR-C Work Phone: [facility] 02-24-2025 17:40-0400 Systolic blood pressure 138 mm[Hg] Dionna Owens MACHINIST SUPERVISOR-C Work Phone: [facility] 02-24-2025 13:38-0400 Body height 165.1 cm Dionna Owens MACHINIST SUPERVISOR-C Work Phone: [facility] 02-24-2025 13:38-0400 Body mass index (BMI) [Ratio] 36.3 kg/m2 Dionna Owens MACHINIST SUPERVISOR-C Work Phone: [facility] 02-24-2025 13:38-0400 Body weight 99 kg Dionna Owens MACHINIST SUPERVISOR-C Work Phone: [facility] 01-07-2025 16:31-0400 Body mass index (BMI) [Ratio] 40.3 kg/m2 Dionna Owens MACHINIST SUPERVISOR-C Work Phone: [facility] 01-07-2025 16:31-0400 Body temperature 98.8 [degF] Dionna Owens MACHINIST SUPERVISOR-C Work Phone: [facility] 01-07-2025 16:31-0400 Body weight 101.6 kg Dionna Roman MACHINIST SUPERVISOR-C Work Phone: [facility] 01-07-2025 16:31-0400 Diastolic blood pressure 60 mm[Hg] Dionna Owens MACHINIST SUPERVISOR-C Work Phone: [facility] 01-07-2025 16:31-0400 Heart rate 73 /min Dionna Owens MACHINIST SUPERVISOR-C Work Phone: [facility] 01-07-2025 16:31-0400 Respiratory rate 18 /min Dionna Owens MACHINIST SUPERVISOR-C Work Phone: [facility] 01-07-2025 16:31-0400 SaO2% (BldA) [Mass fraction] 95 % Dionna Owens MACHINIST SUPERVISOR-C Work Phone: [facility] 01-07-2025 16:31-0400 Systolic blood pressure 110 mm[Hg] Dionna Owens MACHINIST SUPERVISOR-C Work Phone: [facility] 12-25-2023 19:07-0400 Body height 158.75 cm MD Bre Ring Work Phone: [facility] 12-25-2023 19:07-0400 Body mass index (BMI) [Ratio] 32.5 kg/m2 MD Bre Ring Work Phone: [facility] 12-25-2023 19:07-0400 Body temperature 98.4 [degF] MD Bre Ring Work Phone: [facility] 12-25-2023 19:07-0400 Body weight 82.1 kg MD Bre Ring Work Phone: [facility] 12-25-2023 19:07-0400 Diastolic blood pressure 50 mm[Hg] MD Bre Ring Work Phone: [facility] 12-25-2023 19:07-0400 Heart rate 91 /min MD Bre Ring Work Phone: [facility] 12-25-2023 19:07-0400 Respiratory rate 18 /min MD Bre Ring Work Phone: [facility] 12-25-2023 19:07-0400 SaO2% (BldA) [Mass fraction] 96 % MD Bre Ring Work Phone: [facility] 12-25-2023 19:07-0400 Systolic blood pressure 110 mm[Hg] MD Bre Ring Work Phone: [facility] 10-24-2023 16:25-0500 Body temperature 98.1 [degF] MD Bre Ring Work Phone: [facility] 10-24-2023 16:25-0500 Diastolic blood pressure 83 mm[Hg] MD Bre Ring Work Phone: [facility] 10-24-2023 16:25-0500 Heart rate 72 /min MD Bre Ring Work Phone: [facility] 10-24-2023 16:25-0500 Respiratory rate 18 /min MD Bre Ring Work Phone: [facility] 10-24-2023 16:25-0500 SaO2% (BldA) [Mass fraction] 98 % MD Bre Ring Work Phone: [facility] 10-24-2023 16:25-0500 Systolic blood pressure 154 mm[Hg] MD Bre Ring Work Phone: [facility] 10-24-2023 15:10-0500 Inhaled oxygen flow rate 2 L/min MD Bre Ring Work Phone: [facility] 10-24-2023 09:21-0500 Body height 167.64 cm MD Bre Ring Work Phone: [facility] 10-24-2023 09:21-0500 Body mass index (BMI) [Ratio] 33.4 kg/m2 MD Bre Ring Work Phone: [facility] 10-24-2023 09:21-0500 Body weight 93.89 kg MD Bre Ring Work Phone: [facility] 10-04-2023 13:01-0500 Body mass index (BMI) [Ratio] 34.2 kg/m2 MD Bre Ring Work Phone: [facility] 10-04-2023 13:01-0500 Body temperature 98 [degF] MD Bre Ring Work Phone: [facility] 10-04-2023 13:01-0500 Body weight 96.16 kg MD Bre Ring Work Phone: [facility] 10-04-2023 13:01-0500 Diastolic blood pressure 81 mm[Hg] MD Bre Ring Work Phone: [facility] 10-04-2023 13:01-0500 Heart rate 74 /min MD Bre Ring Work Phone: [facility] 10-04-2023 13:01-0500 Respiratory rate 18 /min MD Bre Ring Work Phone: [facility] 10-04-2023 13:01-0500 SaO2% (BldA) [Mass fraction] 95 % MD Bre Ring Work Phone: [facility] 10-04-2023 13:01-0500 Systolic blood pressure 135 mm[Hg] MD Bre Ring Work Phone: [facility] 08-27-2023 09:21-0500 Body height 167.64 cm MD Bre Ring Work Phone: [facility] 08-27-2023 09:21-0500 Body mass index (BMI) [Ratio] 34.2 kg/m2 MD Bre Ring Work Phone: [facility] 08-27-2023 09:21-0500 Body temperature 98 [degF] MD Bre Ring Work Phone: [facility] 08-27-2023 09:21-0500 Body weight 96.33 kg MD Bre Ring Work Phone: [facility] 08-27-2023 09:21-0500 Diastolic blood pressure 77 mm[Hg] MD Bre Ring Work Phone: [facility] 08-27-2023 09:21-0500 Heart rate 87 /min MD Bre Ring Work Phone: [facility] 08-27-2023 09:21-0500 Respiratory rate 18 /min MD Bre Ring Work Phone: [facility] 08-27-2023 09:21-0500 SaO2% (BldA) [Mass fraction] 98 % MD Bre Ring Work Phone: [facility] 08-27-2023 09:21-0500 Systolic blood pressure 125 mm[Hg] MD Bre Ring Work Phone: [facility] 08-22-2023 12:53-0500 Body temperature 98.3 [degF] MD Bre Ring Work Phone: [facility] 08-22-2023 12:53-0500 Diastolic blood pressure 65 mm[Hg] MD Bre Ring Work Phone: [facility] 08-22-2023 12:53-0500 Heart rate 71 /min MD Bre Ring Work Phone: [facility] 08-22-2023 12:53-0500 Respiratory rate 16 /min MD Bre Ring Work Phone: [facility] 08-22-2023 12:53-0500 SaO2% (BldA) [Mass fraction] 100 % MD Bre Ring Work Phone: [facility] 08-22-2023 12:53-0500 Systolic blood pressure 117 mm[Hg] MD Bre Ring Work Phone: [facility] 08-21-2023 14:31-0500 Body mass index (BMI) [Ratio] 33.2 kg/m2 MD Chalon Abad Work Phone: [facility] 08-21-2023 14:31-0500 Body weight 93.44 kg MD Bre La[place]oke Work Phone: [facility] 07-10-2023 15:12-0400 Body mass index (BMI) [Ratio] 33.4 kg/m2 MD Bre [place] Work Phone: [facility] 07-10-2023 15:12-0400 Body weight 93.89 kg MD Bre [place] Work Phone: [facility] 07-10-2023 15:12-0400 Diastolic blood pressure 77 mm[Hg] MD Bre Ring Work Phone: [facility] 07-10-2023 15:12-0400 Respiratory rate 16 /min MD Bre Ring Work Phone: [facility] 07-10-2023 15:12-0400 Systolic blood pressure 147 mm[Hg] MD Bre Ring Work Phone: [facility] 05-30-2023 11:30-0400 Body height 167.64 cm MD Bre Ring Work Phone: [facility] 05-30-2023 11:30-0400 Body mass index (BMI) [Ratio] 31.8 kg/m2 MD Bre Ring Work Phone: [facility] 05-30-2023 11:30-0400 Body weight 89.35 kg MD Bre Ring Work Phone: [facility] 05-30-2023 11:30-0400 Diastolic blood pressure 75 mm[Hg] MD Bre Ring Work Phone: [facility] 05-30-2023 11:30-0400 Heart rate 83 /min MD Bre Ring Work Phone: [facility] 05-30-2023 11:30-0400 Respiratory rate 16 /min MD Bre Ring Work Phone: [facility] 05-30-2023 11:30-0400 Systolic blood pressure 145 mm[Hg] MD Bre Ring Work Phone: [facility] Encounters Encounter Date Encounter Type Care Provider Facility Start: 05-01-2025 ambulatory Dionna Owens MACHINIST SUPERVISOR Faci lity:[facility] Start: 04-26-2025 End: 04-26-[address] Nicholas Lin MD -[facility] Work Phone: Start: 04-26-2025 End: 04-26-2025 ambulatory Dionna Owens MACHINIST SUPERVISOR-C Work Phone: -[facility] Start: 04-05-2025 End: 04-05-2025 ambulatory Dionna Owens MACHINIST SUPERVISOR-C Work Phone: [facility] Work Phone: Start: 03-16-2025 End: 03-16-2025 ambulatory Dionna Owens MACHINIST SUPERVISOR-C Work Phone: [facility] Work Phone: Start: 03-16-2025 End: 03-16-2025 Patient encounter procedure Dionna Roman MACHINIST SUPERVISOR-C -Laboratory Specimen Work Phone: Start: 03-16-2025 End: 03-16-2025 ambulatory Dionna Owens MACHINIST SUPERVISOR-C Work Phone: [facility] Work Phone: Start: 03-16-2025 End: 03-16-2025 ambulatory Dionna Owens MACHINIST SUPERVISOR Facility:[facility] Start: 02-24-2025 End: 02-24-2025 Admission to same day surgery center Dr. Marco Madison MD [facility] Start: 02-24-2025 End: 02-24-2025 ambulatory Dionna Owens MACHINIST SUPERVISOR-C Work Phone: [facility] Work Phone: Start: 02-23-2025 End: 02-23-2025 ambulatory Nicholas Duarte [facility] Start: 02-23-2025 End: 05-13-2025 Non-patient / Non-visit Dr. Nicholas Duarte MD -[facility] Work Phone: Start: 07-15-2024 End: 07-15-2024 ambulatory Marco Madison Facility:[facility] Start: 06-14-2024 End: 06-15-2024 ambulatory JACQUI LIMA Facility:[facility] Start: 01-09-2024 End: 01-09-2024 ambulatory MD Bre Ring Work Phone: [facility] Work Phone: Start: 01-09-2024 End: 01-09-2024 Patient encounter procedure MD Bre Ring Work Phone: [facility]-Laboratory, Specimen Work Phone: Start: 11-28-2023 End: 11-28-2023 Patient encounter procedure MD Bre Ring Work Phone: [facility] Work Phone: Start: 11-07-2023 End: 11-07-2023 Patient encounter procedure MD Bre Ring Work Phone: [facility] Work Phone: Start: 10-24-2023 Non-patient / Non-visit MD Bre Ring Work Phone: [facility] Start: 10-24-2023 End: 10-24-2023 Admission to same day surgery center MD Bre Ring Work Phone: [facility] Start: 10-24-2023 End: 10-24-2023 ambulatory MD Bre Ring Work Phone: [facility] Work Phone: Start: 10-04-2023 End: 10-04-2023 Patient encounter procedure MD Bre Ring Work Phone: [facility] Work Phone: Start: 09-24-2023 End: 09-24-2023 ambulatory MD Bre Ring Work Phone: [facility] Work Phone: Start: 09-24-2023 End: 09-24-2023 Patient encounter procedure MD Bre Ring Work Phone: [facility]-Laboratory, Specimen Work Phone: Start: 08-27-2023 End: 08-27-2023 Patient encounter procedure MD Bre Ring Work Phone: [facility] Work Phone: Start: 08-21-2023 End: 08-22-2023 Evaluation and management of inpatient MD Bre Ring [facility] Work Phone: Start: 07-10-2023 End: 07-10-2023 Patient encounter procedure MD Bre Ring Work Phone: [facility] Work Phone: Start: 06-27-2023 Non-patient / Non-visit MD Bre Ring Work Phone: [facility] Work Phone: Start: 06-21-2023 Non-patient / Non-visit MD Bre Ring Work Phone: [facility] Start: 06-21-2023 End: 06-21-2023 Patient encounter procedure MD Bre Ring [facility] Work [facility]: Start: 06-18-2023 End: 06-18-2023 ambulatory MD Bre Ring Work Phone: [facility] Work Phone: Start: 06-18-2023 End: 06-18-2023 Patient encounter procedure MD Bre Ring Work Phone: [facility] Work Phone: Start: 06-10-2023 Non-patient / Non-visit MD Bre Ring Work Phone: [facility] Start: 06-10-2023 End: 06-10-2023 ambulatory MD Bre Ring Work Phone: [facility] Work Phone: Start: 06-10-2023 End: 06-10-2023 Patient encounter procedure MD Bre Ring [facility] Work [facility]: Start: 06-08-2023 End: 06-08-2023 ambulatory MD Bre Ring Work Phone: [facility] Work Phone: Start: 06-08-2023 End: 06-08-2023 Patient encounter procedure MD Bre Ring Work Phone: [facility] Work Phone: Start: 05-31-2023 End: 05-31-2023 Patient encounter procedure MD Bre Ring Work Phone: [facility] Start: 05-30-2023 End: 05-30-2023 Patient encounter procedure MD Bre Ring Work Phone: [facility] Work Phone: Start: 05-02-2023 End: 05-02-2023 ambulatory [facility] Work Phone: Start: 05-02-2023 End: 05-02-2023 Patient encounter procedure [facility] Procedures Date Procedure Procedure Detail Performing Clinician [...] Bre Ring Work Phone: Comment on above: WIT-QVD-oJJX w/ 3.5 x 22 mm Resolute RX [...] Detail Author Start: 02-24-2025 Ambulation without limitation [facility] Start: 02-24-2025 Medication education [facility] Start: 02-24-2025 Taking patient vital signs [facility] Start: 02-24-2025 [facility] Start: 02-24-2025 End: 02-24-2025 Patient discharge [facility] Start: 05-14-2025 Anes transurethral w/urethrocystoscopy nos ANESTH BLADDER SURGERY [facility] Start: 02-24-2025 Cystourethroscopy w/internal urethrotomy male CYSTOSCOPY AND TREATMENT [facility] Start: 10-24-2023 Patient discharge [facility] Start: 10-24-2023 Anesthesia intraperitoneal lower abd w/laps nos ANESTH SURG LOWER ABDOMEN [facility] Start: 10-24-2023 Exc lesion spermatic cord separate procedure REMOVAL OF SPERM CORD LESION [facility] Start: 10-24-2023 Laparoscopy enterolysis separate procedure LAP ENTEROLYSIS [facility] Start: 10-24-2023 Laparoscopy surg rpr initial inguinal hernia LAP ING HERNIA REPAIR INIT [facility] Start: 09-24-2023 Urine culture Urine Culture [facility] Start: 09-24-2023 [facility] Start: 08-22-2023 Patient discharge [facility] Start: 08-22-2023 Removal of urinary catheter [facility] Start: 08-21-2023 Following clinical pathway protocol [facility] Start: 08-21-2023 Application of intermittent pneumatic compression device [facility] Start: 08-21-2023 Anesthesia transurethral resection of prostate ANESTH REMOVAL OF PROSTATE [facility] Start: 08-21-2023 Trurl electrosurg rescj prostate bleed complete PROSTATECTOMY (TURP) [facility] Start: 08-21-2023 Deep breathing and coughing exercises [facility] Start: 08-21-2023 Incentive spirometry [facility] Start: 08-21-2023 Provision of activity privileges [facility] Start: 08-21-2023 Admission procedure [facility] Start: 08-21-2023 Irrigation of urinary bladder [facility] Start: 08-21-2023 Measuring intake and output [facility] Start: 08-21-2023 Patient education [facility] Start: 08-21-2023 Taking patient vital signs [facility] Start: 08-21-2023 Vital signs measurements [facility] Start: 08-21-2023 End: 08-21-2023 [facility] Patient referral [facility] Work Phone: [facility] Payers Date Payer Category Payer Self-pay 2023 Unknown [id number] 2023 Medicare [id number] Medicare MEDICARE PART A B [id number] Unknown [facility] [id number] Unknown [id number] [id number] Unknown [id number] 2.16.8 [id number] Unknown [id number] 2.16.8 [id number] Unknown [id number] 2.16.8 [id number] Unknown [id number] 2.16.8 [id number] Unknown [id number] 2.16.8 [id number] Social History Date Type Detail Facility Tobacco smoking stat [facility] Unknown if ever smoked [facility] Work Phone: Start: 1960 Sex Assigned At Male [facility] Start: 05-30-2023 End: 08-27-2023 Tobacco smoking status NHIS Unknown if ever smoked [facility] Start: 02-24-2025 End: 04-05-2025 Tobacco smoking status NHIS Smokes tobacco daily (finding) [facility] Medical Equipment Procedure Code Equipment Code Equipment Origin al Text Equipment Identifier Dates Extra-gynaecolog ical surgical mesh, synthetic polymer, non-bioabsorbable ([id number] [facility] Start: 10-24-2023 Extra-gynaecolog ical surgical mesh, synthetic polymer, non-bioabsorbable ([id number] FDA Start: 10-24-2023 Goals Date Patient Goal Desired Activity /State Functional Status Date Assessment Result Facility 08-22-2023 Functional status Chair [facility] Work Phone: Mental Status Date Assessment Result Facility 02-24-2025 Cognitive function Voice/Name [facility] Work Phone: 10-24-2023 Cognitive function Voice/Name [facility] Work Phone: 08-22-2023 Cognitive function Level Of Cons ciousness Awake;Alert;Appropriate;Follow s Commands [facility] Work Phone: 08-22-2023 Cognitive function Voice/Name [facility] Work Phone: Clinical Notes 08-09-2014 to 02-24-2025 Note Date & Type Note Facility 02-24-2025 Consult note [facility] 02-24-2025 Discharge summary [facility] 02-24-2025 History and physical note [facility] 02-24-2025 History and physical note Note Date/Time February 24, 2025 6:23pm [facility] Medical Records Department [address] [place] [address] History & Physical Exam 02/24/25 1616 MR#: [id number] Acct: [id number] Name: ENRIQUE RODRIGUEZ Rep #:[id number] : 1960 64 From: Marco Madison MD PCP: YEVGENIY Barcenas Status:REG [facility] Location: [place] [address] HPI - General General Date of Service: 02/24/25 Chief Complaint: Bladder neck contracture HPI Narrative ENRIQUE RODRIGUEZ, is a 64 M who presents for transurethral incision of a bladder neck contracture using the Olympus bipolar set [facility] Medical History Prostate disease High [...] myocardial infarction) Atherosclerosis of coronary artery of [place] heart without angina pectoris Home Medications ?Medication [...] Madison MD> Cosigner Signature (if applicable): CC: MACHINIST SUPERVISOR-Seferino Owens; Dr. Marco Madison MD~ Signed [facility] Work Phone: 1(219) 377-920805-14-2025 Consult note [facility] Medical Records Department [address] [place] [address] Anesthesia Postop Eval I 02/24/251715 MR#: [id number] Acct: [id number] Name: ENRIQUE RODRIGUEZ Rep #:[id number] : 1960 64 From: Chu Rasheed MD PCP: YEVGENIY Barcenas Status:REG SDC Y Race: C Location: [place] [address] Anesthesia: Postop Eval I Current Vital Signs [...] MD Cosigner Signature: Date CC: ~ Signed [facility]05-14-2025 Procedure note [facility] Medical Records Department [address] [address] Operative Report 02/24/25 1703 MR#: [id number] Acct: [id number] Name: ENRIQUE RODRIGUEZ Rep #:[id number] : 1960 64 From: Marco Madison MD PCP: YEVGENIY Barcenas Status:[facility] Location: [place] [address] Operative Report (Standard) Operative Information Date of Procedure: 02/24/25 Pre-Operative Diagnosis: Bladder neck contracture Post-Operative Diagnosis: The same Surgery/Procedure Performed: Transurethral incision of a bladder neck contracture inspector glass or mirror: No Type of Anesthesia: General RN Documented Start/Stop Times: Operation Date: 02/24/25 15:25 Case Time Into Pre-Op 02/24/25 13:20 Procedure Start Time: 16:51 Procedure Stop Time: 17:03 Select all DRAINS/GRAFTS/IMPLANTS that apply: Drains Drain details: 20 Tristanian Case Estimated Blood Loss: None Specimen collected: No Description of surgery: 64-year-old male with a very slow slow flow was found to have a bladder neck contracture he also has a mild meatal stenosis so he underwent general anesthetic I dilated the meatus from [address] up to 28 Tristanian afterthis I went in with a 24 Tristanian noncontinuous flow Olympus bipolar resec toscope we [...] cauterized obtain hemostasis we put a 20 Tristanian catheter into the bladder anesthesia was reversed [...] CC: YEVGENIY Owens; Dr. Marco Madison MD~ Signed [facility]05-14-2025 Consult note Author Chu Rasheed [facility] Note Date/Time February 24, 2025 2:23p m [facility] Medical Records Department [address] [facility] [place] [address] Pre-Anesthesia Evaluation 02/24/25 1400 MR#: [id number] Acct: [id number] Name: ENRIQUE RODRIGUEZ Rep #:[id number] : 1960 64 From: Chu Rasheed MD PCP: YEVGENIY Barcenas Status:REG SDC Y Race: C Location: [place] [address] ASA Classification* ASA Classification ASA Classification: 3 [...] 02/23/25 13:30 02/23/25 Hgb 13.4 g/dL (13.0-16.5) 02/23/25:30 02/23/25 Hct 39.7 % (40-54) L 02/23/25 [...] NECK CONTRACTURE Anesthesia History Anesthesia History - development coordinator: Anesthesia History - development coordinator Hx Hospitalization No 02/19/25 08:55 Any Problems [...] take am of surgery PONV PONV - development coordinator: PONV - development coordinator Female No 02/19/25 08:55 HX of Motion [...] 02/24/25 13:38 Respiratory Assessment Respiratory Assessment - development coordinator: Respiratory Tract Infection Hx - development coordinator Hx Respiratory Tract Infection No 02/19/25 08:55 STOP Sleep Apnea STOP Sleep Apnea - development coordinator: STOP Sleep Apnea - development coordinator Hx Hypertension Yes: CONTROLLED WITH MED 02/19/25 [...] Tobacco Use History Tobacco Use History - development coordinator: Tobacco Use History - development coordinator Tobacco Use Smoking Status Current every day smoker 02/19/25 08:55 Hx Tobacco Use Yes 02/19/25 08:55 Years Smoking Packs Smoked per Day Smoking Cessation Date was within the last 15 years Hx Smoking Cessation Date Hx Smoking Cessation No 02/19/25 08:55 Counseling Any additional information?: Yes Smoking Status: Current every day smoker (Patient smoked today.) Hematologic Medial History 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 Hx of Blood Transfusion No 02/19/25 08:55 [...] confused, unrespo /Reproduction History /Reproductive History - development coordinator: /Reproductive Hx- development coordinator Hx Now No 02/19/25 08:55 Gestational Age [...] myocardial infarction) Atherosclerosis of coronary artery of [place] heart without angina pectoris Home Medications ?Medication [...] no additional complaints, except as documented. 02/24/25 6059 <Electronically signed by Chu juarez MD> Date _ Chu Rasheed MD [facility] Signature: Date CC: ~ Signed [facility] Work Phone: 1(968) 222-550405-14-2025 [facility] Medical Records Department [address] [place] [address] [place] [address] History Physical Exam 02/24/25 1616 MR#: [id number] Acct: [id number] Name: ENRIQUE RODRIGUEZ Rep #: [id number] : 1960 64 From: Marco Madison MD PCP: YEVGENIY Barcenas Status:REG [facility] Location: [place] [address] HPI - General General Date of Service: 02/24/25 Chief Complaint: Bladder neck contracture HPI Narrative ENRIQUE RODRIGUEZ, is a 64 M who presents for transurethral incision of a bladder neck contracture using the Olympus bipolar set [facility] Medical History Prostate disease High [...] myocardial infarction) Atherosclerosis of coronary artery of [place] heart without angina pectoris Home Medications ???Medication [...] 02/24/25 1616 Cosigner Signature (if applicable): CC: MACHINIST SUPERVISOR-C Dionna Owens; Dr. Marco Madison [facility] Consult note [facility] Medical Records Department [address] [place] [id number] Pre-Anesthesia Evaluation 02/24/25 1400 MR#: [id number] Acct: [id number] Name: ENRIQUE RODRIGUEZ Rep #:[id number] : 1960 64 From: Chu Rasheed MD PCP: YEVGENIY Barcenas Status:REG SDC Y Race: C Location: [facility]18- ASA Classification* ASA Classification ASA Classification: 3 [...] 13:02/23/25 Hct 39.7 % (40-54) L 02/23/25 13:02/23/25 Plt Count 272 K/mm3 (150-450) 02/23/25 13:02/23/25 CHEMISTRY Potassium 4.0 mmol/L (3.3-5.1) 02/23/25 13:02/23/25 Sodium 139 mmol/L (133-145) 02/23/25 13:02/23/25 BUN 14 mg/dL (4-19) 02/23/25 13:02/23/25 Creatinine 0.77 mg/dL (0.70-1.20) 02/23/25 13:02/23/25 Glucose 101 mg/dL (70-99) H 02/23/25 13:02/23/25 TSH 1.08 uIU/mL (0.358-3.74) 05/02/23 12:40 COAG PT 13.0 SECONDS (11.7-14.9) 02/23/25 13:30 Pre-Assessment Diagnosis/Proposed Procedure Planned Operative Procedure(s): TUR BLADDER NECK CONTRACTURE Anesthesia History Anesthesia History - development coordinator: Anesthesia History - development coordinator Hx Hospitalization No 02/19/25 08:55 Any Problems [...] take am of surgery PONV PONV - development coordinator: PONV - development coordinator Female No 02/19/25 08:55 HX of Motion [...] 02/24/25 13:38 Respiratory Assessment Respiratory Assessment - development coordinator: Respiratory Tract Infection Hx - development coordinator Hx Respiratory Tract Infection No 02/19/25 08:55 STOP Sleep Apnea STOP Sleep Apnea - development coordinator: STOP Sleep Apnea - development coordinator Hx Hypertension Yes: CONTROLLED WITH MED 02/19/25 [...] Tobacco Use History Tobacco Use History - development coordinator: Tobacco Use History - development coordinator Tobacco Use Smoking Status Current every day smoker 02/19/25 08:55 Hx Tobacco Use Yes 02/19/25 08:55 Years Smoking Packs Smoked per Day Smoking Cessation Date was within the last 15 years Hx Smoking Cessation Date Hx Smoking Cessation No 02/19/25 08:55 Counseling Any additional information?: Yes Smoking Status: Current every day smoker (Patient smoked today.) Hematologic Medial History 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 Hx of Blood Transfusion No 02/19/25 08:55 [...] confused, unrespo /Reproduction History /Reproductive History - development coordinator: /Reproductive Hx- development coordinator Hx Now No 02/19/25 08:55 Gestational Age [...] myocardial infarction) Atherosclerosis of coronary artery of [place] heart without angina pectoris Home Medications ?Medication [...] 02/24/25 1423 ann SALAZAR> Date _ Chu Rasheed MD Cosigner Signature: Date CC: ~ Signed [facility]03-27-2025 Evaluation note* Diagnosis Onset Date Resolution Status Admit Date Hyperlipemia acute January 07, 2025 3:17pm Hypertension chronic January 07, 2025 3:17pm [facility] Work Phone: 1(890) 924-438403-27-2025 Evaluation note* Diagnosis Onset Date Resolution Status Admit Date Hyperlipemia acute January 07, 2025 3:17pm Hypertension chronic January 07, 2025 3:17pm Abdominal wall abscess acute Ju ne 2024 3:51pm Hyperlipemia acute March 16 3:51pm COPD exacerbation chronic March 3:51pm Dyspnea on exertion chronic March 16, 2025 3:51pm Hypertension chronic March 16 3:51pm [facility] Work Phone: 1(452) 767-466703-27-2025 Evaluation note* Diagnosis Onset Date Resolution Status Admit Date Hyperlipemia acute January 07, 2025 3:17pm Hypertension chronic January 07, 2025 3:17pm Abdominal wall abscess acute Ju ne 2024 3:51pm Hyperlipemia acute March 16 3:51pm COPD exacerbation chronic March 3:51pm Dyspnea on exertion chronic March 16, 2025 3:51pm Hypertension chronic March 16 3:51pm Abdominal wall abscess acute Ju ne 2024 6:50pm Lipoma of anterior chest wall acute April 05, 2025 6:50pm [facility] Work Phone: 1(624) 160-426603-27-2025 Evaluation note* Diagnosis Onset Date Resolution Status Admit Date Hyperlipemia acute January 07, 2025 3:17pm Hypertension chronic January 07, 2025 3:17pm Abdominal wall abscess acute 2024 3:51pm Hyperlipemia acute March 16 3:51pm COPD exacerbation chronic March 3:51pm Dyspnea on exertion chronic March 16, 2025 3:51pm Hypertension chronic March 16 3:51pm Abdominal wall abscess acute Ju 2024 6:50pm Lipoma of anterior chest wall acute April 05, 2025 6:50pm COPD exacerbation chronic April 052024 6:50pm Lipoma of anterior chest wall acute April 26, 2025 2:09pm [facility] Work Phone: 1(494) 613-888409-02-2024 NoteHNO ID: [id number] Author: KAYLYN CHRISTIANSON RN Service: Care Management [...] Physician Primary Care Physician Name/Phone: Dionna Owens APRN.ATTORNEY RECRUITER/ Discharge order is written. RN NATALY met with the patient at bedside to discuss discharge planning needs. No skilled needs were identified. His son will be driving him home today. SIGNATURE: Kaylyn Christianson RN PATIENT NAME: Enrique Rodriguez DATE: June 15, 2024 TIME: 11:31 AM CONTACT #: [phone] NoteHNO ID: [id number] Author: KAYLYN CHRISTIANSON RN Service: Care Management Author Type: Registered Nurse Type: Care Mgt Initial Assessment Filed: 06/15/2024 11:30 Note Text: CARE MANAGEMENT: ASSESSMENT AND DISCHARGE PLAN SERVICE DATE: June 15, 2024 SERVICE TIME: 11:30 AM PCP: Dionna Owens APRN.CNP Primary Contact: Extended Emergency Contact Information Primary Emergency Contact: Mita Rodriguez Mobile Relation: Spouse Admission Status: Observation Insurance Provider: MEDICARE A AND B Discharge Planning requested by: Per Department Practice Potential Transition Plans No Services Indicated Advance Directives Current Advance Directive: Health Care Power of Research Scientist In Chart: No Material Preparation Worker Attempted to Assist with AD Completion: Yes [...] Be able to go home, General wellness Gould of Choice Explained: Gould of Choice Given: No Reason Not Given: No placements necessary Are you interested in bedside delivery of your medications? No, preferred community Pharmacy is [email or web address]. Discharge Planning Participant(s): Patient Caregiver Assessment: Caregiver [...] IV ATB?s, Home Oxygen), please call the Hotel Concierge covering this patient. SIGNATURE: Kaylyn Christianson RN PATIENT NAME: Enrique Rodriguez DATE: June 15, 2024 TIME: 11:29 AM CONTACT #: [phone] (AGENT OF COVID-19) RNA: Not detected INFLUENZA A RNA: Not detected INFLUENZA B RNA: Not detected RESPIRATORY SYNCYTIAL VIRUS (RSV) RNA: Not detectedMorrow County HospitalComment on above:Performed By: #### [id number] ####[facility] LABORATORYCLIA [id number] [place] [address] [facility]09-01-2024 NoteHNO ID: [id number] Author: EMERITA SUAZO RT(R) Service: Radiology Author Type: Technologist Type: Progress [...] PATIENT PRESENTS WITH AN IMPLANTABLE OR ATTACHED ASSISTANT ASSOCIATE PROFESSOR: No ALLERGIES: Reviewed and unchanged CONTRAST ALLERGY: [...] Rodriguez DATE: June 14, 2024 TIME: 12:41 PMMorrow County [id number] Discharge summary Author Nicholas Lin [facility] October 24, 2023 3:20pm Note Date/Time October 24, 2023 2 :50pm [facility] Medical Records Department [address] [place] [address] Instructions for Home/Discharge Instructions 10/24/23 1449 MR#: [id number] Acct: [id number] Name: ENRIQUE RODRIGUEZ Rep #:[id number] : 1960 63 From: Nihcolas Reddy PCP: Dr. Bre Ring MD Status:REG [...] CC: Dr. Bre Ring MD ~ Signed [facility] Work Phone: 1(360) 228-891201-11-2024 History and physical note Author Nicholas Lin [facility] October 24, 2023 9:24am Note Date/Time October 24, 2023 9 :22am [facility] Medical Records Department [address] [place] [address] [place] [address] History & Physical Exam 10/24/23 0920 MR#: [id number] Acct: [id number] Name: ENRIQUE RODRIGUEZ Rep #:[id number] : 1960 63 From: Nicholas Reddy PCP: Dr. Bre Ring MD Status:REG SD C Location: [place] [address] History and Physical Date of Admission: 10/24/23 Date of Service: 10/04/23 MR#: [id number] Acct: [id number] Name: ENRIQUE RODRIGUEZ Rep #: [id number] : 1960 Provider: Dr. Nicholas Lin MD Age/Sex: 63/M Location: [facility] Status: Signed Intake Vital Signs 08/27/2309:21 10/04/2313:01 [...] BID #14 tabs 08/21/23 [Rx Confirmed 10/04/23] [facility] Medical History Alcohol use Arthritis Atherosclerosis of coronary artery of [place] heart without angina pectoris BPH (benign prostatic [...] [facility] the [facility] He admits that he did [...] [place] in his custodial. Beyond the occasional discomfort from these hernias [...] for robot-assistedbilateral inguinal hernia repair with mesh. 10/24/23 0971 <Electronically signed by Nicholas Lin MD> Cosigner Signature (if applicable): CC: Dr. Bre Ring MD; Dr. Nicholas Lin MD~ Signed [facility] Work Phone: [phone]) 244-476410-27-2014 Evaluation note* Diagnosis Onset Date Resolution Status History of coronary artery stent placement July acute Coronary artery disease day care provider dorothy Hypertension chronic [facility] Work Phone: [phone]) 506-475410-27-2014 Evaluation note* Diagnosis Onset Date Resolution Status History of coronary artery stent placement July acute Coronary artery disease day care provider dorothy Hypertension chronic Inguinal hernia bilateral, non-recurrent chronic Inguinal hernia bilateral, non-recurrent [facility] Work Phone: Consult note Author [facility] Note Date/Time February 24, 2025 5:19p m [facility] Medical Records Department [address] [place] [address] Anesthesia Postop Eval I 02/24/251715 MR#: [id number] Acct: [id number] Name: ENRIQUE RODRIGUEZ GARETT Rep #:[id number] : 1960 64 From: Chu Rasheed MD PCP: Dionna Owens, MACHINIST SUPERVISOR-C Status:REG SDC Y Race: C Location: [place] [address] Anesthesia: Postop Eval I Current Vital Signs [...] MD Cosigner Signature: Date CC: ~ Signed [facility] Work Phone: Consult note Author Chu Rasheed [facility] Note Date/Time February 24, 2025 6:23p m [facility] Medical Records Department [address] [facility] [address] Anesthesia Postop Eval II 02/24/251756 MR#: [id number] Acct: [id number] Name: ENRIQUE RODRIGUEZ Rep #:[id number] : 1960 64 From: Chu Rasheed MD PCP: YEVGENIY Barcenas Status:REG NDC Y Race: C Location: [place] [address] Anesthesia Postop Eval I Sum Postop Eval [...] MD Cosigner Signature: Date CC: ~ Signed [facility] Work Phone: Discharge summary Author Marco Madison [facility] Note Date/Time February 24, 2025 6:23p m [facility] Medical Records Department [address] [place] [address] Instructions for Home/Discharge Instructions 02/24/25 1710 MR#: [id number] Acct: [id number] Name: ENRIQUE RODRIGUEZ Rep #:[id number] : [...] bag and Case to large bag Drain: [place] Follow Up Care Please Follow Up With: Marco Madison MD When: Call [phone] for an appointment Test Results: Test results from this visit will be discussed in further detail at your follow- up appointment, if applicable. Discharge Plan Admission Primary Reason for Your Visit: incision of bladder neck Attending Provider: Marco Madison Primary Care Provider: Dionna Owens NP Instructions Print Language: Nepali Discharge Orders/Prescriptions Prescriptions: New oxycodone 5 mg [...] Referrals / Follow Up: Dionna Owens NP, MACHINIST SUPERVISOR-C [Primary Care Provider] - Disposition Disposition (needs filled in before D/C Order can be placed): Home, Self Care 02/24/25 1710<Electronically signed by Marco Madison MD>Marco Madison MD CC: MACHINIST SUPERVISOR-C Dionna Owens ~ Signed [facility] Work Phone: Evaluation noteNo assessment information available [facility] Work Phone: Evaluation note* Diagnosis Onset Date Resolution Status Inguinal hernia bilateral, non-recurrent chronic Inguinal hernia bilateral, non-recurrent chronic Inguinal hernia bilateral, non-recurrent chronic [facility] Work Phone: Evaluation note* Diagnosis Onset Date Resolution Status Inguinal hernia bilateral, non-recurrent chronic S/P bilateral inguinal hernia repair acute S/P bilateral inguinal hernia repair acute Bronchitis acute Maxillary sinusitis, acute a cute [facility] Work Phone: Hospital Discharge instructionsAmbulatory Orders* Dermatology Location: None Selected [facility] Work Phone: Reason for referral (narrative)No reason for referral information availableWUniversity Hospitals Health System Work Phone: Chief Complaint and Reason for Visit Chief Complaint CAD / EST (ABAD) SCREENING TOBACCO USE Reason for Visit History of coronary artery stent placement Coronary artery disease Hypertension Chief Complaint CAD / EST (ABAD) SCREENING TOBACCO USE ABDOMINAL PAIN Atherosclerotic heart disease of [place] coronary a Reason for Visit History of [...] Bilateral Inguinal Daniel HERNIA DOS 10/24 HERNIA 10-24 medication refills/Bronchitis Reason for Visit Inguinal hernia bila teral, non-recurrent S/P bilateral inguinal hernia repair S/P bilateral inguinal hernia repair Bronchitis Maxillary sinusitis, acute Chief Complaint CAD / EST (ABAD) SCREENING TOBACCO USE ABDOMINAL PAIN Atherosclerotic heart disease of [place] coronary a Amb Documentation BILATERAL INGUINAL HERNIA [...] 7pm Hypertension January 07, 2025 3:1 7pm Chief Complaint Admit Date medication refills/lab cmp January 07, 2 025 3:17pm PREOP February 23, 2025 1:13p m Cysto,Transurethral Resection, Bladder N mello Contra February 24, 2025 1:04pm medication refills/labs March 16, 2025 3 :51pm Reason for Visit Admit Date Hyperlipemia January 07, 2025 3:1 7pm Hypertension January 07, 2025 3:1 7pm Abdominal wall abscess March 16, 2025 3: 51pm Hyperlipemia March 16, 2025 3:51p m COPD exacerbation March 16, 2025 3:51p m Dyspnea on exertion March 16, 2025 3:51p m Hypertension March 16, 2025 3:51p m Chief Complaint Admit Date medication refills/lab cmp January 07, 2 025 3:17pm PREOP February 23, 2025 1:13p m Cysto,Transurethral Resection, Bladder N mello Contra February 24, 2025 1:04pm medication refills/labs March 16, 2025 3 :51pm R) side pain April 05, 2025 6:50 pm Reason for Visit Admit Date Hyperlipemia January 07, 2025 3:1 7pm Hypertension January 07, 2025 3:1 7pm Abdominal wall abscess March 16, 2025 3: 51pm Hyperlipemia March 16, 2025 3:51p m COPD exacerbation March 16, 2025 3:51p m Dyspnea on exertion March 16, 2025 3:51p m Hypertension March 16, 2025 3:51p m Abdominal wall abscess April 05, 2025 6 :50pm Lipoma of anterior chest wall April 05, 2025 6:50pm Chief Complaint Admit Date medication refills/lab cmp January 07, 2 025 3:17pm PREOP February 23, 2025 1:13p m Cysto,Transurethral Resection, Bladder N mello Contra February 24, 2025 1:04pm medication refills/labs March 16, 2025 3 :51pm R) side pain April 05, 2025 6:50 pm LIPOMA ON ABDOMEN April 26, 2025 2:09 pm Reason for Visit Admit Date Hyperlipemia January 07, 2025 3:1 7pm Hypertension January 07, 2025 3:1 7pm Abdominal wall abscess March 16, 2025 3: 51pm Hyperlipemia March 16, 2025 3:51p m COPD exacerbation March 16, 2025 3:51p m Dyspnea on exertion March 16, 2025 3:51p m Hypertension March 16, 2025 3:51p m Abdominal wall abscess April 05, 2025 6 :50pm Lipoma of anterior chest wall April 05, 2025 6:50pm COPD exacerbation April 05, 2025 6:50 pm Lipoma of anterior chest wall April 26, 2025 2:09pm Family History No Family History Records Found Relationship Condition Age at Onset Recorded Date/T lizette father Hypertension Unknown Cardiac disease Unknown Cerebrovascular accident (CVA) Unknown mother Cardiac disease Unknown brother Malignant neoplasm Unknown sister Cardiac disease Unknown Malignant neoplasm Unknown Advance Directives No Advanced Directives Records Found Advance Directive Response Recorded Date/ Time Living Will No October 08, 2 023 1:05pm Power of Research Scientist No October 08, 2023 1:05pm Advance Directive Response Recorded Date/ Time Living Will No October 08, 2 023 2:05pm Power of Research Scientist No October 08, 2023 2:05pm Advance Directive Response Recorded Date/ Time Living Will No August 21 2:31pm Power of Research Scientist No August 21, 2023 2:31pm Advance Directive Response Recorded Date/ Time Do you have a Healthcare Power of Research Scientist? No February 19, 2025 8:55am Summary Purpose [...] Provider, Referring Prov ider Active Dionna Owens MACHINIST SUPERVISOR, MACHINIST SUPERVISOR-C Attending Provider Active Team Status: Inactive Member Role Status Tai Ring MD Primary Care Provider Active Alethea Irene Attending Provider, Referring Provide r Active Team Status: Inactive Member Role Status Tai Ring MD Primary Care Provider Active Dr. Nicholas Lin MD Attending Provider, Referring P rovider Active Team Status: Active Member Role Status Tai Ring MD Primary Care Provider Active Alexandra Love MACHINIST SUPERVISOR, MACHINIST SUPERVISOR-C Attending Provider Active Team Status: Inactive Member [...] Michael Houser MD Attending Provider, Referring Pr ovid Active Team Status: Active Member Role Status Dates Dionna Owens MACHINIST SUPERVISOR, MACHINIST SUPERVISOR-C Primary Care Provider Active Team Status: Inactive Member Role Status Dates Dionna Owens MACHINIST SUPERVISOR, MACHINIST SUPERVISOR-C Primary Care Provider Active Start: January 07, 2025 End: January 07, 2025 Dionna Owens MACHINIST SUPERVISOR, MACHINIST SUPERVISOR-C Attending Provider Active Start: January 07, 2025 End: January 07, 2025 Dionna Owens MACHINIST SUPERVISOR, MACHINIST SUPERVISOR-C Referring Provider Active Start: January 07, 2025 End: January 07, 2025 Team Status: Inactive Member Role Status Dates Dionna Owens MACHINIST SUPERVISOR, MACHINIST SUPERVISOR-C Primary Care Provider Active Start: February 24, 2025 End: February 24, 2025 Dr. Marco Madison MD Attending Provider Active Start: February 24, 2025 End: February 24, 2025 Dr. Marco Madison MD Referring Provider Active Start: February 24, 2025 End: February 24, 2025 Team Status: Active Member Role Status Dates Dionna Owens MACHINIST SUPERVISOR, MACHINIST SUPERVISOR-C Primary Care Provider Active Start: February 23, 2025 End: February 23, 2025 Dr. Nicholas Duarte MD Attending Provider Active Start: February 23, 2025 End: February 23, 2025 Dr. Marco Madison MD Referring Provider Active Start: February 23, 2025 End: February 23, 2025 Team Status: Inactive Member Role Status Dates Dionna Owens MACHINIST SUPERVISOR, MACHINIST SUPERVISOR-C Primary Care Provider Active Start: March 16, 2025 End: March 16, 2025 Dionna Owens MACHINIST SUPERVISOR, MACHINIST SUPERVISOR-C Attending Provider Active Start: March 16, 2025 End: March 16, 2025 Dionna Owens MACHINIST SUPERVISOR, MACHINIST SUPERVISOR-C Referring Provider Active Start: March 16, 2025 End: March 16, 2025 Team Status: Active Member Role Status Dates Dionna Owens MACHINIST SUPERVISOR, MACHINIST SUPERVISOR-C Primary Care Provider Active Start: March 16, 2025 Dionna Owens MACHINIST SUPERVISOR, MACHINIST SUPERVISOR-C Attending Provider Active Start: March 16, 2025 Team Status: Inactive Member Role Status Dates Dionna Owens MACHINIST SUPERVISOR, MACHINIST SUPERVISOR-C Primary Care Provider Active Start: April 05, 2025 End: April 05, 2025 Dionna Owens MACHINIST SUPERVISOR, MACHINIST SUPERVISOR-C Attending Provider Active Start: April 05, 2025 End: April 05, 2025 Dionna Owens MACHINIST SUPERVISOR, MACHINIST SUPERVISOR-C Referring Provider Active Start: April 05, 2025 End: April 05, 2025 Team Status: Active Member Role/Relationship Status Dates Dionna Owens MACHINIST SUPERVISOR, MACHINIST SUPERVISOR-C Primary Care Provider Active Team Status: Inactive Member Role/Relationship Status Dates Dionna Owens MACHINIST SUPERVISOR, MACHINIST SUPERVISOR-C Primary Care Provider Active Start: January 07, 2025 End: January 07, 2025 Dionna Owens MACHINIST SUPERVISOR, MACHINIST SUPERVISOR-C Attending Provider Active Start: January 07, 2025 End: January 07, 2025 Dionna Owens MACHINIST SUPERVISOR, MACHINIST SUPERVISOR-C Referring Provider Active Start: January 07, 2025 End: January 07, 2025 Team Status: Active Member Role/Relationship Status Dates Dionna Owens MACHINIST SUPERVISOR, MACHINIST SUPERVISOR-C Primary Care Provider Active Start: February 23, 2025 End: February 23, 2025 Dr. Nicholas Duarte MD Attending Provider Active Start: February 23, 2025 End: February 23, 2025 Dr. Marco Madison MD Referring Provider Active Start: February 23, 2025 End: February 23, 2025 Team Status: Inactive Member Role/Relationship Status Dates Dionna Owens MACHINIST SUPERVISOR, MACHINIST SUPERVISOR-C Primary Care Provider Active Start: February 24, 2025 End: February 24, 2025 Dr. Marco Madison MD Attending Provider Active Start: February 24, 2025 End: February 24, 2025 Dr. Marco Madison MD Referring Provider Active Start: February 24, 2025 End: February 24, 2025 Team Status: Inactive Member Role/Relationship Status Dates Dionna Owens MACHINIST SUPERVISOR, MACHINIST SUPERVISOR-C Primary Care Provider Active Start: March 16, 2025 End: March 16, 2025 Dionna Owens MACHINIST SUPERVISOR, MACHINIST SUPERVISOR-C Attending Provider Active Start: March 16, 2025 End: March 16, 2025 Dionna Owens MACHINIST SUPERVISOR, MACHINIST SUPERVISOR-C Referring Provider Active Start: March 16, 2025 End: March 16, 2025 Team Status: Inactive Member Role/Relationship Status Dates Dionna Owens MACHINIST SUPERVISOR, MACHINIST SUPERVISOR-C Primary Care Provider Active Start: March 16, 2025 End: March 16, 2025 Dionna Owens MACHINIST SUPERVISOR, MACHINIST SUPERVISOR-C Attending Provider Active Start: March 16, 2025 End: March 16, 2025 Dionna Owens MACHINIST SUPERVISOR, MACHINIST SUPERVISOR-C Referring Provider Active Start: March 16, 2025 End: March 16, 2025 Team Status: Inactive Member Role/Relationship Status Dates Dionna Owens NP, NP-C Primary Care Provider Active Start: April 05, 2025 End: April 05, 2025 Dionna Owens NP, NP-C Attending Provider Active Start: April 05, 2025 End: April 05, 2025 Dionna Owens NP, NP-C Referring Provider Active Start: April 05, 2025 End: April 05, 2025 Team Status: Inactive Member Role/Relationship Status Dates Dionna Owens NP, NP-C Primary Care Provider Active Start: April 26, 2025 End: April 26, 2025 Dionna Owens NP, NP-C Referring Provider Active Start: April 26, 2025 End: April 26, 2025 Dr. Nicholas Lin MD Attending Provider Active Start: April 26, 2025 End: April 26, 2025 Goals (unrecognized section and content) Goals may be documented in a n alternate sectionGoals may be documented in an alternate sectionGoals may be documented in an alternate sectionGoals may be documented in an alternate section (unrecognized sect ion and content) No Status Records FoundNo Status Records Found INFORMATION SOURCE (unrecogn ized section and content) DATE CREATED AUTHOR 06/15/2024 [facility] DATE CREATED AUTHOR AUTHOR'S DOMONIQUE DOUGHERTY 04/27/2025 [facility] FOR RECORDS PERTAINING TO PATIENTS WHO ARE [...] BE BASED ON THE PRIMARY CLINICAL RECORDS. [employer] provides no warranty or guarantee of the accuracy or completeness of information in this document.
== END | disposition home or self-care (01) ==
LOC: US 07:52
PROVIDERS: PCP Nurse Practitioner; Referring Provider Surgery; Visit Provider Surgery
DX: D17.1 Benign lipomatous neoplasm of skin and subcutaneous tissue of trunk (principal)
CPT/HCPCS: 76882

== ENCOUNTER 2025-05-26 13:24 | Outpatient (CLI) | payer MEDICARE, OTHER, SELFPAY ==
[2025-05-26 15:29] LABS: Hematocrit 39.6 % (40-54); Hemoglobin 13.3 g/dL (13.0-16.5); Immature Granulocytes Count 0.040 X10^3/uL (0.0-0.0); Mean Corp Hgb Conc 33.6 g/dL (32-36); Mean Corpuscular Volume 93.6 fL (80-94); Mean Platelet Vol. 11.6 fl (6.2-12.0); NRBC Flagged by Analyzer 0 % (0-5); Platelet Count 260 K/mm3 (150-450); RBC Distribution Width CV 14.6 % (11.6-14.6); RBC Distribution Width SD 50.5 fl (35.1-43.9); Red Blood Count 4.23 M/mm3 (4.6-6.2); White Blood Count 12.2 K/mm3 (4.4-11.0)
[2025-05-26 17:31] LABS: AST(SGOT) 17 U/L (<=37); Alanine Aminotransfer ALT/SGPT 15 U/L (<=46); Albumin, Serum 3.8 g/dL (3.4-4.8); Alkaline Phosphatase 80 U/L (40-129); Anion Gap 15 (5-15); BUN 14 mg/dL (4-19); BUN/Creat Ratio 16.9 RATIO (10-20); Calcium,Total 9.1 mg/dL (7.6-11.0); Carbon Dioxide 19.4 mmol/L (21.0-32.0); Chloride 104 mmol/L (98-108); Globulin 2.8 g/dL (2.2-4.2); Glucose 109 mg/dL (70-99); Potassium 4.1 mmol/L (3.3-5.1)
== END 2025-05-26 23:59 | disposition home or self-care (01) ==
LOC: LAB 13:27 → MTLAB 13:28
PROVIDERS: PCP Nurse Practitioner; Referring Provider Physician Assistant; Visit Provider Physician Assistant
DX: L94.0 Localized scleroderma [morphea] (principal)
CPT/HCPCS: 36415; 80053; 84439; 84443; 85025; 86038; 86200; 86235; 86431

== ENCOUNTER → 2025-06-23 | Outpatient (CLI) | payer MEDICARE, OTHER, SELFPAY | END | disposition home or self-care (01) | PROVIDERS: PCP Nurse Practitioner; Visit Provider Nurse Practitioner | DX: R33.9 Retention of urine, unspecified (principal); N39.0 Urinary tract infection, site not specified | CPT/HCPCS: 87077; 87086; 87088; 87186 ==